=== PATIENT | male | born 1960 | race Caucasian/White ===

== ENCOUNTER → 2016-05-29 | Outpatient (CLI) | payer OTHER ==
--- NOTE | 2016-05-29 17:28 | XR ---
EXAMINATION TYPE: XR foot complete RT DATE OF EXAM: 05/29/2016 5:20 PM COMPARISON: NONE HISTORY: Foot pain TECHNIQUE: 3 views FINDINGS: There is mild spurring and narrowing at the first MP joint. I see no fracture nor dislocati on. Metatarsals are intact. There are no erosions. 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
== END | disposition home or self-care (01) ==
LOC: RADXRMAIN 16:55
PROVIDERS: ATTEND Physician Assistant
DX: M19.071 Primary osteoarthritis, right ankle and foot (principal)

== ENCOUNTER 2016-06-29 17:03 | Observation (INO) | payer OTHER ==
[2016-06-29] MEDS ORDERED: ASPIRIN 81 MG CHEW PO STA (17:24)
--- NOTE | 2016-06-29 17:44 | ED ---
Chest Pain HPI - General Chief Complaint: Chest Pain Stated Complaint: Abn EKG Time Seen by Provider: 06/29/16 17:10 Source: patient, RN notes reviewed Mode of arrival: wheelchair Limitations: no limitations - History of Present Illness Initial Comments: This is a 55-year-old male who was sent over from his doctor's office for evaluation for atypical chest pain. He does state he has had increased blood pressure recently but he's had on-and-off episodes over the past 4 days ago some left arm discomfort. He's had it several times last episode last evening was 8/10 in severity now it's 0 was pressure like in nature no jaw pain no nausea sweats or other symptoms he's never had pain like this before. He is a smoker he denies any lower known heart disease. He was sent from the office he had an EKG done there. MD Complaint: chest pain - Related Data Home Medications Medication Instructions Recorded Confirmed Atenolol [Tenormin] 50 mg PO DAILY 05/25/14 06/29/16 Omeprazole [PriLOSEC] 20 mg PO DAILY 05/25/14 06/29/16 Tamsulosin HCl [Flomax] 0.4 mg PO DAILY 05/25/14 06/29/16 Albuterol Nebulized [Ventolin 2.5 mg INHALATION RT-Q4H PRN 04/13/15 06/29/16 Nebulized] Albuterol Inhaler [Ventolin Hfa 2 puff INHALATION RT-Q6H PRN 06/29/16 06/29/16 Inhaler] Allergies Allergy/AdvReac Type Severity Reaction Status Date / Time Penicillins Allergy Rash/Hives Verified 06/29/16 17:48 bupropion HCl AdvReac Rash/Hives Verified 06/29/16 17:48 [From Wellbutrin] Review of Systems ROS Statement: Those systems with pertinent positive or pertinent negative responses have been documented in the HPI. ROS Other: All systems not noted in ROS Statement are negative. EKG Findings - EKG Results: EKG: interpreted by SKYLA LACY, sinus rhythm, normal axis, normal QRS, normal ST/ T, no acute changes (Sinus rhythm a rate of 66. Interval 168 QRS duration 86 QT /QTC of 384/4 to this does appear to be normal EKG see no acute changes seen with compared to the EKG done the office except for the prominence of the T waves seen in both EKGs.) Past Medical History Past Medical History: COPD, GERD/Reflux, Hyperlipidemia, Hypertension, Prostate Disorder Additional Past Medical History / Comment(s): 04-13-15 ADMITTED FOR C/O SOB. CLINICAL IMPRESSION COPD,BRONCHITIS,HYPOXIA,LEUKOCYTOSIS. BRONCHITS, USING FISH OIL ND DIET TO TX HYPERLIPIDEMIA HAD BEEN TAKING LIPITOR BUT CAUSED HIM FATIGUE SO HE STOPPED TAKING IT.PT THINKS HE HAD C-DIFF AROUND 2013? 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 Smoking Status: Light tobacco smoker Past Alcohol Use History: Occasional Additional Past Alcohol Use History / Comment(s): STRTED SMOKING AGE 16 HAS BEEN TRYING TO QUIT. CURRENTLY SMOKING ONLY FEW CIG PER DAY. HAD TRIED WELLBUTRIN TO HELP HIM QUIT BUT HAD AN ALLERGIC REATION(RASH) SO STOPPED USING Past Drug Use History: None Reported - Past Family History Father History Unknown: Yes Mother Family Medical History: No Reported History Additional Family Medical History / Comment(s): HEALTHY General Exam Limitations: no limitations Course Vital Signs 06/29/16 06/29/16 06/29/16 17:04 17:43 18:13 Temperature 97.1 F L Pulse Rate 70 72 72 Respiratory 18 16 16 Rate Blood Pressure 160/87 140/85 141/74 O2 Sat by Pulse 99 97 98 Oximetry 06/29/16 06/29/16 18:43 19:12 Temperature Pulse Rate 74 75 Respiratory 16 Rate Blood Pressure 139/82 139/82 O2 Sat by Pulse 98 97 Oximetry Chest Pain MDM - MDM I did discuss findings with the patient and family patient will be admitted for evaluation by cardiology for unstable angina. He currently is asymptomatic. Disposition Clinical Impression: Unstable angina pectoris Disposition: ADMITTED IP TO THIS HOSP Condition: Stable
[2016-06-29 17:53] LABS: Basophils # (A) 0.1 k/uL (0-0.2); Basophils % (A) 1 %; CH 31.1; CHCM 33.5; Eosinophils # (A) 0.6 k/uL (0-0.7); Eosinophils % (A) 5 %; HCT 46.9 % (39.0-53.0); Luc # (Auto) 0.18; Luc % (Auto) 2; Lymphocytes # (A) 2.4 k/uL (1.0-4.8); Lymphocytes % (A) 22 %; MCH 31.7 pg (25.0-35.0); MCHC 34.1 g/dL (31.0-37.0); MCV 93.1 fL (80.0-100.0); Monocytes # (A) 0.4 k/uL (0-1.0); Monocytes % (A) 4 %; Neutrophils # (A) 7.2 k/uL (1.3-7.7); Neutrophils % (A) 66 %; RBC 5.03 m/uL (4.30-5.90); RDW 13.7 % (11.5-15.5); WBC 10.9 k/uL (3.8-10.6); WBC (Perox) 10.78
[2016-06-29 17:55] LABS: ALT 46 U/L (21-72); AST 31 U/L (17-59); Alkaline Phosphatase 79 U/L (38-126); Anion Gap 11 mmol/L; Blood Urea Nitrogen 19 mg/dL (9-20); Calcium 9.5 mg/dL (8.4-10.2); Carbon Dioxide 27 mmol/L (22-30); Chloride 100 mmol/L (98-107); Glucose 94 mg/dL (74-99); Magnesium 2.1 mg/dL (1.6-2.3); Non-African American GFR(MDRD) >60 (>60 ml/min/1.73 sqM); Potassium 4.3 mmol/L (3.5-5.1); Sodium 138 mmol/L (137-145); Total Bilirubin 0.7 mg/dL (0.2-1.3); Total Protein 8.1 g/dL (6.3-8.2)
[2016-06-29 18:03] LABS: INR 1.1 (<1.1); Partial Thromboplastin Time 25.7 sec (22.0-30.0); Prothrombin Time 11.2 sec (9.0-12.0)
[2016-06-29 18:05] LABS: Appearance,Urine Clear (Clear); Bilirubin,Urine Negative (Negative); Glucose,Urine (UA) Negative (Negative); Ketones,Urine Negative (Negative); Leukocyte Esterase,Urine Negative (Negative); Nitrite,Urine Negative (Negative); PH, Urine 6.5 (5.0-8.0); Protein,Urine Negative (Negative); Specific Gravity,Urine 1.003 (1.001-1.035); UA Billing (MACRO vs. MICRO) CHEM; Urobilinogen,Urine <2.0 mg/dL (<2.0)
[2016-06-29 18:06] LABS: Creatine Kinase 260 U/L (55-170)
[2016-06-29 18:17] LABS: Troponin I <0.012 ng/mL (0.000-0.034)
--- NOTE | 2016-06-29 18:41 | XR ---
EXAMINATION TYPE: XR chest 2V DATE OF EXAM: 06/29/2016 6:11 PM COMPARISON: 07/04/2015 HISTORY: Chest pain and short of breath TECHNIQUE: Frontal and lateral views of the chest are obtained. FINDINGS: Heart and mediastinum are normal. There is a small linear density in in the right midlung. There are no hilar masses. There is no pleural effusion. There are chest leads. IMPRESSION: Right middle lobe scarring or subsegmental atelectasis. Normal heart. No change. No acut e lung disease.
[2016-06-29] MEDS ORDERED: NITROGLYCERIN SL TABS 0.4 MG TAB SUBLINGUAL PRN (19:55)
[2016-06-29] MEDS ORDERED: HEPARIN SODIUM,PORCINE 5,000 UNIT/ML 1 ML VIAL IV ONE (19:55)
[2016-06-29] MEDS ORDERED: SODIUM CHLORIDE 0.9% 1,000 ML IV SCH (20:00)
[2016-06-29] MEDS ORDERED: NICOTINE 21MG/24HR PATCH TRANSDERM STA (20:00)
[2016-06-29] MEDS ORDERED: HEPARIN SODIUM,PORCINE/D5W PMX 25,000 UNIT in DEXTROSE/WATER 1 500ML.BAG IV SCH (20:00)
[2016-06-29 20:49] VITALS: BMI 28.8
[2016-06-29] MEDS: IPRATROPIUM-ALBUTEROL 3 ML NEB INHALATION SCH (20:57)
[2016-06-29 23:27] LABS: Creatine Kinase 208 U/L (55-170)
[2016-06-29 23:41] LABS: Creatine Kinase MB 0.7 ng/mL (0.0-2.4); Troponin I <0.012 ng/mL (0.000-0.034)
[2016-06-30] MEDS: IPRATROPIUM-ALBUTEROL 3 ML NEB INHALATION SCH ×4 (00:22→11:06)
[2016-06-30] MEDS: NITROGLYCERIN OINT 1 INCH/GM PACKET TOPICAL SCH ×2 (00:33→07:05)
[2016-06-30 04:22] LABS: Cholesterol 206 mg/dL (<200); HDL Cholesterol 40 mg/dL (40-60); Triglycerides 276 mg/dL (<150)
[2016-06-30 04:35] LABS: Creatine Kinase 177 U/L (55-170)
[2016-06-30] MEDS ORDERED: HYDROcodone/APAP 5-325MG 1 EACH TAB PO PRN (04:45)
[2016-06-30 04:49] LABS: Creatine Kinase MB 0.6 ng/mL (0.0-2.4); Troponin I <0.012 ng/mL (0.000-0.034)
[2016-06-30] MEDS ORDERED: PANTOPRAZOLE 40 MG TABLET PO SCH (07:30)
[2016-06-30 08:46] VITALS: RESP 16
[2016-06-30] MEDS ORDERED: TAMSULOSIN 0.4 MG CAP.ER.24H PO SCH (09:00)
[2016-06-30] MEDS ORDERED: ATENOLOL 50 MG TAB PO SCH (09:00)
[2016-06-30] MEDS ORDERED: ASPIRIN 325 MG TAB PO SCH (09:00)
--- NOTE | 2016-06-30 09:54 | CONS ---
DATE OF CONSULTATION: CHIEF COMPLAINT: Chest pain. Kedar is a 55-year-old gentleman with history of hypertension who initially presented to his primary care physician's office with symptoms of not feeling well, vague precordial chest pain with left arm discomfort that was initially mild to moderate intensity. By the time he came to the ER, it was resolved, but when he went to see his primary care physician his blood pressure was elevated due to which he was sent to the ER. Since admission, patient has done well and is free of symptoms. Denies chest pain, difficulty in breathing or palpitations. EKG did not reveal acute ischemic changes and cardiac enzymes have been negative. Past medical history is significant for hypertension, GERD. Medications include Ventolin, Flomax, Prilosec, Tenormin. Allergic to PENICILLIN and WELLBUTRIN. Family history is negative for premature coronary artery disease. Social history is significant for smoking. There is no history of EtOH abuse or drug abuse. REVIEW OF SYSTEMS: HEENT: Unremarkable. CARDIAC: As described above. RESPIRATORY: Negative. GI: Negative. GENITOURINARY: Negative. ALLERGY/IMMUNOLOGICAL: Negative. MUSCULOSKELETAL: Negative. ENDOCRINE: Negative. HEMATOLOGIC: Negative. DERMATOLOGY; Negative. CONSTITUTIONAL: Negative. ONCOLOGICAL: Negative. The rest of the system review is not relevant. On exam, patient is comfortable at rest. Vital signs are stable. There is no jugular venous distention. Carotid upstroke is normal. There is no bruit. Chest is clear to auscultation and percussion. Heart exam reveals first and second heart sounds. No gallop. No murmur, no rub. Abdomen is soft, nontender. Exam of the extremities did not reveal any edema. Peripheral pulses are felt. Labs show a hemoglobin of 16, platelet count is 248. Potassium is 4.3. Creatinine is 0.9. Tropes are negative. ASSESSMENT: 1. Precordial chest pain, atypical, probably noncardiac. 2. Uncontrolled hypertension. PLAN: The patient is doing well. Myocardial infarction is ruled out. I am going to obtain a stress echo on him. If this is abnormal, will consider cardiac catheterization. If not, he will be discharged home and have outpatient followup through my office.
--- NOTE | 2016-06-30 12:41 | ECHOS ---
DATE OF SERVICE: 06/30/2016 AGE: 55Y SEX: M HT: 69 WT: 195 lbs. Protocol Constantino: X Others: Stress Echo Stage: III Dur. of Exercise: 9 minutes *Heart Rate Blood Pressure *Rest: 78 Rest: 145/52 * *Max. Achieved: 138 Maximum BP: 168/45 85% PMHR: 142 100% PMHR: 165 *METS: 10.1 INDICATIONS: Chest pain. MEDICATIONS: Baseline rhythm is sinus mechanism, rate of 78, ( ) axis and intervals, poor R wave progression. Baseline blood pressure 145/52 mmHg. Patient exercised on Constantino protocol for 9 minutes reaching peak rate of 138 beats per minute, which is equal to 82% maximum predicted heart rate; peak blood pressure 168/45 mmHg. Test was terminated secondary to fatigue. There was no chest pain. Electrocardiographic monitoring revealed no evidence of diagnostic ischemic ST deviation. Baseline echocardiogram revealed normal wall motion. At peak exercise, there was normal wall motion augmentation with no hypokinesis or dyskinesis. CONCLUSION: 1. Good exercise tolerance with normal electrocardiograph response to exercise. 2. Normal stress echocardiogram with no evidence of stress-induced ischemia.
[2016-06-30 13:00] VITALS: BP 137/82; PULSE 75; TEMP 97.7
--- NOTE | 2016-06-30 16:16 | P.HPIM ---
History of Present Illness H&P Date: 06/30/16 (DC summary as well) 55-year-old gentleman with history of COPD isolated hypertension comes in to the hospital with intermittent chest pains is been ongoing for the last 2 weeks. Patient stated that he initially noted his blood pressure to be 220/105 then his brought in a blood pressure machine that was not titrated her primary care office however was having erratic blood pressure elevations. Patient went into his primary care's office yesterday from which point he was sent to the emergency room for ongoing care. In the emergency room EKG did not reveal ST-T wave changes. Chest pain that was described was intermittent in nature, or the last 2 weeks not associated with activity, nonradiating in nature pressure-like in description. At the time of my evaluation patient did not have any headaches, blurry vision, nausea, vomiting, chest pain, abdominal pain, urinary urgency or frequency. Patient does have COPD and currently smokes. States he uses albuterol and rarely requires to use it at this time. Patient sees Dr. Puga on outpatient basis Review of Systems All systems: negative (noted in HPI) Past Medical History Past Medical History: COPD, GERD/Reflux, Hyperlipidemia, Hypertension, Prostate Disorder Additional Past Medical History / Comment(s): 04-13-15 ADMITTED FOR C/O SOB. CLINICAL IMPRESSION COPD,BRONCHITIS,HYPOXIA,LEUKOCYTOSIS. BRONCHITS, USING FISH OIL ND DIET TO TX HYPERLIPIDEMIA HAD BEEN TAKING LIPITOR BUT CAUSED HIM FATIGUE SO HE STOPPED TAKING IT.PT THINKS HE HAD C-DIFF AROUND 2013? 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 Smoking Status: Former smoker Past Alcohol Use History: Occasional Additional Past Alcohol Use History / Comment(s): STRTED SMOKING AGE 16 HAS BEEN TRYING TO QUIT. CURRENTLY SMOKING ONLY FEW CIG PER DAY. HAD TRIED WELLBUTRIN TO HELP HIM QUIT BUT HAD AN ALLERGIC REATION(RASH) SO STOPPED USING Past Drug Use History: None Reported - Past Family History Father History Unknown: Yes Mother Family Medical History: No Reported History Additional Family Medical History / Comment(s): HEALTHY Medications and Allergies Home Medications Medication Instructions Recorded Confirmed Type Atenolol [Tenormin] 50 mg PO DAILY 05/25/14 06/29/16 History Omeprazole [PriLOSEC] 20 mg PO DAILY 05/25/14 06/29/16 History Tamsulosin HCl [Flomax] 0.4 mg PO DAILY 05/25/14 06/29/16 History Albuterol Nebulized [Ventolin 2.5 mg INHALATION RT-Q4H PRN 04/13/15 06/29/16 History Nebulized] Albuterol Inhaler [Ventolin Hfa 2 puff INHALATION RT-Q6H PRN 06/29/16 06/29/16 History Inhaler] Allergies Allergy/AdvReac Type Severity Reaction Status Date / Time Penicillins Allergy Rash/Hives Verified 06/29/16 20:40 bupropion HCl AdvReac Rash/Hives Verified 06/29/16 20:40 [From Wellbutrin] Physical Exam Vitals: Vital Signs Temp Pulse Pulse Pulse Resp BP BP 06/30/16 12:00 97.7 F 75 16 137/82 06/30/16 11:17 72 06/30/16 11:08 72 06/30/16 08:00 97.9 F 69 16 123/76 06/30/16 07:46 78 06/30/16 07:40 78 06/30/16 04:15 90 06/30/16 04:06 79 06/30/16 03:51 18 06/30/16 00:33 85 06/30/16 00:23 73 06/30/16 00:00 18 06/29/16 21:08 75 06/29/16 20:59 83 06/29/16 20:57 18 06/29/16 20:30 97.8 F 70 16 06/29/16 20:00 97.6 F 77 18 133/79 BP Pulse Ox 06/30/16 12:00 94 L 06/30/16 11:17 06/30/16 11:08 06/30/16 08:00 94 L 06/30/16 07:46 06/30/16 07:40 06/30/16 04:15 03/31/17 04:06 06/30/16 03:51 06/30/16 00:33 06/30/16 00:23 06/30/16 00:00 06/29/16 21:08 06/29/16 20:59 06/29/16 20:57 06/29/16 20:30 156/85 92 L 06/29/16 20:00 98 Intake and Output 06/30/16 06/30/16 06/30/16 06:59 14:59 22:59 Intake Total 165 900 Balance 165 900 Intake: Intake, IV Titration 165 Amount Heparin Sodium,Porcine/ 165 D5w Pmx 25,000 unit In Dextrose/Water 1 500ml. bag @ 11.31 UNITS/KG/HR 20 mls/hr IV .Q24H FATOU Rx #:[id number] Oral 900 Other: Voiding Method Toilet # Voids 1 Physical exam Gen. appearance oriented 3 in no distress Neck is supple no JVD Lungs good air entry clear to auscultation no rhonchi or wheezing Heart S1-S2 heard regular rate and rhythm no murmurs appreciated Abdomen is soft nontender no organomegaly bowel sounds are intact Neurologically cranial nerves II-12 grossly intact no focal motor or sensory deficits noted Skin no abnormalities appreciated Results CBC & Chem 7: 06/29/16 17:10 06/29/16 17:10 Labs: Abnormal Lab Results - Last 24 Hours (Table) 06/29/16 06/30/16 06/30/16 Range/Units 22:48 03:41 03:41 APTT (22.0-30.0) sec Total Creatine Kinase 208 H 177 H (55-170) U/L Triglycerides 276 H (<150) mg/dL Cholesterol 206 H (<200) mg/dL LDL Cholesterol, Calc 111 H (0-99) mg/dL 06/30/16 Range/Units 03:41 APTT 37.3 H (22.0-30.0) sec Total Creatine Kinase (55-170) U/L Triglycerides (<150) mg/dL Cholesterol (<200) mg/dL LDL Cholesterol, Calc (0-99) mg/dL Thrombosis Risk Factor Assmnt - Choose All That Apply Each Factor Represents 1 point: Age 41-60 years Thrombosis Risk Factor Assessment Total Risk Factor Score: 1 Thrombosis Risk Factor Assessment Level: Low Risk Assessment and Plan Plan: atypical chest pain ACS is ruled out #2 essential hypertension #3 COPD #4 disability. #5 ongoing tobacco use. Plan continue albuterol for COPD which appears to be stable. Stress test is negative. Patient will be discharged home from a perspective that chest pain is noncardiac in etiology. I did recommend the patient continue to maintain a diary of blood pressures. We'll start the patient on amlodipine 5milligrams to add to his atenolol. We'll discharge the patient home to follow up with Dr. Puga within a week. Patient was discharged home in stable condition.
== END 2016-06-30 16:26 | disposition home or self-care (01) ==
LOC: EC 17:03 → 3OBS 19:55
PROVIDERS: ADMIT Family Medicine; ATTEND Family Medicine
DX: R07.89 Other chest pain (principal); I10 Essential (primary) hypertension; J44.9 Chronic obstructive pulmonary disease, unspecified; F17.210 Nicotine dependence, cigarettes, uncomplicated; K21.9 Gastro-esophageal reflux disease without esophagitis; E78.5 Hyperlipidemia, unspecified; N42.9 Disorder of prostate, unspecified; Z79.899 Other long term (current) drug therapy; Z88.0 Allergy status to penicillin; Z88.8 Allergy status to other drugs, medicaments and biological substances; R07.2 Precordial pain
CPT/HCPCS: 96376; 99285; 36415; 94640 ×3; 93005; 93017; 93350; 85379; 80061; 80053; 82550 ×2; 82553 ×2; 83735; 84484 ×2; 85025; 85610; 85730 ×2; 81003; 80306; 71020; G0378 ×2; J1644 ×2; 96365; 96366

== ENCOUNTER 2016-07-07 11:08 | Emergency (ER) | payer OTHER ==
[2016-07-07] MEDS ORDERED: methylPREDNISolone SOD SUCCI 125 MG/2 ML VIAL IV STA (11:29)
[2016-07-07] MEDS ORDERED: IPRATROPIUM-ALBUTEROL 3 ML NEB INHALATION STA (11:29)
--- NOTE | 2016-07-07 11:33 | ED ---
SOB HPI - General Chief Complaint: Shortness of Breath Stated Complaint: diff breathing Time Seen by Provider: 07/07/16 11:21 Source: patient Mode of arrival: ambulatory - History of Present Illness Initial Comments: This 55-year-old white male presents with a complaint of some shortness of breath. He states that he has had it for approximately one week. He's had an increase in his cough but there is no production. He denies any fevers or chest pain. It is worse with minimal exertion. He has been taking his albuterol HFA every 2 hours when away from home. His been taking his nebulizer every 4 hours well at home. He utilizes albuterol and his nebulizer as well. He's states that this has been present ever since he was discharged from the hospital last week after being admitted for high blood pressure. He does have a history of COPD and this feels similar to the COPD. He was unable to see his primary care physician or curing room supervisor today so sent to the ER by his pulmonology office. No other complaints or modifying factors. No leg pain or swelling. - Related Data Home Medications Medication Instructions Recorded Confirmed Atenolol [Tenormin] 50 mg PO HS 05/25/14 07/07/16 Omeprazole [PriLOSEC] 20 mg PO HS 05/25/14 07/07/16 Tamsulosin HCl [Flomax] 0.4 mg PO HS 05/25/14 07/07/16 Albuterol Nebulized [Ventolin 2.5 mg INHALATION RT-Q4H PRN 04/13/15 07/07/16 Nebulized] Albuterol Inhaler [Ventolin Hfa 2 puff INHALATION RT-Q6H PRN 06/29/16 07/07/16 Inhaler] amLODIPine [Norvasc] 5 mg PO HS 07/07/16 07/07/16 Previous Rx's Medication Instructions Recorded Azithromycin [Zithromax Z-pack] 0 mg PO DIRECTED #6 tab 07/07/16 Ipratropium-Albuterol Nebulize 3 ml INHALATION Q4H PRN #2 box 07/07/16 [Duoneb 0.5 mg-3 mg/3 ml Soln] predniSONE 20 mg PO BID #10 tab 07/07/16 Allergies Allergy/AdvReac Type Severity Reaction Status Date / Time Penicillins Allergy Rash/Hives Verified 07/07/16 11:25 bupropion HCl AdvReac Rash/Hives Verified 07/07/16 11:25 [From Wellbutrin] Review of Systems ROS Statement: Those systems with pertinent positive or pertinent negative responses have been documented in the HPI. ROS Other: All systems not noted in ROS Statement are negative. Past Medical History Past Medical History: COPD, GERD/Reflux, Hyperlipidemia, Hypertension, Prostate Disorder Additional Past Medical History / Comment(s): 04-13-15 ADMITTED FOR C/O SOB. CLINICAL IMPRESSION COPD,BRONCHITIS,HYPOXIA,LEUKOCYTOSIS. BRONCHITS, USING FISH OIL ND DIET TO TX HYPERLIPIDEMIA HAD BEEN TAKING LIPITOR BUT CAUSED HIM FATIGUE SO HE STOPPED TAKING IT.PT THINKS HE HAD C-DIFF AROUND 2013? 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 Smoking Status: Former smoker Past Alcohol Use History: None Reported Additional Past Alcohol Use History / Comment(s): STRTED SMOKING AGE 16 HAS BEEN TRYING TO QUIT. CURRENTLY SMOKING ONLY FEW CIG PER DAY. HAD TRIED WELLBUTRIN TO HELP HIM QUIT BUT HAD AN ALLERGIC REATION(RASH) SO STOPPED USING Past Drug Use History: None Reported - Past Family History Father History Unknown: Yes Mother Family Medical History: No Reported History Additional Family Medical History / Comment(s): HEALTHY General Exam - General Exam Comments Initial Comments: GENERAL: The patient is well nourished and well hydrated. VITAL SIGNS: Heart rate, blood pressure, respiratory rate reviewed as recorded in nurse's notes. EYES: Pupils are round and reactive. Extraocular movements are intact. No conjunctival / lid redness or swelling. ENT: No external evidence of injury, swelling, or ecchymosis. Airway is patent. Throat is clear. NECK: Nontender. No swelling or evidence of injury. No subcutaneous emphysema. Trachea is midline. No thyroid mass. HEART: Regular rate and rhythm. Good peripheral pulses. LUNGS/CHEST: There is some mild wheezing noted bilaterally. Pulse ox is 97% on room air. No ecchymosis, subcutaneous emphysema, or tenderness. ABDOMEN: Abdomen soft without tenderness. No palpable masses or organomegaly. No peritoneal signs. No abdominal wall swelling or ecchymosis. EXTREMITIES: No extremity tenderness. Normal muscle tone and function. No thoracolumbar tenderness. NEUROLOGIC: Sensation is grossly intact. Cranial nerve exam reveals face is symmetrical, tongue is midline, speech is clear. SKIN: No abrasions or ecchymosis is noted. No induration or masses noted. PSYCHIATRIC: Alert and oriented. Appropriate behavior and judgment. Course Vital Signs 07/07/16 07/07/16 07/07/16 11:11 12:12 12:29 Temperature 96.7 F L Pulse Rate 81 81 95 Respiratory 20 Rate Blood Pressure 145/77 O2 Sat by Pulse 97 Oximetry Medical Decision Making - Medical Decision Making The patient was seen and examined. All diagnostics are reviewed. He receives 2 DuoNeb breathing treatments. He receives Solu-Medrol IV. The EKG is reviewed and shows a normal sinus rhythm at a rate of 77. There is no acute ST- T wave changes noted. The IL interval is 170, QRS duration is 90, and the QTc interval is 416. The chest x-ray does not show any acute processes and is similar to chest x-ray last week with COPD changes. The laboratory is all essentially within normal limits. This felt as though he does have an acute exacerbation of his COPD. There possibly is some underlying bronchitis and he' ll be covered with some antibiotics. He is feeling markedly improved with DuoNeb breathing treatments and his home albuterol treatments will be changed to DuoNeb instead. He is instructed to have close follow-up with his curing room supervisor and leaves in no identifiable distress. Return parameters are discussed. - Lab Data Result diagrams: 07/07/16 11:44 07/07/16 11:44 Lab Results 07/07/16 07/07/16 Range/Units 11:44 11:44 WBC 9.5 (3.8-10.6) k/uL RBC 4.99 (4.30-5.90) m/uL Hgb 15.4 (13.0-17.5) gm/dL Hct 47.3 (39.0-53.0) % MCV 94.7 (80.0-100.0) fL MCH 30.9 (25.0-35.0) pg MCHC 32.6 (31.0-37.0) g/dL RDW 13.8 (11.5-15.5) % Plt Count 238 (150-450) k/uL Neutrophils % 62 % Lymphocytes % 23 % Monocytes % 4 % Eosinophils % 9 % Basophils % 1 % Neutrophils # 5.9 (1.3-7.7) k/uL Lymphocytes # 2.2 (1.0-4.8) k/uL Monocytes # 0.3 (0-1.0) k/uL Eosinophils # 0.8 H (0-0.7) k/uL Basophils # 0.1 (0-0.2) k/uL Sodium 141 (137-145) mmol/L Potassium 4.2 (3.5-5.1) mmol/L Chloride 104 (98-107) mmol/L Carbon Dioxide 26 (22-30) mmol/L Anion Gap 11 mmol/L BUN 20 (9-20) mg/dL Creatinine 0.82 (0.66-1.25) mg/dL Est GFR (MDRD) Af Amer >60 (>60 ml/min/1.73 sqM) Est GFR (MDRD) Non-Af >60 (>60 ml/min/1.73 sqM) Glucose 138 H (74-99) mg/dL Calcium 9.3 (8.4-10.2) mg/dL Disposition Clinical Impression: Acute exacerbation of chronic obstructive airways disease, Hypertension, Bronchitis Disposition: HOME SELF-CARE Condition: Good Instructions: Acute Bronchitis (ED), COPD (Chronic Obstructive Pulmonary Disease) (ED) Prescriptions: Azithromycin [Zithromax Z-pack] 0 mg PO DIRECTED #6 tab Ipratropium-Albuterol Nebulize [Duoneb 0.5 mg-3 mg/3 ml Soln] 3 ml INHALATION Q4H PRN #2 box PRN Reason: cough, wheezing, or SOB predniSONE 20 mg PO BID #10 tab Referrals: Brenden Puga MD [Primary Care Provider] - 07/17/16 Luis Manuel Yarbrough DO [Doctor of Osteopathic Medicine] - 07/10/16 Time of Disposition: 12:43
[2016-07-07 12:12] LABS: Basophils # (A) 0.1 k/uL (0-0.2); Basophils % (A) 1 %; CH 31.2; CHCM 33.1; Eosinophils # (A) 0.8 k/uL (0-0.7); Eosinophils % (A) 9 %; HCT 47.3 % (39.0-53.0); HDW 2.41; HGB 15.4 gm/dL (13.0-17.5); Luc # (Auto) 0.18; Luc % (Auto) 2; Lymphocytes # (A) 2.2 k/uL (1.0-4.8); Lymphocytes % (A) 23 %; MCH 30.9 pg (25.0-35.0); MCHC 32.6 g/dL (31.0-37.0); MCV 94.7 fL (80.0-100.0); Mean Platelet Volume 7.1; Monocytes # (A) 0.3 k/uL (0-1.0); Monocytes % (A) 4 %; Neutrophils # (A) 5.9 k/uL (1.3-7.7); Neutrophils % (A) 62 %; RBC 4.99 m/uL (4.30-5.90); RDW 13.8 % (11.5-15.5); WBC 9.5 k/uL (3.8-10.6); WBC (Perox) 9.09
--- NOTE | 2016-07-07 12:16 | XR ---
EXAMINATION TYPE: XR chest 2V DATE OF EXAM: 07/07/2016 12:12 PM COMPARISON: Chest x-ray June 29, 2016. HISTORY: History of COPD and hypertension presents with difficulty in breathing. TECHNIQUE: Frontal and lateral views of the chest are obtained. FINDINGS: Underlying emphysematous change is present. There is no new focal air space opacity, pleura l effusion, or pneumothorax seen. There is persistent right middle lobe scarring. The cardiac silhoue tte size is within normal limits. The osseous structures are intact. IMPRESSION: Chronic emphysematous change without acute pulmonary process. No significant change from prior.
[2016-07-07 12:23] LABS: Anion Gap 11 mmol/L; Blood Urea Nitrogen 20 mg/dL (9-20); Calcium 9.3 mg/dL (8.4-10.2); Carbon Dioxide 26 mmol/L (22-30); Chloride 104 mmol/L (98-107); Glucose 138 mg/dL (74-99); Non-African American GFR(MDRD) >60 (>60 ml/min/1.73 sqM); Potassium 4.2 mmol/L (3.5-5.1); Sodium 141 mmol/L (137-145)
[2016-07-07 12:58] VITALS: BP 133/74; PULSE 79; RESP 16; TEMP 97.4
== END 2016-07-07 13:05 | disposition home or self-care (01) ==
LOC: EC 11:08
DX: J44.1 Chronic obstructive pulmonary disease with (acute) exacerbation (principal); J40 Bronchitis, not specified as acute or chronic; I10 Essential (primary) hypertension; K21.9 Gastro-esophageal reflux disease without esophagitis; E78.5 Hyperlipidemia, unspecified; N42.9 Disorder of prostate, unspecified; Z88.8 Allergy status to other drugs, medicaments and biological substances; Z79.899 Other long term (current) drug therapy; Z87.891 Personal history of nicotine dependence; Z88.0 Allergy status to penicillin
CPT/HCPCS: 99285 ×2; 96374 ×2; 36415; 94640; 93005; 80048; 85025; 71020; J2930

== ENCOUNTER 2016-10-15 10:16 | Emergency (ER) | payer OTHER ==
[2016-10-15] MEDS ORDERED: SODIUM CHLORIDE 0.9% 1,000 ML IV ONE (10:54)
--- NOTE | 2016-10-15 11:10 | ED ---
Abdominal Pain HPI - General Chief Complaint: Abdominal Pain Stated Complaint: abd pain Time Seen by Provider: 10/15/16 10:39 Source: patient, RN notes reviewed Mode of arrival: ambulatory Limitations: no limitations - History of Present Illness Initial Comments: Patient is a 56-year-old male presents to the emergency room for evaluation of abdominal pain. Patient states over the past month he has been having increased fullness in his abdomen. Patient states over the past 4 days he's been having increasing pain and fullness. Patient states that he's been having loose stools. Patient denies blood in the stools or dark tarry stools. Patient denies nausea or vomiting. Patient denies chest pain or shortness of breath. Patient denies alcohol use. Patient denies history of abdominal surgeries. Patient denies fevers or chills. Patient denies any significant pain just says he has an uncomfortable fullness sensation. Patient denies pain or burning during urination, trouble urinating or blood in urine. Denies recent changes in diet. - Related Data Home Medications Medication Instructions Recorded Confirmed Atenolol [Tenormin] 50 mg PO HS 05/25/14 10/15/16 Omeprazole [PriLOSEC] 20 mg PO HS 05/25/14 10/15/16 Tamsulosin HCl [Flomax] 0.4 mg PO HS 05/25/14 10/15/16 Albuterol Nebulized [Ventolin 2.5 mg INHALATION RT-Q4H PRN 04/13/15 10/15/16 Nebulized] Albuterol Inhaler [Ventolin Hfa 2 puff INHALATION RT-Q6H PRN 06/29/16 10/15/16 Inhaler] amLODIPine [Norvasc] 5 mg PO HS 07/07/16 10/15/16 Alfuzosin HCl [Alfuzosin HCl ER] 10 mg PO DAILY 10/15/16 10/15/16 Budesonide/Formoterol Fumarate 2 puff INHALATION RT-BID 10/15/16 10/15/16 [Symbicort 160-4.5 Mcg Inhaler] Previous Rx's Medication Instructions Recorded Ipratropium-Albuterol Nebulize 3 ml INHALATION Q4H PRN #2 box 07/07/16 [Duoneb 0.5 mg-3 mg/3 ml Soln] Allergies Allergy/AdvReac Type Severity Reaction Status Date / Time Penicillins Allergy Rash/Hives Verified 10/15/16 11:15 bupropion HCl AdvReac Rash/Hives Verified 10/15/16 11:15 [From Wellbutrin] Review of Systems ROS Statement: Those systems with pertinent positive or pertinent negative responses have been documented in the HPI. ROS Other: All systems not noted in ROS Statement are negative. Past Medical History Past Medical History: COPD, GERD/Reflux, Hyperlipidemia, Hypertension, Prostate Disorder Additional Past Medical History / Comment(s): 04-13-15 ADMITTED FOR C/O SOB. CLINICAL IMPRESSION COPD,BRONCHITIS,HYPOXIA,LEUKOCYTOSIS. BRONCHITS, USING FISH OIL ND DIET TO TX HYPERLIPIDEMIA HAD BEEN TAKING LIPITOR BUT CAUSED HIM FATIGUE SO HE STOPPED TAKING IT.PT THINKS HE HAD C-DIFF AROUND 2013? 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 Limitations: no limitations General appearance: alert, in no apparent distress Head exam: Present: atraumatic, normocephalic, normal inspection Eye exam: Present: normal appearance ENT exam: Present: normal exam Neck exam: Present: normal inspection Respiratory exam: Present: normal lung sounds bilaterally. Absent: respiratory distress Cardiovascular Exam: Present: regular rate, normal rhythm, normal heart sounds GI/Abdominal exam: Present: soft, normal bowel sounds. Absent: distended, tenderness, guarding, rebound, rigid Extremities exam: Present: normal inspection Back exam: Present: normal inspection Neurological exam: Present: alert, oriented X3, CN II-XII intact, normal gait Psychiatric exam: Present: normal affect, normal mood Skin exam: Present: warm, dry, intact, normal color. Absent: rash Course Vital Signs 10/15/16 10/15/16 10:31 13:16 Temperature 97.6 F 98 F Pulse Rate 69 72 Respiratory 16 18 Rate Blood Pressure 139/82 137/70 O2 Sat by Pulse 97 97 Oximetry Medical Decision Making - Medical Decision Making Patient is a 56-year-old male presents emergency room for evaluation of abdominal discomfort. KUB x-ray significant for fecal material in colon. CT abdomen/pelvis shows no significant findings. Patient offered enema and declined. Patient will be sent home with magnesium citrate and advised to follow-up with primary care provider. Patient states he understands everything that was discussed with him. Return parameters discussed. Case discussed with Dr. Carmen. - Lab Data Result diagrams: 10/15/16 11:10 10/15/16 11:10 Lab Results 10/15/16 10/15/16 10/15/16 Range/Units 11:10 11:10 12:05 WBC 11.6 H (3.8-10.6) k/uL RBC 4.85 (4.30-5.90) m/uL Hgb 16.2 (13.0-17.5) gm/dL Hct 45.3 (39.0-53.0) % MCV 93.5 (80.0-100.0) fL MCH 33.5 (25.0-35.0) pg MCHC 35.9 (31.0-37.0) g/dL RDW 13.2 (11.5-15.5) % Plt Count 262 (150-450) k/uL Neutrophils % 65 % Lymphocytes % 23 % Monocytes % 4 % Eosinophils % 7 % Basophils % 0 % Neutrophils # 7.6 (1.3-7.7) k/uL Lymphocytes # 2.7 (1.0-4.8) k/uL Monocytes # 0.4 (0-1.0) k/uL Eosinophils # 0.8 H (0-0.7) k/uL Basophils # 0.1 (0-0.2) k/uL Sodium 141 (137-145) mmol/L Potassium 4.4 (3.5-5.1) mmol/L Chloride 107 (98-107) mmol/L Carbon Dioxide 25 (22-30) mmol/L Anion Gap 9 mmol/L BUN 20 (9-20) mg/dL Creatinine 0.80 (0.66-1.25) mg/dL Est GFR (MDRD) Af Amer >60 (>60 ml/min/1.73 sqM) Est GFR (MDRD) Non-Af >60 (>60 ml/min/1.73 sqM) Glucose 91 (74-99) mg/dL Calcium 9.1 (8.4-10.2) mg/dL Magnesium 2.0 (1.6-2.3) mg/dL Total Bilirubin 0.5 (0.2-1.3) mg/dL AST 29 (17-59) U/L ALT 48 (21-72) U/L Alkaline Phosphatase 64 (38-126) U/L Total Protein 7.2 (6.3-8.2) g/dL Albumin 4.2 (3.5-5.0) g/dL Amylase <30 L (30-110) U/L Lipase 65 (23-300) U/L Urine Color Light Yellow Urine Appearance Clear (Clear) Urine pH 7.0 (5.0-8.0) Ur Specific [place] 1.005 (1.001-1.035) Urine Protein Negative (Negative) Urine Glucose (UA) Negative (Negative) Urine Ketones Negative (Negative) Urine Blood Negative (Negative) Urine Nitrite Negative (Negative) Urine Bilirubin Negative (Negative) Urine Urobilinogen <2.0 (<2.0) mg/dL Ur Leukocyte Esterase Negative (Negative) - Radiology Data Radiology results: report reviewed, image reviewed Disposition Clinical Impression: Abdominal pain, Constipation Disposition: HOME SELF-CARE Condition: Good Instructions: Constipation (ED), High Fiber Diet (ED), Abdominal Pain (ED) Additional Instructions: Take magnesium citrate. Drink plenty of water. High-fiber diet. Please follow up with primary care provider in 1-2 days. If any new symptom arises or symptoms worsen, return to ER as soon as possible. Referrals: Brenden Puga MD [Primary Care Provider] - 1-2 days Time of Disposition: 13:08
[2016-10-15 11:31] LABS: Basophils # (A) 0.1 k/uL (0-0.2); Basophils % (A) 0 %; CHCM 34.4; Eosinophils # (A) 0.8 k/uL (0-0.7); Eosinophils % (A) 7 %; HCT 45.3 % (39.0-53.0); HDW 2.63; HGB 16.2 gm/dL (13.0-17.5); Luc # (Auto) 0.13; Luc % (Auto) 1; Lymphocytes # (A) 2.7 k/uL (1.0-4.8); Lymphocytes % (A) 23 %; MCH 33.5 pg (25.0-35.0); MCHC 35.9 g/dL (31.0-37.0); MCV 93.5 fL (80.0-100.0); Mean Platelet Volume 7.3; Monocytes # (A) 0.4 k/uL (0-1.0); Monocytes % (A) 4 %; Neutrophils # (A) 7.6 k/uL (1.3-7.7); Neutrophils % (A) 65 %; RBC 4.85 m/uL (4.30-5.90); RDW 13.2 % (11.5-15.5); WBC 11.6 k/uL (3.8-10.6); WBC (Perox) 11.12
[2016-10-15 11:39] LABS: Amylase <30 U/L (30-110); Anion Gap 9 mmol/L; Calcium 9.1 mg/dL (8.4-10.2); Carbon Dioxide 25 mmol/L (22-30); Chloride 107 mmol/L (98-107); Glucose 91 mg/dL (74-99); Non-African American GFR(MDRD) >60 (>60 ml/min/1.73 sqM); Sodium 141 mmol/L (137-145); Total Bilirubin 0.5 mg/dL (0.2-1.3)
[2016-10-15 11:40] LABS: ALT 48 U/L (21-72); AST 29 U/L (17-59); Alkaline Phosphatase 64 U/L (38-126); Blood Urea Nitrogen 20 mg/dL (9-20); Potassium 4.4 mmol/L (3.5-5.1)
[2016-10-15 11:47] LABS: Total Protein 7.2 g/dL (6.3-8.2)
--- NOTE | 2016-10-15 11:50 | XR ---
EXAMINATION TYPE: XR KUB DATE OF EXAM: 10/15/2016 11:43 AM CLINICAL HISTORY: Abdominal pain. TECHNIQUE: 2 upright KUB images of the abdomen are obtained. COMPARISON: CT abdomen and pelvis July 17, 2014. FINDINGS: Scattered gas is seen in non-distended small bowel loops. Gas and fecal material is seen in non-distended colon. There is no visceromegaly, pneumoperitoneum, or abnormal calcification apprecia maxwell. There is right basilar linear atelectasis or scarring. Visualized osseous structures are intact. IMPRESSION: Overall nonobstructive bowel gas pattern.
[2016-10-15] MEDS ORDERED: KETOROLAC 30 MG/ML 1 ML VIAL IVP STA (11:53)
[2016-10-15] MEDS ORDERED: RX INFO: IV CONTRAST WAS GIVEN 1 EACH MISC MISCELLANE PRN (12:14)
[2016-10-15 12:21] LABS: Appearance,Urine Clear (Clear); Bilirubin,Urine Negative (Negative); Glucose,Urine (UA) Negative (Negative); Ketones,Urine Negative (Negative); Leukocyte Esterase,Urine Negative (Negative); Nitrite,Urine Negative (Negative); Protein,Urine Negative (Negative); Specific Gravity,Urine 1.005 (1.001-1.035); UA Billing (MACRO vs. MICRO) CHEM; Urobilinogen,Urine <2.0 mg/dL (<2.0)
--- NOTE | 2016-10-15 12:47 | CT ---
EXAMINATION TYPE: CT abdomen pelvis w con DATE OF EXAM: 10/15/2016 COMPARISON: 07/17/2014 HISTORY: Abdominal pain CT DLP: 917.1 mGycm Automated exposure control for dose reduction was used. TECHNIQUE: Helical acquisition of images was performed from the lung bases through the pelvis. CONTRAST: Performed with Oral Contrast and with IV Contrast, patient injected with 100 mL of Omnipaque 300. FINDINGS: There is mild subsegmental atelectasis at the lung bases. There is no pleural effusion. Liver spleen pancreas gallbladder appear normal. Bile ducts are not dilated. There is no adrenal mass. Kidneys filomena w satisfactory contrast opacification. There is no hydronephrosis. There is no retroperitoneal adenop athy. There is no ascites. Bladder distends smoothly. There is no sign of appendicitis. There is no i ntestinal wall thickening. There are no dilated loops. There are spondylotic changes in the lumbar sp ine. There is probably a 3 mm appendicolith. IMPRESSION: NO SIGN OF ACUTE ABDOMEN AND PELVIS. MINIMAL SUBSEGMENTAL ATELECTASIS AT THE LUNG BASES. NO ADVERSE C HANGE COMPARED TO OLD EXAM.
[2016-10-15] MEDS ORDERED: MAGNESIUM CITRATE 296 ML BOTTLE PO ONE (13:08)
[2016-10-15] MEDS ORDERED: DICYCLOMINE 10 MG/ML 2 ML AMP IM STA (13:09)
[2016-10-15 13:23] VITALS: BP 137/70; PULSE 72; RESP 18; TEMP 98
== END 2016-10-15 13:16 | disposition home or self-care (01) ==
LOC: EC 10:16
DX: K59.00 Constipation, unspecified (principal); R10.9 Unspecified abdominal pain; K21.9 Gastro-esophageal reflux disease without esophagitis; J44.9 Chronic obstructive pulmonary disease, unspecified; I10 Essential (primary) hypertension; Z87.891 Personal history of nicotine dependence; Z79.51 Long term (current) use of inhaled steroids; Z79.899 Other long term (current) drug therapy; Z88.0 Allergy status to penicillin; Z88.8 Allergy status to other drugs, medicaments and biological substances
CPT/HCPCS: 36415; 80053; 82150; 83690; 83735; 85025; 81003; 74000; 74177; 99284; 96374; 96361; 96372; J0500; J1885; Q9967

== ENCOUNTER 2017-02-03 14:28 | Inpatient (IN) | payer OTHER ==
[2017-02-03] MEDS ORDERED: RX INFO: IV CONTRAST WAS GIVEN 1 EACH MISC MISCELLANE PRN (15:12)
--- NOTE | 2017-02-03 15:20 | ED ---
General Adult HPI - General Chief complaint: Abdominal Pain Stated complaint: Abd Pain Time Seen by Provider: 02/03/17 14:35 Source: patient, RN notes reviewed Mode of arrival: ambulatory Limitations: no limitations - History of Present Illness Initial comments: This is a 56-year-old male who presents emergency Department complaining of right upper and right CVA tenderness per patient states the pain started 4 days ago and has been ongoing ever since. Patient states she has been able to eat and does not appear to make it any worse. Patient states she was in the emergency department couple days ago and since that time the pain has been constant without relief. Patient denies any nausea or vomiting. Patient denies any diarrhea per patient denies any fever chills. Patient denies any chest pain difficulty breathing or pain with deep breathing. She states if he presses on his abdomen right upper quadrant is tender to palpation. Patient states he had an ultrasound of the day it didn't find anything. - Related Data Home Medications Medication Instructions Recorded Confirmed Atenolol [Tenormin] 50 mg PO DAILY 05/25/14 02/03/17 Omeprazole [PriLOSEC] 20 mg PO DAILY 05/25/14 02/03/17 Albuterol Inhaler [Ventolin Hfa 2 puff INHALATION RT-Q6H PRN 06/29/16 02/03/17 Inhaler] amLODIPine [Norvasc] 5 mg PO DAILY 07/07/16 02/03/17 Budesonide/Formoterol Fumarate 2 puff INHALATION RT-BID 10/15/16 02/03/17 [Symbicort 160-4.5 Mcg Inhaler] Ezetimibe [Zetia] 10 mg PO DAILY 02/01/17 02/03/17 Previous Rx's Medication Instructions Recorded Docusate [Colace] 100 mg PO BID #10 capsule 02/02/17 Polyethylene Glycol 3350 [Miralax] 17 gm PO TID PRN #10 packet 02/02/17 Sucralfate [Carafate] 1 gm PO BID #10 tablet 02/02/17 Allergies Allergy/AdvReac Type Severity Reaction Status Date / Time bupropion HCl Allergy Rash/Hives Verified 02/03/17 15:00 [From Wellbutrin] Penicillins Allergy Rash/Hives Verified 02/03/17 15:00 Review of Systems ROS Statement: Those systems with pertinent positive or pertinent negative responses have been documented in the HPI. ROS Other: All systems not noted in ROS Statement are negative. Past Medical History Past Medical History: COPD, GERD/Reflux, Hyperlipidemia, Hypertension, Prostate Disorder Additional Past Medical History / Comment(s): 04-13-15 ADMITTED FOR C/O SOB. CLINICAL IMPRESSION COPD,BRONCHITIS,HYPOXIA,LEUKOCYTOSIS. BRONCHITS, USING FISH OIL ND DIET TO TX HYPERLIPIDEMIA HAD BEEN TAKING LIPITOR BUT CAUSED HIM FATIGUE SO HE STOPPED TAKING IT.PT THINKS HE HAD C-DIFF AROUND 2013? 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 Patient is nontoxic and well- hydrated and is in moderate distress. ENT: Neck is soft and supple. No significant lymphadenopathy is noted. Oropharynx is clear. Moist mucous membranes. Neck has full range of motion without eliciting any pain. EYES: The sclera were anicteric and conjunctiva were pink and moist. Extraocular movements were intact and pupils were equal round and reactive to light. Eyelids were unremarkable. PULMONARY: Unlabored respirations. Good breath sounds bilaterally. No audible rales rhonchi or wheezing was noted. CARDIOVASCULAR: There is a regular rate and rhythm without any murmurs gallops or rubs. ABDOMEN: Patient has tenderness in the right upper quadrant right flank and right CVA area. No rebound or guarding noted SKIN: Skin is clear with no lesions or rashes and otherwise unremarkable. NEUROLOGIC: Patient is alert and oriented x3. Cranial nerves II through XII are grossly intact. Motor and sensory are also intact. Normal speech, volume and content. Symmetrical smile. MUSCULOSKELETAL: Normal extremities with adequate strength and full range of motion. No lower extremity swelling or edema. No calf tenderness. LYMPHATICS: No significant lymphadenopathy is noted PSYCHIATRIC: Normal psychiatric evaluation. Normal interpersonal interactions appears functionally intact in deals appropriately with others. No signs of depression. No signs of anxiety. Limitations: no limitations Course Vital Signs 02/03/17 02/03/17 02/03/17 14:32 16:09 17:02 Temperature 97.9 F Pulse Rate 71 73 73 Respiratory 20 18 16 Rate Blood Pressure 127/77 137/78 129/72 O2 Sat by Pulse 98 98 94 L Oximetry Medical Decision Making - Medical Decision Making CAT scan showed inflammation around the pancreas even though the pancreatic enzymes were elevated I spoke with the sound physician and admitted the patient. - Lab Data Result diagrams: 02/03/17 15:23 02/03/17 15:23 Lab Results 02/03/17 02/03/17 02/03/17 Range/Units 15:23 15:23 16:07 WBC 13.6 H (3.8-10.6) k/uL RBC 4.90 (4.30-5.90) m/uL Hgb 15.2 (13.0-17.5) gm/dL Hct 47.1 (39.0-53.0) % MCV 96.0 (80.0-100.0) fL MCH 31.0 (25.0-35.0) pg MCHC 32.3 (31.0-37.0) g/dL RDW 13.1 (11.5-15.5) % Plt Count 248 (150-450) k/uL Neutrophils % 75 % Lymphocytes % 15 % Monocytes % 4 % Eosinophils % 5 % Basophils % 1 % Neutrophils # 10.2 H (1.3-7.7) k/uL Lymphocytes # 2.0 (1.0-4.8) k/uL Monocytes # 0.6 (0-1.0) k/uL Eosinophils # 0.7 (0-0.7) k/uL Basophils # 0.1 (0-0.2) k/uL Sodium 139 (137-145) mmol/L Potassium 4.2 (3.5-5.1) mmol/L Chloride 105 (98-107) mmol/L Carbon Dioxide 24 (22-30) mmol/L Anion Gap 10 mmol/L BUN 19 (9-20) mg/dL Creatinine 0.86 (0.66-1.25) mg/dL Est GFR (MDRD) Af Amer >60 (>60 ml/min/1.73 sqM) Est GFR (MDRD) Non-Af >60 (>60 ml/min/1.73 sqM) Glucose 148 H (74-99) mg/dL Calcium 9.0 (8.4-10.2) mg/dL Total Bilirubin 0.3 (0.2-1.3) mg/dL AST 20 (17-59) U/L ALT 35 (21-72) U/L Alkaline Phosphatase 80 (38-126) U/L Total Protein 7.2 (6.3-8.2) g/dL Albumin 4.0 (3.5-5.0) g/dL Amylase <30 L (30-110) U/L Lipase 145 (23-300) U/L Urine Color Yellow Urine Appearance Clear (Clear) Urine pH 5.5 (5.0-8.0) Ur Specific [place] 1.023 (1.001-1.035) Urine Protein Trace H (Negative) Urine Glucose (UA) Negative (Negative) Urine Ketones Negative (Negative) Urine Blood Negative (Negative) Urine Nitrite Negative (Negative) Urine Bilirubin Negative (Negative) Urine Urobilinogen <2.0 (<2.0) mg/dL Ur Leukocyte Esterase Negative (Negative) Disposition Clinical Impression: Abdominal pain Disposition: ADMITTED IP TO THIS [facility] Referrals: Keiko Robert MD [Primary Care Provider] - 1-2 days Time of Disposition: 17:35
[2017-02-03 15:44] LABS: ALT 35 U/L (21-72); AST 20 U/L (17-59); Alkaline Phosphatase 80 U/L (38-126); Amylase <30 U/L (30-110); Anion Gap 10 mmol/L; Blood Urea Nitrogen 19 mg/dL (9-20); Carbon Dioxide 24 mmol/L (22-30); Chloride 105 mmol/L (98-107); Glucose 148 mg/dL (74-99); Non-African American GFR(MDRD) >60 (>60 ml/min/1.73 sqM); Potassium 4.2 mmol/L (3.5-5.1); Sodium 139 mmol/L (137-145); Total Bilirubin 0.3 mg/dL (0.2-1.3); Total Protein 7.2 g/dL (6.3-8.2)
[2017-02-03 15:51] LABS: Basophils # (A) 0.1 k/uL (0-0.2); Basophils % (A) 1 %; CH 31.2; CHCM 32.6; Eosinophils # (A) 0.7 k/uL (0-0.7); Eosinophils % (A) 5 %; HCT 47.1 % (39.0-53.0); HDW 2.49; HGB 15.2 gm/dL (13.0-17.5); Luc # (Auto) 0.11; Luc % (Auto) 1; Lymphocytes % (A) 15 %; MCHC 32.3 g/dL (31.0-37.0); Mean Platelet Volume 7.3; Monocytes # (A) 0.6 k/uL (0-1.0); Monocytes % (A) 4 %; Neutrophils # (A) 10.2 k/uL (1.3-7.7); Neutrophils % (A) 75 %; RDW 13.1 % (11.5-15.5); WBC 13.6 k/uL (3.8-10.6); WBC (Perox) 12.57
[2017-02-03] MEDS ORDERED: ONDANSETRON 4 MG/2 ML VIAL IVP STA (16:01)
[2017-02-03] MEDS ORDERED: HYDROmorphone 1 MG/ML 1 ML SYRINGE IVP STA (16:01)
--- NOTE | 2017-02-03 16:15 | CT ---
EXAMINATION TYPE: CT abdomen pelvis w con DATE OF EXAM: 02/03/2017 COMPARISON: 10/15/2016 HISTORY: Abdominal pain radiating to back. CT DLP: 909.60 mGycm Automated exposure control for dose reduction was used. TECHNIQUE: Helical acquisition of images was performed from the lung bases through the pelvis. CONTRAST: Performed without Oral Contrast and with IV Contrast, patient injected with 100 mL of Omnipaque 300. FINDINGS: Lung bases are clear of consolidation. There is no pleural effusion. Liver shows no focal defect. [place] e ducts are not dilated. Gallbladder appears normal. There is minimal fat stranding around the uncina te process of the pancreas.. Spleen appears normal. There is no adrenal mass. Kidneys show satisfactory contrast opacification. There is no hydronephrosi s. There is no retroperitoneal adenopathy. There is no ascites. Bladder distends smoothly. There is n o sign of a pelvic mass. There is spurring in the lumbar spine. There is narrowing at L5-S1 disc spac e. I see no intestinal wall thickening. There are no dilated loops. IMPRESSION: MINIMAL FAT STRANDING AROUND THE UNCINATE PROCESS OF THE PANCREAS CONSISTENT WITH FOCAL PANCREATITIS. THIS APPEARS NEW COMPARED TO LAST EXAM.
[2017-02-03 16:18] LABS: Appearance,Urine Clear (Clear); Bilirubin,Urine Negative (Negative); Glucose,Urine (UA) Negative (Negative); Ketones,Urine Negative (Negative); Leukocyte Esterase,Urine Negative (Negative); Nitrite,Urine Negative (Negative); PH, Urine 5.5 (5.0-8.0); Protein,Urine Trace (Negative); Specific Gravity,Urine 1.023 (1.001-1.035); UA Billing (MACRO vs. MICRO) CHEM; Urobilinogen,Urine <2.0 mg/dL (<2.0)
[2017-02-03] MEDS ORDERED: SODIUM CHLORIDE 0.9% 1,000 ML IV ONE (17:35)
[2017-02-03] MEDS ORDERED: ONDANSETRON 4 MG/2 ML VIAL IVP PRN (17:37)
--- NOTE | 2017-02-03 18:07 | P.HPIM ---
History of Present Illness H&P Date: 02/03/17 Chief Complaint: Abdominal pain 56-year-old male with past medical history significant for hypertension and COPD presented to emergency department for the second time because of 4 days history of severe abdominal pain. The pain started in the epigastric area, felt like a ball and then it radiated to the right side right below the rib cage all the way to the mid back. The pain felt like a sharp, stabbing pain and at some point it felt like a dull pain. It is intermittent, alleviated by leaning forward, no aggravating factors. No fevers or chills. No nausea or vomiting. Food does not seem to affect the pain's severity. He denied any diarrhea but admitted to having chronic constipation. He also has chronic acid reflux and when he does not take the PPI for more than 2 days he experiences burning behind his chest which is different from the pain he is experiencing currently. Patient had white patches on his tongue over the past 4 months and he was thought to have mouth thrush. He was given multiple courses of medications to try to treat it but he is not sure about the names. He only remembers taking fluconazole and some sort of swish and swallow solution. When he came into the emergency department the first time he had an ultrasound of the abdomen and that was essentially negative. He just had a computed tomography scan of the abdomen and that showed possible pancreatitis and because of that he'll be admitted to the hospital for further evaluation and management. Review of Systems 12 point review of system was performed, negative except for what is stated in HPI Past Medical History Past Medical History: COPD, GERD/Reflux, Hyperlipidemia, Hypertension, Prostate Disorder Additional Past Medical History / Comment(s): 04-13-15 ADMITTED FOR C/O SOB. CLINICAL IMPRESSION COPD,BRONCHITIS,HYPOXIA,LEUKOCYTOSIS. BRONCHITS, USING FISH OIL ND DIET TO TX HYPERLIPIDEMIA HAD BEEN TAKING LIPITOR BUT CAUSED HIM FATIGUE SO HE STOPPED TAKING IT.PT THINKS HE HAD C-DIFF AROUND 2013? 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 (benign) Past Anesthesia/Blood Transfusion Reactions: No Reported Reaction Past Psychological History: No Psychological Hx Reported Smoking Status: Current every day smoker Past Alcohol Use History: Occasional Past Drug Use History: None Reported - Past Family History Father History Unknown: Yes Mother Family Medical History: No Reported History Additional Family Medical History / Comment(s): HEALTHY Medications and Allergies Home Medications Medication Instructions Recorded Confirmed Type Atenolol [Tenormin] 50 mg PO DAILY 05/25/14 02/03/17 History Omeprazole [PriLOSEC] 20 mg PO DAILY 05/25/14 02/03/17 History Albuterol Inhaler [Ventolin Hfa 2 puff INHALATION RT-Q6H PRN 06/29/16 02/03/17 History Inhaler] amLODIPine [Norvasc] 5 mg PO DAILY 07/07/16 02/03/17 History Budesonide/Formoterol Fumarate 2 puff INHALATION RT-BID 10/15/16 02/03/17 History [Symbicort 160-4.5 Mcg Inhaler] Ezetimibe [Zetia] 10 mg PO DAILY 02/01/17 02/03/17 History Docusate [Colace] 100 mg PO BID #10 capsule 02/02/17 02/03/17 Rx Polyethylene Glycol 3350 [Miralax] 17 gm PO TID PRN #10 packet 02/02/17 Rx Sucralfate [Carafate] 1 gm PO BID #10 tablet 02/02/17 02/03/17 Rx Allergies Allergy/AdvReac Type Severity Reaction Status Date / Time bupropion HCl Allergy Rash/Hives Verified 02/03/17 15:00 [From Wellbutrin] Penicillins Allergy Rash/Hives Verified 02/03/17 15:00 Physical Exam Vitals: Vital Signs Temp Pulse Resp BP Pulse Ox 02/03/17 17:02 73 16 129/72 94 L 02/03/17 16:09 73 18 137/78 98 02/03/17 14:32 97.9 F 71 20 127/77 98 Intake and Output 02/03/17 02/03/17 02/03/17 06:59 14:59 22:59 Other: Weight 88.451 kg Patient Weight 02/04/17 05:59 Weight 88.451 kg Constitutional: No acute distress, conversant, pleasant Eyes:Anicteric sclerae, moist conjunctiva, no lid-lag, PERRLA, ENMT: Oropharynx clear, no erythema, exudates Neck: Supple, FROM, no masses, or JVD, No carotid bruits, No thyromegaly Lungs: Clear to auscultation, Clear to percussion, Normal respiratory effort, no accessory muscle use Cardiovascular: Heart regular in rate and rhythm, No murmurs, gallops, or rubs, No peripheral edema Abdominal: Soft, tender in the right upper quadrant, no guarding, rebound or rigidity, Normoactive bowel sounds, No hepatomegaly, No splenomegaly, No palpable mass Skin: Normal temperature, tone, texture, turgor, no induration, No subcutaneous nodules, No rash, lesions, No ulcers Extremities: No digital cyanosis, No clubbing, Pedal pulses intact and symmetrical, Radial pulses intact and symmetrical, No calf tenderness Psychiatric: Alert and oriented to person, place and time, appropriate affect, intact judgement Neuro: Muscles Strength 5/5 in all 4 extremities, Sensation to light touch grossly present throughout, Cranial nerves II-XII grossly intact, no focal sensory deficits Results CBC & Chem 7: 02/03/17 15:23 02/03/17 15:23 Labs: Abnormal Lab Results - Last 24 Hours (Table) 02/03/17 02/03/17 02/03/17 Range/Units 15:23 15:23 16:07 WBC 13.6 H (3.8-10.6) k/uL Neutrophils # 10.2 H (1.3-7.7) k/uL Glucose 148 H (74-99) mg/dL Amylase <30 L (30-110) U/L Urine Protein Trace H (Negative) Assessment and Plan Plan: #1 Acute pancreatitis: Likely secondary to medications that he was taking for thrush treatment His to bring the medicines list in the a.m. Labs, Computed tomography scan reviewed Serial labs Nothing by mouth IV fluids Pain control with Dilaudid IV #2 COPD, benign hypertension, hyperlipidemia All stable Continue all medications #3 White tongue Unclear etiology Follow-up with ENT as an outpatient #4 DVT prophylaxis Ambulatory Not indicated
[2017-02-03] MEDS: HYDROmorphone 1 MG/ML 1 ML SYRINGE IV PRN (19:11)
[2017-02-03] MEDS: SODIUM CHLORIDE 0.9% 1,000 ML IV SCH (20:28)
[2017-02-03] MEDS: SYMBICORT 160-4.5 MCG INHALER INHALATION SCH (20:31)
[2017-02-03] MEDS: HYDROmorphone 1 MG/ML 1 ML SYRINGE IVP PRN (22:35)
[2017-02-04] MEDS: HYDROmorphone 1 MG/ML 1 ML SYRINGE IV PRN ×8 (01:38→22:33)
[2017-02-04] MEDS: SODIUM CHLORIDE 0.9% 1,000 ML IV SCH ×2 (03:50→13:09)
[2017-02-04] MEDS: SYMBICORT 160-4.5 MCG INHALER INHALATION SCH ×2 (08:02→20:53)
[2017-02-04] MEDS: ALBUTEROL NEBULIZED 2.5 MG/3 ML INHALATION PRN ×2 (08:02→20:53)
[2017-02-04] MEDS: ATENOLOL 50 MG TAB PO SCH (08:23)
[2017-02-04] MEDS: EZETIMIBE 10 MG TAB PO SCH (08:23)
[2017-02-04] MEDS: amLODIPine 5 MG TAB PO SCH (08:23)
[2017-02-04 08:56] LABS: Basophils # (A) 0.1 k/uL (0-0.2); Basophils % (A) 1 %; CH 31.3; CHCM 32.3; Eosinophils # (A) 0.4 k/uL (0-0.7); Eosinophils % (A) 3 %; HCT 47.3 % (39.0-53.0); HDW 2.49; HGB 14.9 gm/dL (13.0-17.5); Luc % (Auto) 1; Lymphocytes # (A) 2.3 k/uL (1.0-4.8); Lymphocytes % (A) 18 %; MCH 30.6 pg (25.0-35.0); MCHC 31.4 g/dL (31.0-37.0); MCV 97.4 fL (80.0-100.0); Mean Platelet Volume 6.7; Monocytes # (A) 0.5 k/uL (0-1.0); Monocytes % (A) 4 %; Neutrophils # (A) 9.5 k/uL (1.3-7.7); Neutrophils % (A) 74 %; RBC 4.86 m/uL (4.30-5.90); RDW 13.2 % (11.5-15.5); WBC 12.9 k/uL (3.8-10.6); WBC (Perox) 12.23
[2017-02-04 09:09] LABS: ALT 33 U/L (21-72); AST 23 U/L (17-59); Alkaline Phosphatase 85 U/L (38-126); Anion Gap 9 mmol/L; Blood Urea Nitrogen 18 mg/dL (9-20); Calcium 8.8 mg/dL (8.4-10.2); Carbon Dioxide 25 mmol/L (22-30); Chloride 103 mmol/L (98-107); Glucose 92 mg/dL (74-99); Non-African American GFR(MDRD) >60 (>60 ml/min/1.73 sqM); Potassium 4.5 mmol/L (3.5-5.1); Sodium 137 mmol/L (137-145); Total Bilirubin 0.5 mg/dL (0.2-1.3); Total Protein 6.7 g/dL (6.3-8.2)
--- NOTE | 2017-02-04 10:23 | P.PN ---
Subjective Progress Note Date: 02/04/17 Principal diagnosis: Acute pancreatitis Still having significant pain especially located in the right upper abdominal area below the ribs. It radiates to the back as well. He feels hungry and wanting to eat. No fevers or chills. No chest pain or shortness of breath. Objective - Vital Signs Vital signs: Vital Signs Temp 97.3 F L 02/04/17 07:00 Pulse 76 02/04/17 08:15 Resp 20 02/04/17 07:00 BP 126/71 02/04/17 07:00 Pulse Ox 93 L 02/04/17 07:00 Intake & Output 02/03/17 02/04/17 02/04/17 19:59 06:59 18:59 Weight Other: # Voids - Exam Constitutional: No acute distress, conversant, pleasant Eyes:Anicteric sclerae, moist conjunctiva, no lid-lag, PERRLA, ENMT: Oropharynx clear, no erythema, exudates Neck: Supple, FROM, no masses, or JVD, No carotid bruits, No thyromegaly Lungs: Clear to auscultation, Clear to percussion, Normal respiratory effort, no accessory muscle use Cardiovascular: Heart regular in rate and rhythm, No murmurs, gallops, or rubs, No peripheral edema Abdominal: Soft, tender in the right upper quadrant and epigastric areas, no guarding, rebound or rigidity, Normoactive bowel sounds, No hepatomegaly, No splenomegaly, No palpable mass Skin: Normal temperature, tone, texture, turgor, no induration, No subcutaneous nodules, No rash, lesions, No ulcers Extremities: No digital cyanosis, No clubbing, Pedal pulses intact and symmetrical, Radial pulses intact and symmetrical, No calf tenderness Psychiatric: Alert and oriented to person, place and time, appropriate affect, intact judgement Neuro: Muscles Strength 5/5 in all 4 extremities, Sensation to light touch grossly present throughout, Cranial nerves II-XII grossly intact, no focal sensory deficits - Labs CBC & Chem 7: 02/04/17 08:12 02/04/17 08:12 Labs: Abnormal Lab Results - Last 24 Hours (Table) 02/03/17 02/03/17 02/03/17 Range/Units 15:23 15:23 16:07 WBC 13.6 H (3.8-10.6) k/uL Neutrophils # 10.2 H (1.3-7.7) k/uL Glucose 148 H (74-99) mg/dL Amylase <30 L (30-110) U/L Urine Protein Trace H (Negative) 02/04/17 Range/Units 08:12 WBC 12.9 H (3.8-10.6) k/uL Neutrophils # 9.5 H (1.3-7.7) k/uL Glucose (74-99) mg/dL Amylase (30-110) U/L Urine Protein (Negative) Assessment and Plan Plan: #1 Acute pancreatitis: Improved Likely secondary to itraconazole Start clear liquid diet IV fluids Pain control with Dilaudid IV #2 Leukocytosis: Likely secondary to #1 Follow-up WBC in the morning #2 COPD, benign hypertension, hyperlipidemia All stable Continue all medications #3 White tongue Unclear etiology Follow-up with ENT as an outpatient #4 DVT prophylaxis Ambulatory Not indicated
[2017-02-04] MEDS: PANTOPRAZOLE 40 MG TABLET PO SCH (13:08)
[2017-02-05] MEDS: SODIUM CHLORIDE 0.9% 1,000 ML IV SCH ×2 (00:27→09:15)
[2017-02-05] MEDS: HYDROmorphone 1 MG/ML 1 ML SYRINGE IV PRN ×3 (01:34→07:58)
[2017-02-05] MEDS: ALBUTEROL NEBULIZED 2.5 MG/3 ML INHALATION PRN (07:17)
[2017-02-05] MEDS: SYMBICORT 160-4.5 MCG INHALER INHALATION SCH (07:17)
[2017-02-05 07:19] LABS: Basophils # (A) 0.1 k/uL (0-0.2); Basophils % (A) 1 %; CH 30.5; CHCM 31.9; Eosinophils # (A) 0.6 k/uL (0-0.7); Eosinophils % (A) 5 %; HCT 45.9 % (39.0-53.0); HDW 2.37; HGB 14.8 gm/dL (13.0-17.5); Luc # (Auto) 0.14; Luc % (Auto) 1; Lymphocytes # (A) 2.4 k/uL (1.0-4.8); Lymphocytes % (A) 23 %; MCH 30.9 pg (25.0-35.0); MCHC 32.1 g/dL (31.0-37.0); Mean Platelet Volume 7.4; Monocytes # (A) 0.5 k/uL (0-1.0); Monocytes % (A) 4 %; Neutrophils # (A) 7.1 k/uL (1.3-7.7); Neutrophils % (A) 66 %; RBC 4.78 m/uL (4.30-5.90); RDW 14.2 % (11.5-15.5); WBC 10.7 k/uL (3.8-10.6); WBC (Perox) 10.71
[2017-02-05 07:45] VITALS: BP 132/79; PULSE 65; RESP 18; TEMP 96.1
[2017-02-05] MEDS: EZETIMIBE 10 MG TAB PO SCH (07:57)
[2017-02-05] MEDS: PANTOPRAZOLE 40 MG TABLET PO SCH (07:57)
[2017-02-05] MEDS: amLODIPine 5 MG TAB PO SCH (07:57)
[2017-02-05] MEDS: ATENOLOL 50 MG TAB PO SCH (07:57)
[2017-02-05] MEDS: HYDROmorphone 1 MG/ML 1 ML SYRINGE IVP PRN (11:09)
--- NOTE | 2017-02-05 14:58 | P.DS ---
Providers Date of admission: 02/03/17 17:35 Attending physician: Dale Blank MD Primary care physician: Keiko Robert MD Hospital Course: 56-year-old male with past medical history significant for hypertension and COPD presented to emergency department for the second time because of 4 days history of severe abdominal pain. The pain started in the epigastric area, felt like a ''ball'' grabbing onto the epigastric area and then it radiated to the right side right below the rib cage all the way to the mid back. The pain felt like a sharp, stabbing pain and at some point it felt like a dull pain. It is intermittent, alleviated by leaning forward, no aggravating factors. No fevers or chills. No nausea or vomiting. Food does not seem to affect the pain 's severity. He denied any diarrhea but admitted to having chronic constipation. He also has chronic acid reflux and when he does not take the PPI for more than 2 days he experiences burning behind his chest which is different from the pain he is experiencing currently. Patient had white patches on his tongue over the past 4 months and he was thought to have mouth thrush. He was given multiple courses of medications to try to treat it but he is not sure about the names. He only remembers taking itraconazole and some sort of swish and swallow solution. When he came into the emergency department the first time he had an ultrasound of the abdomen and that was essentially negative. This second time he had a CT scan of the abdomen and that showed possible pancreatitis and because of that he was admitted to the hospital for further evaluation and management. Amylase and lipase were both within normal limits. He did have a slight leukocytosis of 13,000. The acute pancreatitis was thought to be secondary to treatment with itraconazole as all imaging did not reveal any gallstones and patient is not an alcoholic. He was started on IV fluids. Pain was controlled with IV Dilaudid. He was kept nothing by mouth initially and then diet was gradually advanced from clears to regular food. He tolerated the transition well. The pain gradually got better with treatment. The patient will be discharged home in stable condition. He was instructed to follow with his primary care physician as soon as possible after discharge. Plan - Discharge Summary New Discharge Prescriptions: Continue Omeprazole [PriLOSEC] 20 mg PO DAILY Atenolol [Tenormin] 50 mg PO DAILY Albuterol Inhaler [Ventolin Hfa Inhaler] 2 puff INHALATION RT-Q6H PRN PRN Reason: Dyspnea amLODIPine [Norvasc] 5 mg PO DAILY Budesonide/Formoterol Fumarate [Symbicort 160-4.5 Mcg Inhaler] 2 puff INHALATION RT-BID Ezetimibe [Zetia] 10 mg PO DAILY Docusate [Colace] 100 mg PO BID #10 capsule Polyethylene Glycol 3350 [Miralax] 17 gm PO TID PRN #10 packet PRN Reason: Constipation Sucralfate [Carafate] 1 gm PO BID #10 tablet Discharge Medication List Atenolol [Tenormin] 50 mg PO DAILY 05/25/14 [History] Omeprazole [PriLOSEC] 20 mg PO DAILY 05/25/14 [History] Albuterol Inhaler [Ventolin Hfa Inhaler] 2 puff INHALATION RT-Q6H PRN 06/29/16 [ History] amLODIPine [Norvasc] 5 mg PO DAILY 07/07/16 [History] Budesonide/Formoterol Fumarate [Symbicort 160-4.5 Mcg Inhaler] 2 puff INHALATION RT-BID 10/15/16 [History] Ezetimibe [Zetia] 10 mg PO DAILY 02/01/17 [History] Docusate [Colace] 100 mg PO BID #10 capsule 02/02/17 [Rx] Polyethylene Glycol 3350 [Miralax] 17 gm PO TID PRN #10 packet 02/02/17 [Rx] Sucralfate [Carafate] 1 gm PO BID #10 tablet 02/02/17 [Rx] Follow up Appointment(s)/Referral(s): Keiko Robert MD [Primary Care Provider] - 1-2 days Activity/Diet/Wound Care/Special Instructions: Resume regular activity/diet Discharge Disposition: HOME SELF-CARE
== END 2017-02-05 15:21 | disposition home or self-care (01) | DRG 440 ==
LOC: EC 14:28 → 4MS4W 17:35
PROVIDERS: ADMIT Internal Medicine; ATTEND Internal Medicine
DX: K85.30 Drug induced acute pancreatitis without necrosis or infection (principal); I10 Essential (primary) hypertension; J44.9 Chronic obstructive pulmonary disease, unspecified; E78.5 Hyperlipidemia, unspecified; Z79.51 Long term (current) use of inhaled steroids; K21.9 Gastro-esophageal reflux disease without esophagitis; K59.09 Other constipation; F17.200 Nicotine dependence, unspecified, uncomplicated; Z79.899 Other long term (current) drug therapy
CPT/HCPCS: 36415; 74177; 80053; 81003; 82150; 83690; 85025; 94640; 96374; 96375; 99285

== ENCOUNTER → 2017-07-03 | Outpatient (CLI) | payer OTHER ==
--- NOTE | 2017-07-03 19:53 | MR ---
EXAMINATION TYPE: MR brain wo con DATE OF EXAM: 07/03/2017 COMPARISON: 06/21/2012 HISTORY: Headaches, Previous MRI on PACS TECHNIQUE: Multiplanar, multisequence images of the brain and brainstem is performed without and with IV contras t, utilizing mL intravenous . FINDINGS: There are similar size and number of the scattered foci of T2/FLAIR hyperintensity with 3 f oci noted within the left temporal lobe, 2 punctate foci within the right temporal lobe, and numerous foci within the subcortical and periventricular white matter of the frontal lobes and parietal lobes bilaterally. The largest most confluent area within the left frontal lobe measures 1.9 cm in anterio r posterior dimension on T2 axial fat sat and FLAIR axial fat-sat image 20. Mild periventricular nons pecific white matter changes also seen. No infratentorial lesions are identified. Brainstem appears u naffected. Optic nerves are unremarkable. There is a tiny cavum septum lucidum, normal variant. Diffusion weighted images demonstrate no eviden ce of a recent infarct or other diffusion abnormality. There is no extra-axial fluid collection. The ventricular system and cisternal spaces are normal in size and appearance. The brain volume is age appropriate. Midline structures demonstrate normal morphology. The craniocervical junction appears within normal limits. The globes are symmetric. Moderate mucosal thickening is noted within the ethmoid sinuses and scant within the frontal sinuses as well as the sphenoid sinuses. Polypoid mucosal thickening is not ed of the left maxillary sinus with scant mucosal thickening of the right maxillary sinus. Mastoid ai r cells are well aerated. Major intracranial flow voids are maintained. IMPRESSION: 1. Overall stable size and number of the at least moderate burden nonspecific white matter change in comparison to the exam of 2012. Again considerations are for sequela of microangiopathy, vasculitis, and demyelinating disease. 2. Mild to moderate pansinusitis.
== END | disposition home or self-care (01) ==
LOC: RADMRIMAIN 15:38
PROVIDERS: ATTEND Family Medicine
DX: R90.82 White matter disease, unspecified (principal); H53.9 Unspecified visual disturbance
CPT/HCPCS: 70551

== ENCOUNTER 2017-07-04 12:50 | Emergency (ER) | payer OTHER ==
[2017-07-04 12:57] VITALS: RESP 16
[2017-07-04] MEDS ORDERED: KETOROLAC 30 MG/ML 1 ML VIAL IVP STA (13:17)
[2017-07-04] MEDS ORDERED: diphenhydrAMINE 50 MG/ML 1 ML VIAL IVP STA (13:17)
[2017-07-04] MEDS ORDERED: SODIUM CHLORIDE 0.9% 1,000 ML IV ONE (13:17)
[2017-07-04] MEDS ORDERED: BUTALB/APAP/CAFF 50-325-40MG TAB PO STA (13:17)
[2017-07-04 14:00] LABS: Basophils # (A) 0.1 k/uL (0-0.2); Basophils % (A) 1 %; Eosinophils # (A) 0.6 k/uL (0-0.7); Eosinophils % (A) 5 %; HCT 46.6 % (39.0-53.0); Lymphocytes # (A) 2.7 k/uL (1.0-4.8); Lymphocytes % (A) 22 %; MCH 31.8 pg (25.0-35.0); MCHC 34.3 g/dL (31.0-37.0); MCV 92.9 fL (80.0-100.0); Monocytes # (A) 0.4 k/uL (0-1.0); Monocytes % (A) 4 %; Neutrophils % (A) 68 %; Platelet Count 261 k/uL (150-450); RBC 5.01 m/uL (4.30-5.90); RDW 13.2 % (11.5-15.5); WBC 11.8 k/uL (3.8-10.6)
--- NOTE | 2017-07-04 14:04 | ED ---
Headache HPI - General Chief Complaint: Headache Stated Complaint: Headache Time Seen by Provider: 07/04/17 13:02 Source: patient, RN notes reviewed Mode of arrival: ambulatory Limitations: no limitations - History of Present Illness Initial Comments: 56-year-old male presents emergency Department chief complaint of ongoing headaches. Patient states his headaches on worsen or last month or so. 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 Patient states he feels pressure in the front of his face. He states he gets slightly dizzy at time denies any chest pain, shortness breath, fever or chills. Patient has mild congestion. He does admit to some nausea but no vomiting. Denies any focal weakness or confusion. - Related Data Home Medications Medication Instructions Recorded Confirmed Atenolol [Tenormin] 50 mg PO DAILY 05/25/14 07/04/17 Omeprazole [PriLOSEC] 20 mg PO DAILY 05/25/14 07/04/17 Albuterol Inhaler [Ventolin Hfa 2 puff INHALATION RT-Q6H PRN 06/29/16 07/04/17 Inhaler] Budesonide/Formoterol Fumarate 2 puff INHALATION RT-BID 10/15/16 07/04/17 [Symbicort 160-4.5 Mcg Inhaler] Ezetimibe [Zetia] 10 mg PO DAILY 02/01/17 07/04/17 Losartan Potassium 100 mg PO DAILY 07/04/17 07/04/17 Previous Rx's Medication Instructions Recorded Butalb/APAP/Caff 50-325-40Mg 1 tab PO Q4H PRN #14 tablet 07/04/17 [Fioricet 50-325-40] Sulfamethox-Tmp 800-160Mg [Bactrim 1 each PO Q12HR #20 tab 07/04/17 Ds] Allergies Allergy/AdvReac Type Severity Reaction Status Date / Time bupropion HCl Allergy Rash/Hives Verified 07/04/17 13:43 [From Wellbutrin] Penicillins Allergy Rash/Hives Verified 07/04/17 13:43 Review of Systems ROS Statement: Those systems with pertinent positive or pertinent negative responses have been documented in the HPI. ROS Other: All systems not noted in ROS Statement are negative. Past Medical History Past Medical History: COPD, GERD/Reflux, Hyperlipidemia, Hypertension, Prostate Disorder Additional Past Medical History / Comment(s): 04-13-15 ADMITTED FOR C/O SOB. CLINICAL IMPRESSION COPD,BRONCHITIS,HYPOXIA,LEUKOCYTOSIS. BRONCHITS, USING FISH OIL ND DIET TO TX HYPERLIPIDEMIA HAD BEEN TAKING LIPITOR BUT CAUSED HIM FATIGUE SO HE STOPPED TAKING IT.PT THINKS HE HAD C-DIFF AROUND 2013? 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), 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 (benign) Past Anesthesia/Blood Transfusion Reactions: No Reported Reaction Past Psychological History: No Psychological Hx Reported Smoking Status: Current every day smoker Past Alcohol Use History: Occasional Past Drug Use History: None Reported - Past Family History Father History Unknown: Yes Mother Family Medical History: No Reported History Additional Family Medical History / Comment(s): HEALTHY General Exam Limitations: no limitations General appearance: alert, in no apparent distress Head exam: Present: atraumatic, normocephalic, normal inspection Eye exam: Present: normal appearance, PERRL, EOMI. Absent: scleral icterus, conjunctival injection, periorbital swelling ENT exam: Present: normal exam, normal oropharynx, mucous membranes moist, TM's normal bilaterally, normal external ear exam Neck exam: Present: normal inspection, full ROM. Absent: tenderness, meningismus, lymphadenopathy Respiratory exam: Present: normal lung sounds bilaterally. Absent: respiratory distress, wheezes, rales, rhonchi, stridor Cardiovascular Exam: Present: regular rate, normal rhythm, normal heart sounds. Absent: systolic murmur, diastolic murmur, rubs, gallop, clicks Extremities exam: Present: normal inspection, full ROM, normal capillary refill. Absent: tenderness, pedal edema, joint swelling, calf tenderness Neurological exam: Present: alert, oriented X3, CN II-XII intact, reflexes normal, other (finger to nose intact bilateralyl without over shooting). Absent : motor sensory deficit Skin exam: Present: warm, dry, intact, normal color. Absent: rash Course Vital Signs 07/04/17 12:55 Temperature 98.3 F Pulse Rate 77 Respiratory 16 Rate Blood Pressure 144/80 O2 Sat by Pulse 99 Oximetry - Reevaluation(s) Reevaluation #1: 07/04/17 14:21 Patient was reevaluated his time states he does feel improved. Medical Decision Making - Medical Decision Making 56-year-old male presented from for headaches which have been ongoing worsen last couple days. Patient had an MRI yesterday which shows some sinusitis but otherwise no acute changes from prior MRI. Patient has a normal neuro exam. Patient will be discharged with antibiotics and fierce that. Patient has an appointment with Dr. Perkins coming up. Return parameters were discussed. - Lab Data Result diagrams: 07/04/17 13:41 07/04/17 13:41 Lab Results 07/04/17 07/04/17 Range/Units 13:41 13:41 WBC 11.8 H (3.8-10.6) k/uL RBC 5.01 (4.30-5.90) m/uL Hgb 16.0 (13.0-17.5) gm/dL Hct 46.6 (39.0-53.0) % MCV 92.9 (80.0-100.0) fL MCH 31.8 (25.0-35.0) pg MCHC 34.3 (31.0-37.0) g/dL RDW 13.2 (11.5-15.5) % Plt Count 261 (150-450) k/uL Neutrophils % 68 % Lymphocytes % 22 % Monocytes % 4 % Eosinophils % 5 % Basophils % 1 % Neutrophils # 8.0 H (1.3-7.7) k/uL Lymphocytes # 2.7 (1.0-4.8) k/uL Monocytes # 0.4 (0-1.0) k/uL Eosinophils # 0.6 (0-0.7) k/uL Basophils # 0.1 (0-0.2) k/uL Sodium 144 (137-145) mmol/L Potassium 3.8 (3.5-5.1) mmol/L Chloride 103 (98-107) mmol/L Carbon Dioxide 26 (22-30) mmol/L Anion Gap 15 mmol/L BUN 26 H (9-20) mg/dL Creatinine 1.10 (0.66-1.25) mg/dL Est GFR (CKD-EPI)AfAm 88 (>60 ml/min/1.73 sqM) Est GFR (CKD-EPI)NonAf 76 (>60 ml/min/1.73 sqM) Glucose 125 H (74-99) mg/dL Calcium 9.7 (8.4-10.2) mg/dL Total Bilirubin 0.5 (0.2-1.3) mg/dL AST 29 (17-59) U/L ALT 44 (21-72) U/L Alkaline Phosphatase 71 (38-126) U/L Total Protein 7.2 (6.3-8.2) g/dL Albumin 4.2 (3.5-5.0) g/dL Disposition Clinical Impression: Frequent headaches, Sinusitis Disposition: HOME SELF-CARE Condition: Stable Instructions: Acute Headache (ED), Sinusitis (ED) Additional Instructions: Please return to the Emergency Department if symptoms worsen or any other concerns. Prescriptions: Butalb/APAP/Caff 50-325-40Mg [Fioricet 50-325-40] 1 tab PO Q4H PRN #14 tablet PRN Reason: Headache Sulfamethox-Tmp 800-160Mg [Bactrim Ds] 1 each PO Q12HR #20 tab Referrals: Keiko Robert MD [Primary Care Provider] - 1-2 days Time of Disposition: 14:23
[2017-07-04 14:07] LABS: Albumin 4.2 g/dL (3.5-5.0); Calcium 9.7 mg/dL (8.4-10.2); Potassium 3.8 mmol/L (3.5-5.1); Total Bilirubin 0.5 mg/dL (0.2-1.3); Total Protein 7.2 g/dL (6.3-8.2)
[2017-07-04 14:34] VITALS: BP 139/83; PULSE 53; TEMP 97.4
== END 2017-07-04 14:34 | disposition home or self-care (01) ==
LOC: EC 12:50
DX: J32.9 Chronic sinusitis, unspecified (principal); J44.9 Chronic obstructive pulmonary disease, unspecified; K21.9 Gastro-esophageal reflux disease without esophagitis; E78.5 Hyperlipidemia, unspecified; I10 Essential (primary) hypertension; F17.200 Nicotine dependence, unspecified, uncomplicated; Z79.51 Long term (current) use of inhaled steroids; Z79.899 Other long term (current) drug therapy; Z88.8 Allergy status to other drugs, medicaments and biological substances; Z88.0 Allergy status to penicillin
CPT/HCPCS: 36415; 80053; 85025; 99284; 96374; 96375; 96361; J1200; J1885

== ENCOUNTER 2017-10-20 16:21 | Emergency (ER) | payer OTHER ==
[2017-10-20 16:26] VITALS: RESP 18; TEMP 98.3
[2017-10-20] MEDS ORDERED: ASPIRIN 81 MG PO STA (16:44)
--- NOTE | 2017-10-20 16:44 | ED ---
General Adult HPI - General Chief complaint: Chest Pain Stated complaint: Palpitations,HTN Time Seen by Provider: 10/20/17 16:36 Source: patient Mode of arrival: ambulatory Limitations: no limitations - History of Present Illness Initial comments: Kedar Awan is a 57yo male iwth no known cardiac disease who presents to the ED for evaluation of 2 days of palpitations. Patient reports that yesterday he noticed that he felt like his heart was skipping beats, he could not identify any exacerbating or relieving factors to this sensation. It was not associated with chest pain or pressure, nausea, vomiting, shortness of breath, diaphoresis or lightheadedness. With that he was able to sleep well throughout the night, when he woke this morning he wasn't experiencing palpitations. He then went to breakfast with his and afterwards did began experiencing palpitations again. Patient does admit he is under significant emotional stress. His [id number] whom he has a close relationship with is currently admitted to this hospital and hospice has been consult as they do not expect her to live. Patient is a smoker with a history of hypertension and hyperlipidemia. No family history of heart disease. He has no history of PEs or DVTs in the past. He's never been evaluated by cardiology and has no known cardiac disease. - Related Data Home Medications Medication Instructions Recorded Confirmed Atenolol [Tenormin] 50 mg PO DAILY 05/25/14 10/20/17 Omeprazole [PriLOSEC] 20 mg PO DAILY 05/25/14 10/20/17 Albuterol Inhaler [Ventolin Hfa 2 puff INHALATION RT-Q6H PRN 06/29/16 10/20/17 Inhaler] Budesonide/Formoterol Fumarate 2 puff INHALATION RT-BID 10/15/16 10/20/17 [Symbicort 160-4.5 Mcg Inhaler] Ezetimibe [Zetia] 10 mg PO DAILY 02/01/17 10/20/17 Losartan Potassium 100 mg PO DAILY 07/04/17 10/20/17 Aspirin EC [Ecotrin Low Dose] 81 mg PO DAILY 10/20/17 10/20/17 Allergies Allergy/AdvReac Type Severity Reaction Status Date / Time bupropion HCl Allergy Rash/Hives Verified 10/20/17 17:15 [From Wellbutrin] Penicillins Allergy Rash/Hives Verified 10/20/17 17:15 Review of Systems ROS Statement: Those systems with pertinent positive or pertinent negative responses have been documented in the HPI. ROS Other: All systems not noted in ROS Statement are negative. 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), 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 (benign) Past Anesthesia/Blood Transfusion Reactions: No Reported Reaction Past Psychological History: No Psychological Hx Reported Smoking Status: Current every day smoker Past Alcohol Use History: Occasional Past Drug Use History: None Reported - Past Family History Father History Unknown: Yes Mother Family Medical History: No Reported History Additional Family Medical History / Comment(s): HEALTHY General Exam Limitations: no limitations Course Vital Signs 10/20/17 10/20/17 10/20/17 16:24 17:45 18:00 Temperature 98.3 F Pulse Rate 78 67 Respiratory 18 18 18 Rate Blood Pressure 175/97 149/88 O2 Sat by Pulse 97 99 Oximetry 10/20/17 18:11 Temperature 98.3 F Pulse Rate 67 Respiratory 18 Rate Blood Pressure 158/89 O2 Sat by Pulse 99 Oximetry EKG Findings - EKG Comments: EKG Findings:: EKG at 1652, rate is 65, rhythm is sinus was noted to be premature supraventricular complexes, there is a normal axis, there are normal intervals, MI is 158, QRS is 88, QTC is 49, there are no acute ST elevations or depressions is no evidence of acute ischemia or infarction. There is no evidence of arrhythmia. Medical Decision Making - Medical Decision Making Patient is a 57-year-old male no cardiac history who presents with increasing palpitations since yesterday. Patient has no history of cardiac disease or arrhythmia. Cannot experiencing any chest pain, chest pressure, chest discomfort, shortness of breath, diaphoresis or lightheadedness with these symptoms. States that he simply is aware that his heart is beating abnormally and that this has progressively worsened over this weekend. Patient does have a history of hypertension and hyperlipidemia and tobacco abuse EKG was reviewed, no evidence of acute ischemia or infarction Labs were reviewed, d-dimer and troponin are negative. No significant abnormalities were noted. Patient remained to rest comfortably throughout the ER visit Heart score - 3 (Risk factors, age) I discussed with the patient options for observation with cardiac evaluation versus discharge home. Considering the patient is not having any chest pain, pressure, shortness breath, diaphoresis or lightheadedness, he has no history of cardiac disease. He does admit that he is in a heightened emotional state at this time as his [id number] has been in the hospital and today, hospice was consulted as they do feel it is the end of her life. At this time I feel that it would be more emotionally traumatizing the patient to admit him to the hospital and prevent him from spending his uxoboh-mu-jad's last moments with her. Patient agrees with this. At this time the patient will be discharged home to be with his family. Patient was advised that should he develop any chest pain shortness of breath, diaphoresis, lightheadedness increasing palpitations or any new or concerning symptoms he should return to the emergency department for reevaluation. Patient is in agreement with this. Patient will be in the hospital with his [id number] for the remainder of the night. All questions pertaining to care were answered best my ability patient was discharged home. - Lab Data Result diagrams: 10/20/17 17:09 10/20/17 17:09 Lab Results 10/20/17 10/20/17 10/20/17 Range/Units 17:09 17:09 17:09 WBC 10.6 (3.8-10.6) k/uL RBC 4.92 (4.30-5.90) m/uL Hgb 15.7 (13.0-17.5) gm/dL Hct 46.1 (39.0-53.0) % MCV 93.7 (80.0-100.0) fL MCH 31.8 (25.0-35.0) pg MCHC 34.0 (31.0-37.0) g/dL RDW 12.8 (11.5-15.5) % Plt Count 249 (150-450) k/uL Neutrophils % 64 % Lymphocytes % 23 % Monocytes % 5 % Eosinophils % 6 % Basophils % 0 % Neutrophils # 6.8 (1.3-7.7) k/uL Lymphocytes # 2.5 (1.0-4.8) k/uL Monocytes # 0.5 (0-1.0) k/uL Eosinophils # 0.7 (0-0.7) k/uL Basophils # 0.0 (0-0.2) k/uL PT (9.0-12.0) sec INR (<1.2) APTT (22.0-30.0) sec D-Dimer (<0.60) mg/L FEU Sodium 140 (137-145) mmol/L Potassium 3.7 (3.5-5.1) mmol/L Chloride 105 (98-107) mmol/L Carbon Dioxide 26 (22-30) mmol/L Anion Gap 9 mmol/L BUN 17 (9-20) mg/dL Creatinine 0.90 (0.66-1.25) mg/dL Est GFR (CKD-EPI)AfAm >90 (>60 ml/min/1.73 sqM) Est GFR (CKD-EPI)NonAf >90 (>60 ml/min/1.73 sqM) Glucose 93 (74-99) mg/dL Calcium 9.1 (8.4-10.2) mg/dL Magnesium 1.8 (1.6-2.3) mg/dL Total Bilirubin 0.3 (0.2-1.3) mg/dL AST 29 (17-59) U/L ALT 47 (21-72) U/L Alkaline Phosphatase 73 (38-126) U/L Total Creatine Kinase 206 H (55-170) U/L CK-MB (CK-2) 0.6 (0.0-2.4) ng/mL CK-MB (CK-2) Rel Index 0.3 Troponin I <0.012 (0.000-0.034) ng/mL Total Protein 6.9 (6.3-8.2) g/dL Albumin 4.2 (3.5-5.0) g/dL 10/20/17 Range/Units 17:09 WBC (3.8-10.6) k/uL RBC (4.30-5.90) m/uL Hgb (13.0-17.5) gm/dL Hct (39.0-53.0) % MCV (80.0-100.0) fL MCH (25.0-35.0) pg MCHC (31.0-37.0) g/dL RDW (11.5-15.5) % Plt Count (150-450) k/uL Neutrophils % % Lymphocytes % % Monocytes % % Eosinophils % % Basophils % % Neutrophils # (1.3-7.7) k/uL Lymphocytes # (1.0-4.8) k/uL Monocytes # (0-1.0) k/uL Eosinophils # (0-0.7) k/uL Basophils # (0-0.2) k/uL PT 9.9 (9.0-12.0) sec INR 1.0 (<1.2) APTT 24.2 (22.0-30.0) sec D-Dimer 0.28 (<0.60) mg/L FEU Sodium (137-145) mmol/L Potassium (3.5-5.1) mmol/L Chloride (98-107) mmol/L Carbon Dioxide (22-30) mmol/L Anion Gap mmol/L BUN (9-20) mg/dL Creatinine (0.66-1.25) mg/dL Est GFR (CKD-EPI)AfAm (>60 ml/min/1.73 sqM) Est GFR (CKD-EPI)NonAf (>60 ml/min/1.73 sqM) Glucose (74-99) mg/dL Calcium (8.4-10.2) mg/dL Magnesium (1.6-2.3) mg/dL Total Bilirubin (0.2-1.3) mg/dL AST (17-59) U/L ALT (21-72) U/L Alkaline Phosphatase (38-126) U/L Total Creatine Kinase (55-170) U/L CK-MB (CK-2) (0.0-2.4) ng/mL CK-MB (CK-2) Rel Index Troponin I (0.000-0.034) ng/mL Total Protein (6.3-8.2) g/dL Albumin (3.5-5.0) g/dL Disposition Clinical Impression: Heart palpitations Disposition: HOME SELF-CARE Condition: Good Instructions: Palpitations (ED) Is patient prescribed a controlled substance at d/c from ED?: No Referrals: Keiko Robert MD [Primary Care Provider] - 1-2 days Time of Disposition: 17:57
[2017-10-20 17:19] LABS: Basophils % (A) 0 %; Eosinophils # (A) 0.7 k/uL (0-0.7); Eosinophils % (A) 6 %; HCT 46.1 % (39.0-53.0); HGB 15.7 gm/dL (13.0-17.5); Lymphocytes # (A) 2.5 k/uL (1.0-4.8); Lymphocytes % (A) 23 %; MCH 31.8 pg (25.0-35.0); MCV 93.7 fL (80.0-100.0); Mean Platelet Volume 7.6; Monocytes # (A) 0.5 k/uL (0-1.0); Monocytes % (A) 5 %; Neutrophils # (A) 6.8 k/uL (1.3-7.7); Neutrophils % (A) 64 %; Platelet Count 249 k/uL (150-450); RBC 4.92 m/uL (4.30-5.90); RDW 12.8 % (11.5-15.5); WBC 10.6 k/uL (3.8-10.6)
[2017-10-20 17:31] LABS: ALT 47 U/L (21-72); AST 29 U/L (17-59); Albumin 4.2 g/dL (3.5-5.0); Alkaline Phosphatase 73 U/L (38-126); Anion Gap 9 mmol/L; Blood Urea Nitrogen 17 mg/dL (9-20); Calcium 9.1 mg/dL (8.4-10.2); Carbon Dioxide 26 mmol/L (22-30); Chloride 105 mmol/L (98-107); Glucose 93 mg/dL (74-99); Magnesium 1.8 mg/dL (1.6-2.3); Potassium 3.7 mmol/L (3.5-5.1); Sodium 140 mmol/L (137-145); Total Bilirubin 0.3 mg/dL (0.2-1.3); Total Protein 6.9 g/dL (6.3-8.2)
[2017-10-20 17:36] LABS: Creatine Kinase 206 U/L (55-170)
--- NOTE | 2017-10-20 17:41 | XR ---
EXAMINATION TYPE: XR chest 2V DATE OF EXAM: 10/20/2017 COMPARISON: Prior chest x-ray dated 07/07/2016. HISTORY: Chest pain TECHNIQUE: Frontal and lateral views of the chest are obtained. FINDINGS: After inflation of the interstitial pulmonary markings in both lung ramírez as compared to t he prior study. Cannot S2 early decompensation changes or interstitial edema. Multiple monitor leads are superimposing the patient chest. No pneumothorax or significant effusions. Aorta remains tortuous . IMPRESSION: Accentuation of the interstitial markings as compared to the prior study. Possibility of progression and increased interstitial lung disease or development of interstitial edema considering the differen tial diagnosis as compared to prior exam. No pneumothorax or significant effusions.
[2017-10-20 17:43] LABS: D-Dimer 0.28 mg/L FEU (<0.60); Partial Thromboplastin Time 24.2 sec (22.0-30.0); Prothrombin Time 9.9 sec (9.0-12.0)
[2017-10-20 17:48] LABS: Creatine Kinase MB 0.6 ng/mL (0.0-2.4); Troponin I <0.012 ng/mL (0.000-0.034)
[2017-10-20 18:03] VITALS: PULSE 67
[2017-10-20 18:13] VITALS: BP 158/89
== END 2017-10-20 18:11 | disposition home or self-care (01) ==
LOC: EC 16:21
DX: R00.2 Palpitations (principal); I10 Essential (primary) hypertension; J44.9 Chronic obstructive pulmonary disease, unspecified; K21.9 Gastro-esophageal reflux disease without esophagitis; E78.5 Hyperlipidemia, unspecified; F17.200 Nicotine dependence, unspecified, uncomplicated; Z79.51 Long term (current) use of inhaled steroids; Z79.82 Long term (current) use of aspirin; Z79.899 Other long term (current) drug therapy; Z88.0 Allergy status to penicillin; Z88.8 Allergy status to other drugs, medicaments and biological substances
CPT/HCPCS: 36415; 71046; 80053; 82550; 82553; 83735; 84484; 85025; 85379; 85610; 85730; 93005; 99285

== ENCOUNTER → 2018-04-27 | Outpatient (CLI) | payer OTHER | LOC: LABWHC1 09:50 | PROVIDERS: ATTEND Urology | DX: R68.82 Decreased libido (principal) | CPT/HCPCS: 36415; 84402; 84403 ==

== ENCOUNTER 2018-07-21 18:07 | Emergency (ER) | payer OTHER ==
[2018-07-21 18:12] VITALS: RESP 18; TEMP 98.3
[2018-07-21] MEDS ORDERED: guaiFENesin-DM 600/30MG 1 EACH TAB.ER.12H PO STA (18:20)
[2018-07-21] MEDS ORDERED: methylPREDNISolone SOD SUCCI 125 MG/2 ML VIAL IV STA (18:20)
[2018-07-21] MEDS ORDERED: IPRATROPIUM 0.5 MG/2.5 ML NEBU INHALATION STA (18:20)
[2018-07-21] MEDS ORDERED: ALBUTEROL NEBULIZED 2.5 MG/3 ML INHALATION STA (18:20)
--- NOTE | 2018-07-21 18:34 | ED ---
SOB HPI - General Chief Complaint: Shortness of Breath Stated Complaint: KERA Time Seen by Provider: 07/21/18 18:13 Source: patient Mode of arrival: ambulatory Limitations: no limitations - History of Present Illness Initial Comments: 58-year-old male patient presents to the emergency department today for evaluation of increased shortness of breath and cough. Patient states he was sick with upper respiratory symptoms over the last week and a half. Patient states he started to feel better than on began having increased wheezing and shortness of breath. Patient does have a history of COPD and believes he is having an exacerbation. Patient states he is coughing up green to yellow sputum. He denies any fevers or chills. States he is having some right rib pain due to coughing so much. Patient states he has been doing home breathing treatments, he did 2 breathing treatments today. States he does not feel they are working. He denies any leg or calf swelling. Denies any redness or tenderness to the calves. Denies any recent travel. Patient does admit to smoking cigarettes currently. Patient denies any recent rash, abdominal pain, nausea, vomiting, diarrhea, constipation, back pain, numbness, tingling, dizziness, weakness, hematuria, dysuria, urinary urgency, urinary frequency, headache, visual changes, or any other complaints. - Related Data Home Medications Medication Instructions Recorded Confirmed Atenolol [Tenormin] 50 mg PO DAILY 05/25/14 07/21/18 Omeprazole [PriLOSEC] 20 mg PO DAILY 05/25/14 07/21/18 Albuterol Inhaler [Ventolin Hfa 2 puff INHALATION RT-Q6H PRN 06/29/16 07/21/18 Inhaler] Budesonide/Formoterol Fumarate 2 puff INHALATION RT-BID 10/15/16 07/21/18 [Symbicort 160-4.5 Mcg Inhaler] Ezetimibe [Zetia] 10 mg PO DAILY 02/01/17 07/21/18 Losartan Potassium 100 mg PO DAILY 07/04/17 07/21/18 Aspirin EC [Ecotrin Low Dose] 81 mg PO DAILY 10/20/17 07/21/18 Hydrochlorothiazide 25 mg PO DAILY 07/21/18 07/21/18 Previous Rx's Medication Instructions Recorded guaiFENesin-DM 600/30MG [Mucinex 1 each PO Q12HR #10 tab.er.12h 07/21/18 Dm] predniSONE 50 mg PO DAILY #5 tablet 07/21/18 Allergies Allergy/AdvReac Type Severity Reaction Status Date / Time bupropion HCl Allergy Rash/Hives Verified 07/21/18 18:52 [From Wellbutrin] Penicillins Allergy Rash/Hives Verified 07/21/18 18:52 Review of Systems ROS Statement: Those systems with pertinent positive or pertinent negative responses have been documented in the HPI. ROS Other: All systems not noted in ROS Statement are negative. Past Medical History Past Medical History: COPD, GERD/Reflux, Hyperlipidemia, Hypertension, Prostate Disorder Additional Past Medical History / Comment(s): LEUKOCYTOSIS, History of Any Multi-Drug Resistant Organisms: None Reported Past Surgical History: Orthopedic Surgery, Tonsillectomy Additional Past Surgical History / Comment(s): CARYL HAND SX, LT ARM orif has A PLATE, METAL CHIPS REMOVED FROM EYES(WORKS A [employer]), 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(benign) Past Anesthesia/Blood Transfusion Reactions: No Reported Reaction Past Psychological History: No Psychological Hx Reported Smoking Status: Current every day smoker Past Alcohol Use History: Occasional Past Drug Use History: None Reported - Past Family History Father History Unknown: Yes Mother Family Medical History: No Reported History Additional Family Medical History / Comment(s): HEALTHY General Exam Limitations: no limitations General appearance: alert, in no apparent distress, other (Physical well- developed, well-nourished adult male patient in no acute distress. Vital signs upon presentation are temperature 98.3F, pulse 76, respirations 18, blood pressure 164/81, pulse ox 94% on room air.) Eye exam: Present: normal appearance, PERRL, EOMI. Absent: scleral icterus, conjunctival injection, periorbital swelling ENT exam: Present: normal exam, normal oropharynx, mucous membranes moist Respiratory exam: Present: wheezes (Course expiratory wheezing in the posterior lung ramírez). Absent: normal lung sounds bilaterally, respiratory distress, rales, rhonchi, stridor, accessory muscle use Cardiovascular Exam: Present: regular rate, normal rhythm, normal heart sounds. Absent: systolic murmur, diastolic murmur, rubs, gallop, clicks GI/Abdominal exam: Present: soft, normal bowel sounds. Absent: distended, tenderness, guarding, rebound, rigid Neurological exam: Present: alert, oriented X3, CN II-XII intact Psychiatric exam: Present: normal affect, normal mood Skin exam: Present: warm, dry, intact, normal color. Absent: rash Course Vital Signs 07/21/18 07/21/18 07/21/18 18:09 18:39 18:59 Temperature 98.3 F Pulse Rate 76 68 80 Respiratory 18 Rate Blood Pressure 164/81 O2 Sat by Pulse 94 L Oximetry 07/21/18 19:22 Temperature Pulse Rate 82 Respiratory 18 Rate Blood Pressure 162/71 O2 Sat by Pulse 97 Oximetry Medical Decision Making - Medical Decision Making 58-year-old male patient presents to the emergency department today for evaluat ion of shortness of breath or wheezing. Patient states he does have a history of COPD and has been getting worse since . Physical examination does reveal coarse expiratory wheezing in the posterior lung ramírez. Patient is some tachypnea but no accessory muscle use. Labs reviewed and were unremarkable. Chest x-ray showed no acute cardiopulmonary process. EKG was unremarkable. Patient was given a 7.5 mg albuterol treatment and IV steroids. Upon reevaluation he does report improvement of symptoms. He does request to be discharged home at this time. He'll be started on steroid prescription given Mucinex DM prescription. He is instructed to continue home breathing treatments. He is instructed to follow-up with his primary care physician for recheck in 1-2 days. Return parameters were discussed in detail. He verbalizes understanding and agrees with this plan. - Lab Data Result diagrams: 07/21/18 18:30 07/21/18 18:30 Lab Results 07/21/18 07/21/18 07/21/18 Range/Units 18:30 18:30 18:30 WBC 11.0 H (3.8-10.6) k/uL RBC 4.81 (4.30-5.90) m/uL Hgb 15.2 (13.0-17.5) gm/dL Hct 45.4 (39.0-53.0) % MCV 94.5 (80.0-100.0) fL MCH 31.7 (25.0-35.0) pg MCHC 33.5 (31.0-37.0) g/dL RDW 13.3 (11.5-15.5) % Plt Count 260 (150-450) k/uL Neutrophils % 70 % Lymphocytes % 19 % Monocytes % 3 % Eosinophils % 5 % Basophils % 1 % Neutrophils # 7.7 (1.3-7.7) k/uL Lymphocytes # 2.1 (1.0-4.8) k/uL Monocytes # 0.3 (0-1.0) k/uL Eosinophils # 0.6 (0-0.7) k/uL Basophils # 0.1 (0-0.2) k/uL PT 10.0 (9.0-12.0) sec INR 0.9 (<1.2) APTT 25.4 (22.0-30.0) sec Sodium 139 (137-145) mmol/L Potassium 4.2 (3.5-5.1) mmol/L Chloride 104 (98-107) mmol/L Carbon Dioxide 24 (22-30) mmol/L Anion Gap 11 mmol/L BUN 24 H (9-20) mg/dL Creatinine 0.91 (0.66-1.25) mg/dL Est GFR (CKD-EPI)AfAm >90 (>60 ml/min/1.73 sqM) Est GFR (CKD-EPI)NonAf >90 (>60 ml/min/1.73 sqM) Glucose 149 H (74-99) mg/dL Calcium 9.8 (8.4-10.2) mg/dL Total Bilirubin 0.6 (0.2-1.3) mg/dL AST 33 (17-59) U/L ALT 50 (21-72) U/L Alkaline Phosphatase 92 (38-126) U/L Troponin I (0.000-0.034) ng/mL Total Protein 7.8 (6.3-8.2) g/dL Albumin 4.6 (3.5-5.0) g/dL 07/21/18 Range/Units 18:30 WBC (3.8-10.6) k/uL RBC (4.30-5.90) m/uL Hgb (13.0-17.5) gm/dL Hct (39.0-53.0) % MCV (80.0-100.0) fL MCH (25.0-35.0) pg MCHC (31.0-37.0) g/dL RDW (11.5-15.5) % Plt Count (150-450) k/uL Neutrophils % % Lymphocytes % % Monocytes % % Eosinophils % % Basophils % % Neutrophils # (1.3-7.7) k/uL Lymphocytes # (1.0-4.8) k/uL Monocytes # (0-1.0) k/uL Eosinophils # (0-0.7) k/uL Basophils # (0-0.2) k/uL PT (9.0-12.0) sec INR (<1.2) APTT (22.0-30.0) sec Sodium (137-145) mmol/L Potassium (3.5-5.1) mmol/L Chloride (98-107) mmol/L Carbon Dioxide (22-30) mmol/L Anion Gap mmol/L BUN (9-20) mg/dL Creatinine (0.66-1.25) mg/dL Est GFR (CKD-EPI)AfAm (>60 ml/min/1.73 sqM) Est GFR (CKD-EPI)NonAf (>60 ml/min/1.73 sqM) Glucose (74-99) mg/dL Calcium (8.4-10.2) mg/dL Total Bilirubin (0.2-1.3) mg/dL AST (17-59) U/L ALT (21-72) U/L Alkaline Phosphatase (38-126) U/L Troponin I <0.012 (0.000-0.034) ng/mL Total Protein (6.3-8.2) g/dL Albumin (3.5-5.0) g/dL - EKG Data -: EKG Interpreted by Md EKG Comments: EKG obtained at 1825 shows normal sinus rhythm with a ventricular rate of 71, MS interval 150, QRS duration 86, QT 388, QTC 421. No evidence of ST elevation or depression. - Radiology Data Radiology results: report reviewed, image reviewed Two-view x-ray of the chest is obtained. Report was reviewed in its entirety. Impression by Dr. Tolentino shows no active cardiopulmonary disease. Right middle lobe minimal scarring unchanged. Normal heart. Disposition Clinical Impression: COPD exacerbation Disposition: HOME SELF-CARE Condition: Good Instructions (If sedation given, give patient instructions): COPD (Chronic Obstructive Pulmonary Disease) (ED) Additional Instructions: Complete steroid prescription in full. Continue home breathing treatments, do these every 3-4 hours as needed. Follow-up through primary care physician for recheck in 1-2 days. Return to the emergency department immediately for any new, worsening, or concerning symptoms. Prescriptions: guaiFENesin-DM 600/30MG [Mucinex Dm] 1 each PO Q12HR #10 tab.er.12h predniSONE 50 mg PO DAILY #5 tablet Is patient prescribed a controlled substance at d/c from ED?: No Referrals: Brenden Puga MD [Primary Care Provider] - 1-2 days Time of Disposition: 19:40
[2018-07-21 18:47] LABS: Basophils # (A) 0.1 k/uL (0-0.2); Basophils % (A) 1 %; Eosinophils # (A) 0.6 k/uL (0-0.7); Eosinophils % (A) 5 %; HCT 45.4 % (39.0-53.0); HGB 15.2 gm/dL (13.0-17.5); Lymphocytes # (A) 2.1 k/uL (1.0-4.8); Lymphocytes % (A) 19 %; MCH 31.7 pg (25.0-35.0); MCHC 33.5 g/dL (31.0-37.0); MCV 94.5 fL (80.0-100.0); Mean Platelet Volume 7.2; Monocytes # (A) 0.3 k/uL (0-1.0); Monocytes % (A) 3 %; Neutrophils # (A) 7.7 k/uL (1.3-7.7); Neutrophils % (A) 70 %; Platelet Count 260 k/uL (150-450); RBC 4.81 m/uL (4.30-5.90); RDW 13.3 % (11.5-15.5)
[2018-07-21 18:58] LABS: INR 0.9 (<1.2); Partial Thromboplastin Time 25.4 sec (22.0-30.0)
[2018-07-21 19:04] LABS: ALT 50 U/L (21-72); AST 33 U/L (17-59); Albumin 4.6 g/dL (3.5-5.0); Alkaline Phosphatase 92 U/L (38-126); Anion Gap 11 mmol/L; Blood Urea Nitrogen 24 mg/dL (9-20); Calcium 9.8 mg/dL (8.4-10.2); Carbon Dioxide 24 mmol/L (22-30); Chloride 104 mmol/L (98-107); Glucose 149 mg/dL (74-99); Potassium 4.2 mmol/L (3.5-5.1); Sodium 139 mmol/L (137-145); Total Bilirubin 0.6 mg/dL (0.2-1.3); Total Protein 7.8 g/dL (6.3-8.2)
--- NOTE | 2018-07-21 19:14 | XR ---
EXAMINATION TYPE: XR chest 2V DATE OF EXAM: 07/21/2018 COMPARISON: 10/20/2017 HISTORY: Difficulty breathing TECHNIQUE: Frontal and lateral views of the chest are obtained. FINDINGS: Heart and mediastinum are normal. Lungs are clear of consolidation. Diaphragm is normal. B juan thorax is intact. There is minimal reticular density in the right middle lobe. IMPRESSION: No active cardiopulmonary disease. Right middle lobe minimal scarring unchanged. Normal heart.
[2018-07-21 19:23] VITALS: BP 162/71; PULSE 82
== END 2018-07-21 19:52 | disposition home or self-care (01) ==
LOC: EC 18:07
DX: J44.1 Chronic obstructive pulmonary disease with (acute) exacerbation (principal); R91.8 Other nonspecific abnormal finding of lung field; F17.210 Nicotine dependence, cigarettes, uncomplicated; K21.9 Gastro-esophageal reflux disease without esophagitis; E78.5 Hyperlipidemia, unspecified; I10 Essential (primary) hypertension; Z88.0 Allergy status to penicillin; Z88.8 Allergy status to other drugs, medicaments and biological substances; Z79.51 Long term (current) use of inhaled steroids; Z79.82 Long term (current) use of aspirin; Z79.899 Other long term (current) drug therapy; Z90.89 Acquired absence of other organs
CPT/HCPCS: 36415; 94640; 93005; 80053; 84484; 85025; 85610; 85730; 71046; 99285; 96374; J2930

== ENCOUNTER → 2018-08-29 | Outpatient (CLI) | payer OTHER ==
--- NOTE | 2018-08-29 10:26 | FL ---
EXAMINATION TYPE: FL barium swallow DATE OF EXAM: 08/29/2018 CLINICAL HISTORY: Dysphasia TECHNIQUE: A double contrast esophagram is performed utilizing air and barium. A total of 31 second s of fluoroscopic time was utilized during procedure. 9 images were obtained. COMPARISON: None FINDINGS: The esophagus shows normal motility and emptying into the stomach. No evidence of hiatal h ernia or stricture noted. No significant gastroesophageal reflux was seen during real time performanc e of this study. IMPRESSION: No significant abnormality is seen to account for patient's symptoms.
== END | disposition home or self-care (01) ==
LOC: RADFLWHC 09:03
PROVIDERS: ATTEND Otolaryngology
DX: K21.9 Gastro-esophageal reflux disease without esophagitis (principal); K44.9 Diaphragmatic hernia without obstruction or gangrene
CPT/HCPCS: 74220

== ENCOUNTER 2018-12-24 13:16 | Emergency (ER) | payer OTHER ==
[2018-12-24 15:07] LABS: ALT 53 U/L (21-72); AST 28 U/L (17-59); African American GFR (CKD) >90 (>60 ml/min/1.73 sqM); Albumin 4.3 g/dL (3.5-5.0); Alkaline Phosphatase 78 U/L (38-126); Anion Gap 13 mmol/L; Blood Urea Nitrogen 24 mg/dL (9-20); Calcium 9.2 mg/dL (8.4-10.2); Carbon Dioxide 22 mmol/L (22-30); Chloride 103 mmol/L (98-107); Glucose 308 mg/dL (74-99); Potassium 4.4 mmol/L (3.5-5.1); Sodium 138 mmol/L (137-145); Total Bilirubin 0.4 mg/dL (0.2-1.3); Total Protein 7.3 g/dL (6.3-8.2)
[2018-12-24 15:32] LABS: HCT 48.5 % (39.0-53.0); HGB 15.2 gm/dL (13.0-17.5); MCH 30.3 pg (25.0-35.0); MCHC 31.4 g/dL (31.0-37.0); MCV 96.6 fL (80.0-100.0); Platelet Count 242 k/uL (150-450); RBC 5.02 m/uL (4.30-5.90); WBC 14.1 k/uL (3.8-10.6)
[2018-12-24] MEDS ORDERED: IPRATROPIUM-ALBUTEROL 3 ML NEB INHALATION STA (15:44)
[2018-12-24] MEDS ORDERED: methylPREDNISolone SOD SUCCI 125 MG/2 ML VIAL IV STA (15:45)
[2018-12-24 15:57] LABS: Band Neutrophils % 2 %; Lymphocytes # (M) 1.83 k/uL (1.0-4.8); Monocytes # (M) 0.42 k/uL (0-1.0); Neutrophils % (M) 82 %; Nucleated Red Blood Cells 0 /100 WBC (0-0); Total Cells Counted 100
--- NOTE | 2018-12-24 16:09 | ED ---
General Adult HPI - General Chief complaint: Shortness of Breath Stated complaint: COPD Time Seen by Provider: 12/24/18 15:15 Source: patient Mode of arrival: ambulatory Limitations: no limitations - History of Present Illness Initial comments: Patient is a 58-year-old male with history of COPD is presenting to emergency Department with a chief complaint of shortness of breath. Patient reports she developed increased shortness of breath over the past 2 weeks. Patient does report dyspnea on exertion but denies any chest pain. Patient reports recently restarted smoking again. Patient reports the cough is nonproductive. Patient denies any changes in sputum production. Patient denies night sweats fevers or chills. Patient reports he recently went to an urgent care who gave him a prednisone taper with minimal improvement. Patient reports he uses a steroid inhaler and albuterol with minimal improvement. Denies any chest tightness, nausea vomiting or headaches. Patient denies calf tenderness. Recent prolonged trips. No cancer. No exogenous androgen use. - Related Data Home Medications Medication Instructions Recorded Confirmed Atenolol [Tenormin] 50 mg PO DAILY 05/25/14 12/24/18 Albuterol Inhaler [Ventolin Hfa 2 puff INHALATION RT-Q6H PRN 06/29/16 12/24/18 Inhaler] Budesonide/Formoterol Fumarate 2 puff INHALATION RT-BID PRN 10/15/16 12/24/18 [Symbicort 160-4.5 Mcg Inhaler] Losartan Potassium 100 mg PO DAILY 07/04/17 12/24/18 Albuterol Nebulized [Ventolin 2.5 mg INHALATION Q6H PRN 12/24/18 12/24/18 Nebulized] RABEprazole SODIUM [Aciphex] 20 mg PO BID 12/24/18 12/24/18 Allergies Allergy/AdvReac Type Severity Reaction Status Date / Time Penicillins Allergy Rash/Hives Verified 12/24/18 16:06 Review of Systems ROS Statement: Those systems with pertinent positive or pertinent negative responses have been documented in the HPI. ROS Other: All systems not noted in ROS Statement are negative. Past Medical History Past Medical History: COPD, GERD/Reflux, Hyperlipidemia, Hypertension, Prostate Disorder Additional Past Medical History / Comment(s): LEUKOCYTOSIS, History of Any Multi-Drug Resistant Organisms: None Reported Past Surgical History: Orthopedic Surgery, Tonsillectomy Additional Past Surgical History / Comment(s): CARYL HAND SX, LT ARM orif has A PLATE, METAL CHIPS REMOVED FROM EYES(WORKS A [employer]LE [employer]), colono scopy/polypectomt(benign) Past Anesthesia/Blood Transfusion Reactions: No Reported Reaction Past Psychological History: No Psychological Hx Reported Smoking Status: Current every day smoker Past Alcohol Use History: Occasional Past Drug Use History: None Reported - Past Family History Father History Unknown: Yes Mother Family Medical History: No Reported History Additional Family Medical History / Comment(s): HEALTHY General Exam Limitations: no limitations General appearance: alert, in no apparent distress Head exam: Present: atraumatic, normocephalic, normal inspection Eye exam: Present: normal appearance, PERRL, EOMI Pupils: Present: normal accommodation ENT exam: Present: normal exam, mucous membranes moist, normal external ear exam Neck exam: Present: normal inspection, full ROM Respiratory exam: Present: wheezes (Bilateral wheezing) Cardiovascular Exam: Present: regular rate, normal rhythm, normal heart sounds Extremities exam: Present: normal inspection, full ROM, normal capillary refill. Absent: calf tenderness (Negative Homans bilaterally.) Back exam: Present: normal inspection, full ROM Neurological exam: Present: alert, oriented X3 Psychiatric exam: Present: normal affect, normal mood Skin exam: Present: warm, intact, normal color Course Vital Signs 12/24/18 12/24/18 12/24/18 13:44 17:14 17:28 Temperature 97.9 F Pulse Rate 85 67 70 Respiratory 20 Rate Blood Pressure 119/77 O2 Sat by Pulse 97 Oximetry 12/24/18 17:52 Temperature 97.6 F Pulse Rate 72 Respiratory 18 Rate Blood Pressure 151/91 O2 Sat by Pulse 97 Oximetry EKG Findings - EKG Comments: EKG Findings:: Normal sinus rhythm. Ventricular rate 68, WA interval 142, QRS duration 86, QT/QTc 338/412. Medical Decision Making - Medical Decision Making Patient is a 58-year-old male with history of COPD as presenting to the emergency department with a chief complaint of shortness of breath. Patient reports he recently restarted smoking again. Patient reports his been developing increased shortness of breath and dyspnea on exertion over the past 1.5 weeks. Patient denies any changes in sputum production. Patient does report a nonproductive cough. Patient denies any fevers or chills. Patient is currently on a prednisone taper and used his albuterol inhaler with minimal improvement. Patient was given 6 mg of DuoNeb with 125 mg of Solu-Medrol. On reevaluation patient is still slightly wheezing. Patient reports only slight decrease in symptoms. 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 Patient reports here he has inhaled corticosteroids and albuterol at home. Patient advised to continue taking prescribed medication as directed. Strict return parameters were thoroughly discussed the patient is understanding and agreeable. I have low suspicion for a PE due to PERC negative. Case discussed with physician. - Lab Data Result diagrams: 12/24/18 14:47 12/24/18 14:47 Lab Results 12/24/18 12/24/18 12/24/18 Range/Units 14:47 14:47 14:47 WBC 14.1 H (3.8-10.6) k/uL RBC 5.02 (4.30-5.90) m/uL Hgb 15.2 (13.0-17.5) gm/dL Hct 48.5 (39.0-53.0) % MCV 96.6 (80.0-100.0) fL MCH 30.3 (25.0-35.0) pg MCHC 31.4 (31.0-37.0) g/dL RDW 13.0 (11.5-15.5) % Plt Count 242 (150-450) k/uL Neutrophils % (Manual) 82 % Band Neutrophils % 2 % Lymphocytes % (Manual) 13 % Monocytes % (Manual) 3 % Neutrophils # (Manual) 11.80 H (1.3-7.7) k/uL Lymphocytes # (Manual) 1.83 (1.0-4.8) k/uL Monocytes # (Manual) 0.42 (0-1.0) k/uL Nucleated RBCs 0 (0-0) /100 WBC Manual Slide Review Performed Sodium 138 (137-145) mmol/L Potassium 4.4 (3.5-5.1) mmol/L Chloride 103 (98-107) mmol/L Carbon Dioxide 22 (22-30) mmol/L Anion Gap 13 mmol/L BUN 24 H (9-20) mg/dL Creatinine 0.81 (0.66-1.25) mg/dL Est GFR (CKD-EPI)AfAm >90 (>60 ml/min/1.73 sqM) Est GFR (CKD-EPI)NonAf >90 (>60 ml/min/1.73 sqM) Glucose 308 H (74-99) mg/dL Calcium 9.2 (8.4-10.2) mg/dL Total Bilirubin 0.4 (0.2-1.3) mg/dL AST 28 (17-59) U/L ALT 53 (21-72) U/L Alkaline Phosphatase 78 (38-126) U/L Troponin I <0.012 (0.000-0.034) ng/mL Total Protein 7.3 (6.3-8.2) g/dL Albumin 4.3 (3.5-5.0) g/dL Disposition Clinical Impression: COPD exacerbation Disposition: HOME SELF-CARE Condition: Stable Instructions (If sedation given, give patient instructions): Chronic Bronchitis (ED) Additional Instructions: Continue taking steroid taper. Please follow up with pulmonology. Please return to emergency department if symptoms worsen. Is patient prescribed a controlled substance at d/c from ED?: No Referrals: Brenden Puga MD [Primary Care Provider] - 1-2 days Time of Disposition: 17:41
--- NOTE | 2018-12-24 16:42 | XR ---
EXAMINATION TYPE: XR chest 2V DATE OF EXAM: 12/24/2018 COMPARISON: 07/21/2018 HISTORY: 58-year-old male shortness of breath TECHNIQUE: PA and lateral views FINDINGS: Heart normal size. Some patchy right infrahilar density is stable. Mild interstitial prominence. Mild hyperinflation. No pleural effusion. IMPRESSION: Chronic changes. Some patchy right infrahilar density is unchanged and could represent scarring. Susp ect underlying emphysema. No acute change.
[2018-12-24 17:54] VITALS: BP 151/91; PULSE 72; RESP 18; TEMP 97.6
== END 2018-12-24 17:51 | disposition home or self-care (01) ==
LOC: EC 13:16
DX: J44.1 Chronic obstructive pulmonary disease with (acute) exacerbation (principal); I10 Essential (primary) hypertension; K21.9 Gastro-esophageal reflux disease without esophagitis; F17.200 Nicotine dependence, unspecified, uncomplicated; Z88.0 Allergy status to penicillin; Z79.899 Other long term (current) drug therapy
CPT/HCPCS: 36415; 94640; 93005; 80053; 84484; 85025; 71046; 99285; 96374; J2930

== ENCOUNTER → 2019-01-27 | Outpatient (CLI) | payer OTHER | END | disposition home or self-care (01) | LOC: CPPFTMAIN 08:28 | PROVIDERS: ATTEND Internal Medicine Critical Care Medicine | DX: J44.9 Chronic obstructive pulmonary disease, unspecified (principal); R94.2 Abnormal results of pulmonary function studies | CPT/HCPCS: 94060; 94726; 94729 ==

== ENCOUNTER 2019-02-12 07:00 | Emergency (ER) | payer OTHER ==
[2019-02-12 07:10] VITALS: TEMP 97.7
[2019-02-12] MEDS ORDERED: SODIUM CHLORIDE 0.9% 1,000 ML IV STA ×2 (07:26)
[2019-02-12] MEDS ORDERED: MECLIZINE 12.5 MG TAB PO STA ×2 (07:26→09:28)
--- NOTE | 2019-02-12 07:33 | ED ---
General Adult HPI - General Chief complaint: Dizziness Stated complaint: Dizziness,Blurred Vision Source: patient, RN notes reviewed, old records reviewed Mode of arrival: wheelchair Limitations: no limitations - History of Present Illness Initial comments: Patient is a 58-year-old male, history of hypertension, prediabetes, smoking. He presents today with chief complaint of dizziness, and some episodes of blurred vision. Symptoms started yesterday evening while he was leaving his driveway. Patient reports he went to work and continued to feel dizzy. He states today he woke up complaining of nausea. He states that he feels that he is an continuous motion, and feels like the room is spinning. He denies any sore throat or congestion. He does complain of some pressure within his head. He denies any falls or head trauma. - Related Data Home Medications Medication Instructions Recorded Confirmed Atenolol [Tenormin] 50 mg PO DAILY 05/25/14 02/12/19 Albuterol Inhaler [Ventolin Hfa 2 puff INHALATION RT-Q6H PRN 06/29/16 02/12/19 Inhaler] Budesonide/Formoterol Fumarate 2 puff INHALATION RT-BID PRN 10/15/16 02/12/19 [Symbicort 160-4.5 Mcg Inhaler] Losartan Potassium 100 mg PO DAILY 07/04/17 02/12/19 Albuterol Nebulized [Ventolin 2.5 mg INHALATION Q6H PRN 12/24/18 02/12/19 Nebulized] RABEprazole SODIUM [Aciphex] 20 mg PO BID 12/24/18 02/12/19 Cholecalciferol (Vitamin D3) 2,000 unit PO DAILY 02/12/19 02/12/19 [Vitamin D3] Multivitamins, Thera [Multivitamin 1 tab PO DAILY 02/12/19 02/12/19 (formulary)] metFORMIN HCL [Glucophage] 500 mg PO BID 02/12/19 02/12/19 Previous Rx's Medication Instructions Recorded Meclizine [Antivert] 25 mg PO TID #12 tab 02/12/19 Ondansetron Odt [Zofran Odt] 4 mg PO Q8HR PRN #12 tab 02/12/19 Allergies Allergy/AdvReac Type Severity Reaction Status Date / Time Penicillins Allergy Rash/Hives Verified 02/12/19 08:03 Review of Systems ROS Statement: Those systems with pertinent positive or pertinent negative responses have been documented in the HPI. ROS Other: All systems not noted in ROS Statement are negative. Past Medical History Past Medical History: COPD, GERD/Reflux, Hyperlipidemia, Hypertension, Prostate Disorder Additional Past Medical History / Comment(s): LEUKOCYTOSIS, pre-diabetes History of Any Multi-Drug Resistant Organisms: None Reported Past Surgical History: Orthopedic Surgery, Tonsillectomy Additional Past Surgical History / Comment(s): CARYL HAND SX, LT ARM orif has A PLATE, METAL CHIPS REMOVED FROM EYES(WORKS A [employer]), 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(benign) Past Anesthesia/Blood Transfusion Reactions: No Reported Reaction Past Psychological History: No Psychological Hx Reported Smoking Status: Current every day smoker Past Alcohol Use History: Occasional Past Drug Use History: None Reported - Past Family History Father History Unknown: Yes Mother Family Medical History: No Reported History Additional Family Medical History / Comment(s): HEALTHY General Exam - General Exam Comments Initial Comments: 58 year old male, no distress. Limitations: no limitations General appearance: alert, in no apparent distress Head exam: Present: atraumatic, normocephalic, normal inspection Eye exam: Present: normal appearance, PERRL, EOMI. Absent: scleral icterus, conjunctival injection, periorbital swelling ENT exam: Present: normal exam, mucous membranes moist Neck exam: Present: normal inspection, other (no Bruits. ). Absent: tenderness, meningismus, lymphadenopathy Respiratory exam: Present: normal lung sounds bilaterally. Absent: respiratory distress, wheezes, rales, rhonchi, stridor Cardiovascular Exam: Present: regular rate GI/Abdominal exam: Present: soft, normal bowel sounds. Absent: distended, tenderness, guarding, rebound, rigid Extremities exam: Present: normal inspection Back exam: Present: normal inspection Neurological exam: Present: alert, oriented X3, CN II-XII intact Expanded Patient oriented to: Present: person, place, time Speech: Present: fluid speech Cranial nerves: EOM's Intact: Normal, Facial Sensation: Normal Cerebellar function: Finger to Nose: Normal Upper motor neuron: Pronator Drift: Normal Sensory exam: Upper Extremity Light Touch: Normal, Lower Extremity Light Touch: Normal Motor strength exam: RUE: 5, LUE: 5, RLE: 5, LLE: 5 Eye Response: (4) open spontaneously Motor Response: (6) obeys commands Verbal Response: (5) oriented Javier Total: 15 Psychiatric exam: Present: normal affect, normal mood Skin exam: Present: warm, dry, intact, normal color. Absent: rash Course Vital Signs 02/12/19 02/12/19 02/12/19 07:07 08:10 08:30 Temperature 97.7 F Pulse Rate 64 61 Respiratory 18 17 Rate Blood Pressure 163/94 150/91 O2 Sat by Pulse 98 Oximetry Medical Decision Making - Medical Decision Making 58-year-old presents to the emergency department today with chief complaint of dizziness. Patient reports that he felt that he was dizzy today. At this time patient's labs were unremarkable. No neurological deficits. Computed tomograp hy scan of the brain shows no acute changes. Concern for possible demyelinization disease. Recommended follow-up with MRI. Patient was informed of results. After her dose of Reglan and Benadryl and meclizine he does have improvement states he feels well and like to be discharged home. Discussed he does have any further dizziness he would return. Patient denies any recent fever, chills, shortness of breath, chest pain, back pain, abdominal pain, nausea vomiting, numbness or tingling, dysuria or hematuria, constipation or diarrhea, headaches or visual changes, or any other current symptoms. - Lab Data Result diagrams: 02/12/19 07:55 02/12/19 07:55 Lab Results 02/12/19 02/12/19 02/12/19 Range/Units 07:40 07:55 07:55 WBC 9.8 (3.8-10.6) k/uL RBC 4.50 (4.30-5.90) m/uL Hgb 14.2 (13.0-17.5) gm/dL Hct 42.5 (39.0-53.0) % MCV 94.4 (80.0-100.0) fL MCH 31.6 (25.0-35.0) pg MCHC 33.5 (31.0-37.0) g/dL RDW 13.2 (11.5-15.5) % Plt Count 249 (150-450) k/uL Neutrophils % 68 % Lymphocytes % 21 % Monocytes % 4 % Eosinophils % 4 % Basophils % 3 % Neutrophils # 6.6 (1.3-7.7) k/uL Lymphocytes # 2.0 (1.0-4.8) k/uL Monocytes # 0.4 (0-1.0) k/uL Eosinophils # 0.4 (0-0.7) k/uL Basophils # 0.2 (0-0.2) k/uL PT (9.0-12.0) sec INR (<1.2) APTT (22.0-30.0) sec Sodium 139 (137-145) mmol/L Potassium 3.9 (3.5-5.1) mmol/L Chloride 105 (98-107) mmol/L Carbon Dioxide 26 (22-30) mmol/L Anion Gap 8 mmol/L BUN 18 (9-20) mg/dL Creatinine 0.80 (0.66-1.25) mg/dL Est GFR (CKD-EPI)AfAm >90 (>60 ml/min/1.73 sqM) Est GFR (CKD-EPI)NonAf >90 (>60 ml/min/1.73 sqM) Glucose 129 H (74-99) mg/dL Calcium 9.2 (8.4-10.2) mg/dL Total Bilirubin 0.6 (0.2-1.3) mg/dL AST 31 (17-59) U/L ALT 54 (21-72) U/L Alkaline Phosphatase 69 (38-126) U/L Troponin I (0.000-0.034) ng/mL Total Protein 7.1 (6.3-8.2) g/dL Albumin 4.2 (3.5-5.0) g/dL Urine Color Light Yellow Urine Appearance Clear (Clear) Urine pH 6.0 (5.0-8.0) Ur Specific [place] 1.011 (1.001-1.035) Urine Protein Negative (Negative) Urine Glucose (UA) Negative (Negative) Urine Ketones Negative (Negative) Urine Blood Negative (Negative) Urine Nitrite Negative (Negative) Urine Bilirubin Negative (Negative) Urine Urobilinogen <2.0 (<2.0) mg/dL Ur Leukocyte Esterase Negative (Negative) 02/12/19 02/12/19 Range/Units 07:55 07:55 WBC (3.8-10.6) k/uL RBC (4.30-5.90) m/uL Hgb (13.0-17.5) gm/dL Hct (39.0-53.0) % MCV (80.0-100.0) fL MCH (25.0-35.0) pg MCHC (31.0-37.0) g/dL RDW (11.5-15.5) % Plt Count (150-450) k/uL Neutrophils % % Lymphocytes % % Monocytes % % Eosinophils % % Basophils % % Neutrophils # (1.3-7.7) k/uL Lymphocytes # (1.0-4.8) k/uL Monocytes # (0-1.0) k/uL Eosinophils # (0-0.7) k/uL Basophils # (0-0.2) k/uL PT 10.3 (9.0-12.0) sec INR 1.0 (<1.2) APTT 24.7 (22.0-30.0) sec Sodium (137-145) mmol/L Potassium (3.5-5.1) mmol/L Chloride (98-107) mmol/L Carbon Dioxide (22-30) mmol/L Anion Gap mmol/L BUN (9-20) mg/dL Creatinine (0.66-1.25) mg/dL Est GFR (CKD-EPI)AfAm (>60 ml/min/1.73 sqM) Est GFR (CKD-EPI)NonAf (>60 ml/min/1.73 sqM) Glucose (74-99) mg/dL Calcium (8.4-10.2) mg/dL Total Bilirubin (0.2-1.3) mg/dL AST (17-59) U/L ALT (21-72) U/L Alkaline Phosphatase (38-126) U/L Troponin I <0.012 (0.000-0.034) ng/mL Total Protein (6.3-8.2) g/dL Albumin (3.5-5.0) g/dL Urine Color Urine Appearance (Clear) Urine pH (5.0-8.0) Ur Specific [place] (1.001-1.035) Urine Protein (Negative) Urine Glucose (UA) (Negative) Urine Ketones (Negative) Urine Blood (Negative) Urine Nitrite (Negative) Urine Bilirubin (Negative) Urine Urobilinogen (<2.0) mg/dL Ur Leukocyte Esterase (Negative) 02/12/19 08:25 EKG shows sinus bradycardia possible anterior infarct age undetermined. Abnormal EKG. Ventricular rate of 59 bpm. Intervals 158 ms. QS duration is 80 ms. QT QTc is 408/403 ms. - Radiology Data Radiology results: report reviewed Chest x-ray shows no acute cardiopulmonary process. There is likely some scarring within the lungs is prior. Nonspecific white matter demyelination. No acute abnormality evident. Brain MRI may be of benefit. Disposition Clinical Impression: Vertigo Disposition: HOME SELF-CARE Condition: Good Instructions (If sedation given, give patient instructions): Dizziness (ED) Additional Instructions: Please use medication as discussed. Please follow up with family doctor if symptoms have not improved over the next two days. Please return to the emergency room if your symptoms increase or worsen or for any other concerns. Prescriptions: Meclizine [Antivert] 25 mg PO TID #12 tab Ondansetron Odt [Zofran Odt] 4 mg PO Q8HR PRN #12 tab PRN Reason: Nausea Is patient prescribed a controlled substance at d/c from ED?: No Referrals: Brenden Puga MD [Primary Care Provider] - 1-2 days Time of Disposition: 11:01
[2019-02-12 07:53] LABS: Appearance,Urine Clear (Clear); Bilirubin,Urine Negative (Negative); Blood,Urine Negative (Negative); Color,Urine Light Yellow; Glucose,Urine (UA) Negative (Negative); Ketones,Urine Negative (Negative); Leukocyte Esterase,Urine Negative (Negative); Nitrite,Urine Negative (Negative); Protein,Urine Negative (Negative); Specific Gravity,Urine 1.011 (1.001-1.035); Urobilinogen,Urine <2.0 mg/dL (<2.0)
[2019-02-12 08:07] LABS: Basophils # (A) 0.2 k/uL (0-0.2); Basophils % (A) 3 %; Eosinophils # (A) 0.4 k/uL (0-0.7); Eosinophils % (A) 4 %; HCT 42.5 % (39.0-53.0); HGB 14.2 gm/dL (13.0-17.5); Lymphocytes % (A) 21 %; MCH 31.6 pg (25.0-35.0); MCHC 33.5 g/dL (31.0-37.0); MCV 94.4 fL (80.0-100.0); Mean Platelet Volume 6.8; Monocytes # (A) 0.4 k/uL (0-1.0); Monocytes % (A) 4 %; Neutrophils # (A) 6.6 k/uL (1.3-7.7); Neutrophils % (A) 68 %; Platelet Count 249 k/uL (150-450); RDW 13.2 % (11.5-15.5); WBC 9.8 k/uL (3.8-10.6)
[2019-02-12 08:15] LABS: ALT 54 U/L (21-72); AST 31 U/L (17-59); African American GFR (CKD) >90 (>60 ml/min/1.73 sqM); Albumin 4.2 g/dL (3.5-5.0); Alkaline Phosphatase 69 U/L (38-126); Anion Gap 8 mmol/L; Blood Urea Nitrogen 18 mg/dL (9-20); Calcium 9.2 mg/dL (8.4-10.2); Carbon Dioxide 26 mmol/L (22-30); Chloride 105 mmol/L (98-107); Glucose 129 mg/dL (74-99); Potassium 3.9 mmol/L (3.5-5.1); Sodium 139 mmol/L (137-145); Total Bilirubin 0.6 mg/dL (0.2-1.3); Total Protein 7.1 g/dL (6.3-8.2)
[2019-02-12 08:20] LABS: Partial Thromboplastin Time 24.7 sec (22.0-30.0); Prothrombin Time 10.3 sec (9.0-12.0)
[2019-02-12 08:46] VITALS: BP 150/91; PULSE 61; RESP 17
--- NOTE | 2019-02-12 08:55 | CT ---
EXAMINATION TYPE: CT brain wo con DATE OF EXAM: 02/12/2019 COMPARISON: Prior CT brain 06/20/2012 HISTORY: Dizziness, Blurred Vision CT DLP: 1094.4 mGycm Automated exposure control for dose reduction was used. FINDINGS: Periventricular white matter shows some areas of patchy low attenuation similar to prior exam. There is no hemorrhage or hydrocephalus. Orbits show symmetric appearance. Paranasal sinuses and mastoid ai r cells are unremarkable. IMPRESSION: NONSPECIFIC WHITE MATTER DEMYELINATION. NO ACUTE ABNORMALITY EVIDENT. BRAIN MRI MAY BE OF BENEFIT.
--- NOTE | 2019-02-12 08:57 | XR ---
EXAMINATION TYPE: XR chest 2V DATE OF EXAM: 02/12/2019 COMPARISON: Chest x-ray 12/24/2018 HISTORY: Dizziness and blurred vision, pain TECHNIQUE: Frontal and lateral views of the chest are obtained. FINDINGS: There is no pleural effusion or pneumothorax seen. Patchy infrahilar density on the right shows a stable appearance. The cardiac silhouette size is within normal limits. There are overlying cardiac leads. Stable elevation of the right hemidiaphragm noted. There is thoracic spondylosis. The osseous structures are intact. IMPRESSION: No acute cardiopulmonary process. There is likely some scarring within the lungs as on p rior.
[2019-02-12] MEDS ORDERED: diphenhydrAMINE 50 MG/ML 1 ML VIAL IVP STA (09:28)
[2019-02-12] MEDS ORDERED: ASPIRIN 81 MG PO STA (09:28)
[2019-02-12] MEDS ORDERED: METOCLOPRAMIDE 5 MG/ML 2 ML VIAL IVP STA (09:28)
== END 2019-02-12 12:05 | disposition home or self-care (01) ==
LOC: EC 07:00
DX: R42 Dizziness and giddiness (principal); J44.9 Chronic obstructive pulmonary disease, unspecified; K21.9 Gastro-esophageal reflux disease without esophagitis; R73.03 Prediabetes; F17.200 Nicotine dependence, unspecified, uncomplicated; Z79.84 Long term (current) use of oral hypoglycemic drugs; Z79.51 Long term (current) use of inhaled steroids; Z79.899 Other long term (current) drug therapy; Z88.0 Allergy status to penicillin
CPT/HCPCS: 99285; 96374; 96375; 96361 ×4; 36415; 93005; 80053; 84484; 85025; 85610; 85730; 81003; 71046; 70450; J1200; J2765

== ENCOUNTER → 2019-03-10 | Outpatient (CLI) | payer OTHER ==
--- NOTE | 2019-03-10 19:27 | MR ---
EXAMINATION TYPE: MR brain wo/w con DATE OF EXAM: 03/10/2019 COMPARISON: CT brain 02/19/2019, 07/03/2017 MRI brain HISTORY: Headaches CONTRAST: Performed utilizing 9 mL intravenous Gadavist gadolinium contrast. TECHNIQUE: Multiplanar, multiecho imaging on a 3.0 Mery magnet is performed through the brain. Stud y is performed within 24 hours of arrival to the hospital. The craniovertebral junction is normal. The pituitary is normal. Diffusion-weighted imaging is performed. No abnormal hyperintensity is present to suggest an acute i ntracranial infarct or acute ischemic change. There are scattered punctate areas of hyperintensity on T2 and Inversion Recovery weighted sequences which are non-specific but can be related to microvascular ischemic changes. Differential diagnosis s hould include vasculitis and multiple sclerosis. This is greater than expected for typical migraine h eadaches. Ventricles and sulci are appropriate for the patient age. No abnormal enhancement is evident. There is mucosal thickening within the right maxillary sinus. Small retention cyst left maxillary sin us IMPRESSIONS: 1. Multiple scattered subcortical and deep white matter punctate hyperintensities which are nonspecif ic. Microvascular ischemic change is likely within the differential.
--- NOTE | 2019-03-10 19:40 | MR ---
EXAMINATION TYPE: MR angio head wo con DATE OF EXAM: 03/10/2019 COMPARISON: 06/21/2012 HISTORY: Headaches CONTRAST: None TECHNIQUE: Multiplanar multiecho imaging on a 3.0 Mery magnet is performed through the [place] of [place]. 3-D [id number] imaging is performed. Source images are reviewed on the computer in the axi al plane. Reconstructed images rotating on the computer are reviewed. FINDINGS: The internal carotid arteries bifurcate normally into A1 and M1 segments. The A2 segments are normal. Middle cerebral artery branches are normal. Anterior communicating artery is patent. The right posterior communicating artery is patent. The left posterior communicating artery is identified. Vertebrobasilar arteries within the [id number] are normal. Posterior cerebral vasculature is norm al. No suspicious aneurysm or aneurysmal dilatation is evident. No obstructions are identified. No significant flow-limiting stenosis is evident. IMPRESSIONS: 1. NORMAL MRA [place].
--- NOTE | 2019-03-11 08:14 | XR ---
EXAMINATION TYPE: XR cervical spine comp DATE OF EXAM: 03/10/2019 TECHNIQUE: Frontal, lateral, oblique, swimmers, and open mouth view of the cervical spine are obtaine d. HISTORY: R51 headache and neck pain for months COMPARISON: None FINDINGS: The cervical spine is visualized on the lateral view from C1 through the top of C6 and is without compression deformity. Nearly bridging anterior osteophyte is seen at C5-C6. Small anterior o steophytes at C3-C4. Multilevel uncovertebral hypertrophy creates mild neural foraminal narrowing at C3-C4 on the right and an C6-C7 on the left radiographically. Straightening of usual cervical lordosi s.. The pre-vertebral soft tissue appears within normal limits. The C1-C2 articulation is within no rmal limits on the open mouth view. IMPRESSION: No acute fracture or malalignment is seen in the cervical spine. Moderate degenerative d isc disease of the cervical spine as detailed above. Straightening of usual cervical lordosis may rel ate to muscular or strain/spasm or patient positioning.
== END | disposition home or self-care (01) ==
LOC: RADMRIMAIN 15:45
PROVIDERS: ATTEND Family Medicine
DX: R90.82 White matter disease, unspecified (principal); M54.2 Cervicalgia
CPT/HCPCS: 72050; 70544; 70553; A9585

== ENCOUNTER → 2019-03-24 | Outpatient (CLI) | payer OTHER ==
--- NOTE | 2019-03-25 06:06 | MR ---
MRI CERVICAL SPINE: CLINICAL HISTORY: Disc degeneration per order. Headache with neck pain for one year. TECHNIQUE: Multiplanar, multisequence imaging of the cervical spine is performed without IV contrast. COMPARISON: Cervical spine x-ray December 09, 2018.. FINDINGS: Sagittal images of the cervical spine show the craniocervical junction to appear within nor mal limits. Incidental mild to moderate mucosal thickening visualized portion of the sphenoid sinuses . The cervical and upper thoracic spinal cord is normal in course, caliber, and signal. There is slig ht grade 1 retrolisthesis C3 on C4. The vertebral body and intravertebral disk heights are normal. L arge hemangioma occupies C7 vertebra. Axial images at C2-C3 level show right-sided uncovertebral facet degenerative change causing mild rig ht-sided neural foraminal narrowing. Axial images at C3-C4 level show lobulated posterior disc protrusion effacing the anterior thecal sac with most prominent right paracentral/foraminal component, there is advanced right and moderate left -sided neural foraminal narrowing, there is slight indentation of ventral aspect spinal cord along ri ght aspect back sagittal image 8. Axial images at C4-C5 levels uncovertebral facet degenerative changes causing mild right greater than left bilateral neural foraminal narrowing. Tiny central disc protrusion mildly effaces anterior thec al sac. Axial images at C5-C6 level shows broad-based spur disc complex effacing anterior thecal sac of the v entral surface of the spinal cord with uncovertebral facet degenerative changes causing mild/moderate bilateral neural foraminal narrowing. Axial images at C6-C7 levels with broad-based left paracentral disc protrusion effacing anterolateral thecal sac and causing asymmetric moderate to severe left sided neural foraminal narrowing, there is [id number] right-sided neural foraminal narrowing noted. Axial images at C7-T1 level are felt within normal limits. Few small subcentimeter thyroid nodules are present, for reference 4 mm T2 hyperintense round nodule axial image 3 right thyroid lobe. IMPRESSION: Multilevel degenerative changes in the cervical spine most prominent at C3-C4, C5-C6, and C6-C7 levels as detailed above.
== END | disposition home or self-care (01) ==
LOC: RADMRIMAIN 16:42
PROVIDERS: ATTEND Family Medicine
DX: M47.812 Spondylosis without myelopathy or radiculopathy, cervical region (principal)
CPT/HCPCS: 72141

== ENCOUNTER 2019-06-07 18:15 | Emergency (ER) | payer OTHER ==
[2019-06-07 18:25] VITALS: TEMP 98.2
[2019-06-07] MEDS ORDERED: ENALAPRILAT 1.25 MG/ML 1 ML VIAL IVP STA (18:45)
[2019-06-07] MEDS ORDERED: KETOROLAC 30 MG/ML 1 ML VIAL IVP STA (18:45)
[2019-06-07] MEDS ORDERED: METOCLOPRAMIDE 5 MG/ML 2 ML VIAL IVP STA (18:45)
--- NOTE | 2019-06-07 18:51 | ED ---
General Adult HPI - General Chief complaint: Recheck/Abnormal Lab/Rx Stated complaint: High BP Time Seen by Provider: 06/07/19 18:35 Source: patient, old records reviewed (Several old EKGs reviewed with some borderline or T wave inversion in lead III.) Mode of arrival: ambulatory Limitations: no limitations - History of Present Illness Initial comments: Patient is a pleasant 58-year-old male presenting to the emergency department with hypertension. Patient did have surgery is right-hand yesterday and was told her blood pressure there was elevated 176/97. Patient is on losartan and atenolol for blood pressure. Patient's blood pressure this morning was 147/89. Repeat 172/101. Prior to arrival blood pressure was 193/110 and then 221/106. Patient does admit to having some mild to moderate headache. Patient has been having headaches for months, no acute change. No sudden onset. Headache is not severe. Patient has had computed tomography scan of the brain as well as MRI of the brain and MRI of the cervical spine. Patient is following up with the neck doctor. No chest pain or dyspnea. Patient has been taking his blood pressure medicine. - Related Data Home Medications Medication Instructions Recorded Confirmed Atenolol [Tenormin] 50 mg PO DAILY 05/25/14 02/19/19 Albuterol Inhaler [Ventolin Hfa 2 puff INHALATION RT-Q6H PRN 06/29/16 02/19/19 Inhaler] Budesonide/Formoterol Fumarate 2 puff INHALATION RT-BID PRN 10/15/16 02/19/19 [Symbicort 160-4.5 Mcg Inhaler] Losartan Potassium 100 mg PO DAILY 07/04/17 02/19/19 Albuterol Nebulized [Ventolin 2.5 mg INHALATION Q6H PRN 12/24/18 02/19/19 Nebulized] RABEprazole SODIUM [Aciphex] 20 mg PO BID 12/24/18 02/19/19 Cholecalciferol (Vitamin D3) 2,000 unit PO DAILY 02/12/19 02/19/19 [Vitamin D3] Multivitamins, Thera [Multivitamin 1 tab PO DAILY 02/12/19 02/19/19 (formulary)] metFORMIN HCL [Glucophage] 500 mg PO BID 02/12/19 02/19/19 Previous Rx's Medication Instructions Recorded Meclizine [Antivert] 25 mg PO TID #12 tab 02/12/19 Ondansetron Odt [Zofran Odt] 4 mg PO Q8HR PRN #12 tab 02/12/19 Allergies Allergy/AdvReac Type Severity Reaction Status Date / Time Penicillins Allergy Rash/Hives Verified 06/07/19 18:25 Review of Systems ROS Statement: Those systems with pertinent positive or pertinent negative responses have been documented in the HPI. ROS Other: All systems not noted in ROS Statement are negative. Constitutional: Denies: fever Eyes: Denies: eye pain ENT: Denies: ear pain Respiratory: Denies: cough Cardiovascular: Denies: chest pain Endocrine: Denies: fatigue Gastrointestinal: Denies: abdominal pain Genitourinary: Denies: dysuria Musculoskeletal: Denies: back pain Skin: Denies: rash Neurological: Reports: as per HPI. 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), colonosco py/polypectomt(benign), rt hand Past Anesthesia/Blood Transfusion Reactions: No Reported Reaction Past Psychological History: No Psychological Hx Reported Smoking Status: Current every day smoker Past Alcohol Use History: Occasional Past Drug Use History: None Reported - Past Family History Father History Unknown: Yes Mother Family Medical History: No Reported History Additional Family Medical History / Comment(s): HEALTHY General Exam Limitations: no limitations General appearance: alert, in no apparent distress Head exam: Present: normocephalic Eye exam: Present: normal appearance, PERRL ENT exam: Present: normal oropharynx Neck exam: Present: normal inspection Respiratory exam: Present: normal lung sounds bilaterally Cardiovascular Exam: Present: regular rate, normal rhythm GI/Abdominal exam: Present: soft. Absent: tenderness Extremities exam: Present: normal inspection Neurological exam: Present: alert, oriented X3, CN II-XII intact. Absent: motor sensory deficit Expanded Neurological exam: Present: protecting the airway Speech: Present: fluid speech Cranial nerves: EOM's Intact: Normal Motor strength exam: RUE: 5, LUE: 5, RLE: 5, LLE: 5 Eye Response: (4) open spontaneously Motor Response: (6) obeys commands Verbal Response: (5) oriented Psychiatric exam: Present: normal affect, normal mood Skin exam: Present: normal color Course Vital Signs 06/07/19 06/07/19 06/07/19 18:21 18:40 18:50 Temperature 98.2 F Pulse Rate 70 68 64 Respiratory 18 10 L 13 Rate Blood Pressure 193/93 193/85 187/103 O2 Sat by Pulse 97 97 Oximetry 06/07/19 06/07/19 06/07/19 19:00 19:10 19:30 Temperature Pulse Rate 68 68 Respiratory 16 10 L Rate Blood Pressure 187/103 170/93 169/106 O2 Sat by Pulse 96 Oximetry EKG Findings - EKG Comments: EKG Findings:: Normal sinus rhythm 69. NE 162. QRS 92. QT 394. QTC 422. Normal axis. Septal Q waves. Inverted T-wave in lead III. Medical Decision Making - Medical Decision Making Patient reevaluated and resting comfortably in bed. Patient states he is feeling much better. Patient has several good blood pressures. Patient and family updated on results and need for follow-up. - Lab Data Result diagrams: 06/07/19 19:00 06/07/19 19:00 Lab Results 06/07/19 06/07/19 06/07/19 Range/Units 19:00 19:00 19:30 WBC 9.2 (3.8-10.6) k/uL RBC 4.93 (4.30-5.90) m/uL Hgb 15.6 (13.0-17.5) gm/dL Hct 46.4 (39.0-53.0) % MCV 94.0 (80.0-100.0) fL MCH 31.7 (25.0-35.0) pg MCHC 33.7 (31.0-37.0) g/dL RDW 12.6 (11.5-15.5) % Plt Count 232 (150-450) k/uL Neutrophils % 65 % Lymphocytes % 23 % Monocytes % 3 % Eosinophils % 7 % Basophils % 1 % Neutrophils # 6.0 (1.3-7.7) k/uL Lymphocytes # 2.1 (1.0-4.8) k/uL Monocytes # 0.3 (0-1.0) k/uL Eosinophils # 0.6 (0-0.7) k/uL Basophils # 0.1 (0-0.2) k/uL Sodium 136 L (137-145) mmol/L Potassium 4.1 (3.5-5.1) mmol/L Chloride 100 (98-107) mmol/L Carbon Dioxide 30 (22-30) mmol/L Anion Gap 6 mmol/L BUN 21 H (9-20) mg/dL Creatinine 0.85 (0.66-1.25) mg/dL Est GFR (CKD-EPI)AfAm >90 (>60 ml/min/1.73 sqM) Est GFR (CKD-EPI)NonAf >90 (>60 ml/min/1.73 sqM) Glucose 100 H (74-99) mg/dL Calcium 9.0 (8.4-10.2) mg/dL Total Bilirubin 0.4 (0.2-1.3) mg/dL AST 29 (17-59) U/L ALT 30 (4-49) U/L Alkaline Phosphatase 77 (38-126) U/L Total Protein 7.2 (6.3-8.2) g/dL Albumin 4.3 (3.5-5.0) g/dL Urine Color Light Yellow Urine Appearance Clear (Clear) Urine pH 6.0 (5.0-8.0) Ur Specific [place] 1.016 (1.001-1.035) Urine Protein Negative (Negative) Urine Glucose (UA) Negative (Negative) Urine Ketones Negative (Negative) Urine Blood Negative (Negative) Urine Nitrite Negative (Negative) Urine Bilirubin Negative (Negative) Urine Urobilinogen <2.0 (<2.0) mg/dL Ur Leukocyte Esterase Small H (Negative) Urine RBC <1 (0-5) /hpf Urine WBC 7 H (0-5) /hpf Ur Squamous Epith Cells <1 (0-4) /hpf Urine Mucus Rare H (None) /hpf - Radiology Data Radiology results: image reviewed (Chest x-ray shows right middle lobe infiltrate/atelectasis.) Disposition Clinical Impression: Hypertension Disposition: HOME SELF-CARE Condition: Stable Instructions (If sedation given, give patient instructions): Hypertension (ED) Additional Instructions: Please follow-up with primary care physician in the beginning of the week. Please have primary care physician review notes from today including chest x- ray. If blood pressure remains high U may take an additional half of your atenolol once per day. Return for uncontrolled blood pressure, increased headache, weakness, chest pain, confusion, worsening symptoms or any other concerns. Is patient prescribed a controlled substance at d/c from ED?: No Referrals: Brenden Puga MD [Primary Care Provider] - 1-2 days Time of Disposition: 20:13
[2019-06-07 19:17] LABS: Basophils # (A) 0.1 k/uL (0-0.2); Basophils % (A) 1 %; Eosinophils # (A) 0.6 k/uL (0-0.7); Eosinophils % (A) 7 %; HCT 46.4 % (39.0-53.0); HGB 15.6 gm/dL (13.0-17.5); Lymphocytes # (A) 2.1 k/uL (1.0-4.8); Lymphocytes % (A) 23 %; MCH 31.7 pg (25.0-35.0); MCHC 33.7 g/dL (31.0-37.0); Mean Platelet Volume 8.5; Monocytes # (A) 0.3 k/uL (0-1.0); Monocytes % (A) 3 %; Neutrophils % (A) 65 %; Platelet Count 232 k/uL (150-450); RBC 4.93 m/uL (4.30-5.90); RDW 12.6 % (11.5-15.5); WBC 9.2 k/uL (3.8-10.6)
[2019-06-07 19:23] LABS: ALT 30 U/L (4-49); AST 29 U/L (17-59); African American GFR (CKD) >90 (>60 ml/min/1.73 sqM); Albumin 4.3 g/dL (3.5-5.0); Alkaline Phosphatase 77 U/L (38-126); Anion Gap 6 mmol/L; Blood Urea Nitrogen 21 mg/dL (9-20); Carbon Dioxide 30 mmol/L (22-30); Chloride 100 mmol/L (98-107); Glucose 100 mg/dL (74-99); Non-African American GFR(CKD) >90 (>60 ml/min/1.73 sqM); Potassium 4.1 mmol/L (3.5-5.1); Sodium 136 mmol/L (137-145); Total Bilirubin 0.4 mg/dL (0.2-1.3); Total Protein 7.2 g/dL (6.3-8.2)
[2019-06-07 19:53] LABS: Appearance,Urine Clear (Clear); Bilirubin,Urine Negative (Negative); Blood,Urine Negative (Negative); Color,Urine Light Yellow; Glucose,Urine (UA) Negative (Negative); Ketones,Urine Negative (Negative); Leukocyte Esterase,Urine Small (Negative); Mucus,Urine Rare /hpf; Nitrite,Urine Negative (Negative); Protein,Urine Negative (Negative); RBC,Urine <1 /hpf (0-5); Specific Gravity,Urine 1.016 (1.001-1.035); Squamous Epithelial Cell,Urine <1 /hpf (0-4); Urobilinogen,Urine <2.0 mg/dL (<2.0); WBC,Urine 7 /hpf (0-5)
--- NOTE | 2019-06-07 20:06 | XR ---
EXAMINATION TYPE: XR chest 2V DATE OF EXAM: 06/07/2019 COMPARISON: NONE HISTORY: 02/12/2019 TECHNIQUE: FINDINGS: Heart and mediastinum are normal. There is some linear density right middle lobe. The other lung ramírez are clear. There is no pleural effusion. IMPRESSION: Right middle lobe linear infiltrate and atelectasis appears new or increased compared to last exam. Normal heart.
[2019-06-07 20:20] VITALS: BP 139/88; PULSE 62; RESP 14
== END 2019-06-07 20:43 | disposition home or self-care (01) ==
LOC: EC 18:15
DX: I10 Essential (primary) hypertension (principal); R51 Headache; J44.9 Chronic obstructive pulmonary disease, unspecified; K21.9 Gastro-esophageal reflux disease without esophagitis; F17.200 Nicotine dependence, unspecified, uncomplicated; Z88.0 Allergy status to penicillin; Z79.84 Long term (current) use of oral hypoglycemic drugs; Z79.899 Other long term (current) drug therapy
CPT/HCPCS: 36415; 93005; 80053; 85025; 81001; 71046; 99284; 96374; 96375 ×2; J2765; J1885

== ENCOUNTER 2019-06-12 13:23 | Emergency (ER) | payer OTHER ==
[2019-06-12 13:34] VITALS: RESP 18
[2019-06-12] MEDS ORDERED: ONDANSETRON 4 MG/2 ML VIAL IVP STA (14:20)
[2019-06-12] MEDS ORDERED: KETOROLAC 30 MG/ML 1 ML VIAL IVP STA (14:20)
[2019-06-12] MEDS ORDERED: SODIUM CHLORIDE 0.9% 1,000 ML IV STA (14:20)
--- NOTE | 2019-06-12 14:28 | ED ---
Abdominal Pain HPI - General Chief Complaint: Abdominal Pain Stated Complaint: Abd Pain, Back Pain Time Seen by Provider: 06/12/19 14:06 Source: patient Mode of arrival: ambulatory Limitations: no limitations - History of Present Illness Initial Comments: Patient is a 58-year-old male, with history of hypertension, hyperlipidemia, pancreatitis, presenting to the emergency department with complaints of abdominal pain since yesterday. She states the pain started in his mid abdomen and has been severe since yesterday. He describes it as sharp, with radiation into his back. He states he has been taking a few pain medications secondary to his having hand surgery 1 week ago. Patient thought he might of been constipated and tried to take MiraLAX however it did not help. His last bowel movement was 3 days ago. He denies fever, chills. He does admit to nausea, no vomiting. He denies any urinary complaints. He denies any abdominal surgeries. He states he has had pancreatitis in the past and this feels similar. He states they think it was caused by multiple medications he was on. He states he only drinks occasionally. He denies any chest pain or shortness of breath. He has no other complaints at this time. Upon arrival to ER, patient's BP is elevated at 190/98, rest of vitals are normal. - Related Data Home Medications Medication Instructions Recorded Confirmed Atenolol [Tenormin] 50 mg PO DAILY 05/25/14 02/19/19 Albuterol Inhaler [Ventolin Hfa 2 puff INHALATION RT-Q6H PRN 06/29/16 02/19/19 Inhaler] Budesonide/Formoterol Fumarate 2 puff INHALATION RT-BID PRN 10/15/16 02/19/19 [Symbicort 160-4.5 Mcg Inhaler] Losartan Potassium 100 mg PO DAILY 07/04/17 02/19/19 Albuterol Nebulized [Ventolin 2.5 mg INHALATION Q6H PRN 12/24/18 02/19/19 Nebulized] RABEprazole SODIUM [Aciphex] 20 mg PO BID 12/24/18 02/19/19 Cholecalciferol (Vitamin D3) 2,000 unit PO DAILY 02/12/19 02/19/19 [Vitamin D3] Multivitamins, Thera [Multivitamin 1 tab PO DAILY 02/12/19 02/19/19 (formulary)] metFORMIN HCL [Glucophage] 500 mg PO BID 02/12/19 02/19/19 Previous Rx's Medication Instructions Recorded Meclizine [Antivert] 25 mg PO TID #12 tab 02/12/19 Ondansetron Odt [Zofran Odt] 4 mg PO Q8HR PRN #12 tab 02/12/19 Ondansetron Odt [Zofran Odt] 4 mg PO Q8HR PRN #10 tab 06/12/19 Allergies Allergy/AdvReac Type Severity Reaction Status Date / Time Penicillins Allergy Rash/Hives Verified 06/07/19 18:25 Review of Systems ROS Statement: Those systems with pertinent positive or pertinent negative responses have been documented in the HPI. ROS Other: All systems not noted in ROS Statement are negative. 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 HEAD: Atraumatic, normocephalic. EYES: Pupils equal round and reactive to light, extraocular movements intact, sclera anicteric, conjunctiva are normal. ENT: TMs normal, nares patent, oropharynx clear without exudates. Moist mucous me mbranes. NECK: Normal range of motion, supple without lymphadenopathy or JVD. LUNGS: Breath sounds clear to auscultation bilaterally and equal. No wheezes rales or rhonchi. HEART: Regular rate and rhythm without murmurs, rubs or gallops. ABDOMEN: Tender to palpation in the mid abdomen, epigastric. Patient appears slightly distended, hypoactive bowel sounds. No masses appreciated. : Deferred EXTREMITIES: Normal range of motion, no pitting or edema. No clubbing or cyanosis. NEUROLOGICAL: Normal speech, normal gait. PSYCH: Normal mood, normal affect. SKIN: Warm, Dry, normal turgor, no rashes or lesions noted. Limitations: no limitations Course Vital Signs 06/12/19 06/12/19 06/12/19 13:33 15:56 18:18 Temperature 98.2 F 98.1 F Pulse Rate 72 56 L 67 Respiratory 18 18 18 Rate Blood Pressure 190/98 173/103 169/94 O2 Sat by Pulse 97 97 98 Oximetry Medical Decision Making - Medical Decision Making Patient states 8-year-old male with epigastric to mid abdominal pain since yesterday. Patient's BP is elevated on arrival with the vitals are normal. Afebrile. He has a history of pancreatitis and this feels similar. Labs reveal leukocytosis 17.9. Lactic acid is 1.1. No other acute abnormalities. Lipase 95. Urine is normal. CT of the abdomen shows mild focal acute pancreatitis. Patient given pain control, antinausea medications. He reports improvement in his symptoms. I discussed with patient being admitted versus managing this at home. Patient is requesting to be discharged home. Patient meets only to the [place] criteria. I believe he is stable for discharge. Patient will be sent home with Zofran as well as a starter pack of tramadol. He is in agreement with this plan of care. Return parameters were discussed with the patient and he verbalized understanding. Case discussed with Dr. Carmen. - Lab Data Result diagrams: 06/12/19 14:33 06/12/19 14:33 Lab Results 06/12/19 06/12/19 06/12/19 Range/Units 14:33 14:33 14:33 WBC 17.9 H (3.8-10.6) k/uL RBC 5.41 (4.30-5.90) m/uL Hgb 16.6 (13.0-17.5) gm/dL Hct 50.5 (39.0-53.0) % MCV 93.3 (80.0-100.0) fL MCH 30.7 (25.0-35.0) pg MCHC 32.9 (31.0-37.0) g/dL RDW 12.5 (11.5-15.5) % Plt Count 234 (150-450) k/uL Neutrophils % 82 % Lymphocytes % 10 % Monocytes % 4 % Eosinophils % 4 % Basophils % 0 % Neutrophils # 14.6 H (1.3-7.7) k/uL Lymphocytes # 1.8 (1.0-4.8) k/uL Monocytes # 0.7 (0-1.0) k/uL Eosinophils # 0.6 (0-0.7) k/uL Basophils # 0.1 (0-0.2) k/uL PT 10.0 (9.0-12.0) sec INR 1.0 (<1.2) APTT 24.8 (22.0-30.0) sec Sodium 135 L (137-145) mmol/L Potassium 4.2 (3.5-5.1) mmol/L Chloride 102 (98-107) mmol/L Carbon Dioxide 25 (22-30) mmol/L Anion Gap 8 mmol/L BUN 17 (9-20) mg/dL Creatinine 0.74 (0.66-1.25) mg/dL Est GFR (CKD-EPI)AfAm >90 (>60 ml/min/1.73 sqM) Est GFR (CKD-EPI)NonAf >90 (>60 ml/min/1.73 sqM) Glucose 154 H (74-99) mg/dL Plasma Lactic Acid [place] (0.7-2.0) mmol/L Calcium 9.3 (8.4-10.2) mg/dL Total Bilirubin 0.6 (0.2-1.3) mg/dL AST 26 (17-59) U/L ALT 31 (4-49) U/L Alkaline Phosphatase 83 (38-126) U/L Total Protein 7.4 (6.3-8.2) g/dL Albumin 4.5 (3.5-5.0) g/dL Amylase 38 (30-110) U/L Lipase 95 (23-300) U/L Urine Color Urine Appearance (Clear) Urine pH (5.0-8.0) Ur Specific [place] (1.001-1.035) Urine Protein (Negative) Urine Glucose (UA) (Negative) Urine Ketones (Negative) Urine Blood (Negative) Urine Nitrite (Negative) Urine Bilirubin (Negative) Urine Urobilinogen (<2.0) mg/dL Ur Leukocyte Esterase (Negative) 06/12/19 06/12/19 Range/Units 14:33 15:38 WBC (3.8-10.6) k/uL RBC (4.30-5.90) m/uL Hgb (13.0-17.5) gm/dL Hct (39.0-53.0) % MCV (80.0-100.0) fL MCH (25.0-35.0) pg MCHC (31.0-37.0) g/dL RDW (11.5-15.5) % Plt Count (150-450) k/uL Neutrophils % % Lymphocytes % % Monocytes % % Eosinophils % % Basophils % % Neutrophils # (1.3-7.7) k/uL Lymphocytes # (1.0-4.8) k/uL Monocytes # (0-1.0) k/uL Eosinophils # (0-0.7) k/uL Basophils # (0-0.2) k/uL PT (9.0-12.0) sec INR (<1.2) APTT (22.0-30.0) sec Sodium (137-145) mmol/L Potassium (3.5-5.1) mmol/L Chloride (98-107) mmol/L Carbon Dioxide (22-30) mmol/L Anion Gap mmol/L BUN (9-20) mg/dL Creatinine (0.66-1.25) mg/dL Est GFR (CKD-EPI)AfAm (>60 ml/min/1.73 sqM) Est GFR (CKD-EPI)NonAf (>60 ml/min/1.73 sqM) Glucose (74-99) mg/dL Plasma Lactic Acid Marek 1.1 (0.7-2.0) mmol/L Calcium (8.4-10.2) mg/dL Total Bilirubin (0.2-1.3) mg/dL AST (17-59) U/L ALT (4-49) U/L Alkaline Phosphatase (38-126) U/L Total Protein (6.3-8.2) g/dL Albumin (3.5-5.0) g/dL Amylase (30-110) U/L Lipase (23-300) U/L Urine Color Light Yellow Urine Appearance Clear (Clear) Urine pH 6.0 (5.0-8.0) Ur Specific [place] 1.006 (1.001-1.035) Urine Protein Negative (Negative) Urine Glucose (UA) Negative (Negative) Urine Ketones Negative (Negative) Urine Blood Negative (Negative) Urine Nitrite Negative (Negative) Urine Bilirubin Negative (Negative) Urine Urobilinogen <2.0 (<2.0) mg/dL Ur Leukocyte Esterase Negative (Negative) Disposition Clinical Impression: Pancreatitis, Abdominal pain Disposition: HOME SELF-CARE Condition: Stable Instructions (If sedation given, give patient instructions): Pancreatitis (ED) Additional Instructions: Please return to the Emergency Department if symptoms worsen or any other conc erns. Follow-up with GI as discussed. Continue with clear diet for 24-48 hours. Use Zofran as needed for nausea. Take Tylenol for pain relief or Ultram for severe pain. Prescriptions: Ondansetron Odt [Zofran Odt] 4 mg PO Q8HR PRN #10 tab PRN Reason: Nausea Is patient prescribed a controlled substance at d/c from ED?: No Referrals: Brenden Puga MD [Primary Care Provider] - 1-2 days Mandi Esparza MD [STAFF PHYSICIAN] - 1-2 days
[2019-06-12 14:49] LABS: Basophils # (A) 0.1 k/uL (0-0.2); Basophils % (A) 0 %; Eosinophils # (A) 0.6 k/uL (0-0.7); Eosinophils % (A) 4 %; HCT 50.5 % (39.0-53.0); HGB 16.6 gm/dL (13.0-17.5); Lymphocytes # (A) 1.8 k/uL (1.0-4.8); Lymphocytes % (A) 10 %; MCH 30.7 pg (25.0-35.0); MCHC 32.9 g/dL (31.0-37.0); MCV 93.3 fL (80.0-100.0); Mean Platelet Volume 7.9; Monocytes # (A) 0.7 k/uL (0-1.0); Monocytes % (A) 4 %; Neutrophils # (A) 14.6 k/uL (1.3-7.7); Neutrophils % (A) 82 %; Platelet Count 234 k/uL (150-450); RBC 5.41 m/uL (4.30-5.90); RDW 12.5 % (11.5-15.5); WBC 17.9 k/uL (3.8-10.6)
[2019-06-12 14:57] LABS: ALT 31 U/L (4-49); AST 26 U/L (17-59); African American GFR (CKD) >90 (>60 ml/min/1.73 sqM); Albumin 4.5 g/dL (3.5-5.0); Alkaline Phosphatase 83 U/L (38-126); Amylase 38 U/L (30-110); Anion Gap 8 mmol/L; Blood Urea Nitrogen 17 mg/dL (9-20); Calcium 9.3 mg/dL (8.4-10.2); Carbon Dioxide 25 mmol/L (22-30); Chloride 102 mmol/L (98-107); Glucose 154 mg/dL (74-99); Non-African American GFR(CKD) >90 (>60 ml/min/1.73 sqM); Partial Thromboplastin Time 24.8 sec (22.0-30.0); Potassium 4.2 mmol/L (3.5-5.1); Sodium 135 mmol/L (137-145); Total Bilirubin 0.6 mg/dL (0.2-1.3); Total Protein 7.4 g/dL (6.3-8.2)
[2019-06-12 15:52] LABS: Appearance,Urine Clear (Clear); Bilirubin,Urine Negative (Negative); Blood,Urine Negative (Negative); Color,Urine Light Yellow; Glucose,Urine (UA) Negative (Negative); Ketones,Urine Negative (Negative); Leukocyte Esterase,Urine Negative (Negative); Nitrite,Urine Negative (Negative); Protein,Urine Negative (Negative); Specific Gravity,Urine 1.006 (1.001-1.035); Urobilinogen,Urine <2.0 mg/dL (<2.0)
--- NOTE | 2019-06-12 16:25 | CT ---
EXAMINATION TYPE: CT abdomen pelvis w con DATE OF EXAM: 06/12/2019 COMPARISON: CT abdomen and pelvis February 03, 2017 HISTORY: Generalized abdominal pain and nausea x2 days. CT DLP: 1362 mGycm, Automated Exposure Control for Dose Reduction was Utilized. CONTRAST: CT scan of the abdomen and pelvis is performed without oral but with IV Contrast, patient injected wi th 100ml mL of Isovue 300. FINDINGS: LUNG BASES: No significant abnormality is appreciated. LIVER/GB: Liver is low dense relative to the spleen suggesting diffuse fatty infiltration.. PANCREAS: Persistent heterogeneous mild fat stranding at level of pancreatic head and uncinate proces s slightly more prominent from prior CT 2017. There is subcentimeter nonspecific hypodense area axial image 34 nonspecific finding. Possible pseudocyst. SPLEEN: No significant abnormality is seen. ADRENALS: No significant abnormality is seen. KIDNEYS: No significant abnormality is seen. BOWEL: No suspicious small or large bowel dilatation. Stomach poorly distended and thus suboptimall y evaluated. Appendix unremarkable from base of cecum in the right lower quadrant. PROSTATE/SEMINAL VESICLES: No gross abnormality seen. LYMPH NODES: No greater than 1cm abdominal or pelvic lymph nodes are appreciated. OSSEOUS STRUCTURES: Moderate multilevel spurring in the spine. Moderate to severe disc space narrowin g at lumbosacral junction redemonstrated. OTHER: Some ectasia to the distal abdominal aorta without greater than 3 cm aneurysmal change. Mild t o moderate mixed plaque. IMPRESSION: Mild focal acute pancreatitis felt present involving the pancreatic head and uncinate pro cess. Nonspecific subcentimeter area could reflect developing pseudocyst. This could be better evalua maxwell with follow-up MRI/MRCP if desired.
[2019-06-12] MEDS ORDERED: MORPHINE SULFATE 4 MG/ML SYRINGE IVP STA (16:32)
[2019-06-12] MEDS ORDERED: traMADol 50 MG STARTER PACK 3 TAB BTL PO STA (17:35)
[2019-06-12 18:20] VITALS: BP 169/94; PULSE 67; TEMP 98.1
== END 2019-06-12 18:18 | disposition home or self-care (01) ==
LOC: EC 13:23
DX: K85.90 Acute pancreatitis without necrosis or infection, unspecified (principal); I10 Essential (primary) hypertension; D72.829 Elevated white blood cell count, unspecified; F17.200 Nicotine dependence, unspecified, uncomplicated; E11.9 Type 2 diabetes mellitus without complications; K21.9 Gastro-esophageal reflux disease without esophagitis; J44.9 Chronic obstructive pulmonary disease, unspecified; E78.5 Hyperlipidemia, unspecified; Z79.51 Long term (current) use of inhaled steroids; Z79.84 Long term (current) use of oral hypoglycemic drugs; Z79.899 Other long term (current) drug therapy; Z88.0 Allergy status to penicillin; Z98.890 Other specified postprocedural states
CPT/HCPCS: 36415; 80053; 82150; 83605; 83690; 85025; 85610; 85730; 81003; 74177; 99284; 96374; 96375 ×2; 96361; J2270; J2405; J1885; Q9967

== ENCOUNTER → 2019-09-09 | Outpatient (CLI) | payer OTHER ==
--- NOTE | 2019-09-09 10:26 | XR ---
EXAMINATION TYPE: XR chest 2V DATE OF EXAM: 09/09/2019 COMPARISON: 06/07/2019 TECHNIQUE: PA and lateral views submitted. HISTORY: Fever FINDINGS: The lungs are clear and there is no pneumothorax, pleural effusion, or focal pneumonia. No overt fa ilure. Biapical pleural thickening. Hyperinflation suggests COPD. IMPRESSION: 1. No acute process.
== END | disposition home or self-care (01) ==
LOC: LABWHC1 09:15
PROVIDERS: ATTEND Nurse Practitioner Family
DX: Z03.818 Encounter for observation for suspected exposure to other biological agents ruled out (principal); R50.9 Fever, unspecified
CPT/HCPCS: 71046; U0003

== ENCOUNTER → 2020-03-19 | Outpatient (CLI) | payer OTHER ==
--- NOTE | 2020-03-19 08:06 | XR ---
EXAMINATION TYPE: XR chest 2V DATE OF EXAM: 03/19/2020 COMPARISON: 09/09/2019 HISTORY: Shortness of breath TECHNIQUE: Frontal and lateral views of the chest are obtained. FINDINGS: Scattered senescent parenchymal changes noted. Hyperinflation compatible with COPD. No evidence for infiltrate. No evidence for atelectasis. Heart size is stable. Mediastinal structures are stable and grossly unremarkable. No evidence for hilar prominence. Degenerative changes dorsal spine. IMPRESSION: 1. No evidence for acute pulmonary disease.
== END | disposition home or self-care (01) ==
LOC: RADXRMAIN 07:42
PROVIDERS: ATTEND Nurse Practitioner
DX: J44.1 Chronic obstructive pulmonary disease with (acute) exacerbation (principal)
CPT/HCPCS: 71046

== ENCOUNTER 2020-04-21 11:36 | Inpatient (IN) | payer OTHER ==
--- NOTE | 2020-04-21 12:20 | ED ---
General Adult HPI - General Chief complaint: Recheck/Abnormal Lab/Rx Stated complaint: abn labs Time Seen by Provider: 04/21/20 11:44 Source: patient, RN notes reviewed Mode of arrival: ambulatory Limitations: no limitations - History of Present Illness Initial comments: 59-year-old male with a past medical history of COPD, diabetes mellitus, hyperlipidemia, hypertension, GERD, presents to the emergency department for abnormal labs. Patient states he had his blood drawn yesterday and was called today at work and told he had to come to the hospital for a low magnesium. Patient has never had this before. Patient denies any significant alcohol int haley. Patient denies significant diarrhea but does report that he has had some over the past month because he was started on metformin. Of note he does take a PPI. However that has improved in the past week.Patient has no other complaints at this time including shortness of breath, chest pain, abdominal pain, nausea or vomiting, headache, or visual changes. - Related Data Home Medications Medication Instructions Recorded Confirmed atenoloL [Tenormin] 50 mg PO DAILY 05/25/14 04/21/20 Budesonide/Formoterol Fumarate 2 puff INHALATION RT-BID PRN 10/15/16 04/21/20 [Symbicort 160-4.5 Mcg Inhaler] Losartan Potassium 100 mg PO DAILY 07/04/17 04/21/20 Albuterol Nebulized [Ventolin 2.5 mg INHALATION RT-Q6H PRN 12/24/18 04/21/20 Nebulized] RABEprazole SODIUM [Aciphex] 20 mg PO BID 12/24/18 04/21/20 Cholecalciferol (Vitamin D3) 2,000 unit PO DAILY 02/12/19 04/21/20 [Vitamin D3] Atorvastatin [Lipitor] 20 mg PO HS 04/21/20 04/21/20 Cyanocobalamin (Vitamin B-12) 2,000 mcg PO DAILY 04/21/20 04/21/20 [Vitamin B-12] Empagliflozin [Jardiance] 10 mg PO DAILY 04/21/20 04/21/20 [place]-3 Fatty Acids/Fish Oil [Fish 1 cap PO BID 04/21/20 04/21/20 Oil 1,000 mg Softgel] metFORMIN HCL 1,000 mg PO BID 04/21/20 04/21/20 Allergies Allergy/AdvReac Type Severity Reaction Status Date / Time Penicillins Allergy Rash/Hives Verified 04/21/20 12:37 Review of Systems ROS Statement: Those systems with pertinent positive or pertinent negative responses have been documented in the HPI. ROS Other: All systems not noted in ROS Statement are negative. 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 Absent: scleral icterus, conjunctival injection ENT exam: Present: normal exam, mucous membranes moist Neck exam: Present: normal inspection, full ROM. Absent: tenderness Respiratory exam: Present: normal lung sounds bilaterally. Absent: respiratory distress Cardiovascular Exam: Present: regular rate, normal rhythm, normal heart sounds GI/Abdominal exam: Present: soft, normal bowel sounds. Absent: distended, tenderness, guarding, rebound, rigid Neurological exam: Present: alert Course Vital Signs 04/21/20 04/21/20 11:38 13:30 Temperature 98.4 F Pulse Rate 67 69 Respiratory 18 18 Rate Blood Pressure 135/84 133/74 O2 Sat by Pulse 98 98 Oximetry EKG Findings - EKG Comments: EKG Findings:: Normal sinus rhythm, ventricular rate 68, DE interval 166, QTC 395 Medical Decision Making - Medical Decision Making Vitals are stable. CBC does show leukocytosis which is chronic and patient. CMP reveals slight dehydration however magnesium is found to be 0.8. He was started on 4 g IV. There are no EKG changes. No QT prolongation. I discussed this case with Brenden from Dr. Puga's office recommends admission, does not want any consults. Requests chest x-ray for persistent leukocytosis. - Lab Data Result diagrams: 04/21/20 12:23 04/21/20 12:23 Lab Results 04/21/20 04/21/20 Range/Units 12:23 12:23 WBC 13.9 H (3.8-10.6) k/uL RBC 4.73 (4.30-5.90) m/uL Hgb 15.2 (13.0-17.5) gm/dL Hct 43.7 (39.0-53.0) % MCV 92.3 (80.0-100.0) fL MCH 32.1 (25.0-35.0) pg MCHC 34.7 (31.0-37.0) g/dL RDW 13.2 (11.5-15.5) % Plt Count 247 (150-450) k/uL MPV 7.8 Neutrophils % 75 % Lymphocytes % 16 % Monocytes % 3 % Eosinophils % 5 % Basophils % 1 % Neutrophils # 10.4 H (1.3-7.7) k/uL Lymphocytes # 2.2 (1.0-4.8) k/uL Monocytes # 0.4 (0-1.0) k/uL Eosinophils # 0.7 (0-0.7) k/uL Basophils # 0.2 (0-0.2) k/uL Sodium 139 (137-145) mmol/L Potassium 4.6 (3.5-5.1) mmol/L Chloride 103 (98-107) mmol/L Carbon Dioxide 26 (22-30) mmol/L Anion Gap 10 mmol/L BUN 26 H (9-20) mg/dL Creatinine 1.16 (0.66-1.25) mg/dL Est GFR (CKD-EPI)AfAm 81 (>60 ml/min/1.73 sqM) Est GFR (CKD-EPI)NonAf 70 (>60 ml/min/1.73 sqM) Glucose 180 H (74-99) mg/dL Calcium 9.4 (8.4-10.2) mg/dL Magnesium 0.8 L* (1.6-2.3) mg/dL Total Bilirubin 0.7 (0.2-1.3) mg/dL AST 26 (17-59) U/L ALT 32 (4-49) U/L Alkaline Phosphatase 72 (38-126) U/L Total Protein 7.7 (6.3-8.2) g/dL Albumin 4.7 (3.5-5.0) g/dL Disposition Clinical Impression: Hypomagnesemia, Leukocytosis Disposition: ADMITTED IP TO THIS HOSP Is patient prescribed a controlled substance at d/c from ED?: No Referrals: Brenden Puga MD [Primary Care Provider] - 1-2 days Time of Disposition: 13:54
[2020-04-21 12:39] LABS: Basophils # (A) 0.2 k/uL (0-0.2); Basophils % (A) 1 %; Eosinophils # (A) 0.7 k/uL (0-0.7); Eosinophils % (A) 5 %; HCT 43.7 % (39.0-53.0); HGB 15.2 gm/dL (13.0-17.5); Lymphocytes # (A) 2.2 k/uL (1.0-4.8); Lymphocytes % (A) 16 %; MCH 32.1 pg (25.0-35.0); MCHC 34.7 g/dL (31.0-37.0); MCV 92.3 fL (80.0-100.0); Mean Platelet Volume 7.8; Monocytes # (A) 0.4 k/uL (0-1.0); Monocytes % (A) 3 %; Neutrophils # (A) 10.4 k/uL (1.3-7.7); Neutrophils % (A) 75 %; Platelet Count 247 k/uL (150-450); RBC 4.73 m/uL (4.30-5.90); RDW 13.2 % (11.5-15.5); WBC 13.9 k/uL (3.8-10.6)
[2020-04-21 12:48] LABS: Albumin 4.7 g/dL (3.5-5.0); Calcium 9.4 mg/dL (8.4-10.2); Potassium 4.6 mmol/L (3.5-5.1); Total Bilirubin 0.7 mg/dL (0.2-1.3); Total Protein 7.7 g/dL (6.3-8.2)
[2020-04-21 13:05] LABS: Magnesium 0.8 mg/dL (1.6-2.3)
[2020-04-21] MEDS ORDERED: Magnesium Replacement Protocol 1 EACH MISC MISCELLANE PRN (13:24)
[2020-04-21] MEDS ORDERED: NALOXONE 0.4 MG/ML 1 ML VIAL IV PRN (13:50)
[2020-04-21] MEDS: MAGNESIUM SULFATE-D5W PMX 1 GM in DEXTROSE/WATER 1 100ML.BAG IVPB SCH ×4 (14:12→17:58)
--- NOTE | 2020-04-21 14:20 | XR ---
EXAMINATION TYPE: XR chest 2V DATE OF EXAM: 04/21/2020 COMPARISON: Chest x-ray March 19, 2020 HISTORY: Leukocytosis. TECHNIQUE: Frontal and lateral views of the chest are obtained. FINDINGS: There is chronic parenchymal changes bilaterally without suspicious new focal air space op acity, pleural effusion, or pneumothorax seen. The cardiac silhouette size remains within normal springer its. The osseous structures are intact. IMPRESSION: Chronic changes without acute pulmonary process.
[2020-04-21 15:26] VITALS: RESP 16
[2020-04-21 16:46] LABS: Glucose,Whole Blood 215 mg/dL (75-99)
[2020-04-21] MEDS ORDERED: SYMBICORT 160-4.5 MCG INHALER INHALATION PRN (17:33)
[2020-04-21 20:24] LABS: Glucose,Whole Blood 135 mg/dL (75-99)
[2020-04-21] MEDS: metFORMIN 500 MG TAB PO SCH (20:47)
[2020-04-21] MEDS: INSULIN ASPART (NovoLOG) 100 UNIT/ML VIAL SQ SCH (20:48)
[2020-04-21] MEDS: PANTOPRAZOLE 40 MG TABLET PO SCH (20:48)
[2020-04-21] MEDS ORDERED: ATORVASTATIN 20 MG TAB PO SCH (21:00)
[2020-04-21] MEDS ORDERED: TEMAZEPAM 15 MG CAP PO SCH (21:00)
[2020-04-21] MEDS ORDERED: TEMAZEPAM 30 MG CAP PO SCH (21:00)
[2020-04-21] MEDS ORDERED: NON FORMULARY DRUG (Omega-3 Fatty Acids/Fish Oil [Fish Oil 1,000 Mg Softgel] 1 EACH Capsul PO SCH (21:00)
--- NOTE | 2020-04-21 22:02 | P.HPIM ---
History of Present Illness H&P Date: 04/21/20 Chief Complaint: Paresthesias to upper extremities 59-year-old male was sent to the emergency department for critical low magnesium 0.9 with associated symptoms of bilateral upper extremity paresthesia, and generalized malaise. Patient had extensive workup in the emergency department revealing hyponatremiareplace by emergency room provider with 4 g of magnesiumwe'll continue to trend. Patient additional complaint of intermittent episodes of refluxconsulted gastroenterology. Patient denies chest pain, abdominal pain, nausea or vomiting, headache, or visual changes. Review of Systems Constitutional: Reports weakness Eyes: bilateral as per HPI Ears, nose, mouth and throat: Reports sore throat Gastrointestinal: Reports bloating, Reports loss of appetite Musculoskeletal: Reports leg numbness/tingling (Bilateral upper extremities), Reports low back pain Neurological: Reports tingling Endocrine: Reports fatigue 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 Smoking Status: Current some day smoker Past Alcohol Use History: Occasional Additional Past Alcohol Use History / Comment(s): STRTED SMOKING AGE 16 HAS BEEN TRYING TO QUIT. CURRENTLY SMOKING ONLY FEW CIG PER DAY. HAD TRIED WELLBUTRIN TO HELP HIM QUIT BUT HAD AN ALLERGIC REATION(RASH) SO STOPPED USING Past Drug Use History: None Reported - Past Family History Father History Unknown: Yes Mother Family Medical History: No Reported History Additional Family Medical History / Comment(s): HEALTHY Medications and Allergies Home Medications and Allergies Comment(s): Medications and ALLERGIES reviewed Home Medications Medication Instructions Recorded Confirmed Type atenoloL [Tenormin] 50 mg PO DAILY 05/25/14 04/21/20 History Budesonide/Formoterol Fumarate 2 puff INHALATION RT-BID PRN 10/15/16 04/21/20 History [Symbicort 160-4.5 Mcg Inhaler] Losartan Potassium 100 mg PO DAILY 07/04/17 04/21/20 History Albuterol Nebulized [Ventolin 2.5 mg INHALATION RT-Q6H PRN 12/24/18 04/21/20 History Nebulized] RABEprazole SODIUM [Aciphex] 20 mg PO BID 12/24/18 04/21/20 History Cholecalciferol (Vitamin D3) 2,000 unit PO DAILY 02/12/19 04/21/20 History [Vitamin D3] Atorvastatin [Lipitor] 20 mg PO HS 04/21/20 04/21/20 History Cyanocobalamin (Vitamin B-12) 2,000 mcg PO DAILY 04/21/20 04/21/20 History [Vitamin B-12] Empagliflozin [Jardiance] 10 mg PO DAILY 04/21/20 04/21/20 History [place]-3 Fatty Acids/Fish Oil [Fish 1 cap PO BID 04/21/20 04/21/20 History Oil 1,000 mg Softgel] metFORMIN HCL 1,000 mg PO BID 04/21/20 04/21/20 History Allergies Allergy/AdvReac Type Severity Reaction Status Date / Time Penicillins Allergy Rash/Hives Verified 04/21/20 12:37 Physical Exam Vitals: Vital Signs Temp Pulse Pulse Resp BP BP Pulse Ox 04/21/20 16:35 74 16 122/74 96 04/21/20 14:55 97.0 F L 68 16 119/75 97 04/21/20 13:30 69 18 133/74 98 04/21/20 11:38 98.4 F 67 18 135/84 98 Intake and Output 04/21/20 04/21/20 04/21/20 06:59 14:59 22:59 Intake Total 444 Balance 444 Intake: Oral 444 Other: # Voids 1 Weight 91.626 kg - Constitutional General appearance: cooperative, no acute distress - EENT Eyes: EOMI, PERRLA Ears: bilateral: normal - Neck Carotids: bilateral: upstroke normal - Respiratory Respiratory: bilateral: diminished (Posterior bases) - Cardiovascular Normal sinus rhythm Heart rate: 68 Rhythm: regular Heart sounds: normal: S1, S2 dorsalis pedis Peripheral Pulses: bilateral: Normal radial pulse Peripheral Pulses: bilateral: Normal - Gastrointestinal General gastrointestinal: normal bowel sounds - Integumentary Integumentary: normal turgor - Neurologic Neurologic: CNII-XII intact - Musculoskeletal Musculoskeletal: gait normal - Psychiatric Psychiatric: A&O x's 3, appropriate affect, intact judgment & insight Results CBC & Chem 7: 04/21/20 12:23 04/21/20 12:23 Labs: Abnormal Lab Results - Last 24 Hours (Table) 04/21/20 04/21/20 04/21/20 Range/Units 12:23 12:23 16:45 WBC 13.9 H (3.8-10.6) k/uL Neutrophils # 10.4 H (1.3-7.7) k/uL BUN 26 H (9-20) mg/dL Glucose 180 H (74-99) mg/dL POC Glucose (mg/dL) 215 H (75-99) mg/dL Magnesium 0.8 L* (1.6-2.3) mg/dL 04/21/20 Range/Units 20:22 WBC (3.8-10.6) k/uL Neutrophils # (1.3-7.7) k/uL BUN (9-20) mg/dL Glucose (74-99) mg/dL POC Glucose (mg/dL) 135 H (75-99) mg/dL Magnesium (1.6-2.3) mg/dL Chest x-ray: report reviewed Thrombosis Risk Factor Assmnt - Choose All That Apply Each Factor Represents 1 point: Age 41-60 years Thrombosis Risk Factor Assessment Total Risk Factor Score: 1 Thrombosis Risk Factor Assessment Level: Low Risk Assessment and Plan Assessment: Hypo-magnesiummagnesium replacement protocol Bilateral upper extremity paresthesiamagnesium replacement Leukocytosisacute on chronicno signs of infection/possibly due to inhaled corticosteroid COPD Type 2 diabetes [id number] Hyperlipidemia Hypertension GERD Plan: Hypomagnesemiamagnesium replacement protocol Bilateral upper extremity paresthesiacontinue magnesium replacement protocol GERD/refluxconsultation with gastroenterology for recommendations and treatment plan Leukocytosischronicpossibly due to inhaled corticosteroids Continue home medications Continue medical management Time with Patient: Greater than 30
[2020-04-22] MEDS: ALBUTEROL NEBULIZED 2.5 MG/3 ML INHALATION PRN ×2 (00:42→07:30)
[2020-04-22 06:13] LABS: Glucose,Whole Blood 130 mg/dL (75-99)
[2020-04-22] MEDS: INSULIN ASPART (NovoLOG) 100 UNIT/ML VIAL SQ SCH ×2 (06:27→12:05)
[2020-04-22 08:11] LABS: Basophils # (A) 0.1 k/uL (0-0.2); Basophils % (A) 1 %; Eosinophils # (A) 0.6 k/uL (0-0.7); Eosinophils % (A) 5 %; HCT 43.7 % (39.0-53.0); HGB 14.8 gm/dL (13.0-17.5); Lymphocytes # (A) 2.3 k/uL (1.0-4.8); Lymphocytes % (A) 19 %; MCH 31.4 pg (25.0-35.0); MCHC 33.7 g/dL (31.0-37.0); MCV 93.2 fL (80.0-100.0); Mean Platelet Volume 7.6; Monocytes # (A) 0.5 k/uL (0-1.0); Monocytes % (A) 4 %; Neutrophils # (A) 8.6 k/uL (1.3-7.7); Neutrophils % (A) 70 %; Platelet Count 240 k/uL (150-450); RBC 4.69 m/uL (4.30-5.90); RDW 13.1 % (11.5-15.5); WBC 12.3 k/uL (3.8-10.6)
[2020-04-22 08:15] LABS: ALT 30 U/L (4-49); AST 23 U/L (17-59); African American GFR (CKD) >90 (>60 ml/min/1.73 sqM); Albumin 4.3 g/dL (3.5-5.0); Alkaline Phosphatase 72 U/L (38-126); Anion Gap 8 mmol/L; Blood Urea Nitrogen 23 mg/dL (9-20); Calcium 9.1 mg/dL (8.4-10.2); Carbon Dioxide 28 mmol/L (22-30); Chloride 101 mmol/L (98-107); Glucose 126 mg/dL (74-99); Magnesium 1.5 mg/dL (1.6-2.3); Non-African American GFR(CKD) 89 (>60 ml/min/1.73 sqM); Potassium 4.6 mmol/L (3.5-5.1); Sodium 137 mmol/L (137-145); Total Bilirubin 0.7 mg/dL (0.2-1.3); Total Protein 7.1 g/dL (6.3-8.2)
[2020-04-22] MEDS ORDERED: HYDROcodone/APAP 5-325MG 1 EACH TAB PO PRN (08:29)
[2020-04-22] MEDS: PANTOPRAZOLE 40 MG TABLET PO SCH (08:46)
[2020-04-22] MEDS: metFORMIN 500 MG TAB PO SCH (08:46)
[2020-04-22] MEDS ORDERED: LOSARTAN 50 MG TAB PO SCH (09:00)
[2020-04-22] MEDS ORDERED: atenoloL 50 MG TAB PO SCH (09:00)
[2020-04-22] MEDS ORDERED: CYANOCOBALAMIN 500 MCG TAB PO SCH (09:00)
[2020-04-22] MEDS ORDERED: CHOLECALCIFEROL 25 MCG (1000 IU) TABLET PO SCH (09:00)
[2020-04-22] MEDS ORDERED: NON FORMULARY DRUG (Empagliflozin [Jardiance] 10 MG Tablet) PO SCH (09:00)
[2020-04-22 11:56] LABS: Glucose,Whole Blood 166 mg/dL (75-99)
--- NOTE | 2020-04-22 12:14 | CONS ---
CONSULTATION DATE OF DICTATION: April 22, 2020 REASON FOR CONSULTATION: Severe GERD and hypomagnesemia. HISTORY OF PRESENT ILLNESS: The patient is a 59-year-old pleasant white male admitted to hospital with paresthesias of the upper and lower extremities for the last few months duration. He had outpatient labs done. He was noted to have critical low magnesium level at 0.7 and hence he was advised to go to the emergency room and subsequently admitted to the hospital and his electrolytes were being replaced appropriately. The patient has longstanding history of GERD and has been on PPIs for several years duration. He was on Prilosec in the past until a year ago when he had worsening heartburn and some sore throat and medications were changed to rabeprazole 20 mg daily and he continues to do well. He denies any dysphagia, odynophagia. No abdominal pain. No nausea. No vomiting. Overall he is feeling much better today. PAST MEDICAL HISTORY: GERD, diabetes mellitus, hypertension, hyperlipidemia, and COPD. PAST SURGICAL HISTORY: Some eye surgery. MEDICATIONS: Medications at home include Tenormin, Symbicort, losartan, Ventolin, AcipHex, vitamin D3, vitamin B12, Jardiance, metformin. ALLERGIES: PENICILLIN. SOCIAL HISTORY: Chronic smoker. No alcohol use. FAMILY HISTORY: Father unremarkable. Mother coronary artery disease. REVIEW OF SYSTEMS: CARDIOPULMONARY: No chest pain or shortness of breath. GENITOURINARY: No dysuria or hematuria. MUSCULOSKELETAL: Unremarkable. SKIN: Unremarkable. ENDOCRINE: Unremarkable. PSYCHIATRIC: Unremarkable. NEUROLOGY: Unremarkable. ENT/VISION: Unremarkable. CONSTITUTIONAL: No recent weight loss. No fever, chills, night sweats. PHYSICAL EXAMINATION: Blood pressure 113/65, pulse rate 80, temperature 98.3. HEENT EXAMINATION: Unremarkable. Conjunctivae pink. Sclerae anicteric. Oral cavity, no lesions. NECK: No JVD or lymph node enlargement. CHEST: Was clear to auscultation. HEART: Regular rate and rhythm. ABDOMEN: Soft. It was nontender, nondistended. Bowel sounds are positive. No organomegaly. EXTREMITIES: No pedal edema. SKIN: No rashes. NEURO: He is alert and oriented x3. No focal deficits. LABS: Labs at the time of admission to the hospital: WBC 12.3, hemoglobin 14.8, platelets normal. Basic metabolic panel is within normal limits. Magnesium level initially was 0.7 and today it is 1.5. ALT, AST, T-bilirubin and alkaline phosphatase are within normal limits. IMPRESSION: 1. Hypomagnesemia, probably precipitated with PPI use. 2. Longstanding history of gastroesophageal reflux disease. Patient on PPIs for almost 15 years duration. For the last one year he has been taking rabeprazole 20 mg daily and is doing well. Currently, he has no gastroesophageal reflux disease symptoms. 3. Upper extremity paresthesias have resolved with magnesium replacement. 4. History of diabetes mellitus. 5. History of hypertension and hyperlipidemia. RECOMMENDATIONS: I had a lengthy discussion with the patient about PPI side effects which include hypomagnesemia, but at this time since patient is doing extremely well on the proton pump inhibitor therapy, I suggested that he can continue the same. However, he will need to have magnesium oral supplements on a daily basis and monitor magnesium levels every 3 months. He is agreeable with this plan. In the meantime I have briefly educated him about diet modification and anti-reflux measures. We will follow with you closely. Thank you for this consultation. MMHELENEL / IJN: [id number] /
[2020-04-22] MEDS ORDERED: MAGNESIUM OXIDE 400 MG TAB PO STA (12:57)
[2020-04-22 13:11] VITALS: BP 110/66; PULSE 69; TEMP 97.8
[2020-04-22] MEDS: MAGNESIUM SULFATE-D5W PMX 1 GM in DEXTROSE/WATER 1 100ML.BAG IVPB SCH ×2 (13:17→14:21)
[2020-04-22 13:49] LABS: Hemoglobin A1C 6.9 % (4.0-6.0)
--- NOTE | 2020-04-22 16:04 | P.DS ---
Providers Date of admission: 04/21/20 14:01 Expected date of discharge: 04/22/20 Attending physician: Brenden Puga Consults: 04/21/20 17:44 Consult Physician Urgent Consulting Provider: Mandi Esparza Consult Reason/Comments: severe reflux Do you want consulting provider notified?: Yes Primary care physician: Brenden Puga Hospital Course: 59-year-old male was sent to the emergency department for critical low magnesium with associated bilateral upper paresthesia, and generalized malaise for duration of three days. Patient received magnesium replacement protocol 6 g of magnesium IVP back, magnesium oxide 400 mg PO once. Consulted gastroenterology regarding severe reflux and Gerd patient on long-term PPI low magnesium possibly due to long-term PPI therapy. Patient tolerated treatment plan well. Patient symptoms have resolved. Patient follow-up with primary care providing team within one to two days. Assessment: Hypo magnesium bilateral upper extremity paresthesia leukocytosis acute on chronic no signs of infection possibly due to long-term inhaled corticosteroid COPD type II diabetes mellitus [id number] hyperlipidemia hypertension severe Gerd Health Concerns: None noted Pertinent Studies: None noted Procedures: None noted Patient Condition at Discharge: Fair Plan - Discharge Summary Discharge Rx Participant: Yes New Discharge Prescriptions: New Magnesium Oxide [Mag-Ox] 400 mg PO DAILY #90 tablet Continue atenoloL [Tenormin] 50 mg PO DAILY Budesonide/Formoterol Fumarate [Symbicort 160-4.5 Mcg Inhaler] 2 puff INHALATION RT-BID PRN PRN Reason: Shortness Of Breath Losartan Potassium 100 mg PO DAILY RABEprazole SODIUM [Aciphex] 20 mg PO BID Albuterol Nebulized [Ventolin Nebulized] 2.5 mg INHALATION RT-Q6H PRN PRN Reason: Shortness Of Breath Cholecalciferol (Vitamin D3) [Vitamin D3] 2,000 unit PO DAILY metFORMIN HCL 1,000 mg PO BID Cyanocobalamin (Vitamin B-12) [Vitamin B-12] 2,000 mcg PO DAILY Empagliflozin [Jardiance] 10 mg PO DAILY Atorvastatin [Lipitor] 20 mg PO HS Plain-3 Fatty Acids/Fish Oil [Fish Oil 1,000 mg Softgel] 1 cap PO BID Discharge Medication List atenoloL [Tenormin] 50 mg PO DAILY 05/25/14 [History] Budesonide/Formoterol Fumarate [Symbicort 160-4.5 Mcg Inhaler] 2 puff INHALATION RT-BID PRN 10/15/16 [History] Losartan Potassium 100 mg PO DAILY 07/04/17 [History] Albuterol Nebulized [Ventolin Nebulized] 2.5 mg INHALATION RT-Q6H PRN 12/24/18 [History] RABEprazole SODIUM [Aciphex] 20 mg PO BID 12/24/18 [History] Cholecalciferol (Vitamin D3) [Vitamin D3] 2,000 unit PO DAILY 02/12/19 [History] Atorvastatin [Lipitor] 20 mg PO HS 04/21/20 [History] Cyanocobalamin (Vitamin B-12) [Vitamin B-12] 2,000 mcg PO DAILY 04/21/20 [History] Empagliflozin [Jardiance] 10 mg PO DAILY 04/21/20 [History] Plain-3 Fatty Acids/Fish Oil [Fish Oil 1,000 mg Softgel] 1 cap PO BID 04/21/20 [History] metFORMIN HCL 1,000 mg PO BID 04/21/20 [History] Magnesium Oxide [Mag-Ox] 400 mg PO DAILY #90 tablet 04/22/20 [Rx] Follow up Appointment(s)/Referral(s): Brenden Puga MD [Primary Care Provider] - 04/27/20 2:10 am Patient Instructions/Handouts: Hypomagnesemia (DC) Discharge Disposition: HOME SELF-CARE
== END 2020-04-22 15:54 | disposition home or self-care (01) | DRG 641 ==
LOC: EC 11:36 → 3SCARD 14:01
PROVIDERS: ADMIT Family Medicine; ATTEND Family Medicine
DX: E83.42 Hypomagnesemia (principal); E87.1 Hypo-osmolality and hyponatremia; J44.9 Chronic obstructive pulmonary disease, unspecified; E11.9 Type 2 diabetes mellitus without complications; D72.829 Elevated white blood cell count, unspecified; R20.2 Paresthesia of skin; I10 Essential (primary) hypertension; E78.5 Hyperlipidemia, unspecified; K21.9 Gastro-esophageal reflux disease without esophagitis; F17.210 Nicotine dependence, cigarettes, uncomplicated; N42.9 Disorder of prostate, unspecified; T44.5X5A Adverse effect of predominantly beta-adrenoreceptor agonists, initial encounter; Z79.899 Other long term (current) drug therapy; Z79.51 Long term (current) use of inhaled steroids; Z79.84 Long term (current) use of oral hypoglycemic drugs; Z98.890 Other specified postprocedural states; Z88.0 Allergy status to penicillin; Z88.8 Allergy status to other drugs, medicaments and biological substances; Z82.49 Family history of ischemic heart disease and other diseases of the circulatory system
CPT/HCPCS: 36415; 71046; 80053; 83036; 83735; 85025; 93005; 94640; 99285

== ENCOUNTER → 2020-05-10 | Outpatient (CLI) | payer OTHER ==
--- NOTE | 2020-05-10 17:52 | US ---
EXAMINATION TYPE: US thyroid st tissue head/neck DATE OF EXAM: 05/10/2020 COMPARISON: NONE CLINICAL HISTORY: R22.10 SWELLING,MASS AND LUMP. palpable on the left by physician GLAND SIZE: Right Lobe: 4.5 x 1.5 x 1.9 cm Overall Parenchyma: homogenous Left Lobe: 4.1 x 1.4 x 1.8 cm Overall Parenchyma: homogeneous Isthmus Thickness: 0.3 cm NODULES RIGHT: # of nodules measured on right: 0 LEFT: # of nodules measured on left: 0 ISTHMUS: # of nodules measured in the isthmus: 0 Bilateral neck scanned, no evidence of lymphadenopathy. normal appearing lymph node on the lateral portion of left neck = 1.2 x 0.7 x 0.5cm IMPRESSION: No evidence of thyroid nodule or mass. Benign-appearing left cervical lymph node seen. 2017 ACR TI-RADS LEVEL: Not applicable *Highest TI-RADS level nodule reported
== END | disposition home or self-care (01) ==
LOC: RADUSWWP 16:03
PROVIDERS: ATTEND Family Medicine
DX: E04.1 Nontoxic single thyroid nodule (principal)
CPT/HCPCS: 76536

== ENCOUNTER → 2020-05-13 | Outpatient (CLI) | payer OTHER ==
--- NOTE | 2020-05-13 14:54 | CT ---
EXAMINATION TYPE: CT soft tissue neck w con DATE OF EXAM: 05/13/2020 COMPARISON: None HISTORY: Left sided mandibular mass/lump and difficulty swallowing. CT DLP: 748 mGycm CONTRAST: CT scan of the neck is performed with IV Contrast, patient injected with 100ml mL of Isovue 300. Contrast enhanced CT of the neck was performed from the skull base through the lung apices. BB marker was placed clinical concern left neck. No underlying masses AIRWAY: The supraglottic, glottic, and subglottic portions of the airway appear patent and free of mass. SALIVARY GLANDS: The submandibular and parotid glands are free of mass or inflammatory process. THYROID GLAND: No nodules or masses seen. LYMPH NODES: No adenopathy seen greater than 1cm. LUNG APICES: No nodule or mass is seen. OTHER: Vascular structures are patent. No significant degenerative change of the cervical spine. N o abscess seen. IMPRESSION: No distinct abnormality to account for the patient's symptoms.
== END | disposition home or self-care (01) ==
LOC: RADCTMAIN 14:18
PROVIDERS: ATTEND Family Medicine
DX: R59.0 Localized enlarged lymph nodes (principal)
CPT/HCPCS: 70491; Q9967

== ENCOUNTER 2020-06-23 07:40 | Day surgery (SDC) | payer OTHER ==
[2020-06-21 08:36] VITALS: BMI 29.5
[~2020-06-23 07:40] MED LIST: LACTATED RINGERS 1,000 ML IV SCH
[2020-06-23 08:27] VITALS: RESP 16; TEMP 97.1
[2020-06-23 08:43] LABS: Glucose,Whole Blood 139 mg/dL (75-99)
[2020-06-23] MEDS ORDERED: LIDOCAINE 1% INJ 10MG/ML (20 ML MDV) ONE (08:55)
[2020-06-23] MEDS ORDERED: PROPOFOL 10 MG/ML 20 ML VIAL IV ONE (08:55)
--- NOTE | 2020-06-23 09:10 | P.PCN ---
Date of Procedure: 06/23/20 Procedure(s) Performed: BRIEF HISTORY: Patient is a 59-year-old, pleasant, 8 male scheduled for an upper endoscopy as a part of evaluation of long-standing history of GERD. His been maintained on AcipHex 20 mg daily and developed severe hypomagnesemia. Presently on magnesium supplements and doing better. He scheduled for an upper endoscopy to rule out complicated reflux disease. PROCEDURE PERFORMED: Esophagogastroduodenoscopy with biopsy. PREOPERATIVE DIAGNOSIS: Long-standing history of GERD. IV sedation per anesthesia. PROCEDURE: After informed consent was obtained, the patient was brought into the endoscopy unit. IV sedation was administered by Anesthesia under continuous monitoring. Initially the Olympus GIF-140 video endoscope was inserted into the mouth. Esophagus intubated without any difficulty. It was gradually advanced into the stomach and duodenum and carefully examined. The bulb and the second part of the duodenum appeared normal. The scope at this time was withdrawn to the stomach, adequately insufflated with air, and upon careful examination, mucosa of the antrum had mild gastritis and biopsies were done from this area. The, body, cardia and the fundus appeared normal. The scope was then withdrawn into the esophagus. The GE junction was located at 43 cm from the incisors. The esophagus appeared normal. There were no erosions or ulcerations seen and the patient tolerated the procedure well. IMPRESSION: 1. Normal-appearing esophagus with no evidence of esophagitis or Carter's esophagus. 2. And minimal antral gastritis. RECOMMENDATIONS: The findings of this examination were discussed with the patient as well as his family. He was advised to follow with the biopsy results. He can continue with AcipHex and magnesium supplements. The option would be to try H2 blockers with Pepcid 40 mg twice daily and see if this helps with acid suppression and control of symptoms and if so the PPIs can be discontinued.
[2020-06-23 09:40] VITALS: BP 116/69; PULSE 62
== END 2020-06-23 10:03 | disposition home or self-care (01) ==
LOC: ORWHC2ENDO 07:40
PROVIDERS: ATTEND Internal Medicine Gastroenterology
DX: K29.50 Unspecified chronic gastritis without bleeding (principal); K21.9 Gastro-esophageal reflux disease without esophagitis; E83.42 Hypomagnesemia; E11.9 Type 2 diabetes mellitus without complications; I10 Essential (primary) hypertension; E78.5 Hyperlipidemia, unspecified; J44.9 Chronic obstructive pulmonary disease, unspecified; Z79.899 Other long term (current) drug therapy; Z79.82 Long term (current) use of aspirin; Z79.84 Long term (current) use of oral hypoglycemic drugs; Z79.51 Long term (current) use of inhaled steroids; Z88.0 Allergy status to penicillin
CPT/HCPCS: 43239; J2001; J2704; 88305

== ENCOUNTER → 2020-07-23 | Outpatient (CLI) | payer OTHER ==
--- NOTE | 2020-07-23 15:00 | XR ---
EXAMINATION TYPE: XR chest 2V DATE OF EXAM: 07/23/2020 COMPARISON: 04/21/2020 HISTORY: Shortness of breath TECHNIQUE: Frontal and lateral views of the chest are obtained. FINDINGS: Scattered senescent parenchymal changes noted. Hyperinflation compatible with COPD. No evidence for infiltrate. No evidence for atelectasis. Heart size is stable. Mediastinal structures are stable and grossly unremarkable. No evidence for hilar prominence. Degenerative changes dorsal spine. IMPRESSION: 1. No evidence for acute pulmonary disease.
== END | disposition home or self-care (01) ==
LOC: RADXRMAIN 14:40
PROVIDERS: ATTEND Nurse Practitioner
DX: R06.02 Shortness of breath (principal)
CPT/HCPCS: 71046

== ENCOUNTER → 2021-02-01 | Outpatient (CLI) | payer OTHER ==
--- NOTE | 2021-02-01 10:14 | XR ---
EXAMINATION TYPE: XR chest 2V DATE OF EXAM: 02/01/2021 COMPARISON: Chest x-ray July 23, 2020 HISTORY: Congestion. TECHNIQUE: Frontal and lateral views of the chest are obtained. FINDINGS: There is mild chronic parenchymal change in the lower lungs without suspicious new focal a ir space opacity, pleural effusion, or pneumothorax seen. The cardiac silhouette size is stable and within normal limits. The osseous structures are intact. IMPRESSION: Chronic changes without acute pulmonary process. No significant change from prior.
[2021-02-01 14:33] LABS: Basophils % (A) 0.8 %; Eosinophils # (A) 0.65 X 10*3/uL (0.04-0.35); Eosinophils % (A) 5.4 %; HCT 52.5 % (39.6-50.0); HGB 17.2 g/dL (13.0-17.0); Lymphocytes # (A) 2.39 X 10*3/uL (0.90-5.00); Lymphocytes % (A) 19.9 %; MCH 31.6 pg (27.0-32.0); MCHC 32.8 g/dL (32.0-37.0); MCV 96.3 fL (80.0-97.0); Mean Platelet Volume 10.5 fL (9.5-12.2); Monocytes # (A) 0.69 X 10*3/uL (0.20-1.00); Monocytes % (A) 5.7 %; Neutrophils # (A) 8.14 X 10*3/uL (1.80-7.70); Neutrophils % (A) 67.7 %; Platelet Count 262 X 10*3/uL (140-440); RBC 5.45 X 10*6/uL (4.40-5.60); RDW 12.9 % (11.5-14.5); WBC 12.03 X 10*3/uL (4.50-10.00)
[2021-02-01 15:41] LABS: African American GFR (CKD) 81.7 (60.0-200.0); Albumin 4.4 g/dL (3.8-4.9); Albumin/Globulin Ratio 1.85 (1.60-3.17); Anion Gap 13.6 mmol/L (4.00-12.00); BUN/Creat Ratio 15.26 Ratio (12.00-20.00); Blood Urea Nitrogen 17.4 mg/dL (9.0-27.0); C Reactive Protein 0.6 mg/dL (0.00-0.80); Calcium 9.3 mg/dL (8.7-10.3); Carbon Dioxide 21.8 mmol/L (21.6-31.8); Globulin 2.4 g/dL (1.6-3.3); Non-African American GFR(CKD) 70.5 (60.0-200.0); Potassium 4.2 mmol/L (3.5-5.5); Total Bilirubin 0.2 mg/dL (0.30-1.20); Total Protein 6.8 g/dL (6.2-8.2)
[2021-02-01 16:11] LABS: Erythrocyte Sedimentation Rate 3 mm/Hr (0-20)
== END | disposition home or self-care (01) ==
LOC: LABWHC1 09:30
PROVIDERS: ATTEND Family Medicine
DX: J06.9 Acute upper respiratory infection, unspecified (principal)
CPT/HCPCS: 36415; 71046; 80053; 82728; 83615; 84145; 85025; 85652; 86140

== ENCOUNTER → 2021-02-02 | Outpatient (CLI) | payer OTHER | END | disposition home or self-care (01) | LOC: LABWHC1 12:10 | PROVIDERS: ATTEND Family Medicine | DX: J06.9 Acute upper respiratory infection, unspecified (principal) | CPT/HCPCS: 87502; U0003; C9803 ==

== ENCOUNTER 2021-04-04 09:06 | Emergency (ER) | payer OTHER ==
[2021-04-04] MEDS ORDERED: dexAMETHasone 2 MG TAB PO STA (09:41)
[2021-04-04] MEDS ORDERED: ALBUTEROL HFA INHALER INHALATION STA (09:41)
[2021-04-04 09:42] VITALS: RESP 18
--- NOTE | 2021-04-04 09:42 | ED ---
General Adult HPI - General Stated complaint: Covid + KERA Source: RN notes reviewed - History of Present Illness Initial comments: 60-year-old male presents to the emergency room for a chief complaint of not feeling well. Patient states he has had fevers on and off at home. He also has a cough. States this has been ongoing for 5 days, start on the . Patient is vaccinated for COVID-19. Patient did already test positive, has copy on his phone for proof from [facility]. States his COPD is also acting up. Patient has no other complaints at this time including chest pain, abdominal pain, nausea or vomiting, headache, or visual changes. - Related Data Home Medications Medication Instructions Recorded Confirmed atenoloL [Tenormin] 50 mg PO QAM 05/25/14 06/23/20 Budesonide/Formoterol Fumarate 2 puff INHALATION RT-BID 10/15/16 06/23/20 [Symbicort 160-4.5 Mcg Inhaler] Losartan Potassium 100 mg PO QAM 07/04/17 06/23/20 Albuterol Nebulized [Ventolin 2.5 mg INHALATION RT-Q6H PRN 12/24/18 06/23/20 Nebulized] RABEprazole SODIUM [Aciphex] 20 mg PO BID 12/24/18 06/23/20 Cholecalciferol (Vitamin D3) 2,000 unit PO DAILY 02/12/19 06/23/20 [Vitamin D3] [place]-3 Fatty Acids/Fish Oil [Fish 1 cap PO BID 04/21/20 06/21/20 Oil 1,000 mg Softgel] metFORMIN HCL [Glucophage] 1,000 mg PO BID 04/21/20 06/23/20 Aspirin 81 mg PO DAILY 06/21/20 06/21/20 Magnesium Oxide [Mag-Ox] 800 mg PO BID 06/21/20 06/23/20 Previous Rx's Medication Instructions Recorded Dexamethasone [Decadron] 6 mg PO DAILY #6 tablet 04/04/21 Allergies Allergy/AdvReac Type Severity Reaction Status Date / Time Penicillins Allergy Rash/Hives Verified 04/04/21 09:38 Review of Systems ROS Statement: Those systems with pertinent positive or pertinent negative responses have been documented in the HPI. ROS Other: All systems not noted in ROS Statement are negative. 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 Absent: scleral icterus, conjunctival injection ENT exam: Present: normal exam, mucous membranes moist Neck exam: Present: normal inspection, full ROM. Absent: tenderness Respiratory exam: Present: wheezes (mild bilat) Cardiovascular Exam: Present: regular rate, normal rhythm, normal heart sounds Course Vital Signs 04/04/21 09:38 Temperature 98 F Pulse Rate 70 Respiratory 18 Rate Blood Pressure 115/69 O2 Sat by Pulse 98 Oximetry Medical Decision Making - Medical Decision Making Vitals are stable. Patient is 98% on room air. He is well-appearing. He does have some wheezing on exam. He was given an inhaler as are not able to give him a DuoNeb with COVID-19. He was started on Decadron. He did qualify for antibody infusion which she did choose to have. These will be discharged home with strict return parameters. He will follow up with primary care. Disposition Clinical Impression: COVID-19, COPD exacerbation Disposition: HOME SELF-CARE Condition: Good Instructions (If sedation given, give patient instructions): Coronavirus Disease 2019 (COVID-19) Additional Instructions: Continue using your inhaler every 4 hours. Take steroid as directed. Follow-up with your doctor. If you're having worsening symptoms or worsening shortness of breath return to the emergency room. Prescriptions: Dexamethasone [Decadron] 6 mg PO DAILY #6 tablet Is patient prescribed a controlled substance at d/c from ED?: No Referrals: Brenden Puga MD [Primary Care Provider] - 1-2 days Time of Disposition: :23
[2021-04-04] MEDS ORDERED: SODIUM CHLORIDE 0.9% 50 ML IVPB ONE (11:15)
[2021-04-04] MEDS ORDERED: ACETAMINOPHEN TAB 500 MG TAB PO STA (11:23)
[2021-04-04] MEDS ORDERED: BAMLANIVIMAB (EUA) 700 MG, ETESEVIMAB (EUA) 1,400 MG in SODIUM CHLORIDE 0.9% 100 ML IVPB ONE (11:30)
[2021-04-04 13:27] VITALS: BP 122/75; PULSE 78; TEMP 97.5
== END 2021-04-04 13:51 | disposition home or self-care (01) ==
LOC: EC 09:06
DX: U07.1 COVID-19 (principal); J44.1 Chronic obstructive pulmonary disease with (acute) exacerbation; E11.9 Type 2 diabetes mellitus without complications; K21.9 Gastro-esophageal reflux disease without esophagitis; I10 Essential (primary) hypertension; E78.5 Hyperlipidemia, unspecified; F17.200 Nicotine dependence, unspecified, uncomplicated; Z88.0 Allergy status to penicillin; Z79.899 Other long term (current) drug therapy; Z79.51 Long term (current) use of inhaled steroids; Z79.84 Long term (current) use of oral hypoglycemic drugs; Z79.82 Long term (current) use of aspirin
CPT/HCPCS: 94640; 99283; J8540; J3490

== ENCOUNTER 2021-05-22 11:57 | Inpatient (IN) | payer OTHER ==
[2021-05-22] MEDS ORDERED: IPRATROPIUM 0.5 MG/2.5 ML NEBU INHALATION STA (12:16)
[2021-05-22] MEDS ORDERED: methylPREDNISolone SOD SUCCI 125 MG/2 ML VIAL IV STA (12:16)
[2021-05-22] MEDS ORDERED: ALBUTEROL NEBULIZED 2.5 MG/3 ML INHALATION STA (12:16)
--- NOTE | 2021-05-22 12:19 | ED ---
General Adult HPI - General Chief complaint: Shortness of Breath Stated complaint: SOB, chest pain Time Seen by Provider: 05/22/21 12:12 Source: patient, RN notes reviewed, old records reviewed Mode of arrival: ambulatory Limitations: no limitations - History of Present Illness Initial comments: 60 yo male presenting for evaluation of cough, dyspnea, fever. Patient's symptoms began 3 days prior. He states that he had fever and chills and chest tightness with cough. He does have history of COPD. This has been somewhat improved with nebulized albuterol at home. He states he has coronavirus about 2 months ago. He's been unable to see his pump tender since that time. He denies central radiating chest pain. No lower extremity pain or swelling. No vomiting. - Related Data Home Medications Medication Instructions Recorded Confirmed atenoloL [Tenormin] 50 mg PO QAM 05/25/14 06/23/20 Budesonide/Formoterol Fumarate 2 puff INHALATION RT-BID 10/15/16 06/23/20 [Symbicort 160-4.5 Mcg Inhaler] Losartan Potassium 100 mg PO QAM 07/04/17 06/23/20 Albuterol Nebulized [Ventolin 2.5 mg INHALATION RT-Q6H PRN 12/24/18 06/23/20 Nebulized] RABEprazole SODIUM [Aciphex] 20 mg PO BID 12/24/18 06/23/20 Cholecalciferol (Vitamin D3) 2,000 unit PO DAILY 02/12/19 06/23/20 [Vitamin D3] [place]-3 Fatty Acids/Fish Oil [Fish 1 cap PO BID 04/21/20 06/21/20 Oil 1,000 mg Softgel] metFORMIN HCL [Glucophage] 1,000 mg PO BID 04/21/20 06/23/20 Aspirin 81 mg PO DAILY 06/21/20 06/21/20 Magnesium Oxide [Mag-Ox] 800 mg PO BID 06/21/20 06/23/20 Previous Rx's Medication Instructions Recorded Dexamethasone [Decadron] 6 mg PO DAILY #6 tablet 04/04/21 Allergies Allergy/AdvReac Type Severity Reaction Status Date / Time Penicillins Allergy Rash/Hives Verified 05/22/21 11:58 Review of Systems ROS Statement: Those systems with pertinent positive or pertinent negative responses have been documented in the HPI. ROS Other: All systems not noted in ROS Statement are negative. 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/polypectomt(benign) Past Anesthesia/Blood Transfusion Reactions: No Reported Reaction Past Psychological History: No Psychological Hx Reported Smoking Status: Former smoker Past Alcohol Use History: Occasional Past Drug Use History: None Reported - Past Family History Father History Unknown: Yes Mother Additional Family Medical History / Comment(s): HEALTHY Brother(s) Family Medical History: Cancer General Exam Limitations: no limitations General appearance: alert, in no apparent distress Head exam: Present: atraumatic, normocephalic Eye exam: Present: normal appearance, PERRL ENT exam: Present: normal exam Neck exam: Present: normal inspection. Absent: tenderness, meningismus Respiratory exam: Present: respiratory distress, wheezes, decreased breath sounds, prolonged expiratory Cardiovascular Exam: Present: regular rate, normal rhythm GI/Abdominal exam: Present: soft. Absent: distended, tenderness, guarding Extremities exam: Present: normal inspection, normal capillary refill. Absent: pedal edema Neurological exam: Present: alert, oriented X3, CN II-XII intact. Absent: motor sensory deficit Psychiatric exam: Present: normal affect, normal mood Skin exam: Present: warm, dry, intact. Absent: cyanosis, diaphoretic Course Vital Signs 05/22/21 05/22/21 05/22/21 11:58 13:29 13:47 Temperature 96.8 F L Pulse Rate 79 76 77 Respiratory 18 Rate Blood Pressure 117/69 O2 Sat by Pulse 94 L Oximetry EKG Findings - EKG Comments: EKG Findings:: EKG: Sinus rhythm rate 78, NM interval 152, QRS duration 89, QTC 39, no ST segment elevation. Medical Decision Making - Medical Decision Making 60-year-old male presenting with increased cough and dyspnea as well as fever. No typical chest pain, no lower extremity pain or swelling. X-ray showing a very subtle infiltrate in the right lower lung ramírez. No large focal consolidation, no pneumothorax. He has a elevated white blood cell count 18,000. Otherwise normal laboratory testing. He is given albuterol, Atrovent, steroids in the emergency department. On reevaluation he has persistent mild restaurant distress and wheezing throughout. He will be admitted for further evaluation treatment of COPD exacerbation. Case discussed with Dr. Giang who will admit and pulmonology placed on consult. - Lab Data Result diagrams: 05/22/21 12:55 05/22/21 12:55 Lab Results 05/22/21 05/22/21 05/22/21 Range/Units 12:55 12:55 12:55 WBC 18.8 H (3.8-10.6) k/uL RBC 4.61 (4.30-5.90) m/uL Hgb 14.9 (13.0-17.5) gm/dL Hct 44.8 (39.0-53.0) % MCV 97.3 (80.0-100.0) fL MCH 32.3 (25.0-35.0) pg MCHC 33.3 (31.0-37.0) g/dL RDW 13.6 (11.5-15.5) % Plt Count 258 (150-450) k/uL MPV 7.8 Neutrophils % 84 % Lymphocytes % 10 % Monocytes % 2 % Eosinophils % 3 % Basophils % 0 % Neutrophils # 15.8 H (1.3-7.7) k/uL Lymphocytes # 2.0 (1.0-4.8) k/uL Monocytes # 0.3 (0-1.0) k/uL Eosinophils # 0.6 (0-0.7) k/uL Basophils # 0.1 (0-0.2) k/uL PT 10.8 (9.0-12.0) sec INR 1.0 (<1.2) APTT 26.4 (22.0-30.0) sec Sodium 135 L (137-145) mmol/L Potassium 4.1 (3.5-5.1) mmol/L Chloride 103 (98-107) mmol/L Carbon Dioxide 24 (22-30) mmol/L Anion Gap 8 mmol/L BUN 17 (9-20) mg/dL Creatinine 0.98 (0.66-1.25) mg/dL Est GFR (CKD-EPI)AfAm >90 (>60 ml/min/1.73 sqM) Est GFR (CKD-EPI)NonAf 85 (>60 ml/min/1.73 sqM) Glucose 268 H (74-99) mg/dL Plasma Lactic Acid Marek (0.7-2.0) mmol/L Calcium 9.5 (8.4-10.2) mg/dL Magnesium 2.0 (1.6-2.3) mg/dL Total Bilirubin 0.6 (0.2-1.3) mg/dL AST 19 (17-59) U/L ALT 21 (4-49) U/L Alkaline Phosphatase 92 (38-126) U/L Total Protein 7.1 (6.3-8.2) g/dL Albumin 3.9 (3.5-5.0) g/dL Coronavirus (PCR) (Not Detectd) Influenza Type A RNA (Not Detectd) Influenza Type B (PCR) (Not Detectd) 05/22/21 05/22/21 05/22/21 Range/Units 12:55 12:55 12:55 WBC (3.8-10.6) k/uL RBC (4.30-5.90) m/uL Hgb (13.0-17.5) gm/dL Hct (39.0-53.0) % MCV (80.0-100.0) fL MCH (25.0-35.0) pg MCHC (31.0-37.0) g/dL RDW (11.5-15.5) % Plt Count (150-450) k/uL MPV Neutrophils % % Lymphocytes % % Monocytes % % Eosinophils % % Basophils % % Neutrophils # (1.3-7.7) k/uL Lymphocytes # (1.0-4.8) k/uL Monocytes # (0-1.0) k/uL Eosinophils # (0-0.7) k/uL Basophils # (0-0.2) k/uL PT (9.0-12.0) sec INR (<1.2) APTT (22.0-30.0) sec Sodium (137-145) mmol/L Potassium (3.5-5.1) mmol/L Chloride (98-107) mmol/L Carbon Dioxide (22-30) mmol/L Anion Gap mmol/L BUN (9-20) mg/dL Creatinine (0.66-1.25) mg/dL Est GFR (CKD-EPI)AfAm (>60 ml/min/1.73 sqM) Est GFR (CKD-EPI)NonAf (>60 ml/min/1.73 sqM) Glucose (74-99) mg/dL Plasma Lactic Acid Marek 1.3 (0.7-2.0) mmol/L Calcium (8.4-10.2) mg/dL Magnesium (1.6-2.3) mg/dL Total Bilirubin (0.2-1.3) mg/dL AST (17-59) U/L ALT (4-49) U/L Alkaline Phosphatase (38-126) U/L Total Protein (6.3-8.2) g/dL Albumin (3.5-5.0) g/dL Coronavirus (PCR) Not Detected (Not Detectd) Influenza Type A RNA Not Detected (Not Detectd) Influenza Type B (PCR) Not Detected (Not Detectd) Critical Care Time Critical Care Time: Yes Total Critical Care Time: 35 Disposition Clinical Impression: COPD (chronic obstructive pulmonary disease) Disposition: ADMITTED IP TO THIS [facility] Condition: Stable Is patient prescribed a controlled substance at d/c from ED?: No Referrals: Brenden Puga MD [Primary Care Provider] - 1-2 days Decision to Admit Reason: Admit from EC Decision Date: 05/22/21 Decision Time: 14:09
[2021-05-22 13:06] LABS: Basophils # (A) 0.1 k/uL (0-0.2); Basophils % (A) 0 %; Eosinophils # (A) 0.6 k/uL (0-0.7); Eosinophils % (A) 3 %; HCT 44.8 % (39.0-53.0); HGB 14.9 gm/dL (13.0-17.5); Lymphocytes % (A) 10 %; MCH 32.3 pg (25.0-35.0); MCHC 33.3 g/dL (31.0-37.0); MCV 97.3 fL (80.0-100.0); Mean Platelet Volume 7.8; Monocytes # (A) 0.3 k/uL (0-1.0); Monocytes % (A) 2 %; Neutrophils # (A) 15.8 k/uL (1.3-7.7); Neutrophils % (A) 84 %; Platelet Count 258 k/uL (150-450); RBC 4.61 m/uL (4.30-5.90); RDW 13.6 % (11.5-15.5); WBC 18.8 k/uL (3.8-10.6)
[2021-05-22 13:16] LABS: ALT 21 U/L (4-49); AST 19 U/L (17-59); African American GFR (CKD) >90 (>60 ml/min/1.73 sqM); Albumin 3.9 g/dL (3.5-5.0); Alkaline Phosphatase 92 U/L (38-126); Anion Gap 8 mmol/L; Blood Urea Nitrogen 17 mg/dL (9-20); Calcium 9.5 mg/dL (8.4-10.2); Carbon Dioxide 24 mmol/L (22-30); Chloride 103 mmol/L (98-107); Glucose 268 mg/dL (74-99); Non-African American GFR(CKD) 85 (>60 ml/min/1.73 sqM); Potassium 4.1 mmol/L (3.5-5.1); Sodium 135 mmol/L (137-145); Total Bilirubin 0.6 mg/dL (0.2-1.3); Total Protein 7.1 g/dL (6.3-8.2)
[2021-05-22 13:20] LABS: Partial Thromboplastin Time 26.4 sec (22.0-30.0); Prothrombin Time 10.8 sec (9.0-12.0)
--- NOTE | 2021-05-22 13:31 | XR ---
EXAMINATION TYPE: XR chest 2V DATE OF EXAM: 05/22/2021 COMPARISON: 02/01/2021 HISTORY: 60-year-old male shortness of breath, difficulty breathing TECHNIQUE: PA and lateral views FINDINGS: Heart normal size. Aorta and pulmonary vasculature within normal limits. Strandy atelectasis in the l ower lungs. Unable to exclude subtle early interstitial infiltrate at the right midlung. Hyperinflati on. IMPRESSION: COPD with possible early subtle infiltrate versus atelectasis at the right mid lung.
[2021-05-22] MEDS ORDERED: IPRATROPIUM-ALBUTEROL 3 ML NEB INHALATION PRN (13:52)
[2021-05-22] MEDS ORDERED: LEVOFLOXACIN 500 MG TAB PO SCH (14:00)
[2021-05-22] MEDS: IPRATROPIUM-ALBUTEROL 3 ML NEB INHALATION SCH ×2 (16:10→19:16)
[2021-05-22] MEDS: methylPREDNISolone SOD SUCCI 125 MG/2 ML VIAL IV SCH (16:33)
[2021-05-22] MEDS: ACETAMINOPHEN TAB 325 MG TAB PO PRN (21:31)
[2021-05-23] MEDS: methylPREDNISolone SOD SUCCI 125 MG/2 ML VIAL IV SCH ×5 (00:21→23:11)
[2021-05-23] MEDS: ACETAMINOPHEN TAB 325 MG TAB PO PRN (02:52)
[2021-05-23 07:30] LABS: Glucose,Whole Blood 263 mg/dL (75-99)
[2021-05-23] MEDS: IPRATROPIUM-ALBUTEROL 3 ML NEB INHALATION SCH ×4 (08:46→21:58)
[2021-05-23] MEDS ORDERED: ALBUTEROL NEBULIZED 2.5 MG/3 ML INHALATION PRN (11:35)
[2021-05-23] MEDS ORDERED: IPRATROPIUM-ALBUTEROL 3 ML NEB INHALATION PRN (11:35)
[2021-05-23 12:07] LABS: Glucose,Whole Blood 293 mg/dL (75-99)
[2021-05-23] MEDS: PANTOPRAZOLE 40 MG TABLET PO SCH (12:13)
[2021-05-23] MEDS: MAGNESIUM OXIDE 400 MG TAB PO SCH (12:13)
[2021-05-23] MEDS: TAMSULOSIN 0.4 MG CAP.ER.24H PO SCH (12:13)
[2021-05-23] MEDS: atenoloL 50 MG TAB PO SCH (12:13)
[2021-05-23] MEDS: INSULIN ASPART (NovoLOG) 100 UNIT/ML VIAL SQ SCH ×3 (12:14→20:13)
[2021-05-23] MEDS: NON FORMULARY DRUG (Empagliflozin [Jardiance] 25 MG Tablet) PO SCH (12:17)
[2021-05-23] MEDS: LOSARTAN 50 MG TAB PO SCH (12:45)
[2021-05-23] MEDS: AZITHROMYCIN 500 MG in SODIUM CHLORIDE 0.9% 250 ML IVPB SCH (12:46)
--- NOTE | 2021-05-23 12:48 | P.CNPUL ---
History of Present Illness Consult date: 05/23/21 Requesting physician: Clifton Giang Reason for consult: dyspnea, cough Chief complaint: Dyspnea, cough History of present illness: This is a 60-year-old white male patient with past medical history of COPD, with a baseline FEV1 of 1.91 L or 52% of predicted, not oxygen dependent at baseline, patient follows with Dr. Yarbrough in the pulmonary clinic for his pulmonary needs. Patient reports having COVID-19 infection in March for which she did not require hospitalization. Patient is vaccinated against COVID- 19. He states ever since COVID-19 infection his had 2 or 3 episodes of pulmonary infections, and has been having ongoing symptoms of cough, and some shortness of breath. He has been treated with outpatient antibiotics. Patient is a chronic smoker. On 05/22/2021 patient presented to the emergency department with complaints of fever, cough, chills, and shortness of breath. His onset of symptoms was on 05/21/2021 and became progressively worse, patient reports fevers at home as high as 103.7F. He states he was coughing, and he is now producing some yellowish colored phlegm. No hemoptysis, no chest discomfort. His chest x-ray on admission showed COPD with possible early subtle infiltrate in the right midlung. Patient tested negative for COVID-19, his lab work showed white blood cell count of 18.8, hemoglobin of 14.9, platelet count of 258, Coreg patient profile was within normal limits sodium is 135, the rest of electrolytes and renal profile were unremarkable. Patient tested negative for influenza A and B. LFTs were within normal limits. Lactic acid was 1.3. Started on nebulized bronchodilators, he is on Levaquin and IV steroids, he is already reporting improvement in his symptoms. Room air pulse ox is 92%, afebrile overnight Review of Systems All systems: negative Constitutional: Denies chills, Denies fever Eyes: denies blurred vision, denies pain Ears, nose, mouth and throat: Denies headache, Denies sore throat Cardiovascular: Denies chest pain, Denies shortness of breath Respiratory: Reports cough with sputum, Reports dyspnea, Reports respiratory infections, Denies cough Gastrointestinal: Denies abdominal pain, Denies diarrhea, Denies nausea, Denies vomiting Musculoskeletal: Denies myalgias Integumentary: Denies pruritus, Denies rash Neurological: Denies numbness, Denies weakness Psychiatric: Denies anxiety, Denies depression Endocrine: Denies fatigue, Denies weight change Past Medical History Past Medical History: COPD, Diabetes Mellitus, GERD/Reflux, Hyperlipidemia, Hy pertension Additional Past Medical History / Comment(s): LEUKOCYTOSIS, Diabetes 01/2019, COVID March 2021 History of Any Multi-Drug Resistant Organisms: None Reported Past Surgical History: Orthopedic Surgery, Tonsillectomy Additional Past Surgical History / Comment(s): CARYL HAND SX, LT ARM orif has A PLATE, 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), 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(benign) Past Anesthesia/Blood Transfusion Reactions: No Reported Reaction Past Psychological History: No Psychological Hx Reported Additional Psychological History / Comment(s): PT LIVES WITH Smoking Status: Former smoker Past Alcohol Use History: Occasional Past Drug Use History: None Reported - Past Family History Father History Unknown: Yes Mother Family Medical History: No Reported History Additional Family Medical History / Comment(s): HEALTHY Brother(s) Family Medical History: Cancer Medications and Allergies Home Medications Medication Instructions Recorded Confirmed Type atenoloL [Tenormin] 50 mg PO DAILY 05/25/14 05/22/21 History Losartan Potassium 100 mg PO DAILY 07/04/17 05/22/21 History Magnesium Oxide [Mag-Ox] 400 mg PO DAILY 06/21/20 05/22/21 History Albuterol Sulfate [Proair Hfa] 1 - 2 puff INHALATION RT-QID PRN 05/22/21 05/22/21 History Empagliflozin [Jardiance] 25 mg PO DAILY 05/22/21 05/22/21 History Fluticasone/Umeclidin/Vilanter 1 puff INHALATION RT-DAILY 05/22/21 05/22/21 History [Trelegy Ellipta 100-62.5-25] Ipratropium-Albuterol Nebulize 3 ml INHALATION RT-QID PRN 05/22/21 05/22/21 History [Duoneb 0.5 mg-3 mg/3 ml Soln] Pantoprazole [Protonix] 40 mg PO DAILY 05/22/21 05/22/21 History Tamsulosin [Flomax] 0.4 mg PO DAILY 05/22/21 05/22/21 History Allergies Allergy/AdvReac Type Severity Reaction Status Date / Time Penicillins Allergy Rash/Hives Verified 05/22/21 14:23 Physical Exam Vitals: Vital Signs Temp Pulse Pulse Resp BP BP Pulse Ox 05/23/21 12:24 78 05/23/21 12:14 77 05/23/21 08:56 78 05/23/21 08:46 76 05/23/21 08:00 97.5 F L 76 16 145/78 92 L 05/23/21 07:00 18 05/23/21 00:31 98.5 F 75 18 133/75 05/22/21 19:25 76 05/22/21 19:16 75 05/22/21 16:50 19 05/22/21 16:20 77 05/22/21 16:15 97.6 F 78 18 110/73 95 05/22/21 16:13 77 05/22/21 15:01 76 18 95/57 96 05/22/21 13:47 77 05/22/21 13:29 76 Intake and Output 05/22/21 05/23/21 05/23/21 22:59 06:59 14:59 Intake Total 960 296 Balance 960 296 Intake: Oral 960 296 Other: Voiding Method Toilet Toilet # Voids 2 Weight 86.183 kg GENERAL EXAM: Alert, very pleasant, 52-year-old white male, on room air with pulse ox of 92%, comfortable in no apparent distress. HEAD: Normocephalic/atraumatic. EYES: Normal reaction of pupils, equal size. Conjunctiva pink, sclera white. NOSE: Clear with pink turbinates. THROAT: No erythema or exudates. NECK: No masses, no JVD, no thyroid enlargement, no adenopathy. CHEST: No chest wall deformity. Symmetrical expansion. LUNGS: Equal air entry with no crackles, wheeze, rhonchi or dullness. CVS: Regular rate and rhythm, normal S1 and S2, no gallops, no murmurs, no rubs ABDOMEN: Soft, nontender. No hepatosplenomegaly, normal bowel sounds, no guarding or rigidity. EXTREMITIES: No clubbing, no edema, no cyanosis, 2+ pulses and upper and lower extremities. MUSCULOSKELETAL: Muscle strength and tone normal. SPINE: No scoliosis or deformity SKIN: No rashes CENTRAL NERVOUS SYSTEM: Alert and oriented -3. No focal deficits, tone is normal in all 4 extremities. PSYCHIATRIC: Alert and oriented -3. Appropriate affect. Intact judgment and insight. Results - Laboratory Findings CBC and BMP: 05/22/21 12:55 05/22/21 12:55 PT/INR, D-dimer PT 10.8 sec (9.0-12.0) 05/22/21 12:55 INR 1.0 (<1.2) 05/22/21 12:55 Abnormal lab findings: Abnormal Labs 05/22/21 05/22/21 05/23/21 12:55 12:55 07:29 WBC 18.8 H Neutrophils # 15.8 H Sodium 135 L Glucose 268 H POC Glucose (mg/dL) 263 H 05/23/21 12:06 WBC Neutrophils # Sodium Glucose POC Glucose (mg/dL) 293 H - Diagnostic Findings Chest x-ray: report reviewed, image reviewed Assessment and Plan Plan: Assessment: #1. Acute hypoxic respiratory failure related to community acquired pneumonia and acute exacerbation of COPD. COVID-19 PCR and influenza A and B were negative #2. History of COVID-19 infection in March 2021. Patient did not require hospitalization, patient is vaccinated against COVID-19 #3. Recent history of outpatient treatment for pulmonary infections #4. History of COPD, with a baseline FEV1 of 1.91 L or 52% of predicted, moderately severe COPD #5. Chronic and ongoing history of smoking, carries [id number] smoking h istory #6. Hypertension #7. BPH Plan: We'll send a sputum culture Continue same antibiotic coverage with Levaquin Continue IV steroids and breathing treatments Will send a Procalcitonin Level Patient already reports improvement with dyspnea, and cough Increase activity as tolerated We'll consider discharge in the next 24 hours if continues to improve I performed a history & physical examination of the patient and discussed their management with my nurse practitioner, Cate Bronson. I reviewed the nurse practitioner's note and agree with the documented findings and plan of care. Lung sounds are positive for dim with scat rales throughout the lung ramírez. The findings and the impression was discussed with the patient. I attest to the documentation by the nurse practitioner. Time with Patient: Greater than 30
--- NOTE | 2021-05-23 13:19 | HP ---
HISTORY AND PHYSICAL DATE OF SERVICE: 05/23/2021 CHIEF COMPLAINTS: Shortness of breath and chest pain. HISTORY OF PRESENT ILLNESS: This 60-year-old gentleman with a past medical history of COPD, diabetes, GERD, was complaining of increasing shortness of breath and cough for the last 3 days. The patient had some fever and some chills, also. Chest x-ray was done which showed early subtle infiltrate on the right mid lung, and the patient was admitted for further evaluation and treatment. There is no history of any headache, loss of consciousness, seizures. PAST MEDICAL HISTORY: COPD, diabetes mellitus, hyperlipidemia. MEDICATIONS: Medications prior to admission include Tenormin, Flomax, Protonix. Doses and other medications are reviewed. ALLERGIES: PENICILLIN. FAMILY HISTORY: No history of heart disease or strokes in the family. SOCIAL HISTORY: Previous history of smoking. REVIEW OF SYSTEMS: Fourteen-point review of systems negative except as mentioned earlier. PHYSICAL EXAMINATION: Pulse 76, blood pressure 145/70, respirations 16, temperature 97.5. HEENT: Conjunctivae normal. NECK: No jugular venous distention. No carotid bruit. CARDIOVASCULAR: S1, S2 muffled. RESPIRATION: Breath sounds diminished at the bases. Scattered rhonchi and crackles. ABDOMEN: Soft, nontender. LEGS: No edema. No swelling. NERVOUS SYSTEM: No focal deficit. SKIN: No ulcer, rash, bleeding. JOINTS: No active deforming arthropathy. LABS: WBC 18.8, glucose ntd. ASSESSMENT: 1. Chronic obstructive pulmonary disease, acute exacerbation, with right middle lobe pneumonia. 2. Increased white count. 3. Diabetes mellitus, type 2. 4. Hypertension. 5. Hyperlipidemia. RECOMMENDATIONS AND DISCUSSION: In this 60-year-old gentleman who presented with multiple complex medical issues, we will monitor the patient closely. Bronchodilators, IV steroids, antibiotics. Guarded prognosis. Further recommendations to follow. Initiate Rocephin and Zithromax. See orders for further details. MMODL / IJN: [id number] / MTDD
[2021-05-23 17:07] LABS: Glucose,Whole Blood 395 mg/dL (75-99)
[2021-05-23 20:11] LABS: Glucose,Whole Blood 359 mg/dL (75-99)
[2021-05-23] MEDS: SYMBICORT 80-4.5 MCG INHALER INHALATION SCH (21:59)
[2021-05-24] MEDS: methylPREDNISolone SOD SUCCI 125 MG/2 ML VIAL IV SCH ×3 (05:21→17:28)
[2021-05-24 07:00] LABS: Glucose,Whole Blood 288 mg/dL (75-99)
[2021-05-24] MEDS: LOSARTAN 50 MG TAB PO SCH (07:14)
[2021-05-24] MEDS: atenoloL 50 MG TAB PO SCH (07:14)
[2021-05-24] MEDS: MAGNESIUM OXIDE 400 MG TAB PO SCH (07:14)
[2021-05-24] MEDS: PANTOPRAZOLE 40 MG TABLET PO SCH (07:14)
[2021-05-24] MEDS: TAMSULOSIN 0.4 MG CAP.ER.24H PO SCH (07:14)
[2021-05-24] MEDS: INSULIN ASPART (NovoLOG) 100 UNIT/ML VIAL SQ SCH ×4 (07:15→20:46)
[2021-05-24] MEDS: NON FORMULARY DRUG (Empagliflozin [Jardiance] 25 MG Tablet) PO SCH (07:21)
[2021-05-24] MEDS ORDERED: IPRATROPIUM 0.5 MG/2.5 ML NEBU INHALATION SCH (08:00)
[2021-05-24] MEDS: IPRATROPIUM-ALBUTEROL 3 ML NEB INHALATION SCH ×6 (08:42→20:18)
[2021-05-24] MEDS: SYMBICORT 80-4.5 MCG INHALER INHALATION SCH ×3 (08:42→20:18)
[2021-05-24 09:15] LABS: HCT 46.5 % (39.6-50.0); HGB 14.6 g/dL (13.0-17.0); MCHC 31.4 g/dL (32.0-37.0); MCV 95.5 fL (80.0-97.0); Mean Platelet Volume 10.8 fL (9.5-12.2); NRBC Per 100 WBC 0 /100 WBCS (0.0-0.0); Platelet Count 308 X 10*3/uL (140-440); RBC 4.87 X 10*6/uL (4.40-5.60); RDW 13.6 % (11.5-14.5); WBC 28.58 X 10*3/uL (4.50-10.00)
[2021-05-24 09:23] LABS: ALT 16 U/L (10-49); AST 9 U/L (14-35); African American GFR (CKD) 95.7 (60.0-200.0); Albumin/Globulin Ratio 1.43 (1.60-3.17); Alkaline Phosphatase 105 U/L (41-126); Blood Urea Nitrogen 29.5 mg/dL (9.0-27.0); Calcium 9.7 mg/dL (8.7-10.3); Carbon Dioxide 18.8 mmol/L (20.0-27.5); Chloride 101 mmol/L (96-109); Globulin 2.8 g/dL (1.6-3.3); Glucose 295 mg/dL (70-110); Non-African American GFR(CKD) 82.6 (60.0-200.0); Potassium 4.4 mmol/L (3.5-5.5); Sodium 136 mmol/L (135-145); Total Bilirubin <0.15 mg/dL (0.30-1.20); Total Protein 6.8 g/dL (6.2-8.2)
[2021-05-24 10:38] LABS: Basophils # (A) 0.07 X 10*3/uL (0.00-0.10); Basophils % (A) 0.2 %; Eosinophils # (A) 0 X 10*3/uL (0.04-0.35); Eosinophils % (A) 0 %; Immature Grans, Automated 2.1 %; Lymphocytes # (A) 1.31 X 10*3/uL (0.90-5.00); Lymphocytes % (A) 4.6 %; Monocytes # (A) 0.57 X 10*3/uL (0.20-1.00); Neutrophils # (A) 26.04 X 10*3/uL (1.80-7.70); Neutrophils % (A) 91.1 %
--- NOTE | 2021-05-24 11:23 | P.PN ---
Subjective Progress Note Date: 05/24/21 Principal diagnosis: COPD exacerbation, community-acquired pneumonia This is a 60-year-old white male patient with past medical history of COPD, with a baseline FEV1 of 1.91 L or 52% of predicted, not oxygen dependent at baseline, patient follows with Dr. Yarbrough in the pulmonary clinic for his pulmonary needs. Patient reports having COVID-19 infection in March for which she did not require hospitalization. Patient is vaccinated against COVID- 19. He states ever since COVID-19 infection his had 2 or 3 episodes of pulmonary infections, and has been having ongoing symptoms of cough, and some shortness of breath. He has been treated with outpatient antibiotics. Patient is a chronic smoker. On 05/22/2021 patient presented to the emergency department with complaints of fever, cough, chills, and shortness of breath. His onset of symptoms was on 05/21/2021 and became progressively worse, patient reports fevers at home as high as 103.7F. He states he was coughing, and he is now producing some yellowish colored phlegm. No hemoptysis, no chest discomfort. His chest x-ray on admission showed COPD with possible early subtle infiltrate in the right midlung. Patient tested negative for COVID-19, his lab work showed white blood cell count of 18.8, hemoglobin of 14.9, platelet count of 258, Coreg patient profile was within normal limits sodium is 135, the rest of electrolytes and renal profile were unremarkable. Patient tested negative for influenza A and B. LFTs were within normal limits. Lactic acid was 1.3. Started on nebulized bronchodilators, he is on Levaquin and IV steroids, he is already reporting improvement in his symptoms. Room air pulse ox is 92%, afebrile overnight The patient is seen today 05/24/2021 in follow-up on the regular medical floor. He is currently sitting up in bed. Awake and alert in no acute distress. He is feeling a bit worse today compared to yesterday however. He is still has some chest tightness and wheezing. Loose nonproductive cough. He is maintaining O2 saturation in the low 90s on room air. He's been afebrile. Hemodynamically stable. White count 28.5. Hemoglobin 14.6. Sodium 136. Potassium 4.4. Creatinine 1.0. Glucose 295. AST 9. ALT 16. He's been initiated on Symbicort, DuoNeb inhalations, IV Solu-Medrol. Antibiotics in the form of ceftriaxone and azithromycin. Objective - Vital Signs Vital signs: Vital Signs Temp 97.5 F L 05/24/21 07:51 Pulse 78 05/24/21 09:27 Resp 18 05/24/21 09:27 BP 118/77 05/24/21 07:51 Pulse Ox 91 L 05/24/21 07:51 Intake & Output 05/23/21 05/24/21 05/24/21 18:59 06:59 18:59 Intake Total 476 Balance 476 Intake: Oral 476 Other: Voiding Method Toilet Toilet # Voids 2 - Exam GENERAL EXAM: Alert, very pleasant 60-year-old male patient, on room air, fairly comfortable in no apparent distress. HEAD: Normocephalic. EYES: Normal reaction of pupils, equal size. NOSE: Clear with pink turbinates. THROAT: No erythema or exudates. NECK: No masses, no JVD. CHEST: No chest wall deformity. LUNGS: Equal air entry with bilateral end expiratory wheeze, few scattered rhonchi, diminished. CVS: S1 and S2 normal with no audible murmur, regular rhythm. ABDOMEN: No hepatosplenomegaly, normal bowel sounds, no guarding or rigidity. SPINE: No scoliosis or deformity SKIN: No rashes CENTRAL NERVOUS SYSTEM: No focal deficits, tone is normal in all 4 extremities. EXTREMITIES: There is no peripheral edema. No clubbing, no cyanosis. Peripheral pulses are intact. - Labs CBC & Chem 7: 05/24/21 05:05 05/24/21 05:05 Labs: Abnormal Lab Results - Last 24 Hours (Table) 05/23/21 05/23/21 05/23/21 Range/Units 12:06 17:06 20:09 WBC (4.50-10.00) X 10*3/uL MCHC (32.0-37.0) g/dL Immature Gran # (0.00-0.04) X 10*3/uL Neutrophils # (1.80-7.70) X 10*3/uL Eosinophils # (0.04-0.35) X 10*3/uL Carbon Dioxide (20.0-27.5) mmol/L BUN (9.0-27.0) mg/dL BUN/Creatinine Ratio (12.00-20.00) Ratio Glucose (70-110) mg/dL POC Glucose (mg/dL) 293 H 395 H 359 H (75-99) mg/dL Total Bilirubin (0.30-1.20) mg/dL AST (14-35) U/L Albumin/Globulin Ratio (1.60-3.17) g/dL 05/24/21 05/24/21 05/24/21 Range/Units 05:05 05:05 06:59 WBC 28.58 H (4.50-10.00) X 10*3/uL MCHC 31.4 L (32.0-37.0) g/dL Immature Gran # 0.59 H (0.00-0.04) X 10*3/uL Neutrophils # 26.04 H (1.80-7.70) X 10*3/uL Eosinophils # 0 L (0.04-0.35) X 10*3/uL Carbon Dioxide 18.8 L (20.0-27.5) mmol/L BUN 29.5 H (9.0-27.0) mg/dL BUN/Creatinine Ratio 29.50 H (12.00-20.00) Ratio Glucose 295 H (70-110) mg/dL POC Glucose (mg/dL) 288 H (75-99) mg/dL Total Bilirubin <0.15 L (0.30-1.20) mg/dL AST 9 L (14-35) U/L Albumin/Globulin Ratio 1.43 L (1.60-3.17) g/dL Assessment and Plan Assessment: 1 Acute hypoxic respiratory failure related to community acquired pneumonia and acute exacerbation of COPD. COVID-19 PCR and influenza A and B were negative 2 History of COVID-19 infection in March 2021. Patient did not require hospitalization, patient is vaccinated against COVID-19 3 Recent history of outpatient treatment for pulmonary infections 4 History of COPD, with a baseline FEV1 of 1.91 L or 52% of predicted, moderately severe COPD 5 Chronic and ongoing history of smoking, carries [id number] smoking history 6 Hypertension 7 BPH Plan: The patient was seen and evaluated Not back to his baseline Continue bronchodilators, IV Solu-Medrol Continue ceftriaxone and azithromycin Lovenox for DVT prophylaxis We'll continue to follow I, the cosigning physician, performed a history & physical examination of the p atient. Lungs sounds with bilateral end x-ray wheeze, few scattered rhonchi, diminished. Maintaining good O2 saturations in the 90s on room air. I discussed the assessment and plan of care with my nurse practitioner, Arielle White. I attest to the above note as dictated by her. I have personally seen and examined the patient, performed the documentation and the assessment and plan as written. Number of minutes spent on the visit: 10.
[2021-05-24 11:49] LABS: Glucose,Whole Blood 260 mg/dL (75-99)
[2021-05-24] MEDS: AZITHROMYCIN 500 MG in SODIUM CHLORIDE 0.9% 250 ML IVPB SCH (12:26)
--- NOTE | 2021-05-24 13:51 | P.PN ---
<Magaly, - Last Filed: 05/24/21 13:32> Subjective Progress Note Date: 05/24/21 Principal diagnosis: Shortness of breath Patient is a pleasant 60-year-old male, that presented to the emergency room with cough and dyspnea and fever. Patient has a pertinent medical history of COPD, diabetes, GERD, hypertension, hyperlipidemia and recent covid-19 infection in March. Patient was found to have elevated white blood cell count at 18.8. Chest x-ray found COPD with possible early subtlel infiltrate in the right midlung. Patient was admitted for the treatment of COPD exacerbation and community-acquired pneumonia. Pulmonology was consulted. Patient was started on antibiotics Rocephin and Zithromax, bronchodilators and IV steroids. Sputum culture was ordered, flu and COVID-19 negative. Hospitalist provided coverage 05/22/21-05/23/2021. 05/24/2021 Patient was seen and examined at bedside. Is resting in bed in no acute distress. Patient reports improvement in breathing, but does continue to have dyspnea with exertion. Patient denies chest pain, dizziness, chills, abdominal pain. Patient's white blood cell, increased to 28.58. Patient is maintaining oxygenation greater than 90% on room air. We will continue antibiotics, bronchodilators and IV steroids for another day. Objective - Vital Signs Vital signs: Vital Signs Temp 97.5 F L 05/24/21 07:51 Pulse 78 05/24/21 12:10 Resp 18 05/24/21 12:10 BP 118/77 05/24/21 07:51 Pulse Ox 96 05/24/21 11:30 Intake & Output 05/23/21 05/24/21 05/24/21 18:59 06:59 18:59 Intake Total 476 Balance 476 Intake: Oral 476 Other: Voiding Method Toilet Toilet # Voids 2 - Constitutional General appearance: Present: cooperative, no acute distress - EENT Eyes: Present: EOMI, PERRLA ENT: Present: normal oropharynx Ears: bilateral: normal - Neck Neck: Present: normal ROM Carotids: bilateral: upstroke normal - Respiratory Respiratory: bilateral: diminished - Peripheral edema leg Peripheral Edema: bilateral: None - Peripheral pulses radial pulse Peripheral Pulses: bilateral: Normal - Gastrointestinal General gastrointestinal: Present: normal bowel sounds, soft - Integumentary Integumentary: Present: normal, normal turgor - Neurologic Neurologic: Present: CNII-XII intact - Musculoskeletal Musculoskeletal: Present: gait normal - Psychiatric Psychiatric: Present: A&O x's 3, appropriate affect, intact judgment & insight - Allied health notes Allied health notes reviewed: nursing - Labs CBC & Chem 7: 05/24/21 05:05 05/24/21 05:05 Labs: Abnormal Lab Results - Last 24 Hours (Table) 05/23/21 05/23/21 05/24/21 Range/Units 17:06 20:09 05:05 WBC 28.58 H (4.50-10.00) X 10*3/uL MCHC 31.4 L (32.0-37.0) g/dL Immature Gran # 0.59 H (0.00-0.04) X 10*3/uL Neutrophils # 26.04 H (1.80-7.70) X 10*3/uL Eosinophils # 0 L (0.04-0.35) X 10*3/uL Carbon Dioxide (20.0-27.5) mmol/L BUN (9.0-27.0) mg/dL BUN/Creatinine Ratio (12.00-20.00) Ratio Glucose (70-110) mg/dL POC Glucose (mg/dL) 395 H 359 H (75-99) mg/dL Total Bilirubin (0.30-1.20) mg/dL AST (14-35) U/L Albumin/Globulin Ratio (1.60-3.17) g/dL 05/24/21 05/24/21 05/24/21 Range/Units 05:05 06:59 11:48 WBC (4.50-10.00) X 10*3/uL MCHC (32.0-37.0) g/dL Immature Gran # (0.00-0.04) X 10*3/uL Neutrophils # (1.80-7.70) X 10*3/uL Eosinophils # (0.04-0.35) X 10*3/uL Carbon Dioxide 18.8 L (20.0-27.5) mmol/L BUN 29.5 H (9.0-27.0) mg/dL BUN/Creatinine Ratio 29.50 H (12.00-20.00) Ratio Glucose 295 H (70-110) mg/dL POC Glucose (mg/dL) 288 H 260 H (75-99) mg/dL Total Bilirubin <0.15 L (0.30-1.20) mg/dL AST 9 L (14-35) U/L Albumin/Globulin Ratio 1.43 L (1.60-3.17) g/dL - Imaging and Cardiology Chest x-ray: report reviewed Assessment and Plan Assessment: Acute exacerbation of COPD Community-acquired pneumonia Leukocytosis History of covid 19 infection in March Hypertension Diabetes type 2 BPH Cigarette smoker History of GERD Plan: Continue bronchodilators, antibiotics and IV steroids per pulmonary recommendations Maintain oxygen saturations above 90% Continue to monitor white blood cell count Continue to monitor vital signs Further recommendations to come based on patient's clinical course Full Code Time with Patient: Greater than 30 <Brenden Puga - Last Filed: 05/26/21 19:30> Subjective I have personally seen and examined the patient, reviewed the documentation and agree with the assessment and plan as written. Number of minutes spent on the visit: greater than 15. Objective - Vital Signs Vital signs: Vital Signs Temp 97.9 F 05/25/21 14:00 Pulse 67 05/25/21 14:00 Resp 18 05/25/21 14:00 BP 145/60 05/25/21 14:00 Pulse Ox 95 05/25/21 14:00 - Labs CBC & Chem 7: 05/25/21 05:28 05/25/21 05:28
[2021-05-24 16:39] LABS: Glucose,Whole Blood 299 mg/dL (75-99)
[2021-05-24 20:44] LABS: Glucose,Whole Blood 326 mg/dL (75-99)
[2021-05-25] MEDS: methylPREDNISolone SOD SUCCI 125 MG/2 ML VIAL IV SCH ×2 (00:19→05:34)
[2021-05-25 06:57] LABS: Glucose,Whole Blood 299 mg/dL (75-99)
[2021-05-25 07:52] VITALS: RESP 18
[2021-05-25] MEDS: NON FORMULARY DRUG (Empagliflozin [Jardiance] 25 MG Tablet) PO SCH (08:27)
[2021-05-25] MEDS: TAMSULOSIN 0.4 MG CAP.ER.24H PO SCH (08:28)
[2021-05-25] MEDS: atenoloL 50 MG TAB PO SCH (08:28)
[2021-05-25] MEDS: MAGNESIUM OXIDE 400 MG TAB PO SCH (08:28)
[2021-05-25] MEDS: PANTOPRAZOLE 40 MG TABLET PO SCH (08:28)
[2021-05-25] MEDS: LOSARTAN 50 MG TAB PO SCH (08:29)
[2021-05-25] MEDS: INSULIN ASPART (NovoLOG) 100 UNIT/ML VIAL SQ SCH ×2 (08:38→12:16)
[2021-05-25] MEDS: SYMBICORT 80-4.5 MCG INHALER INHALATION SCH (09:21)
[2021-05-25] MEDS: IPRATROPIUM-ALBUTEROL 3 ML NEB INHALATION SCH ×2 (09:21→12:18)
[2021-05-25 09:31] LABS: HCT 45.5 % (39.6-50.0); HGB 14.4 g/dL (13.0-17.0); MCH 30.5 pg (27.0-32.0); MCHC 31.6 g/dL (32.0-37.0); MCV 96.4 fL (80.0-97.0); NRBC Per 100 WBC 0 /100 WBCS (0.0-0.0); Platelet Count 252 X 10*3/uL (140-440); RBC 4.72 X 10*6/uL (4.40-5.60); RDW 13.4 % (11.5-14.5); WBC 22.49 X 10*3/uL (4.50-10.00)
[2021-05-25 09:50] LABS: African American GFR (CKD) 85.3 (60.0-200.0); Anion Gap 13.5 mmol/L (10.00-18.00); BUN/Creat Ratio 28.64 Ratio (12.00-20.00); Blood Urea Nitrogen 31.5 mg/dL (9.0-27.0); Calcium 9.5 mg/dL (8.7-10.3); Carbon Dioxide 20.5 mmol/L (20.0-27.5); Non-African American GFR(CKD) 73.6 (60.0-200.0); Potassium 4.7 mmol/L (3.5-5.5)
--- NOTE | 2021-05-25 10:32 | P.PN ---
Subjective Progress Note Date: 05/25/21 Principal diagnosis: COPD exacerbation, community-acquired pneumonia This is a 60-year-old white male patient with past medical history of COPD, with a baseline FEV1 of 1.91 L or 52% of predicted, not oxygen dependent at baseline, patient follows with Dr. Yarbrough in the pulmonary clinic for his pulmonary needs. Patient reports having COVID-19 infection in March for which she did not require hospitalization. Patient is vaccinated against COVID- 19. He states ever since COVID-19 infection his had 2 or 3 episodes of pulmonary infections, and has been having ongoing symptoms of cough, and some shortness of breath. He has been treated with outpatient antibiotics. Patient is a chronic smoker. On 05/22/2021 patient presented to the emergency department with complaints of fever, cough, chills, and shortness of breath. His onset of symptoms was on 05/21/2021 and became progressively worse, patient reports fevers at home as high as 103.7F. He states he was coughing, and he is now producing some yellowish colored phlegm. No hemoptysis, no chest discomfort. His chest x-ray on admission showed COPD with possible early subtle infiltrate in the right midlung. Patient tested negative for COVID-19, his lab work showed white blood cell count of 18.8, hemoglobin of 14.9, platelet count of 258, Coreg patient profile was within normal limits sodium is 135, the rest of electrolytes and renal profile were unremarkable. Patient tested negative for influenza A and B. LFTs were within normal limits. Lactic acid was 1.3. Started on nebulized bronchodilators, he is on Levaquin and IV steroids, he is already reporting improvement in his symptoms. Room air pulse ox is 92%, afebrile overnight The patient is seen today 05/24/2021 in follow-up on the regular medical floor. He is currently sitting up in bed. Awake and alert in no acute distress. He is feeling a bit worse today compared to yesterday however. He is still has some chest tightness and wheezing. Loose nonproductive cough. He is maintaining O2 saturation in the low 90s on room air. He's been afebrile. Hemodynamically stable. White count 28.5. Hemoglobin 14.6. Sodium 136. Potassium 4.4. Creatinine 1.0. Glucose 295. AST 9. ALT 16. He's been initiated on Symbicort, DuoNeb inhalations, IV Solu-Medrol. Antibiotics in the form of ceftriaxone and azithromycin. The patient is seen today 05/25/2019 to follow up on the regular medical floor. He is currently sitting up in bed. Awake and alert in no acute distress. He is doing much better today compared to yesterday. Feeling nearly back to his baseline. He is maintaining O2 saturations in the 90s on room air. White count 22.4. Hemoglobin 14.4. Platelets 252. Sodium 132. Potassium 4.7. Bicarb 21. Creatinine 1.1. Glucose 299. He is continued on IV Solu-Medrol, DuoNeb inhalations, Symbicort. Antibiotics in the form of ceftriaxone and azithromycin. Objective - Vital Signs Vital signs: Vital Signs Temp 97.7 F 05/25/21 07:51 Pulse 78 05/25/21 09:33 Resp 18 05/25/21 08:50 BP 145/79 05/25/21 07:51 Pulse Ox 94 L 05/25/21 07:51 Intake & Output 05/24/21 05/25/21 05/25/21 18:59 06:59 18:59 Intake Total 350 Balance 350 Intake: Oral 350 Other: Voiding Method Toilet # Voids 1 1 1 - Exam GENERAL EXAM: Alert, very pleasant 60-year-old male patient, on room air, fairly comfortable in no apparent distress. HEAD: Normocephalic. EYES: Normal reaction of pupils, equal size. NOSE: Clear with pink turbinates. THROAT: No erythema or exudates. NECK: No masses, no JVD. CHEST: No chest wall deformity. LUNGS: Equal air entry with end expiratory wheeze, diminished. CVS: S1 and S2 normal with no audible murmur, regular rhythm. ABDOMEN: No hepatosplenomegaly, normal bowel sounds, no guarding or rigidity. SPINE: No scoliosis or deformity SKIN: No rashes CENTRAL NERVOUS SYSTEM: No focal deficits, tone is normal in all 4 extremities. EXTREMITIES: There is no peripheral edema. No clubbing, no cyanosis. Peripheral pulses are intact. - Labs CBC & Chem 7: 05/25/21 05:28 05/25/21 05:28 Labs: Abnormal Lab Results - Last 24 Hours (Table) 05/24/21 05/24/2122 Range/Units 05:05 11:48 16:37 WBC (4.50-10.00) X 10*3/uL MCHC (32.0-37.0) g/dL Immature Gran # 0.59 H (0.00-0.04) X 10*3/uL Neutrophils # 26.04 H (1.80-7.70) X 10*3/uL Eosinophils # 0 L (0.04-0.35) X 10*3/uL Sodium (135-145) mmol/L BUN (9.0-27.0) mg/dL BUN/Creatinine Ratio (12.00-20.00) Ratio Glucose (70-110) mg/dL POC Glucose (mg/dL) 260 H 299 H (75-99) mg/dL 05/24/21 05/25/21 05/25/21 Range/Units 20:43 05:28 05:28 WBC 22.49 H (4.50-10.00) X 10*3/uL MCHC 31.6 L (32.0-37.0) g/dL Immature Gran # (0.00-0.04) X 10*3/uL Neutrophils # (1.80-7.70) X 10*3/uL Eosinophils # (0.04-0.35) X 10*3/uL Sodium 132 L (135-145) mmol/L BUN 31.5 H (9.0-27.0) mg/dL BUN/Creatinine Ratio 28.64 H (12.00-20.00) Ratio Glucose 312 H (70-110) mg/dL POC Glucose (mg/dL) 326 H (75-99) mg/dL 05/25/21 Range/Units 06:56 WBC (4.50-10.00) X 10*3/uL MCHC (32.0-37.0) g/dL Immature Gran # (0.00-0.04) X 10*3/uL Neutrophils # (1.80-7.70) X 10*3/uL Eosinophils # (0.04-0.35) X 10*3/uL Sodium (135-145) mmol/L BUN (9.0-27.0) mg/dL BUN/Creatinine Ratio (12.00-20.00) Ratio Glucose (70-110) mg/dL POC Glucose (mg/dL) 299 H (75-99) mg/dL Assessment and Plan Assessment: 1 Acute hypoxic respiratory failure related to community acquired pneumonia and acute exacerbation of COPD. COVID-19 PCR and influenza A and B were negative 2 History of COVID-19 infection in March 2021. Patient did not require hospitalization, patient is vaccinated against COVID-19 3 Recent history of outpatient treatment for pulmonary infections 4 History of COPD, with a baseline FEV1 of 1.91 L or 52% of predicted, moderately severe COPD 5 Chronic and ongoing history of smoking, carries [id number] smoking history 6 Hypertension 7 BPH Plan: The patient was seen and evaluated Improved and nearly back to his baseline Clear for discharge from the pulmonary standpoint Complete course of antibiotics Complete a course of prednisone taper starting at 40 mg daily for 4 days Follow up in the office in 1-2 weeks' He is again educated regarding the importance of complete smoking cessation I, the cosigning physician, performed a history & physical examination of the patient. Lungs sounds with bilateral end x-ray wheeze, diminished. Maintaining good O2 saturations in the 90s on room air. I discussed the assessment and plan of care with my nurse practitioner, Arielle White. I attest to the above note as dictated by her. I have personally seen and examined the patient, performed the documentation and the assessment and plan as written. Number of minutes spent on the visit: 10.
[2021-05-25 11:43] LABS: Glucose,Whole Blood 366 mg/dL (75-99)
[2021-05-25] MEDS ORDERED: AZITHROMYCIN 500 MG TAB PO SCH (12:00)
--- NOTE | 2021-05-25 12:07 | P.DS ---
<Magaly, - Last Filed: 05/25/21 12:01> Providers Expected date of discharge: 05/25/21 Hospital Course: Patient is a pleasant 60-year-old male, that presented to the emergency room with cough and dyspnea and fever. Patient has a pertinent medical history of COPD, diabetes, GERD, hypertension, hyperlipidemia and recent covid-19 infection in March. Patient was found to have elevated white blood cell count at 18.8. Chest x-ray found COPD with possible early subtlel infiltrate in the right midlung. Patient was admitted for the treatment of COPD exacerbation and community-acquired pneumonia. Pulmonology was consulted. Patient was started on antibiotics Rocephin and Zithromax, bronchodilators and IV steroids. Sputum culture was ordered, flu and COVID-19 negative. Hospitalist provided coverage 05/22/21-05/23/2021. 05/24/2021 Patient was seen and examined at bedside. Is resting in bed in no acute distress. Patient reports improvement in breathing, but does continue to have dyspnea with exertion. Patient denies chest pain, dizziness, chills, abdominal pain. Patient's white blood cell, increased to 28.58. Patient is maintaining oxygenation greater than 90% on room air. We will continue antibiotics, bronchodilators and IV steroids for another day. 05/25/2021 Patient was seen and examined at bedside. Patient states he is feeling much better, and that his breathing has improved back panel padder to normal. Patient denies abdominal pain, chest pain, dizziness, chills. Patient states that he feels very to go home. Pulmonary has cleared patient to go home on oral steroid taper and antibiotics. White blood count decreased to 22.49. Patient is stable for discharge, follow-up with patient in the office Assessment: Acute exacerbation of COPD Community-acquired pneumonia Leukocytosis History of covid 19 infection in March Hypertension Diabetes type 2 BPH Cigarette smoker History of GERD Health Concerns: multiple comorbidities Pertinent Studies: Chest x-ray found COPD with early infiltrate versus atelectasis of right mid lung Patient Condition at Discharge: Stable Plan - Discharge Summary Discharge Rx Participant: No New Discharge Prescriptions: New predniSONE See Taper PO DIRECTED #40 tab Azithromycin [Zithromax] 500 mg PO DAILY 1 Days #2 tab Cefdinir [Omnicef] 300 mg PO Q12HR 7 Days #14 capsule Continue atenoloL [Tenormin] 50 mg PO DAILY Losartan Potassium 100 mg PO DAILY Magnesium Oxide [Mag-Ox] 400 mg PO DAILY Albuterol Sulfate [Proair Hfa] 1 - 2 puff INHALATION RT-QID PRN PRN Reason: Shortness Of Breath Fluticasone/Umeclidin/Vilanter [Trelegy Ellipta 100-62.5-25] 1 puff INHALATION RT-DAILY Tamsulosin [Flomax] 0.4 mg PO DAILY Pantoprazole [Protonix] 40 mg PO DAILY Empagliflozin [Jardiance] 25 mg PO DAILY Ipratropium-Albuterol Nebulize [Duoneb 0.5 mg-3 mg/3 ml Soln] 3 ml INHALATION RT-QID PRN PRN Reason: Shortness Of Breath Discharge Medication List atenoloL [Tenormin] 50 mg PO DAILY 05/25/14 [History] Losartan Potassium 100 mg PO DAILY 07/04/17 [History] Magnesium Oxide [Mag-Ox] 400 mg PO DAILY 06/21/20 [History] Albuterol Sulfate [Proair Hfa] 1 - 2 puff INHALATION RT-QID PRN 05/22/21 [History] Empagliflozin [Jardiance] 25 mg PO DAILY 05/22/21 [History] Fluticasone/Umeclidin/Vilanter [Trelegy Ellipta 100-62.5-25] 1 puff INHALATION RT-DAILY 05/22/21 [History] Ipratropium-Albuterol Nebulize [Duoneb 0.5 mg-3 mg/3 ml Soln] 3 ml INHALATION RT-QID PRN 05/22/21 [History] Pantoprazole [Protonix] 40 mg PO DAILY 05/22/21 [History] Tamsulosin [Flomax] 0.4 mg PO DAILY 05/22/21 [History] Azithromycin [Zithromax] 500 mg PO DAILY 1 Days #2 tab 05/25/21 [Rx] Cefdinir [Omnicef] 300 mg PO Q12HR 7 Days #14 capsule 05/25/21 [Rx] predniSONE See Taper PO DIRECTED #40 tab 05/25/21 [Rx] Follow up Appointment(s)/Referral(s): Brenden Puga MD [Primary Care Provider] - 1-2 days [facility] [NON-STAFF] - As Needed (nebulizer) Luis Manuel Yarbrough DO [Doctor of Osteopathic Medicine] - 06/02/21 11:15 am Patient Instructions/Handouts: COPD (Chronic Obstructive Pulmonary Disease) (DC) Discharge Disposition: HOME SELF-CARE <Brenden Puga - Last Filed: 05/26/21 19:28> Providers Date of admission: 05/24/21 11:57 Attending physician: Brenden Puga Consults: 05/22/21 13:52 Consult Physician Routine Consulting Provider: Luis Manuel Yarbrough Consult Reason/Comments: COPD Do you want consulting provider notified?: Yes Primary care physician: Brenden Puga I have personally seen and examined the patient, reviewed the documentation and agree with the assessment and plan as written. Number of minutes spent on the visit: [greater than 15].
[2021-05-25 14:33] VITALS: BP 145/60; PULSE 67; TEMP 97.9
[2021-05-26] MEDS ORDERED: predniSONE 20 MG TAB PO SCH (09:00)
== END 2021-05-25 15:46 | disposition home or self-care (01) | DRG 190 ==
LOC: EC 11:57 → 4SSUR 13:52 → OBSVTOIN 05-24 11:57
PROVIDERS: ADMIT Family Medicine; ATTEND Family Medicine
DX: J44.0 Chronic obstructive pulmonary disease with (acute) lower respiratory infection (principal); J18.9 Pneumonia, unspecified organism; J96.01 Acute respiratory failure with hypoxia; J44.1 Chronic obstructive pulmonary disease with (acute) exacerbation; Z20.822 Contact with and (suspected) exposure to COVID-19; N40.0 Benign prostatic hyperplasia without lower urinary tract symptoms; I10 Essential (primary) hypertension; F17.210 Nicotine dependence, cigarettes, uncomplicated; E11.9 Type 2 diabetes mellitus without complications; E78.5 Hyperlipidemia, unspecified; Z88.0 Allergy status to penicillin; Z79.51 Long term (current) use of inhaled steroids; Z79.82 Long term (current) use of aspirin; Z79.84 Long term (current) use of oral hypoglycemic drugs; Z79.899 Other long term (current) drug therapy; Z86.16 Personal history of COVID-19
CPT/HCPCS: 36415; 71046; 80048; 80053; 83605; 83735; 85025; 85027; 85610; 85730; 87502; 87635; 93005; 94640; 94667; 96374; 99291

== ENCOUNTER 2021-06-08 11:51 | Day surgery (SDC) | payer OTHER ==
[2021-06-07 08:30] VITALS: BMI 28.0
[~2021-06-08 11:51] MED LIST changes: +ALBUTEROL NEB (CONC) 2.5 MG/0.5 ML INHALATION ONE; +ATROPINE SULFATE 0.4 MG/ML 1 ML VIAL IM ONE; +DEXAMETHASONE SOD PHOSPHATE 4 MG/ML 1 ML VIAL IV ONE; +LIDOCAINE 1% (10MG/ML) FOR IV START INTRADERMA PRN; +LIDOCAINE 2% (PF) 20 MG/ML 5 ML VIAL INHALATION ONE; +LIDOCAINE VISCOUS 300 MG/15 ML CUP MUCOUS MEM ONE; +MIDAZOLAM 2 MG/2 ML VIAL IV PRN; +ONDANSETRON 4 MG/2 ML VIAL IVP ONE
[2021-06-08 12:13] VITALS: RESP 16; TEMP 97.8
[2021-06-08] MEDS ORDERED: MIDAZOLAM 2 MG/2 ML VIAL ONE (12:30)
[2021-06-08] MEDS ORDERED: fentaNYL (PF) 50 MCG/ML 2 ML AMP ONE (12:30)
[2021-06-08] MEDS ORDERED: PROPOFOL 10 MG/ML 20 ML VIAL IV ONE (12:30)
[2021-06-08] MEDS ORDERED: LIDOCAINE 1% INJ 10MG/ML (20 ML MDV) ONE (12:30)
[2021-06-08 12:33] LABS: Glucose,Whole Blood 223 mg/dL (75-99)
[2021-06-08] MEDS ORDERED: LIDOCAINE 2% INJ 20 MG/ML INTRATRACH ONE (12:41)
[2021-06-08 13:25] VITALS: BP 109/68; PULSE 72
--- NOTE | 2021-06-08 13:33 | PCN ---
PROCEDURE NOTE PULMONARY/CRITICAL CARE PROCEDURE NOTE: PROCEDURE PERFORMED: Bronchoscopy, airway examination, therapeutic lavage, BAL right lower lobe. PREOPERATIVE DIAGNOSIS: Pneumonia. POSTOPERATIVE DIAGNOSIS: Pneumonia. OPERATORS: 1. Dr. Yarbrough. 2. Dr. White. 3. Dr. Bronson. PROCEDURE DESCRIPTION: There was informed consent and universal timeout. Rekha Castro CRNA, provided general anesthesia. The patient's procedure was done in [facility], room #1. After the patient was adequately sedated and being fully monitored, the bronchoscope was inserted through the left nostril. It passed through the left nasopharynx into the oropharynx. The hypopharynx was identified and topicalized. The glottic opening was evaluated. The anterior commissure, true cords, false cords, arytenoids, piriform sinuses, right and left valleculae and epiglottis all appeared normal. The glottic opening was topicalized. The bronchoscope was pushed through the glottic opening into the trachea. There was some erythema noted in the trachea. Some distal secretions were also noted. Tracheal beckie was sharp. The right and left mainstem were topicalized. The right upper lobe and its 3 segments, right middle lobe and its 2 segments, right lower lobe and its 5 segments, left upper lobe proper and its 2 segments, lingula and its 2 segments and left lower lobe and its 4 segments were all evaluated. Everything appeared relatively normal structurally other than diffuse secretions noted throughout. There was bronchial wall erythema and hyperemia. There was no dominant mass or tumor. There was some mucosal friability. The bronchoscope was then wedged into the right lower lobe. BAL took place. About 35 mL of fluid was recovered from the right lower lobe. It was purulent-appearing. The fluid will be sent for analysis, including cytology and microbiology as well as white count and differential. The patient tolerated the procedure well. The bronchoscope was withdrawn. There was no immediate complication. I did explain the procedure to the patient's , who brought the patient to the hospital. The patient will be recovered. Will follow up with me in the office. ROSSANA / IBRAHIMA: [id number] /
[2021-06-09 01:03] LABS: Appearance,BF Cloudy
== END 2021-06-08 13:30 | disposition home or self-care (01) ==
LOC: ORWHC2ENDO 11:51
PROVIDERS: ATTEND Internal Medicine Critical Care Medicine
DX: J18.9 Pneumonia, unspecified organism (principal); E11.9 Type 2 diabetes mellitus without complications; J45.909 Unspecified asthma, uncomplicated; I10 Essential (primary) hypertension; N40.0 Benign prostatic hyperplasia without lower urinary tract symptoms; Z87.891 Personal history of nicotine dependence; Z86.16 Personal history of COVID-19; Z79.84 Long term (current) use of oral hypoglycemic drugs; Z79.51 Long term (current) use of inhaled steroids; Z79.52 Long term (current) use of systemic steroids; Z79.899 Other long term (current) drug therapy; Z88.0 Allergy status to penicillin
CPT/HCPCS: 87798 ×3; 87496; 87498; 87529; 88108; 88305; 89050; 87252; 87502; 87634; 87070; 87205; 87116; 87102; 87206; 31624; J2001 ×2; J2250; J3010; J2704

== ENCOUNTER → 2021-10-20 | Outpatient (CLI) | payer OTHER ==
[2021-10-20 13:43] LABS: African American GFR (CKD) >90 (>60 ml/min/1.73 sqM); Blood Urea Nitrogen 22 mg/dL (9-20); Non-African American GFR(CKD) 79 (>60 ml/min/1.73 sqM)
--- NOTE | 2021-10-20 14:53 | CT ---
EXAMINATION TYPE: CT chest wo/w con CT DLP: 800.1 mGycm, Automated exposure control for dose reduction was used. DATE OF EXAM: 10/20/2021 2:23 PM COMPARISON: None CLINICAL INDICATION:Male, 61 years old with history of J44.9 COPD, Severe COPD TECHNIQUE: Multiple axial images were obtained through the chest. Contrast used:70 ML mL of Isovue 300 with IV Contrast, Oral contrast used: none. FINDINGS: LUNGS/ PLEURA: Moderate to severe centrilobular and paraseptal emphysema changes in the lung apices. No evidence of focal consolidation, pneumothorax or pleural effusion. No suspicious pulmonary nodule s. AIRWAY: Patent and unremarkable. HEART: Size within normal limits. MEDIASTINUM: No gross evidence of adenopathy. VASCULATURE: No aortic aneurysm. MUSCULOSKELETAL: No acute osseous abnormalities, mild multilevel disc degeneration changes throughout the spine. SOFT TISSUES/LYMPH NODES: Unremarkable. LOWER NECK: No significant findings. UPPER ABDOMEN: Diffuse low-attenuation to the liver parenchyma. IMPRESSION: Moderate to severe COPD changes. No suspicious pulmonary nodules.
== END | disposition home or self-care (01) ==
LOC: RADCTMAIN 12:53
PROVIDERS: ATTEND Family Medicine
DX: J44.9 Chronic obstructive pulmonary disease, unspecified (principal)
CPT/HCPCS: 82565; 84520; 71270; 36415; Q9967

== ENCOUNTER → 2021-11-01 | Outpatient (CLI) | payer OTHER ==
[~2021-11-01] MED LIST changes: -ALBUTEROL NEB (CONC) 2.5 MG/0.5 ML INHALATION ONE; -ATROPINE SULFATE 0.4 MG/ML 1 ML VIAL IM ONE; -DEXAMETHASONE SOD PHOSPHATE 4 MG/ML 1 ML VIAL IV ONE; -LACTATED RINGERS 1,000 ML IV SCH; -LIDOCAINE 1% (10MG/ML) FOR IV START INTRADERMA PRN; -LIDOCAINE 2% (PF) 20 MG/ML 5 ML VIAL INHALATION ONE; -LIDOCAINE VISCOUS 300 MG/15 ML CUP MUCOUS MEM ONE; -MIDAZOLAM 2 MG/2 ML VIAL IV PRN; -ONDANSETRON 4 MG/2 ML VIAL IVP ONE; +REGADENOSON 0.4 MG/5 ML SYRINGE IV PRN
--- NOTE | 2021-11-01 11:40 | CA ---
Transthoracic Echo Report Name: Kedar Awan Age: 61 Gender: M : 1960 Exam Date: 11/01/2021 09:46 Exam Location: [facility] Echo Ht (in): 69 Wt (lb): 190 Ordering Physician: Brenden Puga MD Attending/Referring Phys: [id number], Edd [employer] Assistant Teacher Ketty Cain, RD Procedure CPT: Indications: J44.9 COPD, R07.9 CP Cardiac Hx: Technical Quality: Good Contrast 1: Total Dose (mL): Contrast 2: Total Dose (mL): MEASUREMENTS (Male / Female) Normal Values 2D ECHO LV Diastolic Diameter PLAX 4.6 cm 4.2 - 5.9 / 3.9 - 5.3 cm LV Systolic Diameter PLAX 3.5 cm IVS Diastolic Thickness 1.1 cm 0.6 - 1.0 / 0.6 - 0.9 cm LVPW Diastolic Thickness 1.4 cm 0.6 - 1.0 / 0.6 - 0.9 cm LV Relative Wall Thickness 0.6 RV Internal Dim ED PLAX 2.5 cm LA Systolic Diameter LX 3.8 cm 3.0 - 4.0 / 2.7 - 3.8 cm LA Volume 64.5 cm??? 18 - 58 / 22 - 52 cm??? M-MODE Aortic Root Diameter MM 3.5 cm LA Systolic Diameter MM 3.7 cm LA Ao Ratio MM 1.1 MV E Point Septal Separation 0.5 cm AV Cusp Separation MM 1.8 cm DOPPLER MV Area PHT 4.2 cm??? Mitral E Point Velocity 69.4 cm/s Mitral A Point Velocity 67.9 cm/s Mitral E to A Ratio 1.0 MV Deceleration Time 181.8 ms MV E' Velocity 8.0 cm/s Mitral E to MV E' Ratio 8.6 TR Peak Velocity 143.1 cm/s TR Peak Gradient 8.2 mmHg Right Ventricular Systolic Press 13.0 mmHg FINDINGS Left Ventricle Normal left ventricular size, wall thickness, left ventricular ejection fraction is estimated at 50-55%. Right Ventricle The right ventricle is normal in size and function. Right Atrium The right atrium is normal in size. Left Atrium Mildly increased left atrial volume. Mitral Valve Structurally normal mitral valve without significant stenosis or prolapse. There is mild mitral regurgitation. Aortic Valve Structurally normal aortic valve without significant sclerosis or stenosis. There is no aortic regurgitation. Tricuspid Valve Structurally normal tricuspid valve without significant stenosis. Pulmonary artery systolic pressure is normal. Pulmonic Valve Structurally normal pulmonic valve without significant stenosis. There is no pulmonic regurgitation. Pericardium Normal pericardium without effusion. Aorta Normal aortic root dimension. CONCLUSIONS Normal LV size and systolic function with mild mitral regurgitation Previewed by: Dr. Kody Sanchez MD (Electronically Signed) Final Date: 01 November 2021 11:39
--- NOTE | 2021-11-01 12:22 | CA ---
Lexiscan Nuclear Stress Test Report Name: Kedar Awan Exam Date: 11/01/2021 10:11 Exam Location: [facility] Stress Ht (in): 69 Wt (lb): 190 BSA: 2.02 Ordering Phys: Brenden Puga MD Referring Phys: BRENDEN Puga,, Technologist: Marv Green Age: 61 Gender: M : 1960 Procedure CPT: Indications: J44.9 COPD, R07.9 CP ICD-10 Codes: Patient History: CHEST PAIN, DIFFICULTY IN BREATHING, HTN, DIABETES, ELEVATED CHOLESTEROL LEVELS, FORMER SMOKER QUIT 3 MONTHS AGO. 1.5 PPD X 40 YEARS, PRIOR CARDIAC CATH, COPD Medications: IPRATROPIUM, ALBUTEROL, TRILOGY, PROTONIX, FLOMAX, LOSARTAN, ATENOLOL, CRESTOR, NARDIAME, SEMGLER Meds past 24 hrs: Pretest Chest Pain: STRESS TEST Lexiscan Protocol Exercise Duration (min:sec): 01:[address] Depressions (mm): Angina Score: Sun Score: Resting HR (bpm): 60 Peak HR (bpm): 86 Resting BP (mmHg): 132 / 79 Peak BP (mmHg): 132 / 79 MPHR: 161 Target HR: 137 % MPHR: 53 METS: 1.0 Total Dose: Peak Dose: Atropine: Double Product: 68644 BP Response: Stress Termination: INFUSION COMPLETE Stress Symptoms: DIFFICULTY IN BREATHING,CHEST TIGHTNESS Stress Summary: ECG ANALYSIS Resting ECG: Stress ECG: CONCLUSIONS Lexiscan [facility]el[facility] stress test Normal heart rate and blood pressure response No ECG ms for ischemia No arrhythmias Nuclear portion will be reported separately Dr. Kody Sanchez MD (Electronically Signed) Final Date: 01 November 2021 12:22
--- NOTE | 2021-11-01 16:38 | NM ---
EXAMINATION TYPE: NM stress lexiscan cardiolite DATE OF EXAM: 11/01/2021 COMPARISON: NONE HISTORY: COPD, chest pain TECHNIQUE: After the intravenous administration of 10.12 mCi Tc 99m Sestamibi - Cardiolite resting S PECT images acquired 50 minutes post injection. The patient received 0.4mg Lexiscan, 25.5 mCi Tc 99m Sestamibi - Stress images obtained [address] injection FINDINGS: Review of stress and rest SPECT images demonstrates decreased uptake along the inferior wall the left ventricle on stress and rest images, more so on rest images than on stress images. Gated analysis s hows normal wall motion with an estimated left ventricular ejection fraction of 62 %. IMPRESSION: No scintigraphic evidence for reversible ischemia. Difficult to exclude prior infarct inferior wall l eft ventricle. Consider echocardiographic correlation for elevated ejection fraction.
== END | disposition home or self-care (01) ==
LOC: RADNMMAIN 08:22
PROVIDERS: ATTEND Family Medicine
DX: I10 Essential (primary) hypertension (principal); J44.9 Chronic obstructive pulmonary disease, unspecified; R07.9 Chest pain, unspecified
CPT/HCPCS: 93017; 93306; 78452; A9500; J2785

== ENCOUNTER 2022-04-09 13:37 | Emergency (ER) | payer BC, OTHER ==
[2022-04-09 14:24] VITALS: BP 130/80; PULSE 74; RESP 18; TEMP 97.8
[2022-04-09] MEDS ORDERED: KETOROLAC 15 MG/ML 1 ML VIAL IVP STA (14:33)
--- NOTE | 2022-04-09 14:33 | ED ---
Abdominal Pain HPI - General Chief Complaint: Abdominal Pain Stated Complaint: Abd Pain Time Seen by Provider: 04/09/22 13:37 Source: patient, RN notes reviewed Mode of arrival: EMS Limitations: no limitations - History of Present Illness Initial Comments: 60-year-old male with no prior history other than smoking who states he was feeling fine up until just after eating a ham and cheese sandwich earlier today when he started developing severe 10/10 right upper quadrant and flank pain. He has some nausea vomiting with that he was given IV Zofran by paramedics upon initiation of treatment. He was given IV fentanyl 50 g 2 with some improvement in the pain the pain is been episodic. He currently is about 7/10 severity. No other complaints no other modifying factors MD Complaint: abdominal pain - Related Data Home Medications Medication Instructions Recorded Confirmed atenoloL [Tenormin] 50 mg PO DAILY 05/25/14 06/07/21 Losartan Potassium 100 mg PO DAILY 07/04/17 06/07/21 Magnesium Oxide [Mag-Ox] 400 mg PO DAILY 06/21/20 06/07/21 Albuterol Sulfate [Proair Hfa] 1 - 2 puff INHALATION RT-QID PRN 05/22/21 06/08/21 Empagliflozin [Jardiance] 25 mg PO DAILY 05/22/21 06/08/21 Fluticasone/Umeclidin/Vilanter 1 puff INHALATION RT-DAILY 05/22/21 06/07/21 [Trelegy Ellipta 100-62.5-25] Ipratropium-Albuterol Nebulize 3 ml INHALATION RT-QID PRN 05/22/21 06/08/21 [Duoneb 0.5 mg-3 mg/3 ml Soln] Pantoprazole [Protonix] 40 mg PO DAILY 05/22/21 06/07/21 Tamsulosin [Flomax] 0.4 mg PO DAILY 05/22/21 06/07/21 Previous Rx's Medication Instructions Recorded Azithromycin [Zithromax] 500 mg PO DAILY 1 Days #2 tab 05/25/21 Cefdinir [Omnicef] 300 mg PO Q12HR 7 Days #14 capsule 05/25/21 predniSONE See Taper PO DIRECTED #40 tab 05/25/21 Allergies Allergy/AdvReac Type Severity Reaction Status Date / Time Penicillins Allergy Rash/Hives Verified 06/08/21 12:07 Review of Systems ROS Statement: Those systems with pertinent positive or pertinent negative responses have been documented in the HPI. ROS Other: All systems not noted in ROS Statement are negative. 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) Past Anesthesia/Blood Transfusion Reactions: No Reported Reaction Past Psychological History: No Psychological Hx Reported Smoking Status: Former smoker Past Alcohol Use History: Occasional Past Drug Use History: None Reported - Past Family History Father History Unknown: Yes Mother Family Medical History: No Reported History Additional Family Medical History / Comment(s): HEALTHY Brother(s) Family Medical History: Cancer General Exam - General Exam Comments Initial Comments: This is a well-developed well-nourished awake alert oriented 4 male Limitations: no limitations General appearance: alert, anxious, in distress Head exam: Present: atraumatic, normocephalic, normal inspection Eye exam: Present: normal appearance, PERRL, EOMI. Absent: scleral icterus, conjunctival injection, periorbital swelling ENT exam: Present: normal exam, mucous membranes moist Neck exam: Present: normal inspection, full ROM. Absent: tenderness, meningismus, lymphadenopathy Respiratory exam: Present: normal lung sounds bilaterally. Absent: respiratory distress, wheezes, rales, rhonchi, stridor Cardiovascular Exam: Present: regular rate, normal rhythm, normal heart sounds. Absent: systolic murmur, diastolic murmur, rubs, gallop, clicks GI/Abdominal exam: Present: soft, tenderness (Upper quadrant tenderness palpation no definitive guarding), normal bowel sounds. Absent: distended, guarding, rebound, rigid Rectal exam: Present: deferred Extremities exam: Present: normal inspection, full ROM, normal capillary refill. Absent: tenderness, pedal edema, joint swelling, calf tenderness Back exam: Present: normal inspection Neurological exam: Present: alert, oriented X3, CN II-XII intact Psychiatric exam: Present: normal affect, normal mood Skin exam: Present: warm, dry, intact, normal color. Absent: rash Course Vital Signs 04/09/22 14:15 Temperature 97.8 F Pulse Rate 74 Respiratory 18 Rate Blood Pressure 130/80 O2 Sat by Pulse 98 Oximetry - Reevaluation(s) Reevaluation #1: 04/09/22 17:25 Patient is feeling much improved no tenderness palpation I did a long discussion with the patient and his patient will be discharged follow-up with his doctor the clinical presentation consistent with biliary colic. He does have a chronic leukocytosis which hasn't worked up by hematology in the past. Medical Decision Making - Medical Decision Making I did discuss findings with patient and his patient initially much improved and wants to be discharged he will follow-up with his doctor the presentation is consistent with acute biliary colic ultrasound was interpreted by me showing no evidence of acute cholecystitis nor cholelithiasis. Return parameters have been discussed. Was pt. sent in by a medical professional or institution (, PA, PARKING LINE PAINTER, urgent care, hospital, or half-way...) When possible be specific @ -[No] Did you speak to anyone other than the patient for history (EMS, parent, family, police, friend...)? What history was obtained from this source @ -[No] Did you review nursing and triage notes (agree or disagree)? Why? @ Yes and I agree -[I reviewed and agree with nursing and triage notes] Were old charts reviewed (outside hosp., previous admission, EMS record, old EKG, old radiological studies, urgent care reports/EKG's, half-way records)? Report findings @ -[No old charts were reviewed] Differential Diagnosis (chest pain, altered mental status, abdominal pain women, abdominal pain men, vaginal bleeding, weakness, fever, dyspnea, syncope, headache, dizziness, GI bleed, back pain, seizure, CVA, palpatations, mental health)? @ Biliary colic renal colic right lower lobe infiltrate/pneumonia spastic colon yes as above -[not applicable] EKG interpreted by me (3pts min.). @ -[As above] X-rays interpreted by me (1pt min.). @ Yes negative acute findings interpreted by me-[None done] CT interpreted by me (1pt min.). @ -[None done] U/S interpreted by me (1pt. min.). @ Negative for acute findings interpreted by me-[None done] What testing was considered but not performed or refused? (CT, X-rays, U/S, labs)? Why? @ -[None] What meds were considered but not given or refused? Why? @ -[None] Did you discuss the management of the patient with other professionals (professionals i.e. Dr., PA, PARKING LINE PAINTER, lab, RT, psych nurse, social media executive, ui developer designer, teacher, financial compliance officer, therapeutic case manager)? Give summary @ -[No] Was smoking cessation discussed for >3mins.? @ -[No] Was critical care preformed (if so, how long)? @ -[No] Were there social determinants of health that impacted care today? How? (Homelessness, low income, unemployed, alcoholism, drug addiction, transportation, low edu. Level, literacy, decrease access to med. care, half-way, rehab)? @ -[No] Was there de-escalation of care discussed even if they declined (Discuss DNR or withdrawal of care, Hospice)? DNR status @ -[No] What co-morbidities impacted this encounter? (DM, HTN, Smoking, COPD, CAD, Cancer, CVA, ARF, Chemo, Hep., AIDS, mental health diagnosis, sleep apnea, morbid obesity)? @ -[None] Was patient admitted / discharged? Hospital course, mention meds given and route, prescriptions, significant lab abnormalities, going to OR and other pertinent info. @ Patient was discharged with follow-up with his doctor-[hospital course] Undiagnosed new problem with uncertain prognosis? @ Biliary colic-[No] Drug Therapy requiring intensive monitoring for toxicity (Heparin, Nitro, Insulin, Cardizem)? @ -[No] Were any procedures done? @ -[No] Diagnosis/symptom? @ Abdominal pain, acute biliary colic-[default] Acute, or Chronic, or Acute on Chronic? @ Acute-[default] Uncomplicated (without systemic symptoms) or Complicated (systemic symptoms)? @ -[default] Side effects of treatment? @ -[No] Exacerbation, Progression, or Severe Exacerbation? @ -[No] Poses a threat to life or bodily function? How? (Chest pain, USA, VT, pneumonia, PE, COPD, DKA, ARF, appy, cholecystitis, CVA, Diverticulitis, Homicidal, Suicidal, threat to staff... and all critical care pts) @ -[No] - Lab Data Result diagrams: 04/09/22 15:10 04/09/22 16:05 Lab Results 04/09/22 04/09/22 04/09/22 Range/Units 15:10 15:10 16:05 WBC 11.2 H (3.8-10.6) k/uL RBC 5.26 (4.30-5.90) m/uL Hgb 16.9 (13.0-17.5) gm/dL Hct 49.0 (39.0-53.0) % MCV 93.3 (80.0-100.0) fL MCH 32.2 (25.0-35.0) pg MCHC 34.5 (31.0-37.0) g/dL RDW 13.4 (11.5-15.5) % Plt Count 230 (150-450) k/uL MPV 9.7 Neutrophils % 76 % Lymphocytes % 14 % Monocytes % 4 % Eosinophils % 4 % Basophils % 1 % Neutrophils # 8.5 H (1.3-7.7) k/uL Lymphocytes # 1.6 (1.0-4.8) k/uL Monocytes # 0.4 (0-1.0) k/uL Eosinophils # 0.5 (0-0.7) k/uL Basophils # 0.1 (0-0.2) k/uL PT (9.0-12.0) sec INR (<1.2) APTT (22.0-30.0) sec Sodium (137-145) mmol/L Potassium (3.5-5.1) mmol/L Chloride (98-107) mmol/L Carbon Dioxide (22-30) mmol/L Anion Gap mmol/L BUN (9-20) mg/dL Creatinine (0.66-1.25) mg/dL Est GFR (CKD-EPI)AfAm (>60 ml/min/1.73 sqM) Est GFR (CKD-EPI)NonAf (>60 ml/min/1.73 sqM) Glucose (74-99) mg/dL Plasma Lactic Acid Marek (0.7-2.0) mmol/L Calcium (8.4-10.2) mg/dL Total Bilirubin (0.2-1.3) mg/dL AST (17-59) U/L ALT (4-49) U/L Alkaline Phosphatase (38-126) U/L Troponin I <0.012 (0.000-0.034) ng/mL Total Protein (6.3-8.2) g/dL Albumin (3.5-5.0) g/dL Amylase (30-110) U/L Lipase (23-300) U/L Urine Color Yellow Urine Appearance Clear (Clear) Urine pH 5.5 (5.0-8.0) Ur Specific [place] 1.032 (1.001-1.035) Urine Protein Negative (Negative) Urine Glucose (UA) 4+ H (Negative) Urine Ketones Negative (Negative) Urine Blood Negative (Negative) Urine Nitrite Negative (Negative) Urine Bilirubin Negative (Negative) Urine Urobilinogen <2.0 (<2.0) mg/dL Ur Leukocyte Esterase Negative (Negative) 04/09/22 04/09/22 04/09/22 Range/Units 16:05 16:05 16:05 WBC (3.8-10.6) k/uL RBC (4.30-5.90) m/uL Hgb (13.0-17.5) gm/dL Hct (39.0-53.0) % MCV (80.0-100.0) fL MCH (25.0-35.0) pg MCHC (31.0-37.0) g/dL RDW (11.5-15.5) % Plt Count (150-450) k/uL MPV Neutrophils % % Lymphocytes % % Monocytes % % Eosinophils % % Basophils % % Neutrophils # (1.3-7.7) k/uL Lymphocytes # (1.0-4.8) k/uL Monocytes # (0-1.0) k/uL Eosinophils # (0-0.7) k/uL Basophils # (0-0.2) k/uL PT 10.2 (9.0-12.0) sec INR 1.0 (<1.2) APTT 24.4 (22.0-30.0) sec Sodium 137 (137-145) mmol/L Potassium 4.4 (3.5-5.1) mmol/L Chloride 103 (98-107) mmol/L Carbon Dioxide 26 (22-30) mmol/L Anion Gap 8 mmol/L BUN 21 H (9-20) mg/dL Creatinine 1.21 (0.66-1.25) mg/dL Est GFR (CKD-EPI)AfAm 76 (>60 ml/min/1.73 sqM) Est GFR (CKD-EPI)NonAf 65 (>60 ml/min/1.73 sqM) Glucose 175 H (74-99) mg/dL Plasma Lactic Acid Marek 1.5 (0.7-2.0) mmol/L Calcium 9.0 (8.4-10.2) mg/dL Total Bilirubin 0.4 (0.2-1.3) mg/dL AST 34 (17-59) U/L ALT 43 (4-49) U/L Alkaline Phosphatase 88 (38-126) U/L Troponin I (0.000-0.034) ng/mL Total Protein 7.5 (6.3-8.2) g/dL Albumin 4.4 (3.5-5.0) g/dL Amylase 49 (30-110) U/L Lipase 54 (23-300) U/L Urine Color Urine Appearance (Clear) Urine pH (5.0-8.0) Ur Specific [place] (1.001-1.035) Urine Protein (Negative) Urine Glucose (UA) (Negative) Urine Ketones (Negative) Urine Blood (Negative) Urine Nitrite (Negative) Urine Bilirubin (Negative) Urine Urobilinogen (<2.0) mg/dL Ur Leukocyte Esterase (Negative) - EKG Data -: EKG Interpreted by Me EKG Comments: EKG doesn't time of service interpreted by me showed a normal sinus rhythm a 64 NV interval 162 QRS 98 QT since QTC 393/40 to nonspecific septal configuration - Radiology Data Radiology results: image reviewed Disposition Clinical Impression: Abdominal pain, Biliary colic Disposition: HOME SELF-CARE Condition: Good Instructions (If sedation given, give patient instructions): Abdominal Pain (ED), Biliary Colic (ED) Additional Instructions: Jehy-gma-mfkeaic pain medication such as ibuprofen for pain Is patient prescribed a controlled substance at d/c from ED?: No Referrals: Brenden Puga MD [Primary Care Provider] - 1-2 days Decision Date: 04/09/22 Decision Time: 17:37
--- NOTE | 2022-04-09 14:53 | XR ---
EXAMINATION TYPE: XR chest 2V DATE OF EXAM: 04/09/2022 2:44 PM COMPARISON: CT chest 10/20/2021, chest x-ray 05/22/2021 TECHNIQUE: XR chest 2V . CLINICAL INDICATION:Male, 61 years old with history of Right upper quadrant abdominal pain; FINDINGS: Lungs/Pleura: Prominent interstitial lung markings are seen scattered throughout the lungs. No eviden ce of focal consolidation, pneumothorax or pleural effusion. Pulmonary vascularity: Unremarkable. Heart/mediastinum: Cardiomediastinal silhouette is unremarkable. Musculoskeletal: Multiple level degenerative disc disease changes seen throughout the spine. IMPRESSION: 1. No acute cardiopulmonary disease process. 2. COPD changes.
--- NOTE | 2022-04-09 15:36 | XR ---
EXAMINATION TYPE: XR KUB DATE OF EXAM: 04/09/2022 2:46 PM INDICATION: Patient age:Male; 61 years old; Reason for study: abdominal pain; PHH. COMPARISON: Abdominal radiograph 02/01/2017 TECHNIQUE: One radiographic view of the abdomen was obtained. FINDINGS: The bowel gas pattern is nonspecific without dilated loops of small or large bowel. There i s no evidence for organomegaly or pneumoperitoneum. The osseous structures are intact. Fecal materia l and gas are demonstrated throughout the colon and rectum. Visualized portions of the lower chest a re within normal limits. IMPRESSION: Nonspecific bowel gas pattern without radiographic evidence for acute process.
[2022-04-09 15:49] LABS: Basophils # (A) 0.1 k/uL (0-0.2); Basophils % (A) 1 %; Eosinophils # (A) 0.5 k/uL (0-0.7); Eosinophils % (A) 4 %; HGB 16.9 gm/dL (13.0-17.5); Lymphocytes # (A) 1.6 k/uL (1.0-4.8); Lymphocytes % (A) 14 %; MCH 32.2 pg (25.0-35.0); MCHC 34.5 g/dL (31.0-37.0); MCV 93.3 fL (80.0-100.0); Mean Platelet Volume 9.7; Monocytes # (A) 0.4 k/uL (0-1.0); Monocytes % (A) 4 %; Neutrophils # (A) 8.5 k/uL (1.3-7.7); Neutrophils % (A) 76 %; Platelet Count 230 k/uL (150-450); RBC 5.26 m/uL (4.30-5.90); RDW 13.4 % (11.5-15.5); WBC 11.2 k/uL (3.8-10.6)
[2022-04-09 16:07] LABS: Appearance,Urine Clear (Clear); Bilirubin,Urine Negative (Negative); Blood,Urine Negative (Negative); Color,Urine Yellow; Glucose,Urine (UA) 4+ (Negative); Ketones,Urine Negative (Negative); Leukocyte Esterase,Urine Negative (Negative); Nitrite,Urine Negative (Negative); PH, Urine 5.5 (5.0-8.0); Protein,Urine Negative (Negative); Specific Gravity,Urine 1.032 (1.001-1.035); Urobilinogen,Urine <2.0 mg/dL (<2.0)
[2022-04-09 16:27] LABS: Albumin 4.4 g/dL (3.5-5.0); Potassium 4.4 mmol/L (3.5-5.1); Total Bilirubin 0.4 mg/dL (0.2-1.3); Total Protein 7.5 g/dL (6.3-8.2)
[2022-04-09 16:34] LABS: Partial Thromboplastin Time 24.4 sec (22.0-30.0); Prothrombin Time 10.2 sec (9.0-12.0)
--- NOTE | 2022-04-09 17:00 | US ---
EXAMINATION TYPE: US gallbladder DATE OF EXAM: 04/09/2022 COMPARISON: Abdominal KUB 04/09/2022. CLINICAL HISTORY: Biliary colic. TECHNIQUE: Multiple sonographic images of the right upper quadrant are obtained. FINDINGS: EXAM MEASUREMENTS: Liver Length: 17.7 cm Gallbladder Wall: 0.13 cm CBD: 0.39 cm Right Kidney: 11.2 x 5.2 x 5.1 cm Pancreas: Tail obscured by overlying bowel gas Liver: Enlarged. Increased attenuation with hypoechoic area near gallbladder, suggestive of focal f atty sparring. 2.4 x 1.9 x 2.6cm Gallbladder: Within normal limits. Evidence for sonographic Almeida's sign: No CBD: Within normal limits for size. Right Kidney: Normal appearance. No hydronephrosis. IMPRESSION: 1. Hepatomegaly with hepatic steatosis. 2. No evidence for cholelithiasis or secondary findings to suggest acute cholecystitis.
== END 2022-04-09 18:22 | disposition home or self-care (01) ==
LOC: EC 13:37
DX: K80.50 Calculus of bile duct without cholangitis or cholecystitis without obstruction (principal); I10 Essential (primary) hypertension; E11.9 Type 2 diabetes mellitus without complications; J44.9 Chronic obstructive pulmonary disease, unspecified; E78.5 Hyperlipidemia, unspecified; K21.9 Gastro-esophageal reflux disease without esophagitis; Z88.0 Allergy status to penicillin; Z87.891 Personal history of nicotine dependence; Z79.52 Long term (current) use of systemic steroids; Z79.84 Long term (current) use of oral hypoglycemic drugs; Z79.899 Other long term (current) drug therapy
CPT/HCPCS: 36415; 93005; 80053; 82150; 83605; 83690; 84484; 85025; 85610; 85730; 81003; 87040; 71046; 74018; 76705; 99285; 96374; J1885

== ENCOUNTER → 2022-08-22 | Outpatient (CLI) | payer OTHER ==
--- NOTE | 2022-08-22 16:25 | XR ---
EXAMINATION TYPE: XR abdomen complete w decub DATE OF EXAM: 08/22/2022 4:11 PM INDICATION: Patient age:Male; 62 years old; Reason for study: R10.13 EPIGASTRIC PAIN COMPARISON: None. TECHNIQUE: Two views of the abdomen were obtained. FINDINGS: The bowel gas pattern is nonspecific without dilated loops of small or large bowel. There i s no evidence for organomegaly or pneumoperitoneum. The osseous structures are intact. No abnormal calcifications are present. Fecal material and gas are demonstrated throughout the colon and rectum. IMPRESSION: Nonspecific bowel gas pattern without radiographic evidence for acute process.
== END | disposition home or self-care (01) ==
LOC: RADXRMAIN 15:25
PROVIDERS: ATTEND Family Medicine
DX: R10.13 Epigastric pain (principal)
CPT/HCPCS: 74021

== ENCOUNTER → 2022-09-26 | Outpatient (CLI) | payer OTHER ==
--- NOTE | 2022-09-26 22:14 | MR ---
MRI CERVICAL SPINE: CLINICAL HISTORY: Headache, neck pain for one year. TECHNIQUE: Multiplanar, multisequence imaging of the cervical spine is performed without IV contrast. COMPARISON: Prior MRI cervical spine March 24, 2019 FINDINGS: Sagittal images of the cervical spine show the craniocervical junction to remain within nor mal limits. The cervical and upper thoracic spinal cord remains normal in course, caliber, and signal . There is slight grade 1 retrolisthesis C3 on C4 redemonstrated. Mild disc space narrowing C5-C6 lev el otherwise the vertebral body and intravertebral disk heights are normal. Large hemangioma occupies C7 vertebra is redemonstrated. Axial images at C2-C3 level redemonstrate right-sided uncovertebral facet degenerative change causing moderate right-sided neural foraminal narrowing. No significant change from prior. Axial images at C3-C4 level redemonstrate broad-based right paracentral disc protrusion effacing the anterior thecal sac , there is additional uncovertebral facet degenerative change causing advanced ri ght-sided neural foraminal narrowing with mild/moderate left-sided neural foraminal narrowing, there is slight indentation of ventral aspect spinal cord along right aspect axial image 40 similar to prio r. Axial images at C4-C5 level redemonstrated uncovertebral facet degenerative changes causing mild to m oderate right greater than left bilateral neural foraminal narrowing more prominent from prior. Tiny central disc protrusion mildly effaces anterior thecal sac similar to prior. Axial images at C5-C6 level redemonstrate spondylolisthesis and broad-based spur disc complex effacin g anterior thecal sac up to the ventral surface of the spinal cord with uncovertebral facet degenerat ashleigh changes causing moderate to severe bilateral neural foraminal narrowing. Latter is more prominent from prior. Axial images at C6-C7 levels redemonstrate broad-based left paracentral disc protrusion effacing ante rolateral thecal sac and causing asymmetric moderate to severe left sided neural foraminal narrowing, there is [id number] right-sided neural foraminal narrowing noted. No significant change from p rior. Axial images at C7-T1 level remain within normal limits. IMPRESSION: Multilevel degenerative changes in the cervical spine redemonstrated. Some interval degen erative progression noted as detailed above from 2019 MRI.
--- NOTE | 2022-09-26 22:18 | MR ---
EXAMINATION TYPE: MR angio neck wo/w con DATE OF EXAM: 09/26/2022 COMPARISON: CT neck May 13, 2020 HISTORY: Dissection of carotid artery per order. Headache and neck pain for 1 year per patient. TECHNIQUE: MRA of the neck without and with IV contrast focusing on bilateral carotid bulbs, patient injected with 8 cc of gadolinium. 2-D and 3-D reconstructed images are created on an independent work station and reviewed. FINDINGS: Normal 3 vessel origin from the aortic arch is present. There is no significant focal steno sis in the common or internal carotid arteries bilaterally. Diameters are symmetric and felt within n ormal limits. No dissection is evident. Patent external carotid arteries bilaterally without signific ant stenosis is seen. Vertebral arteries are patent to the basilar junction and codominant. IMPRESSION: No carotid artery dissection or significant focal stenosis.
== END | disposition home or self-care (01) ==
LOC: RADMRIMAIN 13:37
PROVIDERS: ATTEND Family Medicine
DX: M47.812 Spondylosis without myelopathy or radiculopathy, cervical region (principal); I77.71 Dissection of carotid artery
CPT/HCPCS: 70549; 72141; A9585

== ENCOUNTER → 2022-12-20 | Outpatient (CLI) | payer OTHER ==
[2022-12-20 13:25] VITALS: BP 117/74; PULSE 75; RESP 15; TEMP 98.2
--- NOTE | 2022-12-20 14:19 | P.PAINPG ---
PQRS Measure Charge Sheet Comment: HISTORY OF PRESENT ILLNESS: 62 yr old male as a referral from Dr Puga presents today w severe and chronic neck pain x 1 yr secondary to DDD, spondylosis and facet arthropathy without myelopathy for evaluation. Pt states pain level is provoked at 8/10 in intensity, constant, localized in the cervical spine , dull, achy in character w shooting pain towards the head and BL shoulders. Pain is provoked by sedentary position for several hours. Pain is alleviated by PT x 6 wks which ended in Sep 2022, mediations (Ibu), repositioning and rest. Oswestry axial pain score at 24. PMH: OA, COPD, DM II, GERD, Hyperlipidemia, HTN PSH: Tonsillectomy, BL Hand Surgery, LUE ORIF w Hardware SH: Former tobacco user, Occasional ETOH use, No illicit drug use. 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 FH: Fa- None. Mo- None. Bro- cA. All: See list Meds: See list REVIEW OF ORGAN SYSTEMS: CONSTITUTIONAL: No fevers or chills. No recent weight loss. NEUROLOGICAL: + numbness and tingling along the distal extremities. No seizure disorders or headaches. MUSCULOSKELETAL: + pain PSYCHIATRIC: Denies current depression or suicidal thoughts. Physical Examinations : Constitutional : Cooperative , not in acute distress . Neurologic : Cranial nerve II to XII intact. No focal neurological deficits. Psychiatric : alert & oriented x 3. Matching mood & appropriate affect. Judgment & insight intact. Musculoskeletal : Cervical Spine Motor strength in the deltoid and biceps: Normal right side. Normal Left side Motor strength biceps and the wrist extensors: Normal right side . Normal left side Motor strength in the triceps muscle: Normal right side. Normal left side Deep tendon reflexes: Normal at the biceps. Normal at Brachioradialis. Normal at triceps Vertebral body tenderness to deep palpation over C6 Cervical facet loading test: positive bilaterally Spurling test: positive bilaterally over C6-C7 Neck distraction test: positive bilaterally Kaycee sign: positive bilaterally Lumbar spine Motor strength lower extremities ,thigh and legs 5/5 Right side , 5/5 Left side Deep tendon reflexes : Normal Knee Jerk. Normal Ankle Jerk Vertebral body tenderness over Waldron Test positive Lumbar facet Loading Test: positive Right / positive Left Range of motion of the lumbar spine Flexion 30 degrees, extension 10 degrees Straight Leg Raise test: Left/ Right positive at degree Elder test: positive right / positive left. Severe tenderness over the Sacroiliac joint on the Right / Left sides Gaenslen test: positive bilaterally Seated flexion test: positive bilaterally. Sacral spine : Severe tenderness over the Sacroiliac joint: right side / left side Range of motion: Flexion of the lumbar spine <60 degrees Range of motion: Extension of the lumbar spine <20 degrees Gaenslen's Test positive Darryl's Test positive Elder test: positive right side / left side Thigh Thrust Test Sacral Thrust Test Imaging: MRI noncontrast of the cervical spine from 09/26/22 reviewed Assessment/ Plan : Cervical DDD Recommendation of KEIKO C6-C7 #1. May need a series of injections for optimal pain relief. Risks, benefits of procedure discussed and patient verbalized understanding. Admits to anti- coagulant use or medical history of diabetes. Protocol for discontinuation/ continuation of medications benjamin procedure discussed. Minimal anesthesia provided, if clinically indicated, consisting of Versed and Fentanyl. All questions answered. I have spent greater than 30 minutes on patient care today. Dr Serrano was available by phone for the evaluation of this patient. The time was used to review the medical records including relevant urine studies and Prescription history (MAPs), review of the available imaging, evaluation and examination of the patient, coordination of care with the medical staff and if applicable referring physicians, as well as creation of the medical record PQRS Narrative: Smoking Status Current every day smoker Home Medications: Ambulatory Orders atenoloL [Tenormin] 50 mg PO DAILY 05/25/14 Losartan Potassium 100 mg PO DAILY 07/04/17 Magnesium Oxide [Mag-Ox] 400 mg PO DAILY 06/21/20 Albuterol Sulfate [Proair Hfa] 1 - 2 puff INHALATION RT-QID PRN 05/22/21 Empagliflozin [Jardiance] 25 mg PO DAILY 05/22/21 Pantoprazole [Protonix] 40 mg PO DAILY 05/22/21 Tamsulosin [Flomax] 0.4 mg PO DAILY 05/22/21 Ascorbic Acid [Vitamin C] 500 mg PO DAILY 04/09/22 Cholecalciferol [Vitamin D3 (10 Mcg = 400 Iu)] 10 mcg PO DAILY 04/09/22 Diclofenac Potassium [Cataflam] 50 mg PO BID 04/09/22 Insulin Glargine-Yfgn [Semglee (Yfgn) Pen] 40 unit SQ DAILY 04/09/22 Rosuvastatin Calcium 10 mg PO DAILY 04/09/22 Zinc Gluconate [Zinc] 50 mg PO DAILY 04/09/22 Fluticasone/Umeclidin/Vilanter [Trelegy Ellipta 200-62.5-25] 1 puff INHALATION RT-DAILY 04/14/22 HYDROcodone/APAP 7.5-325MG [[place] 7.5-325] 1 tab PO Q4H PRN 3 Days #15 tab 12/20/22 Controlled Substance Measures - Controlled Substance Measures Is patient prescribed a controlled substance at discharge?: Yes When asked, does pt state using other controlled substances?: No If prescribed controlled substance>3 days was MAPS reviewed?: Prescribed <3 Days If Rx opioid, was Start Talking consent form obtained?: Yes Was information provided regarding opioid addiction?: Yes
== END ==
LOC: PNWHC3 12:45
PROVIDERS: ATTEND Specialist
DX: M50.323 Other cervical disc degeneration at C6-C7 level (principal); M19.90 Unspecified osteoarthritis, unspecified site; J44.9 Chronic obstructive pulmonary disease, unspecified; K21.9 Gastro-esophageal reflux disease without esophagitis; E78.5 Hyperlipidemia, unspecified; I10 Essential (primary) hypertension; F17.200 Nicotine dependence, unspecified, uncomplicated; Z79.899 Other long term (current) drug therapy; Z79.51 Long term (current) use of inhaled steroids; Z88.0 Allergy status to penicillin
CPT/HCPCS: 99211

== ENCOUNTER 2023-01-04 06:13 | Day surgery (SDC) | payer OTHER ==
[~2023-01-04 06:13] MED LIST changes: +LACTATED RINGERS 1,000 ML IV SCH; -REGADENOSON 0.4 MG/5 ML SYRINGE IV PRN
[2023-01-04 06:52] VITALS: RESP 18; TEMP 97.4
[2023-01-04 06:52] LABS: Glucose,Whole Blood 141 mg/dL (70-110)
[2023-01-04] MEDS ORDERED: DEXAMETHASONE SOD PHOSPHATE 10 MG/ML 1 ML VIAL ONE (07:01)
[2023-01-04] MEDS ORDERED: IOPAMIDOL M200 10 ML VIAL ONE (07:01)
--- NOTE | 2023-01-04 07:12 | P.PCN ---
Date of Procedure: 01/04/23 Surgeon: Adriano Cuevas Pathology: none sent Condition: stable Disposition: PACU Description of Procedure: PROCEDURE 1. Cervical epidural steroid injection under fluoroscopic guidance, C6-7 left paramedian approach. 2. Cervical epidurogram. : PREOPERATIVE DIAGNOSIS: Cervical radiculopathy, cervical spondylosis without myelopathy POSTOPERATIVE DIAGNOSIS: : Same as above ANESTHESIA: Local anesthesia only with 1% lidocaine EBL 0 PROCEDURE INDICATION: The patient with neck pain and radiculopathy unresponsive to conservative treatment consents for procedure. PROCEDURE DESCRIPTION / TECHNIQUE: The patient was seen and identified in the preoperative area. Risks, benefits, complications, including but not limited to infections ,bleeding , allergic reactions to the medications ,and not complete pain relief, and alternatives were discussed with the patient, the patient agreed to proceed with the procedure and signed the consent. Patient was taken to the OR and time out was completed. The patient was placed in the prone position on the procedure table. A pillow was placed under the patients chest to increase the flexion of the cervical spine . The cervical area was prepped and draped in the usual sterile fashion. Vital signs were closely monitored during the procedure. Conscious sedation was used during the procedure to decrease patients anxiety. Using anterior-posterior fluoroscopy, the C6-7 interlaminar space was identified and the skin over this site was marked and then infiltrated with 1% lidocaine subcutaneously. Subsequently, a 20-gauge 3-1/2-inch Tuohy epidural needle was inserted and advanced toward the epidural space by means of loss of resistance to air technique and guided by AP and lateral fluoroscopy. The needle tip contacted the lamina of C7 vertebra first, then it was walked off bone and into the epidural space using the loss of to air and fluoroscopic guidance to identify the epidural space. The correct needle position in the epidural space was verified with the injection of 1 mL of the water soluble contrast dye Isovue and observing an excellent epidurogram with the epidural spread of the dye, after negative aspiration for blood and CSF and in the absence of paresthesias. Again after negative aspiration, a 2 ml mixture containing 10 mg of Decadron and 1 ml of preservative free Normal Saline solution was injected and a washout of epidurogram was seen. Needle was withdrawn intact, skin was cleansed, and bandages were applied. A copy of the needle placement picture was saved to the fluoroscopy machine.
--- NOTE | 2023-01-04 08:03 | FL ---
Fluoroscopy History: Cerv Epid Inj Cerv Epid Inj 7sec fluoro time 0.63319 DAP
[2023-01-04 08:05] VITALS: BP 115/78; PULSE 67
== END 2023-01-04 07:44 | disposition home or self-care (01) ==
LOC: ORPAIN 06:13
PROVIDERS: ATTEND Anesthesiology
DX: M50.123 Cervical disc disorder at C6-C7 level with radiculopathy (principal); M47.22 Other spondylosis with radiculopathy, cervical region; I10 Essential (primary) hypertension; J44.9 Chronic obstructive pulmonary disease, unspecified; E11.9 Type 2 diabetes mellitus without complications; Z88.5 Allergy status to narcotic agent
CPT/HCPCS: 62321; J1100; Q9966

== ENCOUNTER → 2023-01-31 | Outpatient (CLI) | payer OTHER ==
[2023-01-31 11:37] VITALS: BP 183/116; PULSE 97; RESP 15; TEMP 98.4
--- NOTE | 2023-01-31 14:59 | P.PAINPG ---
PQRS Measure Charge Sheet Comment: HISTORY OF PRESENT ILLNESS: 62 yr old male presents today w severe and chronic neck pain x 1 yr secondary to DDD, spondylosis and facet arthropathy without myelopathy for evaluation s/p L paramedian KEIKO C6-C7 #1. Pt states he experienced 80 % pain relief x 1 wk s/p procedure. Pt states pain level is provoked at 8/10 in intensity, constant, localized in the mid to lower cervical spine, R >L, dull, achy in character w shooting pain. Pain is provoked by rotation, lateral flexion. Pain is alleviated by PT x 6 wks which ended in Sep 2022, mediations, repositioning and rest. Oswestry axial pain score at 24. Interventional procedures include L paramedian KEIKO C6-C7 x1 Medications include Ibu REVIEW OF ORGAN SYSTEMS: CONSTITUTIONAL: No fevers or chills. No recent weight loss. NEUROLOGICAL: + numbness and tingling along the distal extremities. No seizure disorders or headaches. MUSCULOSKELETAL: + pain PSYCHIATRIC: Denies current depression or suicidal thoughts. Physical Examinations : Constitutional : Cooperative , not in acute distress . Neurologic : Cranial nerve II to XII intact. No focal neurological deficits. Psychiatric : alert & oriented x 3. Matching mood & appropriate affect. Judgment & insight intact. Musculoskeletal : Cervical Spine Motor strength in the deltoid and biceps: Normal right side. Normal Left side Motor strength biceps and the wrist extensors: Normal right side . Normal left side Motor strength in the triceps muscle: Normal right side. Normal left side Deep tendon reflexes: Normal at the biceps. Normal at Brachioradialis. Normal at triceps Vertebral body tenderness to deep palpation Cervical facet loading test: positive bilaterally over C4-C5, C5-C6 Spurling test: positive bilaterally Neck distraction test: positive bilaterally Kaycee sign: positive bilaterally Lumbar spine Motor strength lower extremities ,thigh and legs 5/5 Right side , 5/5 Left side Deep tendon reflexes : Normal Knee Jerk. Normal Ankle Jerk Vertebral body tenderness over Waldron Test positive Lumbar facet Loading Test: positive Right / positive Left Range of motion of the lumbar spine Flexion 30 degrees, extension 10 degrees Straight Leg Raise test: Left/ Right positive at degree Elder test: positive right / positive left. Severe tenderness over the Sacroiliac joint on the Right / Left sides Gaenslen test: positive bilaterally Seated flexion test: positive bilaterally. Sacral spine : Severe tenderness over the Sacroiliac joint: right side / left side Range of motion: Flexion of the lumbar spine <60 degrees Range of motion: Extension of the lumbar spine <20 degrees Gaenslen's Test positive Darryl's Test positive Elder test: positive right side / left side Thigh Thrust Test Sacral Thrust Test Imaging: MRI noncontrast of the cervical spine from 09/26/22 reviewed Assessment/ Plan : Cervical DDD Recommendation of BL MBB C4-C5, C5-C6 #1. May need a series of injections, up until RFA, for optimal pain relief. Risks, benefits of procedure discussed and patient verbalized understanding. Admits to anti- coagulant use or medical histo ry of diabetes. Protocol for discontinuation/ continuation of medications benjamin procedure discussed. Minimal anesthesia provided, if clinically indicated, consisting of Versed and Fentanyl. [place] 5/325mg #15 NR. Use, side effects, adverse reactions and safe storage discussed. Pt acknowledged understanding. All questions answered. I have spent greater than 30 minutes on patient care today. Dr Serrano was available by phone for the evaluation of this patient. The time was used to review the medical records including relevant urine studies and Prescription history (MAPs), review of the available imaging, evaluation and examination of the patient, coordination of care with the medical staff and if applicable referring physicians, as well as creation of the medical record PQRS Narrative: Smoking Status Current every day smoker Hx Alcohol Use (MH) No Home Medications: Ambulatory Orders atenoloL [Tenormin] 50 mg PO QAM 05/25/14 Losartan Potassium 100 mg PO QAM 07/04/17 Magnesium Oxide [Mag-Ox] 400 mg PO QAM 06/21/20 Albuterol Sulfate [Proair Hfa] 1 - 2 puff INHALATION RT-QID PRN 05/22/21 Empagliflozin [Jardiance] 25 mg PO QAM 05/22/21 Pantoprazole [Protonix] 40 mg PO QAM 05/22/21 Tamsulosin [Flomax] 0.4 mg PO QAM 05/22/21 Ascorbic Acid [Vitamin C] 500 mg PO QAM 04/09/22 Cholecalciferol [Vitamin D3 (10 Mcg = 400 Iu)] 10 mcg PO QAM 04/09/22 Rosuvastatin Calcium 10 mg PO QAM 04/09/22 Zinc Gluconate [Zinc] 50 mg PO QAM 04/09/22 Fluticasone/Umeclidin/Vilanter [Trelegy Ellipta 200-62.5-25] 1 puff INHALATION RT-DAILY 04/14/22 HYDROcodone/APAP 7.5-325MG [[place] 7.5-325] 1 tab PO Q4H PRN 3 Days #15 tab 12/20/22 Azelastine HCl [Astepro] 1 spray NASAL HS 01/01/23 Fish Oil/Dha/Epa [Fish Oil 1,200 mg Fish Oil] 1 each PO QAM 01/01/23 Insulin Glargine-Yfgn [Semglee (Yfgn) Pen] 40 unit SQ QAM 01/01/23 LORazepam 0.5 mg PO Q8H PRN 01/01/23 Controlled Substance Measures - Controlled Substance Measures Is patient prescribed a controlled substance at discharge?: Yes When asked, does pt state using other controlled substances?: No If prescribed controlled substance>3 days was MAPS reviewed?: Prescribed <3 Days
== END ==
LOC: PNWHC3 11:07
PROVIDERS: ATTEND Specialist
DX: M50.321 Other cervical disc degeneration at C4-C5 level (principal); M50.322 Other cervical disc degeneration at C5-C6 level; F17.200 Nicotine dependence, unspecified, uncomplicated; Z88.0 Allergy status to penicillin
CPT/HCPCS: 99211

== ENCOUNTER 2023-02-16 09:48 | Day surgery (SDC) | payer OTHER ==
[2023-02-16 10:23] LABS: Glucose,Whole Blood 141 mg/dL (70-110)
[2023-02-16] MEDS ORDERED: LIDOCAINE 1% (10MG/ML) FOR IV START INTRADERMA ONE (10:25)
[2023-02-16] MEDS ORDERED: IV FLUID CONTINUATION 1,000 ML IV ONE (10:25)
[2023-02-16 10:28] VITALS: TEMP 98.2
[2023-02-16] MEDS ORDERED: MIDAZOLAM 2 MG/2 ML VIAL ONE (10:39)
[2023-02-16] MEDS ORDERED: fentaNYL (PF) 50 MCG/ML 2 ML AMP ONE (10:39)
[2023-02-16] MEDS ORDERED: ROPIVACAINE 5MG/ML 20ML VIAL ONE (10:46)
[2023-02-16] MEDS ORDERED: methylPREDNISolone ACETATE 40 MG/ML 1 ML VIAL ONE (10:46)
[2023-02-16] MEDS ORDERED: LACTATED RINGERS 1,000 ML IV SCH (11:04)
--- NOTE | 2023-02-16 11:08 | P.PCN ---
Date of Procedure: 02/16/23 Procedure(s) Performed: PREOPERATIVE DIAGNOSIS: 1-Cervical Spondylosis with Facet Arthropathy.without myelopathy. 2-cervical degenerative disc disease POSTOPERATIVE DIAGNOSIS:1-cervical spondylosis with facet arthropathy without myelopathy. 2-cervical degenerative disc disease PROCEDURES: Diagnostic bilateral C4 , C5 , and C6 medial branch blocks, with fluoroscopic guidance (fluoroscopy images available in radiology department ) ( to target the facet joint at bilateral C4- 5 , C5- 6 )# [address] ANESTHESIA: Monitored anesthesia care as per anesthesia department EBL: Minimal PROCEDURE INDICATION: The patient with neck pain secondary to cervical arthropathy unresponsive to more conservative treatments. PROCEDURE DESCRIPTION / TECHNIQUE: The patient was seen and identified in the preoperative area. Risks, benefits, complications, and alternatives were discussed with the patient, the patient agreed to proceed with the procedure and signed the consent. IV was started. Vital signs remained stable throughout the procedure. Patient was taken to the OR and time out was completed. The patient was placed in the Latera position ( Right side up ) on the procedure table.. The cervical area was prepped and draped in the usual sterile fashion. Critical pause was taken. Vital signs were closely monitored during the procedure. Conscious sedation was used during the procedure to decrease patients anxiety. Using cross-table lateral fluoroscopy, the centroid of the trapezoid of right C4 , C5 and C6, was identified, marked, and localized with 1% lidocaine 1 ml at each level for skin and Sub Q infiltrations . Subsequently, a 22 G 3 spinal needle was advanced guided by fluoroscopy to the centroid of the trapezoid of Right C4 , C5, C6 . [place] tip position was confirmed at the centroid of the trapezoids of Right C4 , C5 ,C6 with anteroposterior fluoroscopy. Subsequently, 2 ml of preservative-free Ropivacaine 0.5% mixed with Depo- Medrol 20 mg and half ml of the mixture was injected after negative aspiration for blood and CSF. [place] was then removed intact the same procedure was repeated at the left C4 , C5 , and C6 levels. COMPLICATIONS: No acute complications. comments = when we placed patient in prone position we were not able to identify C5 or C6 vertebra , For this reason the procedure was done in lateral position. DISPOSITION / PLANS: The patient was placed in a supine position and transferred to the recovery area in a stable condition for observation and was discharged from the recovery room after meeting discharge criteria. Home discharge instruct ions given to the patient by the staff. The patient was reexamined prior to discharge. The patient will schedule a follow up in the clinic in 2-4 weeks.
[2023-02-16] MEDS ORDERED: IV FLUID CONTINUATION 700 ML IV ONE (11:20)
[2023-02-16 11:48] VITALS: BP 128/68; PULSE 68; RESP 18
--- NOTE | 2023-02-16 12:28 | FL ---
EXAMINATION TYPE: FL guided pain mgmt statistic DATE OF EXAM: 02/16/2023 FLUOROSCOPY Fluoroscopy time of 16 seconds was used during bilateral cervical facet blocks. 4 image/s document/s the procedure. 0.03829 mGycm2 DAP
== END 2023-02-16 11:36 | disposition home or self-care (01) ==
LOC: ORPAIN 09:48
PROVIDERS: ATTEND Specialist
DX: M47.812 Spondylosis without myelopathy or radiculopathy, cervical region (principal); M50.30 Other cervical disc degeneration, unspecified cervical region; I10 Essential (primary) hypertension; J45.909 Unspecified asthma, uncomplicated; F17.210 Nicotine dependence, cigarettes, uncomplicated; E11.9 Type 2 diabetes mellitus without complications; K21.9 Gastro-esophageal reflux disease without esophagitis; Z79.1 Long term (current) use of non-steroidal anti-inflammatories (NSAID); Z79.51 Long term (current) use of inhaled steroids; Z79.4 Long term (current) use of insulin; Z88.0 Allergy status to penicillin; Z98.890 Other specified postprocedural states
CPT/HCPCS: 64490; 64491 ×2; J2250; J1030; J3010; J2795

== ENCOUNTER → 2023-03-19 | Outpatient (CLI) | payer OTHER ==
[2023-03-19 11:29] VITALS: BP 155/88; PULSE 67; RESP 16; TEMP 97.9
--- NOTE | 2023-03-19 13:27 | P.PAINPG ---
PQRS Measure Charge Sheet Comment: HISTORY OF PRESENT ILLNESS: 62 yr old male presents today w severe and chronic neck pain x 1 yr secondary to DDD, spondylosis and facet arthropathy without myelopathy for evaluation s/p L paramedian BL MBB C4-C6 #1. Pt states he experienced 80 % pain relief x 2-3 hrs s/p procedure. Pt states pain level is provoked at 8/10 in intensity, constant, localized in the mid to lower cervical spine, predominantly axial, R >L, dull, achy in character without occasional shooting pain. Pain is provoked by rotation, lateral flexion. Pain is alleviated by PT x 6 wks which ended in Sep 2022, physician guided home stretches since Sep 2022, medications, repositioning and rest. Cervical disability pain score at 24. Interventional procedures include L paramedian KEIKO C6-C7 x1, BL MBB C4-C6 x1 Medications include Ibu REVIEW OF ORGAN SYSTEMS: CONSTITUTIONAL: No fevers or chills. No recent weight loss. NEUROLOGICAL: + numbness and tingling along the distal extremities. No seizure disorders or headaches. MUSCULOSKELETAL: + pain PSYCHIATRIC: Denies current depression or suicidal thoughts. Physical Examinations : Constitutional : Cooperative , not in acute distress . Neurologic : Cranial nerve II to XII intact. No focal neurological deficits. Psychiatric : alert & oriented x 3. Matching mood & appropriate affect. Judgment & insight intact. Musculoskeletal : Cervical Spine Motor strength in the deltoid and biceps: Normal right side. Normal Left side Motor strength biceps and the wrist extensors: Normal right side . Normal left side Motor strength in the triceps muscle: Normal right side. Normal left side Deep tendon reflexes: Normal at the biceps. Normal at Brachioradialis. Normal at triceps Vertebral body tenderness to deep palpation Cervical facet loading test: positive bilaterally over C4-C5, C5-C6 Spurling test: positive bilaterally Neck distraction test: positive bilaterally Kaycee sign: positive bilaterally Lumbar spine Motor strength lower extremities ,thigh and legs 5/5 Right side , 5/5 Left side Deep tendon reflexes : Normal Knee Jerk. Normal Ankle Jerk Vertebral body tenderness over Waldron Test positive Lumbar facet Loading Test: positive Right / positive Left Range of motion of the lumbar spine Flexion 30 degrees, extension 10 degrees Straight Leg Raise test: Left/ Right positive at degree Elder test: positive right / positive left. Severe tenderness over the Sacroiliac joint on the Right / Left sides Gaenslen test: positive bilaterally Seated flexion test: positive bilaterally. Sacral spine : Severe tenderness over the Sacroiliac joint: right side / left side Range of motion: Flexion of the lumbar spine <60 degrees Range of motion: Extension of the lumbar spine <20 degrees Gaenslen's Test positive Darryl's Test positive Elder test: positive right side / left side Thigh Thrust Test Sacral Thrust Test Imaging: MRI noncontrast of the cervical spine from 09/26/22 reviewed Assessment/ Plan : Cervical DDD Recommendation of BL MBB C4-C5, C5-C6 #2. May need a series of injections, up until RFA, for optimal pain relief. Risks, benefits of procedure discussed and patient verbalized understanding. Admits to anti- coagulant use or medical history of diabetes. Protocol for discontinuation/ continuation of medications benjamin procedure discussed. Minimal anesthesia provided, if clinically indicated, consisting of Versed and Fentanyl. Use, side effects, adverse reactions and safe storage discussed. Pt acknowledged understanding. All questions answered. I have spent greater than 30 minutes on patient care today. Dr Serrano was available by phone for the evaluation of this patient. The time was used to review the medical records including relevant urine studies and Prescription history (MAPs), review of the available imaging, evaluation and examination of the patient, coordination of care with the medical staff and if applicable referring physicians, as well as creation of the medical record PQRS Narrative: Smoking Status Current every day smoker Hx Alcohol Use (MH) No Home Medications: Ambulatory Orders atenoloL [Tenormin] 50 mg PO QAM 05/25/14 Losartan Potassium 100 mg PO QAM 07/04/17 Albuterol Sulfate [Proair Hfa] 1 - 2 puff INHALATION RT-QID PRN 05/22/21 Empagliflozin [Jardiance] 25 mg PO QAM 05/22/21 Pantoprazole [Protonix] 40 mg PO QAM 05/22/21 Tamsulosin [Flomax] 0.4 mg PO QAM 05/22/21 Ascorbic Acid [Vitamin C] 500 mg PO QAM 04/09/22 Cholecalciferol [Vitamin D3 (10 Mcg = 400 Iu)] 10 mcg PO QAM 04/09/22 Rosuvastatin Calcium 10 mg PO QAM 04/09/22 Zinc Gluconate [Zinc] 50 mg PO QAM 04/09/22 Fluticasone/Umeclidin/Vilanter [Trelegy Ellipta 200-62.5-25] 1 puff INHALATION RT-DAILY 04/14/22 Azelastine HCl [Astepro] 1 spray NASAL HS 01/01/23 Fish Oil/Dha/Epa [Fish Oil 1,200 mg Fish Oil] 1 each PO QAM 01/01/23 Insulin Glargine-Yfgn [Semglee (Yfgn) Pen] 40 unit SQ QAM 01/01/23 LORazepam 0.5 mg PO Q8H PRN 01/01/23 Controlled Substance Measures - Controlled Substance Measures Is patient prescribed a controlled substance at discharge?: No
== END ==
LOC: PNWHC3 10:49
PROVIDERS: ATTEND Specialist
DX: M50.30 Other cervical disc degeneration, unspecified cervical region (principal); F17.200 Nicotine dependence, unspecified, uncomplicated; Z88.0 Allergy status to penicillin
CPT/HCPCS: 99211

== ENCOUNTER → 2023-06-06 | Outpatient (CLI) | payer OTHER ==
[2023-06-06 17:47] LABS: Basophils # (A) 0.06 X 10*3/uL (0.00-0.10); Basophils % (A) 0.6 %; Eosinophils # (A) 0.76 X 10*3/uL (0.04-0.35); Eosinophils % (A) 7.4 %; HCT 55.3 % (39.6-50.0); HGB 18.3 g/dL (13.0-17.0); Lymphocytes # (A) 2.12 X 10*3/uL (0.90-5.00); Lymphocytes % (A) 20.6 %; MCH 32.3 pg (27.0-32.0); MCHC 33.1 g/dL (32.0-37.0); MCV 97.7 FL (80.0-97.0); Monocytes # (A) 0.58 X 10*3/uL (0.20-1.00); Monocytes % (A) 5.6 %; NRBC Per 100 WBC 0 X 10*3/uL (0.00-0.01); Neutrophils # (A) 6.69 X 10*3/uL (1.80-7.70); Neutrophils % (A) 64.9 %; Platelet Count 214 X 10*3/uL (140-440); RBC 5.66 X 10*6/uL (4.40-5.60); RDW 13.8 % (11.5-14.5)
[2023-06-06 18:13] LABS: ALT 36 U/L (10-49); AST 24 U/L (14-35); Albumin 4.9 g/dL (3.8-4.9); Albumin/Globulin Ratio 1.88 Ratio (1.60-3.17); Alkaline Phosphatase 86 U/L (41-126); BUN/Creat Ratio 16.36 Ratio (12.00-20.00); Calcium 9.7 mg/dL (8.7-10.3); Carbon Dioxide 23.5 mmol/L (21.6-31.8); Chloride 103 mmol/L (96-109); Chol/HDL Ratio 4.89 Ratio; Globulin 2.6 g/dL (1.6-3.3); Glucose 154 mg/dL (70-110); LDL Cholesterol,Calculated 103.8 mg/dL (0.0-131.0); Potassium 4.1 mmol/L (3.5-5.5); Prostate Specific Antigen 0.86 ng/mL (0.000-4.500); Sodium 140 mmol/L (135-145); Total Bilirubin 0.4 mg/dL (0.3-1.2); Total Protein 7.5 g/dL (6.2-8.2)
== END | disposition home or self-care (01) ==
LOC: LABWHC1 10:06
PROVIDERS: ATTEND Family Medicine
DX: Z12.5 Encounter for screening for malignant neoplasm of prostate (principal); E11.65 Type 2 diabetes mellitus with hyperglycemia
CPT/HCPCS: 36415; 80053; 80061; 83036; 84153; 85025

== ENCOUNTER 2023-06-19 06:43 | Day surgery (SDC) | payer OTHER ==
[2023-06-19 07:16] VITALS: RESP 16; TEMP 98.8
[2023-06-19 07:16] LABS: Glucose,Whole Blood 120 mg/dL (70-110)
[2023-06-19] MEDS: LACTATED RINGERS 1,000 ML IV ONE (07:18)
[2023-06-19] MEDS ORDERED: PROPOFOL 10 MG/ML 20 ML VIAL IV ONE (07:28)
--- NOTE | 2023-06-19 07:31 | P.GSHP ---
History of Present Illness H&P Date: 06/19/23 Chief Complaint: Colon cancer screening with history of polyps 62-year-old male here for colonoscopy. Last colonoscopy 7 years ago. Patient with history of colon polyps. No bowel complaints. 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) Past Anesthesia/Blood Transfusion Reactions: No Reported Reaction Smoking Status: Current every day smoker - Past Family History Father History Unknown: Yes Mother Family Medical History: No Reported History Additional Family Medical History / Comment(s): HEALTHY Brother(s) Family Medical History: Cancer Medications and Allergies Home Medications Medication Instructions Recorded Confirmed Type atenoloL [Tenormin] 50 mg PO QAM 05/25/14 06/19/23 History Losartan Potassium 100 mg PO QAM 07/04/17 06/19/23 History Albuterol Sulfate [Proair Hfa] 1 - 2 puff INHALATION RT-QID PRN 05/22/21 06/19/23 History Empagliflozin [Jardiance] 25 mg PO QAM 05/22/21 06/19/23 History Pantoprazole [Protonix] 40 mg PO QAM 05/22/21 06/19/23 History Tamsulosin [Flomax] 0.4 mg PO QAM 05/22/21 06/19/23 History Ascorbic Acid [Vitamin C] 500 mg PO QAM 04/09/22 06/19/23 History Cholecalciferol [Vitamin D3 (10 10 mcg PO QAM 04/09/22 06/19/23 History Mcg = 400 Iu)] Rosuvastatin Calcium 10 mg PO QAM 04/09/22 06/19/23 History Zinc Gluconate [Zinc] 50 mg PO QAM 04/09/22 06/19/23 History Fluticasone/Umeclidin/Vilanter 1 puff INHALATION RT-DAILY 04/14/22 06/19/23 History [Trelegy Ellipta 200-62.5-25] Azelastine HCl [Astepro] 1 spray NASAL HS 01/01/23 06/19/23 History Fish Oil/Dha/Epa [Fish Oil 1,200 1 each PO QAM 01/01/23 06/19/23 History mg Fish Oil] Insulin Glargine-Yfgn [Semglee 40 unit SQ QAM 01/01/23 06/19/23 History (Yfgn) Pen] LORazepam 0.5 mg PO Q8H PRN 01/01/23 06/19/23 History Allergies Allergy/AdvReac Type Severity Reaction Status Date / Time Penicillins Allergy Rash/Hives Verified 06/19/23 06:59 Surgical - Exam Vital Signs Temp Pulse Resp BP Pulse Ox 98.8 F 75 16 123/63 95 06/19/23 06:57 06/19/23 06:57 06/19/23 06:57 06/19/23 06:57 06/19/23 06:57 Physical exam: General: Well-developed, well-nourished HEENT: Normocephalic, sclerae nonicteric Abdomen: Nontender, nondistended Extremities: No edema Neuro: Alert and oriented Results - Labs Abnormal Lab Results - Last 24 Hours (Table) 06/19/23 Range/Units 07:11 POC Glucose (mg/dL) 120 H (70-110) mg/dL Assessment and Plan (1) Colon polyps Narrative/Plan: Will proceed with colonoscopy at this time Current Visit: Yes Status: Acute Code(s): K63.5 - POLYP OF COLON SNOMED Code(s): 20317055
--- NOTE | 2023-06-19 07:49 | P.PCN ---
Date of Procedure: 06/19/23 Procedure(s) Performed: PREOPERATIVE DIAGNOSIS: History of colon polyps POSTOPERATIVE DIAGNOSIS: Ascending colon polyp, transverse colon polyp PROCEDURE: Colonoscopy with snare polypectomy ANESTHESIA: MAC SURGEON: Jarret Valverde M.D. SPECIMENS: Polyps ENDOSCOPIC PROCEDURE: The patient was placed on the endoscopy table in the left decubitus position. The Olympus colonoscope was inserted into the anus and passed under direct visualization to the base of the cecum. The appendiceal orifice was visualized. From that point the scope was slowly withdrawn inspecting all surfaces carefully. There were no neoplastic inflammatory or polypoid lesions throughout the cecum. In the ascending colon a small polyp was seen and removed using the snare with cautery technique. In the transverse colon and additional small polyp seen and removed as well. The remainder of the transverse descending sigmoid and rectum appeared normal. There was no visible diverticulosis. The patient's prep was slightly suboptimal. Digital rectal examination was normal. The patient was taken to the recovery room in stable condition per anesthesia guidelines. RECOMMENDATIONS: Await biopsy results. Repeat colonoscopy 5 years.
[2023-06-19 08:06] LABS: Glucose,Whole Blood 126 mg/dL (70-110)
[2023-06-19 08:25] VITALS: BP 119/75; PULSE 64
== END 2023-06-19 08:40 | disposition home or self-care (01) ==
LOC: ORWHC2ENDO 06:43
PROVIDERS: ATTEND Surgery
DX: Z12.11 Encounter for screening for malignant neoplasm of colon (principal); D12.2 Benign neoplasm of ascending colon; D12.3 Benign neoplasm of transverse colon; J44.9 Chronic obstructive pulmonary disease, unspecified; E11.9 Type 2 diabetes mellitus without complications; I10 Essential (primary) hypertension; E78.5 Hyperlipidemia, unspecified; K21.9 Gastro-esophageal reflux disease without esophagitis; Z86.73 Personal history of transient ischemic attack (TIA), and cerebral infarction without residual deficits; F17.200 Nicotine dependence, unspecified, uncomplicated; F41.9 Anxiety disorder, unspecified; Z90.89 Acquired absence of other organs; Z86.010 Personal history of colon polyps; Z98.890 Other specified postprocedural states; Z79.51 Long term (current) use of inhaled steroids; Z79.84 Long term (current) use of oral hypoglycemic drugs; Z79.899 Other long term (current) drug therapy; Z88.0 Allergy status to penicillin
CPT/HCPCS: 88305; 45385; J2704

== ENCOUNTER → 2024-01-07 | Outpatient (CLI) | payer MEDICARE ==
[2024-01-07 11:18] LABS: Basophils # (A) 0.07 X 10*3/uL (0.00-0.10); Basophils % (A) 0.6 %; Eosinophils # (A) 0.67 X 10*3/uL (0.04-0.35); Eosinophils % (A) 5.9 %; HCT 52.8 % (39.6-50.0); HGB 17.5 g/dL (13.0-17.0); Lymphocytes # (A) 2.38 X 10*3/uL (0.90-5.00); Lymphocytes % (A) 20.8 %; MCHC 33.1 g/dL (32.0-37.0); MCV 96.5 FL (80.0-97.0); Mean Platelet Volume 10.7 FL (9.5-12.2); Monocytes # (A) 0.69 X 10*3/uL (0.20-1.00); NRBC Per 100 WBC 0 X 10*3/uL (0.00-0.01); Neutrophils # (A) 7.53 X 10*3/uL (1.80-7.70); Neutrophils % (A) 65.9 %; Platelet Count 204 X 10*3/uL (140-440); RBC 5.47 X 10*6/uL (4.40-5.60); RDW 13.8 % (11.5-14.5); WBC 11.43 X 10*3/uL (4.50-10.00)
[2024-01-07 11:37] LABS: Blood Urea Nitrogen 18.5 mg/dL (9.0-27.0); Calcium 9.4 mg/dL (8.7-10.3); Carbon Dioxide 21.8 mmol/L (21.6-31.8); Chloride 103 mmol/L (96-109); Glucose 146 mg/dL (70-110); Potassium 4.1 mmol/L (3.5-5.5); Sodium 139 mmol/L (135-145)
== END | disposition home or self-care (01) ==
LOC: LABPAT 07:39
PROVIDERS: ATTEND Urology
DX: Z01.812 Encounter for preprocedural laboratory examination (principal); N40.1 Benign prostatic hyperplasia with lower urinary tract symptoms
CPT/HCPCS: 80048; 85025

== ENCOUNTER 2024-01-10 06:10 | Day surgery (SDC) | payer MEDICARE ==
[2024-01-07 09:24] VITALS: BMI 28.8
--- NOTE | 2024-01-09 19:22 | P.GSHP ---
History of Present Illness H&P Date: 01/09/24 Chief Complaint: Weak urinary stream The patient is a 63-year-old white male with a long history of BPH. He has failed treatment with tamsulosin and was placed on alfuzosin several months ago. He states that this has improved his voiding symptoms but he hopes to get off of BPH medications. Urinary flow studies show a mildly diminished and prolonged urinary stream with complete bladder emptying. Cystoscopy shows a partially obstructing prostate with a bilobar configuration, and a slightly high median bar. Alternative surgical treatment options were reviewed. The patient has elected to undergo UroLift implants and comes for this reason. - Cardiovascular Cardiovascular: Reports high blood pressure - Genitourinary (Male) Genitourinary: Reports nocturia, Reports urinary frequency, Reports urinary hesitancy 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(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) COLONOSCOPY, Past Anesthesia/Blood Transfusion Reactions: No Reported Reaction Smoking Status: Current every day smoker - Past Family History Father History Unknown: Yes Mother Family Medical History: No Reported History Additional Family Medical History / Comment(s): HEALTHY Brother(s) Family Medical History: Cancer Medications and Allergies Home Medications Medication Instructions Recorded Confirmed Type atenoloL [Tenormin] 50 mg PO DAILY 05/25/14 01/07/24 History Losartan Potassium 100 mg PO DAILY 07/04/17 01/07/24 History Albuterol Sulfate [Proair Hfa] 1 - 2 puff INHALATION RT-QID PRN 05/22/21 01/07/24 History Empagliflozin [Jardiance] 25 mg PO DAILY 05/22/21 01/07/24 History Pantoprazole [Protonix] 40 mg PO DAILY 05/22/21 01/07/24 History Rosuvastatin Calcium 10 mg PO DAILY 04/09/22 01/07/24 History Fluticasone/Umeclidin/Vilanter 1 puff INHALATION RT-DAILY 04/14/22 01/07/24 History [Trelegy Ellipta 200-62.5-25] Insulin Glargine,Hum.rec.anlog 40 units SQ HS 08/28/23 01/07/24 History [Cameron Varela Solostar] Alfuzosin HCl [Uroxatral ER] 10 mg PO DAILY 01/07/24 01/07/24 History metFORMIN HCL 1,000 mg PO BID 01/09/24 01/09/24 History Allergies Allergy/AdvReac Type Severity Reaction Status Date / Time Penicillins Allergy Rash/Hives Verified 01/07/24 09:15 Surgical - Exam - General well developed, well nourished, no distress - Respiratory normal respiratory effort - Abdomen Abdomen: soft, non tender, no guarding, no rigid, no rebound - Genitourinary normal penis with no external lesions, testicles non-tender - Rectum Rectum: normal sphincter tone, no masses, other (Prostate mildly enlarged and smooth) - Psychiatric oriented to time, oriented to person, oriented to place, speech is normal, memory intact Assessment and Plan (1) Benign prostatic hyperplasia with lower urinary tract symptoms Status: Acute Code(s): N40.1 - BENIGN PROSTATIC HYPERPLASIA WITH LOWER URINARY TRACT SYMP SNOMED Code(s): 880849019 Plan: Cystoscopy with UroLift implants. The procedure has been reviewed in detail with the patient. The pros and cons of this versus a TUIP have been discussed. Patient has been made aware of potential risks, which include anesthesia, bleeding, infection, postoperative irritative voiding symptoms, postoperative urinary retention, and failure to obtain symptomatic relief.
[2024-01-10] MEDS ORDERED: HYDROmorphone 0.5 MG/0.5 ML SYRINGE IVP PRN (06:12)
[2024-01-10] MEDS: IV FLUID CONTINUATION 1,000 ML IV ONE ×3 (06:42→10:30)
[2024-01-10] MEDS: LACTATED RINGERS 1,000 ML IV SCH (07:13)
[2024-01-10] MEDS: ONDANSETRON 4 MG/2 ML VIAL IVP ONE (07:14)
[2024-01-10] MEDS: DEXAMETHASONE SOD PHOSPHATE 4 MG/ML 1 ML VIAL IV ONE (07:17)
[2024-01-10 07:18] LABS: Glucose,Whole Blood 151 mg/dL (70-110)
[2024-01-10] MEDS ORDERED: ALBUTEROL HFA INHALER INHALATION ONE (07:33)
[2024-01-10] MEDS ORDERED: fentaNYL (PF) 50 MCG/ML 2 ML AMP ONE (07:33)
[2024-01-10] MEDS ORDERED: SUCCINYLCHOLINE CHLORIDE 200 MG/10 ML VIAL IV ONE (07:33)
[2024-01-10] MEDS ORDERED: LIDOCAINE 1% INJ 10MG/ML (20 ML MDV) ONE (07:33)
[2024-01-10] MEDS ORDERED: PROPOFOL 10 MG/ML 20 ML VIAL IV ONE (07:33)
[2024-01-10] MEDS ORDERED: KETOROLAC 15 MG/ML 1 ML VIAL ONE (07:33)
[2024-01-10] MEDS ORDERED: MIDAZOLAM 2 MG/2 ML VIAL ONE (07:33)
[2024-01-10] MEDS ORDERED: ePHEDrine 50 MG/ML 1 ML VIAL ONE (07:33)
[2024-01-10 08:35] VITALS: RESP 16; TEMP 97.7
--- NOTE | 2024-01-10 08:39 | P.OP ---
Date of Procedure: 01/10/24 Preoperative Diagnosis: BPH with obstruction Postoperative Diagnosis: Same Procedure(s) Performed: Cystoscopy with UroLift implants (x7) Anesthesia: KATARINAA Surgeon: Robert Rangel Estimated Blood Loss (ml): 5 IV fluids (ml): 500 Pathology: none sent Condition: stable Disposition: PACU Indications for Procedure: The patient is a 63-year-old white male with a long history of BPH. He has failed treatment with tamsulosin and was placed on alfuzosin several months ago. He states that this has improved his voiding symptoms but he hopes to get off of BPH medications. Urinary flow studies show a mildly diminished and prolonged urinary stream with complete bladder emptying. Cystoscopy shows a partially obstructing prostate with a bilobar configuration, and a slightly high median bar. Alternative surgical treatment options were reviewed. The patient has elected to undergo UroLift implants and comes for this reason. Operative Findings: High median bar. 7 implants utilized to obtain anterior channel. Description of Procedure: The patient was taken in the operating room and placed in the dorsolithotomy position. The external genitalia was prepped and draped sterilely. The 30 lens was used to introduce the Stortz cystoscopic sheath through the urethra and into the bladder under direct vision. The anterior urethra appeared normal. The prostatic urethra showed evidence of complete obstruction with a bilobar configuration. Both ureteral orifice his were of normal anatomic location and configuration. No tumors or foreign bodies were seen. The bladder was not trabeculated. Urolift implants were placed at the 10:00 and 2:00 positions approximately 1.5 cm distal to the vesical neck. 5 additional implants were utilized to create an anterior channel. One was placed at the 9 o'clock position at the level of the verumontanum, the remaining were placed anteriorly. Hemostasis was adequate. The bladder was emptied and the cystoscope removed. The patient tolerated the procedure well was taken to the recovery room in stable condition.
[2024-01-10] MEDS: fentaNYL (PF) 50 MCG/ML 2 ML AMP IV PRN (09:33)
[2024-01-10 12:42] VITALS: BP 161/93; PULSE 69
== END 2024-01-10 13:12 | disposition home or self-care (01) ==
LOC: OR 06:10
PROVIDERS: ATTEND Urology

== ENCOUNTER 2024-01-11 03:12 | Emergency (ER) | payer MEDICARE ==
[2024-01-11 03:19] VITALS: RESP 18
--- NOTE | 2024-01-11 03:27 | ED ---
Male Urogenital HPI - General Chief complaint: Urogenital Stated complaint: Urogenital Time Seen by Provider: 01/11/24 03:17 Source: patient, RN notes reviewed, old records reviewed Mode of arrival: ambulatory Limitations: no limitations - History of Present Illness Initial comments: This is a 63-year-old male to ER for evaluation of urinary retention. Malfunction of Eduardo catheter. MD Complaint: testicle pain -: days(s) Location: penis Severity: severe Severity scale (1-10): 10 Consistency: constant Improves with: none Worsens with: none Reports: denies other symptoms - Related Data Home Medications Medication Instructions Recorded Confirmed atenoloL [Tenormin] 50 mg PO DAILY 05/25/14 01/10/24 Losartan Potassium 100 mg PO DAILY 07/04/17 01/10/24 Albuterol Sulfate [Proair Hfa] 1 - 2 puff INHALATION RT-QID PRN 05/22/21 01/10/24 Empagliflozin [Jardiance] 25 mg PO DAILY 05/22/21 01/10/24 Pantoprazole [Protonix] 40 mg PO DAILY 05/22/21 01/10/24 Rosuvastatin Calcium 10 mg PO DAILY 04/09/22 01/10/24 Fluticasone/Umeclidin/Vilanter 1 puff INHALATION RT-DAILY 04/14/22 01/10/24 [Trelegy Ellipta 200-62.5-25] Insulin Glargine,Hum.rec.anlog 40 units SQ HS 08/28/23 01/10/24 [Toukylah Varela Solostar] Alfuzosin HCl [Uroxatral ER] 10 mg PO DAILY 01/07/24 01/10/24 metFORMIN HCL 1,000 mg PO BID 01/09/24 01/10/24 Allergies Allergy/AdvReac Type Severity Reaction Status Date / Time Penicillins Allergy Rash/Hives Verified 01/11/24 03:19 Review of Systems ROS Statement: Those systems with pertinent positive or pertinent negative responses have been documented in the HPI. ROS Other: All systems not noted in ROS Statement are negative. 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) Past Anesthesia/Blood Transfusion Reactions: No Reported Reaction Past Psychological History: Anxiety Smoking Status: Current every day smoker Past Alcohol Use History: Rare Past Drug Use History: None Reported - Past Family History Father History Unknown: Yes Mother Family Medical History: No Reported History Additional Family Medical History / Comment(s): HEALTHY Brother(s) Family Medical History: Cancer General Exam Limitations: no limitations General appearance: alert, in no apparent distress Head exam: Present: atraumatic, normocephalic, normal inspection Eye exam: Present: normal appearance, PERRL, EOMI. Absent: scleral icterus, conjunctival injection, periorbital swelling ENT exam: Present: normal exam, mucous membranes moist Neck exam: Present: normal inspection. Absent: tenderness, meningismus, lymphadenopathy Respiratory exam: Present: normal lung sounds bilaterally. Absent: respiratory distress, wheezes, rales, rhonchi, stridor Cardiovascular Exam: Present: regular rate, normal rhythm, normal heart sounds. Absent: systolic murmur, diastolic murmur, rubs, gallop, clicks GI/Abdominal exam: Present: soft, normal bowel sounds. Absent: distended, tenderness, guarding, rebound, rigid Extremities exam: Present: normal inspection, full ROM, normal capillary refill. Absent: tenderness, pedal edema, joint swelling, calf tenderness Back exam: Present: normal inspection Neurological exam: Present: alert, oriented X3, CN II-XII intact Psychiatric exam: Present: normal affect, normal mood Skin exam: Present: warm, dry, intact, normal color. Absent: rash Course Vital Signs 01/11/24 01/11/24 03:18 04:38 Temperature 97.4 F L 97.8 F Pulse Rate 89 78 Respiratory 18 18 Rate Blood Pressure 186/88 156/81 O2 Sat by Pulse 98 98 Oximetry - Reevaluation(s) Reevaluation #1: 01/11/24 03:26 Medical records reviewed Reevaluation #2: 01/11/24 03:26 Patient symptoms improved Reevaluation #3: Informed of results and questions answered Reevaluation #4: Was pt. sent in by a medical professional or institution (ZARINA Mendoza, ATG ARCHITECT, urgent care, hospital, or senior living...) When possible be specific @ -no Did you speak to anyone other than the patient for history (EMS, parent, family, police, friend...)? What history was obtained from this source @ -no Did you review nursing and triage notes (agree or disagree)? Why? @ -agree Are old charts reviewed (outside hosp., previous admission, EMS record, old EKG, old radiological studies, urgent care reports/EKG's, senior living records)? Report findings @ -yes Differential Diagnosis (chest pain, altered mental status, abdominal pain women, abdominal pain men, vaginal bleeding, weakness, fever, dyspnea, syncope, headache, dizziness, GI bleed, back pain, seizure, CVA, palpatations, mental health, musculoskeletal)? @ -prior EKG interpreted by me (3pts min.). @ -no X-rays interpreted by me (1pt min.). @ -no CT interpreted by me (1pt min.). @ -no U/S interpreted by me (1pt. min.). @ -no What testing was considered but not performed or refused? (CT, X-rays, U/S, labs)? Why? @ -none What meds were considered but not given or refused? Why? @ -none Did you discuss the management of the patient with other professionals (professionals i.e. ZARINA Mendoza, ATG ARCHITECT, lab, RT, psych nurse, social media specialist, dairy farm supervisor, teacher, air intelligence officer, corrections caseworker)? Give summary @ -no Was smoking cessation discussed for >3mins.? @ -no Was critical care preformed (if so, how long)? @ -no Were there social determinants of health that impacted care today? How? (Homelessness, low income, unemployed, alcoholism, drug addiction, transportation, low edu. Level, literacy, decrease access to med. care, snf, rehab)? @ -none Was there de-escalation of care discussed even if they declined (Discuss DNR or withdrawal of care, Hospice)? DNR status @ -no What co-morbidities impacted this encounter? (DM, HTN, Smoking, COPD, CAD, Cancer, CVA, ARF, Chemo, Hep., AIDS, mental health diagnosis, sleep apnea, morbid obesity)? @ -none Was patient admitted / discharged? Hospital course, mention meds given and route, prescriptions, significant lab abnormalities, going to OR and other pertinent info. @ - 63 male to ER with urinary retention Eduardo placed, Eduardo is exchanged patient has urinary output and can be discharged home Discharge Undiagnosed new problem with uncertain prognosis? @ -no Drug Therapy requiring intensive monitoring for toxicity (Heparin, Nitro, Insulin, Cardizem)? @ -no Were any procedures done? @ -no Diagnosis/symptom? @ -Catheter malfunction Acute, or Chronic, or Acute on Chronic? @ -Acute Uncomplicated (without systemic symptoms) or Complicated (systemic symptoms)? @ -Complicated Side effects of treatment? @ -no Exacerbation, Progression, or Severe Exacerbation? @ -exacerbation Poses a threat to life or bodily function? How? (Chest pain, [place], [place], pneumonia, PE, COPD, DKA, ARF, appy, cholecystitis, CVA, Diverticulitis, Homicidal, Suicidal, threat to staff... and all critical care pts) @ -yes Medical Decision Making - Medical Decision Making 63 male to ER with urinary retention Eduardo placed, Eduardo is exchanged patient has urinary output and can be discharged home Disposition Clinical Impression: Malfunction of Eduardo catheter Disposition: HOME SELF-CARE Condition: Good Instructions (If sedation given, give patient instructions): Eduardo Catheter Placement and Care (ED) Is patient prescribed a controlled substance at d/c from ED?: No Referrals: Deirdre Zafar MD [Primary Care Provider] - 1-2 days
[2024-01-11] MEDS: ACET/COD 300 MG/30 MG STARTER PACK 6 TAB BTL PO STA (04:29)
[2024-01-11] MEDS: traMADol 50 MG STARTER PACK 3 TAB BTL PO STA (04:30)
[2024-01-11] MEDS: HYDROmorphone 1 MG/ML 1 ML SYRINGE IM STA (04:31)
[2024-01-11 04:40] VITALS: BP 156/81; PULSE 78; TEMP 97.8
== END 2024-01-11 04:39 | disposition home or self-care (01) ==
LOC: EC 03:12
CPT/HCPCS: 51702; 51798; 96372; 99283

== ENCOUNTER → 2024-03-07 | Outpatient (CLI) | payer MEDICARE ==
[2024-03-07 08:38] LABS: African American GFR (CKD) >90 (>60 ml/min/1.73 sqM); Blood Urea Nitrogen 22 mg/dL (9-20); Non-African American GFR(CKD) 80 (>60 ml/min/1.73 sqM)
--- NOTE | 2024-03-07 09:29 | CT ---
EXAMINATION TYPE: CT angio chest DATE OF EXAM: 03/07/2024 9:00 AM COMPARISON: Chest radiograph from same day. . CLINICAL INDICATION: Male, 63 years old with history of I26.99 OTHER PULMONARY EMBOLISM; PE right upp er chest pain. TECHNIQUE/CONTRAST: CTA scan of the thorax is performed with IV Contrast, patient injected with 100 mL of Isovue 370, MIP images are created and reviewed these are created on a separate workstation.. CT DLP: 399.1 mGycm, Automated exposure control for dose reduction was used. FINDINGS: Lungs/Pleura: No evidence of focal consolidation, pleural effusion or pneumothorax. Paraseptal and ce ntral lobular emphysema changes present. Right lower lobe superior segment calcified granuloma. Airway: Large airways are patent. Heart: Heart is within normal limits for size. Vasculature: There is no evidence for a filling defect within the pulmonary vasculature to suggest ac amy pulmonary embolism. The pulmonary artery is of normal size. Mediastinum: No gross evidence of adenopathy. Musculoskeletal: No acute osseous abnormalities Soft Tissues/lymph nodes: Unremarkable. Lower neck: No significant findings. Upper Abdomen: Diffuse low-attenuation to the liver parenchyma.. IMPRESSION: 1. No evidence of pulmonary embolism. 2. No evidence for rib fracture or other finding to correlate patient's right upper chest pain. 3. Lobq-es-wehjoljh emphysema. Follow up recommendations for incidental pulmonary nodules, if there are any, are per [employer]isch[employer]?s [employer] or [employer]. https://radiopaedia.org/articles/bolsymxmaz-rartewb-igfjbgboa-okduxe-[email or web address]-[email or web address]?lang=us [facility], , 03/07/2024 9:26 AM
== END | disposition home or self-care (01) ==
LOC: RADCTMAIN 07:55
PROVIDERS: ATTEND Internal Medicine Critical Care Medicine
DX: I26.99 Other pulmonary embolism without acute cor pulmonale (principal); J43.2 Centrilobular emphysema
CPT/HCPCS: 82565; 84520; 71275; 36415; Q9967

== ENCOUNTER 2024-07-16 11:24 | Observation (INO) | payer MEDICARE ==
[2024-07-16 12:12] LABS: Basophils # (A) 0.06 10*3/uL (0.00-0.10); Basophils % (A) 0.6 %; Eosinophils # (A) 0.95 10*3/uL (0.04-0.35); Eosinophils % (A) 9.4 %; HCT 48.2 % (39.6-50.0); HGB 17.2 g/dL (13.0-17.0); Lymphocytes % (A) 19.7 %; MCH 33.3 pg (27.0-32.0); MCHC 35.7 g/dL (32.0-37.0); MCV 93.2 fL (80.0-97.0); Mean Platelet Volume 10.9 fL (9.5-12.2); Monocytes # (A) 0.61 10*3/uL (0.20-1.00); Neutrophils # (A) 6.47 10*3/uL (1.80-7.70); Neutrophils % (A) 63.7 %; Platelet Count 180 10*3/uL (140-440); RBC 5.17 10*6/uL (4.40-5.60); RDW 12.2 % (11.5-14.5); WBC 10.15 10*3/uL (4.50-10.00)
--- NOTE | 2024-07-16 12:19 | ED ---
General Adult HPI - General Chief complaint: Dizziness Stated complaint: Chest pain,Dizziness Time Seen by Provider: 07/16/24 11:30 Source: patient, RN notes reviewed Mode of arrival: ambulatory Limitations: no limitations - History of Present Illness Initial comments: 64-year-old male presents to the emergency department for evaluation of chest pressure, dizziness. Patient went to the walk-in clinic and was sent to the emergency department this morning. Patient reports that over the past 5 to 6 days he has had difficulty following up with sleep because he starts experiencing pressure in his chest. He notes that this is only occurred when he is falling asleep. This is making it difficult for him to go to sleep. He states that this rouses him and he feels like he needs to take frequent deep breaths in order to feel better. He states that this has been happening he does note that he took an Ativan last night which did help somewhat and he was able to get some rest following this. He states that throughout the day his breathing does not feel any different than usual. He does note constant pressure but it does not feel as severe as at night. Patient also endorses dizziness and lightheadedness. He notes that about a week ago he started feeling dizzy like the room was spinning. He does note that this has subsided but he does continue to feel dizzy in a different way. He endorses headaches but he has been experiencing these for multiple years. He denies any change in the character of the headaches. He states that they vary in location. He denies any fever, chills. Denies lower extremity edema. He reports a history of COPD, hypertension, hyperlipidemia, diabetes. He reports recently quitting smoking about 2 months ago. - Related Data Home Medications Medication Instructions Recorded Confirmed Losartan Potassium 100 mg PO DAILY 07/04/17 07/16/24 Empagliflozin [Jardiance] 25 mg PO DAILY 05/22/21 07/16/24 Pantoprazole [Protonix] 40 mg PO DAILY 05/22/21 07/16/24 Fluticasone/Umeclidin/Vilanter 1 puff INHALATION RT-DAILY 04/14/22 07/16/24 [Trelegy Ellipta 200-62.5-25] Insulin Glargine,Hum.rec.anlog 40 units SQ HS 08/28/23 07/16/24 [Toujeo Max Solostar] Alfuzosin HCl [Uroxatral ER] 10 mg PO DAILY 01/07/24 07/16/24 Previous Rx's Medication Instructions Recorded Atorvastatin [Lipitor] 40 mg PO HS #30 tab 07/18/24 Meclizine [Antivert] 25 mg PO TID PRN #21 tab 07/18/24 carvediloL [Coreg] 6.25 mg PO BID-W/MEALS #60 tab 07/18/24 Allergies Allergy/AdvReac Type Severity Reaction Status Date / Time Penicillins Allergy Rash/Hives Verified 07/16/24 12:19 Review of Systems ROS Statement: Those systems with pertinent positive or pertinent negative responses have been documented in the HPI. ROS Other: All systems not noted in ROS Statement are negative. 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) Past Anesthesia/Blood Transfusion Reactions: No Reported Reaction Past Psychological History: Anxiety Smoking Status: Current every day smoker Past Alcohol Use History: Occasional Past Drug Use History: None Reported - Past Family History Father History Unknown: Yes Mother Family Medical History: No Reported History Additional Family Medical History / Comment(s): HEALTHY Brother(s) Family Medical History: Cancer General Exam Limitations: no limitations General appearance: alert, in no apparent distress Head exam: Present: atraumatic, normocephalic, normal inspection Eye exam: Present: normal appearance, PERRL, EOMI. Absent: scleral icterus, conjunctival injection, periorbital swelling ENT exam: Present: normal exam, mucous membranes moist Neck exam: Present: normal inspection. Absent: tenderness, meningismus, lymphadenopathy Respiratory exam: Present: normal lung sounds bilaterally. Absent: respiratory distress, wheezes, rales, rhonchi, stridor Cardiovascular Exam: Present: regular rate, normal rhythm, normal heart sounds. Absent: systolic murmur, diastolic murmur, rubs, gallop, clicks GI/Abdominal exam: Present: soft. Absent: distended, tenderness, guarding, rebound, rigid Extremities exam: Present: normal inspection, full ROM, normal capillary refill. Absent: tenderness, pedal edema, joint swelling, calf tenderness Back exam: Present: normal inspection Neurological exam: Present: alert, oriented X3, CN II-XII intact Psychiatric exam: Present: normal affect, normal mood Skin exam: Present: warm, dry, intact, normal color. Absent: rash Course Vital Signs 07/16/24 07/16/24 07/16/24 11:25 13:02 13:10 Temperature 97.5 F L Pulse Rate 76 61 62 Pulse Rate [ Right] Respiratory 20 18 18 Rate Blood Pressure 168/78 Blood Pressure [Right Arm] O2 Sat by Pulse 99 Oximetry 07/16/24 07/16/24 07/16/24 15:07 16:19 16:40 Temperature 97.7 F 97.6 F Pulse Rate 63 Pulse Rate [ 69 72 Right] Respiratory 22 16 18 Rate Blood Pressure 121/79 Blood Pressure 146/70 169/76 [Right Arm] O2 Sat by Pulse 97 95 96 Oximetry Medical Decision Making - Medical Decision Making Was pt. sent in by a medical professional or institution (, PA, SENIOR WATER/WASTEWATER ENGINEER, urgent care, hospital, or intermediate...) When possible be specific @ -No Did you speak to anyone other than the patient for history (EMS, parent, family, police, friend...)? What history was obtained from this source @ -No Did you review nursing and triage notes (agree or disagree)? Why? @ -I reviewed and agree with nursing and triage notes Were old charts reviewed (outside hosp., previous admission, EMS record, old EKG, old radiological studies, urgent care reports/EKG's, intermediate records)? Report findings @ -No old charts were reviewed Differential Diagnosis (chest pain, altered mental status, abdominal pain women, abdominal pain men, vaginal bleeding, weakness, fever, dyspnea, syncope, headache, dizziness, GI bleed, back pain, seizure, CVA, palpatations, mental health, musculoskeletal)? @ -Differential Chest Pain: Stable Angina, Unstable Angina, STEMI, NSTEMI Aortic Dissection, Pneumothorax, Musculoskeletal, Esophageal Spasm GERD, Cholecystitis, Pancreatitis, Zoster, this is not meant to be an all-inclusive list. EKG interpreted by me (3pts min.). @ -EKG@1132 shows sinus rhythm rate 7667, MA 166, QRS 96, QTQTc [id number] X-rays interpreted by me (1pt min.). @ -Chest x-ray reveals no acute process CT interpreted by me (1pt min.). @ -None done U/S interpreted by me (1pt. min.). @ -None done What testing was considered but not performed or refused? (CT, X-rays, U/S, labs)? Why? @ -None What meds were considered but not given or refused? Why? @ -None Did you discuss the management of the patient with other professionals (professionals i.e. , PA, SENIOR WATER/WASTEWATER ENGINEER, lab, RT, psych nurse, social media content manager, barrel lathe operator, teacher, occupational medicine officer, case fitter)? Give summary @ -Management discussed with sarthak was accepting of the admission Was smoking cessation discussed for >3mins.? @ -No Was critical care preformed (if so, how long)? @ -No Were there social determinants of health that impacted care today? How? (Homelessness, low income, unemployed, alcoholism, drug addiction, transportation, low edu. Level, literacy, decrease access to med. care, fci, rehab)? @ -No Was there de-escalation of care discussed even if they declined (Discuss DNR or withdrawal of care, Hospice)? DNR status @ -No What co-morbidities impacted this encounter? (DM, HTN, Smoking, COPD, CAD, Cancer, CVA, ARF, Chemo, Hep., AIDS, mental health diagnosis, sleep apnea, morbid obesity)? @ -None Was patient admitted / discharged? Hospital course, mention meds given and route, prescriptions, significant lab abnormalities, going to OR and other pertinent info. @ -Admitted. Patient presented emergency department for evaluation of chest pain. Laboratory studies obtainedRevealing no significant leukocytosis, hemo globin 17.2; normal coagulation studies, negative D-dimer; CMP reveals hypomagnesemia with a magnesium of 1.2. Negative troponin. Negative for COVID, votes, RSV. Chest x-ray reveals no acute process. Magnesium was replaced. Patient will be admitted for magnesium replacement and serial cardiac enzymes. He is understand agreeable with plan. Patient stable at time of admission. Case discussed with sarthak who is accepting of the admission. Case discussed with Dr. London. Undiagnosed new problem with uncertain prognosis? @ -No Drug Therapy requiring intensive monitoring for toxicity (Heparin, Nitro, Insulin, Cardizem)? @ -No Were any procedures done? @ -No Diagnosis/symptom? @ -Chest pain Acute, or Chronic, or Acute on Chronic? @ -Acute Uncomplicated (without systemic symptoms) or Complicated (systemic symptoms)? @ -Default Side effects of treatment? @ -No Exacerbation, Progression, or Severe Exacerbation? @ -No Poses a threat to life or bodily function? How? (Chest pain, [place], [place], pneumonia, PE, COPD, DKA, ARF, appy, cholecystitis, CVA, Diverticulitis, Homicidal, Suicida l, threat to staff... and all critical care pts) @ -No - Lab Data Result diagrams: 07/16/24 12:03 07/18/24 03:59 Lab Results 07/16/24 07/16/24 07/16/24 Range/Units 12:03 12:06 12:42 WBC 10.15 H (4.50-10.00) 10*3/uL RBC 5.17 (4.40-5.60) 10*6/uL Hgb 17.2 H (13.0-17.0) g/dL Hct 48.2 (39.6-50.0) % MCV 93.2 (80.0-97.0) fL MCH 33.3 H (27.0-32.0) pg MCHC 35.7 (32.0-37.0) g/dL Plt Count 180 (140-440) 10*3/uL MPV 10.9 (9.5-12.2) fL Immature Gran % (Auto) 0.6 % Neutrophils % 63.7 % Lymphocytes % 19.7 % Monocytes % 6.0 % Eosinophils % 9.4 % Basophils % 0.6 % Immature Gran # 0.06 H (0.00-0.04) 10*3/uL Neutrophils # 6.47 (1.80-7.70) 10*3/uL Lymphocytes # 2.00 (0.90-5.00) 10*3/uL Monocytes # 0.61 (0.20-1.00) 10*3/uL Eosinophils # 0.95 H (0.04-0.35) 10*3/uL Basophils # 0.06 (0.00-0.10) 10*3/uL PT 11.4 (10.0-12.5) sec INR 1.0 (<1.2) APTT 21.9 L (22.0-30.0) sec D-Dimer (<0.60) mg/L FEU Sodium (137-145) mmol/L Potassium (3.5-5.1) mmol/L Chloride (98-107) mmol/L Carbon Dioxide (22-30) mmol/L Anion Gap mmol/L BUN (9-20) mg/dL Creatinine (0.66-1.25) mg/dL Est GFR (CKD-EPI)AfAm (>60 ml/min/1.73 sqM) Est GFR (CKD-EPI)NonAf (>60 ml/min/1.73 sqM) Glucose (74-99) mg/dL Calcium (8.4-10.2) mg/dL Phosphorus (2.5-4.5) mg/dL Magnesium (1.6-2.3) mg/dL Total Bilirubin (0.2-1.3) mg/dL AST (17-59) U/L ALT (4-49) U/L Alkaline Phosphatase (38-126) U/L Troponin I (0.000-0.034) ng/mL Total Protein (6.3-8.2) g/dL Albumin (3.5-5.0) g/dL Influenza Type A (PCR) Not Detected (Not Detectd) Influenza Type B (PCR) Not Detected (Not Detectd) RSV (PCR) Not Detected (Not Detectd) SARS-CoV-2 (PCR) Not Detected (Not Detectd) 07/16/24 07/16/24 07/16/24 Range/Units 12:42 12:42 12:42 WBC (4.50-10.00) 10*3/uL RBC (4.40-5.60) 10*6/uL Hgb (13.0-17.0) g/dL Hct (39.6-50.0) % MCV (80.0-97.0) fL MCH (27.0-32.0) pg MCHC (32.0-37.0) g/dL Plt Count (140-440) 10*3/uL MPV (9.5-12.2) fL Immature Gran % (Auto) % Neutrophils % % Lymphocytes % % Monocytes % % Eosinophils % % Basophils % % Immature Gran # (0.00-0.04) 10*3/uL Neutrophils # (1.80-7.70) 10*3/uL Lymphocytes # (0.90-5.00) 10*3/uL Monocytes # (0.20-1.00) 10*3/uL Eosinophils # (0.04-0.35) 10*3/uL Basophils # (0.00-0.10) 10*3/uL PT (10.0-12.5) sec INR (<1.2) APTT (22.0-30.0) sec D-Dimer 0.42 (<0.60) mg/L FEU Sodium 136 L (137-145) mmol/L Potassium 3.7 (3.5-5.1) mmol/L Chloride 101 (98-107) mmol/L Carbon Dioxide 25 (22-30) mmol/L Anion Gap 10 mmol/L BUN 17 (9-20) mg/dL Creatinine 0.76 (0.66-1.25) mg/dL Est GFR (CKD-EPI)AfAm >90 (>60 ml/min/1.73 sqM) Est GFR (CKD-EPI)NonAf >90 (>60 ml/min/1.73 sqM) Glucose 112 H (74-99) mg/dL Calcium 9.3 (8.4-10.2) mg/dL Phosphorus (2.5-4.5) mg/dL Magnesium 1.2 L (1.6-2.3) mg/dL Total Bilirubin 0.8 (0.2-1.3) mg/dL AST 32 (17-59) U/L ALT 43 (4-49) U/L Alkaline Phosphatase 73 (38-126) U/L Troponin I <0.012 (0.000-0.034) ng/mL Total Protein 6.8 (6.3-8.2) g/dL Albumin 4.2 (3.5-5.0) g/dL Influenza Type A (PCR) (Not Detectd) Influenza Type B (PCR) (Not Detectd) RSV (PCR) (Not Detectd) SARS-CoV-2 (PCR) (Not Detectd) 07/16/24 Range/Units 12:42 WBC (4.50-10.00) 10*3/uL RBC (4.40-5.60) 10*6/uL Hgb (13.0-17.0) g/dL Hct (39.6-50.0) % MCV (80.0-97.0) fL MCH (27.0-32.0) pg MCHC (32.0-37.0) g/dL Plt Count (140-440) 10*3/uL MPV (9.5-12.2) fL Immature Gran % (Auto) % Neutrophils % % Lymphocytes % % Monocytes % % Eosinophils % % Basophils % % Immature Gran # (0.00-0.04) 10*3/uL Neutrophils # (1.80-7.70) 10*3/uL Lymphocytes # (0.90-5.00) 10*3/uL Monocytes # (0.20-1.00) 10*3/uL Eosinophils # (0.04-0.35) 10*3/uL Basophils # (0.00-0.10) 10*3/uL PT (10.0-12.5) sec INR (<1.2) APTT (22.0-30.0) sec D-Dimer (<0.60) mg/L FEU Sodium (137-145) mmol/L Potassium (3.5-5.1) mmol/L Chloride (98-107) mmol/L Carbon Dioxide (22-30) mmol/L Anion Gap mmol/L BUN (9-20) mg/dL Creatinine (0.66-1.25) mg/dL Est GFR (CKD-EPI)AfAm (>60 ml/min/1.73 sqM) Est GFR (CKD-EPI)NonAf (>60 ml/min/1.73 sqM) Glucose (74-99) mg/dL Calcium (8.4-10.2) mg/dL Phosphorus 3.1 (2.5-4.5) mg/dL Magnesium (1.6-2.3) mg/dL Total Bilirubin (0.2-1.3) mg/dL AST (17-59) U/L ALT (4-49) U/L Alkaline Phosphatase (38-126) U/L Troponin I (0.000-0.034) ng/mL Total Protein (6.3-8.2) g/dL Albumin (3.5-5.0) g/dL Influenza Type A (PCR) (Not Detectd) Influenza Type B (PCR) (Not Detectd) RSV (PCR) (Not Detectd) SARS-CoV-2 (PCR) (Not Detectd) Disposition Clinical Impression: Hypomagnesemia, Chest pain Disposition: ADMITTED IP TO THIS HOSP Condition: Good Is patient prescribed a controlled substance at d/c from ED?: No
[2024-07-16 12:47] LABS: Influenza A Not Detected (Not Detectd); Influenza B Not Detected (Not Detectd); RSV Not Detected (Not Detectd)
[2024-07-16] MEDS: IPRATROPIUM-ALBUTEROL 3 ML NEB INHALATION STA (13:01)
[2024-07-16 13:03] LABS: ALT 43 U/L (4-49); AST 32 U/L (17-59); African American GFR (CKD) >90 (>60 ml/min/1.73 sqM); Albumin 4.2 g/dL (3.5-5.0); Alkaline Phosphatase 73 U/L (38-126); Anion Gap 10 mmol/L; Blood Urea Nitrogen 17 mg/dL (9-20); Calcium 9.3 mg/dL (8.4-10.2); Carbon Dioxide 25 mmol/L (22-30); Chloride 101 mmol/L (98-107); Glucose 112 mg/dL (74-99); Magnesium 1.2 mg/dL (1.6-2.3); Non-African American GFR(CKD) >90 (>60 ml/min/1.73 sqM); Potassium 3.7 mmol/L (3.5-5.1); Sodium 136 mmol/L (137-145); Total Bilirubin 0.8 mg/dL (0.2-1.3); Total Protein 6.8 g/dL (6.3-8.2)
[2024-07-16 13:08] LABS: Partial Thromboplastin Time 21.9 sec (22.0-30.0); Prothrombin Time 11.4 sec (10.0-12.5)
--- NOTE | 2024-07-16 13:13 | XR ---
EXAMINATION TYPE: XR chest 2V DATE OF EXAM: 07/16/2024 12:57 PM COMPARISON: 11/08/2023 CLINICAL INDICATION: Male, 64 years old with history of Chest Pain, , TECHNIQUE: PA and lateral views FINDINGS: Heart normal size. Aorta and pulmonary vasculature within normal limits. Mild patchy interstitial anthony nges in the mid and lower lungs. Hyperinflation. IMPRESSION: COPD. Either prominent areas of atelectasis in the lower lungs or subtle developing interstitial infi ltrates. Correlate to exclude atypical pneumonia. [facility], Workstation: [email or web address], 07/16/2024 1:10 PM
[2024-07-16] MEDS ORDERED: Magnesium Replacement Protocol 1 EACH MISC MISCELLANE PRN (13:47)
[2024-07-16] MEDS: MAGNESIUM SULFATE-D5W PMX 1 GM in DEXTROSE/WATER 1 100ML.BAG IVPB SCH ×2 (15:00→19:58)
[2024-07-16] MEDS: ASPIRIN 81 MG PO STA (15:02)
[2024-07-16] MEDS: methylPREDNISolone SOD SUCCI 125 MG/2 ML VIAL IV STA (15:02)
[2024-07-16] MEDS ORDERED: MORPHINE SULFATE 4 MG/ML SYRINGE IV PRN (15:35)
[2024-07-16] MEDS ORDERED: KETOROLAC 15 MG/ML 1 ML VIAL IVP PRN (15:35)
[2024-07-16] MEDS ORDERED: NALOXONE 0.4 MG/ML 1 ML VIAL IV PRN (15:35)
[2024-07-16] MEDS ORDERED: ONDANSETRON 4 MG/2 ML VIAL IVP PRN (15:35)
[2024-07-16] MEDS ORDERED: DEXTROSE 50% SYRINGE 50 ML IVP PRN ×2 (16:01)
--- NOTE | 2024-07-16 17:24 | P.HPIM ---
History of Present Illness H&P Date: 07/16/24 History of present illness; 64-year-old man with PMH of COPD, diabetes mellitus, hyperlipidemia and h ypertension who presents to the emergency department for further evaluation of chest pressure and dizziness. He states he went to the walk-in clinic this morning and was sent to the emergency room for further evaluation. He states that 1 month ago he began having some dizziness related to positional changes, he follow-up with primary care at that time was started on meclizine which she states helped. Approximately 5 to 6 days ago he noticed that he began experiencing some significant chest pain and worsening shortness of breath upon falling asleep. He states that it did not matter if he was sleeping in bed lying flat, with multiple pillows beneath his head, or falling asleep in his recliner he had the same sensation as though he could not catch his breath and would wake up gasping for air with associated chest pain. During the same timeframe, he has noted an increase in the dizziness he had previously been experiencing, also related to changes in position more than anything. Darron tionally, he notes that with his COPD there is a baseline chest pressure that he normally feels during the day which remains unchanged at this time, the only change he notes is when falling asleep. He recently underwent a sleep study which was normal. He denies any associated fever, chills, cough or changes in urinary/bowel habits. Labratory review: -WBC 10.5, hemoglobin 17.2, hematocrit 48.2, platelet 180; D-dimer 0.42; sodium 136, potassium 3.7, BUN 17, creatinine 0.76, calcium 9.3, phosphorus 3.1, magnesium 1.2, total bilirubin 0.8, AST 32, ALT 43, alkaline phosphatase 73; troponin <0.012 -Respiratory viral panel all negative Imaging: -Chest x-ray done in the ER independently read and interpreted showed evidence of COPD and prominent areas of either atelectasis or subtle developing obstruction of the chest -EKG done in the ER showed heart rate of , no ST segment elevation or depression seen, no T-wave inversions seen. Vitals: - On arrival: Blood pressure 160/78, heart rate 76, respiratory rate 20, SpO2 99% on room air - Most recently: Blood pressure 121/79, heart rate 63, respiratory rate 22, SpO2 97% on room air Patient admitted to internal medicine service REVIEW OF SYSTEMS: Pertinent positives and negatives noted in HPI. The rest of the 14-point review of systems is negative. Physical Exam: General: nontoxic, no distress, appears at stated age Derm: warm, dry, intact Head: atraumatic, normocephalic, symmetric Eyes: EOMI, anicteric sclera Mouth: no lip lesion, mucus membranes moist Cardiovascular: S1 S2 reg, no murmur, rubs, or gallops Lungs: CTA bilateral, no rales, no accessory muscle use Abdominal: soft, non-tender to palpataion, no appreciable organomegaly Extremities: no gross muscle atrophy, no edema, no contractures Neuro: Alert, Oriented, CNII-XII grossly intact, gait normal Psych: well appearing, appropriate affect Assessment and plan 64-year-old man with PMH of COPD, diabetes mellitus, hyperlipidemia and hypertension who presents to the emergency department for further evaluation of chest pressure and dizziness. #Atypical chest pain r/o ACS with associated shortness of breath when sleeping, possibly both secondary to anxiety -Trend troponins: Initial troponin <0.012 -> <0.012 -Continue with nitroglycerin as needed for pain -Continue with aspirin 81 mg daily and Lipitor 40 mg daily -Echocardiogram ordered -Cardiac monitoring -Cardiology consulted -Trazodone 50 mg nightly #Insulin dependent Diabetes -Hold oral medications -Accucheks ACHS -Initiate sliding scale -20 units of Lantus nightly -Hemoglobin A1c pending -Monitor for hypoglycemia #Hypomagnesemia on admission, with a known history of episodic hypomagnesemia -Admission magnesium 1.2 -4 g magnesium sulfate given in ED -Additional 4 g magnesium sulfate will be given following the initial 4 g -Continue to monitor magnesium #Dizziness, possibly BPPV -Meclizine 25 mg 3 times daily as needed -Consult physical therapy #Hyperlipidemia -Continue Lipitor as stated above #Hypertension -Continue home antihypertensive medications #Chronic leukocytosis #Chronic polycythemia -Continue to monitor CBC GI prophylaxis: Protonix 40 mg daily DVT prophylaxis: Lovenox 40 mg daily The patient is admitted with an anticipated more than than 2 midnight stay for evaluation of chest pressure and dizziness. CODE STATUS: Full code Discussed with: Patient Anticipated discharge place: Pending clinical course Dictation was produced using WISETIV[employer]ation software. please excuse any grammatical, word or spelling errors. Avery Trejo MD PGY-1 IM Addending attestation I have seen and evaluated the patient today. Discussed with the resident and agree with the residents finding and plan as documented in the resident's note. Changes highlighted in blue font. 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) Past Anesthesia/Blood Transfusion Reactions: No Reported Reaction Past Psychological History: Anxiety Smoking Status: Current every day smoker Past Alcohol Use History: Occasional Past Drug Use History: None Reported - Past Family History Father History Unknown: Yes Mother Family Medical History: No Reported History Additional Family Medical History / Comment(s): HEALTHY Brother(s) Family Medical History: Cancer Medications and Allergies Home Medications Medication Instructions Recorded Confirmed Type atenoloL [Tenormin] 50 mg PO DAILY 05/25/14 07/16/24 History Losartan Potassium 100 mg PO DAILY 07/04/17 07/16/24 History Empagliflozin [Jardiance] 25 mg PO DAILY 05/22/21 07/16/24 History Pantoprazole [Protonix] 40 mg PO DAILY 05/22/21 07/16/24 History Rosuvastatin Calcium 10 mg PO DAILY 04/09/22 07/16/24 History Fluticasone/Umeclidin/Vilanter 1 puff INHALATION RT-DAILY 04/14/22 07/16/24 History [Trelegy Ellipta 200-62.5-25] Insulin Glargine,Hum.rec.anlog 40 units SQ HS 08/28/23 07/16/24 History [Cameron Varela Solostaustin] Alfuzosin HCl [Uroxatral ER] 10 mg PO DAILY 01/07/24 07/16/24 History Meclizine [Antivert] 25 mg PO TID PRN 07/16/24 07/16/24 History Allergies Allergy/AdvReac Type Severity Reaction Status Date / Time Penicillins Allergy Rash/Hives Verified 07/16/24 12:19 Physical Exam Osteopathic Statement: *. No significant issues noted on an osteopathic structural exam other than those noted in the History and Physical/Consult. Vitals: Vital Signs Temp Pulse Resp BP Pulse Ox 07/16/24 15:07 63 22 121/79 97 07/16/24 13:10 62 18 07/16/24 13:02 61 18 07/16/24 11:25 97.5 F L 76 20 168/78 99 Intake and Output 07/16/24 07/16/24 07/16/24 06:59 14:59 22:59 Other: Weight 91.626 kg Results CBC & Chem 7: 07/16/24 12:03 07/16/24 12:42 Labs: Abnormal Lab Results - Last 24 Hours (Table) 07/16/24 07/16/24 07/16/24 Range/Units 12:03 12:42 12:42 WBC 10.15 H (4.50-10.00) 10*3/uL Hgb 17.2 H (13.0-17.0) g/dL MCH 33.3 H (27.0-32.0) pg Immature Gran # 0.06 H (0.00-0.04) 10*3/uL Eosinophils # 0.95 H (0.04-0.35) 10*3/uL APTT 21.9 L (22.0-30.0) sec Sodium 136 L (137-145) mmol/L Glucose 112 H (74-99) mg/dL Magnesium 1.2 L (1.6-2.3) mg/dL
[2024-07-16 18:25] LABS: Glucose,Whole Blood 251 mg/dL (70-110)
[2024-07-16] MEDS: INSULIN LISPRO (HumaLOG) 100 UNIT/ML 10 mL VL SQ SCH (18:31)
[2024-07-16] MEDS: ACETAMINOPHEN TAB 325 MG TAB PO PRN (18:38)
[2024-07-16 18:48] LABS: Glucose,Whole Blood 261 mg/dL (70-110)
[2024-07-16] MEDS: amLODIPine 5 MG TAB PO SCH (18:51)
[2024-07-16] MEDS: hydrALAZINE HCL 25 MG TAB PO SCH (18:51)
[2024-07-16] MEDS: traZODone HCL 50 MG TAB PO SCH (19:54)
[2024-07-16] MEDS: ATORVASTATIN 40 MG TAB PO SCH (19:54)
[2024-07-16] MEDS: INSULIN GLARGINE (LANTUS) 100 UNIT/ML SYR SQ SCH (22:13)
[2024-07-17 06:07] LABS: African American GFR (CKD) >90 (>60 ml/min/1.73 sqM); Anion Gap 11 mmol/L; Blood Urea Nitrogen 20 mg/dL (9-20); Calcium 9.4 mg/dL (8.4-10.2); Carbon Dioxide 24 mmol/L (22-30); Chloride 98 mmol/L (98-107); Glucose 217 mg/dL (74-99); Non-African American GFR(CKD) 80 (>60 ml/min/1.73 sqM); Potassium 4.7 mmol/L (3.5-5.1); Sodium 133 mmol/L (137-145)
[2024-07-17 06:35] LABS: Glucose,Whole Blood 219 mg/dL (70-110)
[2024-07-17] MEDS: SYMBICORT 160-4.5 MCG INHALER INHALATION SCH (08:16)
[2024-07-17] MEDS: TIOTROPIUM 2.5 MCG INHALER INHALATION SCH (08:17)
--- NOTE | 2024-07-17 08:28 | P.CRDCN ---
History of Present Illness Consult date: 07/17/24 Consult reason: chest pain History of present illness: This is a 64-year-old male with past medical history of diabetes mellitus type 2, hypertension, hyperlipidemia, tobacco use. We have been asked to evaluate the patient for chest pain. 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 Patient complains of discomfort in the mid area of his chest when he was trying to sleep.this made him feel short of breath. It only occurred when he was la silverio flat or in a recliner. Onset is about 5 days ago. He denies pain or discomfort when he is active. He also states he was recently at the clinic for vertigo. He was treated for an ear infection. Blood pressure 170/81, heart rate 87, pulse ox 96% on room air. Orthostatic vital signs are negative. Patient is status post IV magnesium, IV Solu-Medrol, DuoNeb treatment and has been resumed on his home medications. Patient states he quit smoking 6 weeks ago. -EKG: Sinus rhythm with no acute ST-T wave changes. -Chest x-ray: COPD. Either prominent areas of atelectasis in the lower lungs or developing interstitial infiltrates. Correlate to exclude atypical pneumonia. -Laboratory studies: WBC 10.1, hemoglobin 17.2, D-dimer 0.42. Sodium 133, potassium 4.7, creatinine 1.01 and BUN 20. Troponin negative x 3. Magnesium 1.2. Cepheid viral panel not detected. -Home cardiac medications: Atenolol 50 mg daily, losartan 100 mg daily, rosuvastatin 10 mg daily, also on Jardiance. -Echocardiogram performed at [facility] on 11/01/2021 revealed EF of 50 to 55%. Mild mitral regurgitation. -Lexiscan stress test performed at [facility] on 11/01/2021 revealed no reversible ischemia. Review Of Systems: At the time of my exam: CONSTITUTIONAL: Denies fever or chills. HEENT: Denies blurred vision, vision changes, or eye pain. Denies hemoptysis CARDIOVASCULAR: Denies chest pain. Reports orthopnea. Reports PND. Denies palpitations RESPIRATORY: Denies shortness of breath. GASTROINTESTINAL: Denies abdominal pain. Denies nausea or vomiting. HEMATOLOGIC: Denies bleeding disorders. GENITOURINARY: Denies any blood in urine. SKIN: Denies puritis. Denies rash. Physical examination: Gen: This is a 64-year-old male in no acute distress. VS: reviewed HEENT: Head is atraumatic, normocephalic. Pupils equal, round. Sclerae is anicteric. NECK: Supple. No JVD. LUNGS: Clear to auscultation. No wheezes or rhonchi. No intercostal retractions. HEART: Regular rate and rhythm. No murmur. ABDOMEN: Soft No tenderness. EXTREMITIES: No pedal edema. No calf tenderness. NEUROLOGICAL: Patient is awake, alert and oriented x3. Assessment: Atypical chest pain, acute coronary syndrome ruled out Vertigo with recent treatment for ear infection Diabetes mellitus type 2 Hypertension Hyperlipidemia COPD Tobacco use and dependence, quit 6 weeks ago Secondary polycythemia Obesity with BMI of 29 Plan: Resume patient's home cardiac medications Discontinue atenolol and patient will be started on Coreg following stress test Schedule patient for stress echocardiogram Obtain BNP and lipid panel 1 dose of IV hydralazine prior to stress test Obtain 2-D echocardiogram and Doppler study to assess cardiac structure and function Further recommendations to follow based upon clinical course Smoking cessation. Patient will be provided the [place] quit line information at discharge. Thank you kindly for this consultation. Nurse practitioner note has been reviewed, I agree with documented findings and plan of care. Patient was seen and examined. 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) Past Anesthesia/Blood Transfusion Reactions: No Reported Reaction Past Psychological History: Anxiety Smoking Status: Current every day smoker Past Alcohol Use History: Occasional Past Drug Use History: None Reported - Past Family History Father History Unknown: Yes Mother Family Medical History: No Reported History Additional Family Medical History / Comment(s): HEALTHY Brother(s) Family Medical History: Cancer Medications and Allergies Home Medications Medication Instructions Recorded Confirmed Type atenoloL [Tenormin] 50 mg PO DAILY 05/25/14 07/16/24 History Losartan Potassium 100 mg PO DAILY 07/04/17 07/16/24 History Empagliflozin [Jardiance] 25 mg PO DAILY 05/22/21 07/16/24 History Pantoprazole [Protonix] 40 mg PO DAILY 05/22/21 07/16/24 History Rosuvastatin Calcium 10 mg PO DAILY 04/09/22 07/16/24 History Fluticasone/Umeclidin/Vilanter 1 puff INHALATION RT-DAILY 04/14/22 07/16/24 History [Trelegy Ellipta 200-62.5-25] Insulin Glargine,Hum.rec.anlog 40 units SQ HS 08/28/23 07/16/24 History [Toujeo Max Solostar] Alfuzosin HCl [Uroxatral ER] 10 mg PO DAILY 01/07/24 07/16/24 History Meclizine [Antivert] 25 mg PO TID PRN 07/16/24 07/16/24 History Allergies Allergy/AdvReac Type Severity Reaction Status Date / Time Penicillins Allergy Rash/Hives Verified 07/16/24 12:19 Physical Exam Vitals: Vital Signs Temp Pulse Pulse Pulse Pulse Pulse Resp 07/17/24 01:55 97.6 F 87 18 07/16/24 20:00 97.6 F 74 74 72 72 18 07/16/24 16:40 97.6 F 72 18 07/16/24 16:19 97.7 F 69 16 07/16/24 15:07 63 22 07/16/24 13:10 62 18 07/16/24 13:02 61 18 07/16/24 11:25 97.5 F L 76 20 BP BP BP BP BP Pulse Ox 07/17/24 01:55 170/81 96 07/16/24 20:00 192/84 169/76 169/76 173/81 96 07/16/24 16:40 169/76 96 07/16/24 16:19 146/70 95 07/16/24 15:07 121/79 97 07/16/24 13:10 07/16/24 13:02 07/16/24 11:25 168/78 99 Intake and Output 07/16/24 07/17/24 07/17/24 22:59 06:59 14:59 Intake Total 540 Output Total 550 Balance -10 Intake: Oral 540 Output: Urine 550 Other: Voiding Method Toilet # Voids 2 2 Weight 91.626 kg Results 07/16/24 12:03 07/17/24 05:09 Cardiac Enzymes 07/16/24 07/16/24 07/16/24 Range/Units 12:42 12:42 16:08 AST 32 (17-59) U/L Troponin I <0.012 <0.012 (0.000-0.034) ng/mL 07/16/24 Range/Units 18:45 AST (17-59) U/L Troponin I <0.012 (0.000-0.034) ng/mL Coagulation 07/16/24 Range/Units 12:42 PT 11.4 (10.0-12.5) sec APTT 21.9 L (22.0-30.0) sec CBC 07/16/24 Range/Units 12:03 WBC 10.15 H (4.50-10.00) 10*3/uL RBC 5.17 (4.40-5.60) 10*6/uL Hgb 17.2 H (13.0-17.0) g/dL Hct 48.2 (39.6-50.0) % Plt Count 180 (140-440) 10*3/uL Comprehensive Metabolic Panel 07/16/24 07/17/24 Range/Units 12:42 05:09 Sodium 136 L 133 L (137-145) mmol/L Potassium 3.7 4.7 (3.5-5.1) mmol/L Chloride 101 98 (98-107) mmol/L Carbon Dioxide 25 24 (22-30) mmol/L BUN 17 20 (9-20) mg/dL Creatinine 0.76 1.01 (0.66-1.25) mg/dL Glucose 112 H 217 H (74-99) mg/dL Calcium 9.3 9.4 (8.4-10.2) mg/dL AST 32 (17-59) U/L ALT 43 (4-49) U/L Alkaline Phosphatase 73 (38-126) U/L Total Protein 6.8 (6.3-8.2) g/dL Albumin 4.2 (3.5-5.0) g/dL Current Medications Generic Name Dose Route Start Last Admin Trade Name Freq PRN Reason Stop Dose Admin Acetaminophen 650 mg 07/16/24 15:35 07/17/24 00:30 Acetaminophen Tab 325 Mg Tab PO 650 mg Q6HR PRN Administration Mild Pain or Fever > 100.5 Aspirin 81 mg 07/17/24 09:00 Aspirin 81 Mg PO DAILY [facility] Atenolol 50 mg 07/17/24 09:00 Atenolol 50 Mg Tab PO DAILY [facility] Atorvastatin Calcium 40 mg 07/16/24 21:00 07/16/24 19:54 Atorvastatin 40 Mg Tab PO 40 mg HS [facility] Administration Budesonide/Formoterol Fumarate 2 puff 07/17/24 08:00 Symbicort 160-4.5 Mcg Inhaler INHALATION RT-BID [facility] Dextrose/Water 25 ml 07/16/24 16:01 Dextrose 50% Syringe 50 Ml IVP PER PROTOCOL PRN Hypoglycemia Protocol Dextrose/Water 50 ml 07/16/24 16:01 Dextrose 50% Syringe 50 Ml IVP PER PROTOCOL PRN Hypoglycemia Protocol Enoxaparin Sodium 40 mg 07/17/24 09:00 Enoxaparin 40 Mg/0.4 Ml Syringe SQ DAILY [facility] Insulin Glargine 20 unit 07/16/24 21:00 07/16/24 22:13 Insulin Glargine (Lantus) 100 Unit/Ml Syr SQ 20 unit HS [facility] Administration Insulin Human Lispro 0 unit 07/16/24 17:30 07/17/24 06:27 Insulin Lispro (Humalog) 100 Unit/Ml 10 Ml Vl SQ Not Given ACHS [facility] Protocol Losartan Potassium 100 mg 07/17/24 09:00 Losartan 50 Mg Tab PO DAILY [facility] Meclizine HCl 25 mg 07/16/24 16:44 Meclizine 25 Mg Tab PO TID PRN Vertigo Miscellaneous Information 1 each 07/16/24 13:47 Magnesium Replacement Protocol 1 Each Misc MISCELLANE DAILY PRN Per Protocol Protocol Morphine Sulfate 4 mg 07/16/24 15:35 Morphine Sulfate 4 Mg/Ml Syringe IV Q4HR PRN Severe Pain (Scale 7 to 10) Naloxone HCl 0.2 mg 07/16/24 15:35 Naloxone 0.4 Mg/Ml 1 Ml Vial IV Q2M PRN Opioid Reversal Ondansetron HCl 4 mg 07/16/24 15:35 Ondansetron 4 Mg/2 Ml Vial IVP Q8HR PRN Nausea And Vomiting Pantoprazole Sodium 40 mg 07/17/24 09:00 Pantoprazole 40 Mg Tablet PO DAILY [facility] Tamsulosin HCl 0.4 mg 07/17/24 09:00 Tamsulosin 0.4 Mg Cap.Er.24h PO DAILY [facility] Tiotropium [place] 2 puff 07/17/24 08:00 Tiotropium 2.5 Mcg Inhaler INHALATION RT-DAILY [facility] Trazodone HCl 50 mg 07/16/24 21:00 07/16/24 19:54 Trazodone Hcl 50 Mg Tab PO 50 mg HS [facility]OU Administration Intake and Output 07/16/24 07/17/24 07/17/24 22:59 06:59 14:59 Intake Total 540 Output Total 550 Balance -10 Intake: Oral 540 Output: Urine 550 Other: Voiding Method Toilet # Voids 2 2 Weight 91.626 kg 07/16/24 12:03 07/17/24 05:09
[2024-07-17] MEDS: TAMSULOSIN 0.4 MG CAP.ER.24H PO SCH (08:36)
[2024-07-17] MEDS: PANTOPRAZOLE 40 MG TABLET PO SCH (08:36)
[2024-07-17] MEDS: ASPIRIN 81 MG PO SCH (08:36)
[2024-07-17] MEDS: ENOXAPARIN 40 MG/0.4 ML SYRINGE SQ SCH (08:36)
[2024-07-17] MEDS: LOSARTAN 50 MG TAB PO SCH (08:36)
[2024-07-17] MEDS ORDERED: atenoloL 50 MG TAB PO SCH (09:00)
[2024-07-17] MEDS: hydrALAZINE HCL 20 MG/ML 1 ML VIAL IVP STA (09:32)
[2024-07-17] MEDS: IBUPROFEN 600 MG TAB PO STA (09:38)
--- NOTE | 2024-07-17 12:21 | P.PN ---
Subjective Progress Note Date: 07/17/24 64-year-old man with PMH of COPD, diabetes mellitus, hyperlipidemia and hypertension who presents to the emergency department for further evaluation of chest pressure and dizziness. He states he went to the walk-in clinic this morning and was sent to the emergency room for further evaluation. He states t hat 1 month ago he began having some dizziness related to positional changes, he follow-up with primary care at that time was started on meclizine which she states helped. Approximately 5 to 6 days ago he noticed that he began experiencing some significant chest pain and worsening shortness of breath upon falling asleep. He states that it did not matter if he was sleeping in bed lying flat, with multiple pillows beneath his head, or falling asleep in his recliner he had the same sensation as though he could not catch his breath and would wake up gasping for air with associated chest pain. During the same timeframe, he has noted an increase in the dizziness he had previously been experiencing, also related to changes in position more than anything. Additionally, he notes that with his COPD there is a baseline chest pressure that he normally feels during the day which remains unchanged at this time, the only change he notes is when falling asleep. He recently underwent a sleep study which was normal. He denies any associated fever, chills, cough or changes in urinary/bowel habits. 07/17 - He is seen and evaluated bedside this morning, now on the 6th floor. He is undergoing a stress echo today. He does note some worsening headaches, although this is in the he is dealt with for years, it is bothering him this morning. Toradol 15 mg every 6 hours as needed will be made available to the patient, as he states acetaminophen and ibuprofen do not do much to alleviate his discomfort. REVIEW OF SYSTEMS: Pertinent positives and negatives noted in HPI. Physical Exam: General: nontoxic, no distress, appears at stated age Derm: warm, dry, intact Head: atraumatic, normocephalic, symmetric Eyes: EOMI, anicteric sclera Mouth: no lip lesion, mucus membranes moist Cardiovascular: S1 S2 reg, no murmur, rubs, or gallops Lungs: CTA bilateral, no rales, no accessory muscle use Abdominal: soft, non-tender to palpataion, no appreciable organomegaly Extremities: no gross muscle atrophy, no edema, no contractures Neuro: Alert, Oriented, CNII-XII grossly intact, gait normal Psych: well appearing, appropriate affect Data Received Today: Labs: Sodium 133, potassium 4.7, BUN 20, creatinine 1.01, calcium 9.4 Imagining: No new imaging Assessment and plan 64-year-old man with PMH of COPD, diabetes mellitus, hyperlipidemia and hypertension who presents to the emergency department for further evaluation of chest pressure and dizziness. #Atypical chest pain, ACS ruled out, with associated shortness of breath when sleeping, possibly both secondary to anxiety -Trend troponins: Initial troponin <0.012 -> <0.012 -> <0.012 -Continue with aspirin 81 mg daily and Lipitor 40 mg daily -Echocardiogram ordered, currently pending -Exercise stress echocardiogram to be completed on 07/17/2024; if unremarkable we will consider pulmonology consult for further evaluation of possible lung etiology -Cardiac monitoring -Cardiology consulted -Trazodone 50 mg nightly #Insulin dependent Diabetes -Hold oral medications -Accucheks ACHS -Initiate sliding scale -20 units of Lantus nightly -Hemoglobin A1c 6.8 -Monitor for hypoglycemia #Hypomagnesemia on admission, with a known history of episodic hypomagnesemia -Magnesium this morning 2.6 -Continue to monitor magnesium -Upon discharge, encourage magnesium supplementation for the patient #Dizziness, possibly BPPV -Meclizine 25 mg 3 times daily as needed -Consult physical therapy #Hyperlipidemia -Continue Lipitor as stated above #Hypertension -Continue home antihypertensive medications #Chronic leukocytosis #Chronic polycythemia -Continue to monitor CBC DVT ppx: Lovenox 40 mg daily GI PPx: Protonix 40 mg daily Code status: Full code F: None E: Replete as needed N: Consistent carbohydrate diet A: Ambulatory Anticipated discharge place: Home Anticipated discharge time: Pending clinical course Dictation was produced using [employer] dictation software. please excuse any grammatical, word or spelling errors. Avery Trejo MD PGY-1 IM Addending attestation I have seen and evaluated the patient today. Discussed with the resident and agree with the residents finding and plan as documented in the resident's note. Changes highlighted in blue font. Objective - Vital Signs Vital signs: Vital Signs Temp 97.6 F 07/17/24 01:55 Pulse 87 07/17/24 01:55 Resp 18 07/17/24 01:55 BP 170/81 07/17/24 01:55 Pulse Ox 96 07/17/24 01:55 FiO2 Intake & Output 07/16/24 07/17/24 07/17/24 18:59 06:59 18:59 Intake Total 540 Output Total 550 Balance -10 Weight 91.626 kg Intake: Oral 540 Output: Urine 550 Other: Voiding Method Toilet # Voids 2 - Labs CBC & Chem 7: 07/16/24 12:03 07/17/24 05:09 Labs: Abnormal Lab Results - Last 24 Hours (Table) 07/16/24 07/16/24 07/16/24 Range/Units 12:03 12:42 12:42 WBC 10.15 H (4.50-10.00) 10*3/uL Hgb 17.2 H (13.0-17.0) g/dL MCH 33.3 H (27.0-32.0) pg Immature Gran # 0.06 H (0.00-0.04) 10*3/uL Eosinophils # 0.95 H (0.04-0.35) 10*3/uL APTT 21.9 L (22.0-30.0) sec Sodium 136 L (137-145) mmol/L Glucose 112 H (74-99) mg/dL POC Glucose (mg/dL) (70-110) mg/dL Magnesium 1.2 L (1.6-2.3) mg/dL 07/16/24 07/16/24 07/17/24 Range/Units 18:24 18:46 05:09 WBC (4.50-10.00) 10*3/uL Hgb (13.0-17.0) g/dL MCH (27.0-32.0) pg Immature Gran # (0.00-0.04) 10*3/uL Eosinophils # (0.04-0.35) 10*3/uL APTT (22.0-30.0) sec Sodium 133 L (137-145) mmol/L Glucose 217 H (74-99) mg/dL POC Glucose (mg/dL) 251 H 261 H (70-110) mg/dL Magnesium (1.6-2.3) mg/dL 07/17/24 Range/Units 06:34 WBC (4.50-10.00) 10*3/uL Hgb (13.0-17.0) g/dL MCH (27.0-32.0) pg Immature Gran # (0.00-0.04) 10*3/uL Eosinophils # (0.04-0.35) 10*3/uL APTT (22.0-30.0) sec Sodium (137-145) mmol/L Glucose (74-99) mg/dL POC Glucose (mg/dL) 219 H (70-110) mg/dL Magnesium (1.6-2.3) mg/dL
[2024-07-17 12:55] LABS: Glucose,Whole Blood 288 mg/dL (70-110)
--- NOTE | 2024-07-17 13:26 | CA ---
Transthoracic Echo Report Name: Kedar Awan Age: 64 Gender: M : 1960 Exam Date: 07/17/2024 10:35 Exam Location: [facility] Ht (in): 69 Wt (lb): 202 Ordering Physician: Eduardo Trejo MD Attending/Referring Phys: [facility] [employer] Abbey Ndiaye RDCS Procedure CPT: Indications: Chest Pain Cardiac Hx: Technical Quality: Fair Contrast 1: Total Dose (mL): Contrast 2: Total Dose (mL): MEASUREMENTS (Male / Female) Normal Values 2D ECHO LV Diastolic Diameter PLAX 5.5 cm 4.2 - 5.9 / 3.9 - 5.3 cm LV Systolic Diameter PLAX 3.4 cm IVS Diastolic Thickness 1.1 cm 0.6 - 1.0 / 0.6 - 0.9 cm LVPW Diastolic Thickness 0.9 cm 0.6 - 1.0 / 0.6 - 0.9 cm LV Relative Wall Thickness 0.4 RV Internal Dim ED PLAX 3.6 cm LA Systolic Diameter LX 3.2 cm 3.0 - 4.0 / 2.7 - 3.8 cm LV Diastolic Volume MOD 4C 88.9 cm??? LV Systolic Volume MOD 4C 42.0 cm??? LV Ejection Fraction MOD 4C 52.7 % LV Cardiac Index MOD 4C 1931.4 cm???/min???m??? LV Diastolic Length 4C 9.6 cm LV Systolic Length 4C 8.4 cm LV Diastolic Volume MOD 2C 101.0 cm??? LV Systolic Volume MOD 2C 41.7 cm??? LV Ejection Fraction MOD 2C 58.7 % LV Cardiac Index MOD 2C 2441.6 cm???/min???m??? LV Diastolic Length 2C 9.4 cm LV Systolic Length 2C 7.8 cm LA Volume 39.0 cm??? 18 - 58 / 22 - 52 cm??? LA Volume Index 18.3 cm???/m??? 16 - 28 cm???/m??? M-MODE Aortic Root Diameter MM 3.5 cm DOPPLER AV Peak Velocity 132.7 cm/s AV Peak Gradient 7.0 mmHg MV Area PHT 3.2 cm??? Mitral E Point Velocity 77.2 cm/s Mitral A Point Velocity 102.5 cm/s Mitral E to A Ratio 0.8 MV Deceleration Time 237.2 ms PV Peak Velocity 204.3 cm/s PV Peak Gradient 16.7 mmHg PV Mean Velocity 119.6 cm/s PV Mean Gradient 7.0 mmHg PV Velocity Time Integral 37.5 cm FINDINGS Left Ventricle Left ventricular ejection fraction is estimated at 55-60 %. Left ventricular cavity size normal. Mildly increased septal wall thickness. Normal left ventricular wall motion. Right Ventricle . Unable to estimate the right ventricular systolic pressure.normal right ventricular size. Right Atrium Normal right atrial size. No right atrial thrombus or mass seen. Left Atrium Normal left atrial size. No left atrial thrombus or mass present. Mitral Valve Structurally normal mitral valve. No mitral stenosis, regurgitation or prolapse. Aortic Valve Trileaflet aortic valve. No aortic valve stenosis or regurgitation. Tricuspid Valve Structurally normal tricuspid valve. No tricuspid stenosis, regurgitation or prolapse. Pulmonic Valve Pulmonic valve not well visualized. Valvular pulmonic stenosis. Pericardium No pericardial effusion. Aorta Normal size aortic root and proximal ascending aorta. CONCLUSIONS LVEF 55% No obvious regional wall motion abnormality No significant valvular dysfunction No significant chamber size abnormality appreciated Previewed by: Dr Shane Beaver (Electronically Signed) Final Date: 17 July 2024 13:25
--- NOTE | 2024-07-17 13:28 | CA ---
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 Cardiac Medications: Medications in past 24 hours: Contrast: Stress Results Protocol: Constantino Total dose(mL): Exercise Duration (min:sec): Max ST Depression (mm): Angina Score: Sun Score: METS: 9.5 Resting HR: 78 Resting BP: 136 / 63 Peak HR: 137 Peak BP: 175 / 63 Max Predicted HR: 158 87 % Max Predicted HR Target HR: 134 Double Product: [id number] Stress Summary: BP Response: Reason for Termination: Reached target heart rate or work-load, Maximal effort/unable to continue Cardiac Symptoms: No symptoms ECG Analysis Resting ECG: Normal sinus rhythm Stress ECG: No significant ST-T wave changes that are diagnostic for ischemia Arrhythmia: No significant arrhythmias or ectopic beats noticed during the stress test Echo Analysis Resting Echo: Normal global and segmental systolic function with no resting regional wall motion abnormality Peak Echo Analysis: Normal augmentation of global and segmental systolic function with no stress-induced regional wall motion abnormality MEASUREMENTS (Male/Female) Normal Values CONCLUSIONS Fair exercise tolerance for age achieving 9.3 METS Normal hemodynamic and clinical response to treadmill exercise Nonischemic ECG and echocardiographic response to treadmill exercise Overall low probability for severe obstructive CAD Dr Shane Beaver (Electronically Signed) Final Date: 17 July 2024 13:28
[2024-07-17] MEDS: KETOROLAC 15 MG/ML 1 ML VIAL IVP PRN (16:59)
[2024-07-17 17:43] LABS: Glucose,Whole Blood 255 mg/dL (70-110)
[2024-07-17 19:23] LABS: Glucose,Whole Blood 261 mg/dL (70-110)
[2024-07-18] MEDS: MECLIZINE 25 MG TAB PO PRN (04:24)
[2024-07-18 05:13] LABS: African American GFR (CKD) >90 (>60 ml/min/1.73 sqM); Anion Gap 10 mmol/L; Blood Urea Nitrogen 23 mg/dL (9-20); Calcium 8.7 mg/dL (8.4-10.2); Carbon Dioxide 25 mmol/L (22-30); Chloride 100 mmol/L (98-107); Glucose 229 mg/dL (74-99); Magnesium 2.3 mg/dL (1.6-2.3); Non-African American GFR(CKD) 89 (>60 ml/min/1.73 sqM); Potassium 3.7 mmol/L (3.5-5.1); Sodium 135 mmol/L (137-145)
[2024-07-18 08:00] VITALS: BP 142/81; PULSE 78; RESP 15; TEMP 97.5
[2024-07-18 08:13] LABS: Glucose,Whole Blood 174 mg/dL (70-110)
--- NOTE | 2024-07-18 08:32 | P.PN ---
Subjective Progress Note Date: 07/18/24 Consult reason: chest pain History of present illness: This is a 64-year-old male with past medical history of diabetes mellitus type 2, hypertension, hyperlipidemia, tobacco use. We have been asked to evaluate the patient for chest pain. 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 Patient complains of discomfort in the mid area of his chest when he was trying to sleep.this made him feel short of breath. It only occurred when he was laying flat or in a recliner. Onset is about 5 days ago. He denies pain or discomfort when he is active. He also states he was recently at the clinic for vertigo. He was treated for an ear infection. Blood pressure 170/81, heart rate 87, pulse ox 96% on room air. Orthostatic vital signs are negative. Patient is status post IV magnesium, IV Solu-Medrol, DuoNeb treatment and has been resumed on his home medications. Patient states he quit smoking 6 weeks ago. -EKG: Sinus rhythm with no acute ST-T wave changes. -Chest x-ray: COPD. Either prominent areas of atelectasis in the lower lungs or developing interstitial infiltrates. Correlate to exclude atypical pneumonia. -Laboratory studies: WBC 10.1, hemoglobin 17.2, D-dimer 0.42. Sodium 133, potassium 4.7, creatinine 1.01 and BUN 20. Troponin negative x 3. Magnesium 1.2. Cepheid viral panel not detected. -Home cardiac medications: Atenolol 50 mg daily, losartan 100 mg daily, rosuvastatin 10 mg daily, also on Jardiance. -Echocardiogram performed at [facility] on 11/01/2021 revealed EF of 50 to 55%. Mild mitral regurgitation. -Lexiscan stress test performed at [facility] on 11/01/2021 revealed no reversible ischemia. 07/18 Patient seen and examined. Yesterday patient underwent stress echocardiogram which was normal. He also had an echocardiogram done with EF of 55 to 60%. No obvious valvular abnormalities. Results of testing reviewed with the patient. Blood pressure this morning 142/81, heart rate is in the 70s, pulse ox 98% on room air. A1c came back at 6.8. Magnesium 2.3. Sodium 135, potassium 3.7, creatinine 0.92. Patient has been seen by pulmonary medicine and cleared for discharge. Yesterday, we discontinued atenolol. Physical examination: Gen: This is a 64-year-old male in no acute distress. VS: reviewed HEENT: Head is atraumatic, normocephalic. Pupils equal, round. Sclerae is anicteric. NECK: Supple. No JVD. LUNGS: Clear to auscultation. No wheezes or rhonchi. No intercostal retractions. HEART: Regular rate and rhythm. No murmur. ABDOMEN: Soft No tenderness. EXTREMITIES: No pedal edema. No calf tenderness. NEUROLOGICAL: Patient is awake, alert and oriented x3. Assessment: Atypical chest pain, acute coronary syndrome ruled out Vertigo with recent treatment for ear infection Diabetes mellitus type 2 Hypertension Hyperlipidemia COPD Tobacco use and dependence, quit 6 weeks ago Secondary polycythemia Obesity with BMI of 29 Plan: Continue patient's home cardiac medications Discontinue atenolol and patient will be started on Coreg 6.25 mg twice daily Patient is cleared for discharge from cardiology. Patient may follow-up in the office in [address] Beaver. Smoking cessation. Patient will be provided the [employer] quit line information at discharge. Nurse practitioner note has been reviewed, I agree with documented findings and plan of care. Patient was seen and examined. Objective - Vital Signs Vital signs: Vital Signs Temp 97.5 F L 07/18/24 07:00 Pulse 78 07/18/24 07:00 Resp 15 07/18/24 07:00 BP 142/81 07/18/24 07:00 Pulse Ox 98 07/18/24 07:00 FiO2 Intake & Output 07/17/24 07/18/24 07/18/24 18:59 06:59 18:59 Other: # Voids 1 2 - Labs CBC & Chem 7: 07/16/24 12:03 07/18/24 03:59 Labs: Abnormal Lab Results - Last 24 Hours (Table) 07/17/24 07/17/24 07/17/24 Range/Units 05:09 12:38 17:36 Sodium (137-145) mmol/L BUN (9-20) mg/dL Glucose (74-99) mg/dL POC Glucose (mg/dL) 288 H 255 H (70-110) mg/dL Magnesium 2.6 H (1.5-2.4) mg/dL 0407/18/24 07/18/24 Range/Units 19:22 03:59 08:12 Sodium 135 L (137-145) mmol/L BUN 23 H (9-20) mg/dL Glucose 229 H (74-99) mg/dL POC Glucose (mg/dL) 261 H 174 H (70-110) mg/dL Magnesium (1.5-2.4) mg/dL
[2024-07-18 08:39] LABS: Chol/HDL Ratio 5.23 Ratio; LDL Cholesterol,Calculated 61.9 mg/dL (0.0-131.0)
[2024-07-18] MEDS: carvediloL 6.25 MG TAB PO SCH (09:02)
--- NOTE | 2024-07-18 10:22 | P.DS ---
Providers Date of admission: 07/16/24 15:35 Attending physician: Sheryl Ann MD Consults: 07/16/24 15:35 Consult Physician Routine Consulting Provider: Иван Lugo Consult Reason/Comments: chest pain Do you want consulting provider notified?: Yes 07/17/24 15:59 Consult Physician Routine Consulting Provider: Luis Manuel Yarbrough Consult Reason/Comments: Shortness of breath & Chest pain, JAVIER r/o Do you want consulting provider notified?: Yes Primary care physician: Deirdre Zafar MD Hospital Course: Discharge diagnoses; #Atypical chest pain, ACS ruled out, with associated shortness of breath when sleeping, possibly both secondary to anxiety #Insulin dependent Diabetes #Hypomagnesemia on admission, with a known history of episodic hypomagnesemia #Positional dizziness, possibly BPPV #Hyperlipidemia #Hypertension #Chronic leukocytosis #Chronic polycythemia Hospital course; 64-year-old man with PMH of COPD, diabetes mellitus, hyperlipidemia and hypertension who presents to the emergency department for further evaluation of chest pressure and dizziness. He states he went to the walk-in clinic this morning and was sent to the emergency room for further evaluation. He states that 1 month ago he began having some dizziness related to positional changes, he follow-up with primary care at that time was started on meclizine which she states helped. Approximately 5 to 6 days ago he noticed that he began experiencing some significant chest pain and worsening shortness of breath upon falling asleep. During his stay he underwent a chest x-ray which showed evidence of COPD. He underwent an echocardiogram which showed an EF of 55%, as well as stress echo showed fair exercise tolerance for his age with normal hemodynamic and clinical response to treadmill exercise. He was seen and evaluated by cardiology who ruled out ACS and made 1 medication change, discontinuing one of his previous medications and switching it to a different medication. Additionally, he was seen and evaluated by pulmonology. Discussed in great detail with him, the importance of regular follow-up with his primary care physician, cardiology as well as pulmonology. He will have follow-ups with each of these practitioners within 1 to 2 weeks of discharge. He is very excited, and ready to be discharged this morning. Recommend outpatient physical therapy for evaluation of BPPV and education on Koki maneuver. Physical Exam: General: nontoxic, no distress, appears at stated age Derm: warm, dry, intact Head: atraumatic, normocephalic, symmetric Eyes: EOMI, anicteric sclera Mouth: no lip lesion, mucus membranes moist Cardiovascular: S1 S2 reg, no murmur, rubs, or gallops Lungs: CTA bilateral, no rales, no accessory muscle use Abdominal: soft, non-tender to palpataion, no appreciable organomegaly Extremities: no gross muscle atrophy, no edema, no contractures Neuro: Alert, Oriented, CNII-XII grossly intact, gait normal Psych: well appearing, appropriate affect Dictation was produced using [employer] dictation software. please excuse any grammatical, word or spelling errors. Avery Trejo MD PGY-1 IM I saw and evaluated the patient during the vergara and critical portions of this encounter, and discussed the case in detail with the resident author of this note, I agree with the Assessment and Plan, and my changes, if any, are highlighted in blue. Patient Condition at Discharge: Good Plan - Discharge Summary Discharge Rx Participant: No New Discharge Prescriptions: New carvediloL [Coreg] 6.25 mg PO BID-W/MEALS #60 tab Atorvastatin [Lipitor] 40 mg PO HS #30 tab Continue Losartan Potassium 100 mg PO DAILY Fluticasone/Umeclidin/Vilanter [Trelegy Ellipta 200-62.5-25] 1 puff INHALATION RT-DAILY Alfuzosin HCl [Uroxatral ER] 10 mg PO DAILY Pantoprazole [Protonix] 40 mg PO DAILY Empagliflozin [Jardiance] 25 mg PO DAILY Insulin Glargine,Hum.rec.anlog [Cameron Moffett] 40 units SQ HS Meclizine [Antivert] 25 mg PO TID PRN #21 tab PRN Reason: Vertigo Discontinued atenoloL [Tenormin] 50 mg PO DAILY Rosuvastatin Calcium 10 mg PO DAILY Discharge Medication List Losartan Potassium 100 mg PO DAILY 07/04/17 [History] Empagliflozin [Jardiance] 25 mg PO DAILY 05/22/21 [History] Pantoprazole [Protonix] 40 mg PO DAILY 05/22/21 [History] Fluticasone/Umeclidin/Vilanter [Trelegy Ellipta 200-62.5-25] 1 puff INHALATION RT-DAILY 04/14/22 [History] Insulin Glargine,Hum.rec.anlog [Cameron Fierroostar] 40 units SQ HS 08/28/23 [History] Alfuzosin HCl [Uroxatral ER] 10 mg PO DAILY 01/07/24 [History] Atorvastatin [Lipitor] 40 mg PO HS #30 tab 07/18/24 [Rx] Meclizine [Antivert] 25 mg PO TID PRN #21 tab 07/18/24 [Rx] carvediloL [Coreg] 6.25 mg PO BID-W/MEALS #60 tab 07/18/24 [Rx] Follow up Appointment(s)/Referral(s): Shane Beaver MD [Medical Doctor] - 1 Week Deirdre Zafar MD [Primary Care Provider] - 1-2 days Luis Manuel Yarbrough DO [Doctor of Osteopathic Medicine] - 1 Week Activity/Diet/Wound Care/Special Instructions: Please be sure to follow-up with your primary care physician within 1-3 days of discharge. Discussed with primary care possibility of obtaining a referral to see physical therapy for potential further workup of BPPV. Please be sure to follow-up with cardiology within 1-2 weeks of discharge. Please be sure to follow-up with pulmonology within 1-2 weeks of discharge. Discharge Disposition: HOME SELF-CARE
--- NOTE | 2024-07-18 11:26 | P.CNPUL ---
History of Present Illness Consult date: 07/18/24 Requesting physician: Eduardo Trejo Reason for consult: COPD Chief complaint: Chest pain History of present illness: This is a pleasant 64-year-old male patient with a known history of hypertensi on, hyperlipidemia, diabetes mellitus, gastroesophageal reflux disease, CVA/TIA, chronic obstructive pulmonary disease with chronic and ongoing tobacco dependence of greater than 50 years. Stating he quit 2 months ago. He had presented here to the emergency room on 07/16/2024 after having complaints of chest pain and discomfort while in his recliner sleeping at night. Had some episodes of dizziness. EKG revealed sinus rhythm with no ST or T wave abnormalities. Troponins were negative x 3. White count 10.1. Hemoglobin 17.2. Platelets 180. Sodium 135. Potassium 3.7. Bicarb 25. BUN 23. Creatinine 0.92. Glucose 174. Viral screen was negative for influenza A/B, RSV and COVID. Chest x-ray shows evidence of COPD. Subtle interstitial infiltrates. Echocardiogram revealed preserved left ventricular systolic function with ejection fraction 55 to 60%. No significant valvular abnorm alities. Stress test revealed low probability for severe obstructive coronary artery disease. He is seen today in consultation on the regular medical floor. He is currently sitting up in bed. Awake and alert in no acute distress. He denies any worsening shortness of breath, cough or congestion. No further chest discomfort. He is maintaining good O2 saturations in the 90s on room air. He is afebrile. Hemodynamically stable. He remains on Symbicort, Spiriva. Review of Systems REVIEW OF SYSTEMS: CONSTITUTIONAL: Denies any recent significant weight loss or weight gain. EYES: Denies change in vision. EARS, NOSE, MOUTH, THROAT: Denies headaches, denies sore throat. CARDIOVASCULAR: Positive for atypical chest pain, no palpitations or syncopal episodes. RESPIRATORY: Denies shortness of breath, cough, congestion or hemoptysis. GASTROINTESTINAL: Denies change in appetite, denies abdominal pain GENITOURINARY: Denies hematuria, denies infections. MUSKULOSKELETAL: Denies pain, denies swelling. INTEGUMENTARY: Denies rash, denies eczema. NEUROLOGICAL: Denies recent memory loss, no recent seizure activity. PSYCHIATRIC: Denies anxiety, denies depression. HEMATOLOGIC/LYMPHATIC: Denies anemia, denies enlarged lymph nodes. 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) Past Anesthesia/Blood Transfusion Reactions: No Reported Reaction Past Psychological History: Anxiety Smoking Status: Current every day smoker Past Alcohol Use History: Occasional Past Drug Use History: None Reported - Past Family History Father History Unknown: Yes Mother Family Medical History: No Reported History Additional Family Medical History / Comment(s): HEALTHY Brother(s) Family Medical History: Cancer Medications and Allergies Home Medications Medication Instructions Recorded Confirmed Type Losartan Potassium 100 mg PO DAILY 07/04/17 07/16/24 History Empagliflozin [Jardiance] 25 mg PO DAILY 05/22/21 07/16/24 History Pantoprazole [Protonix] 40 mg PO DAILY 05/22/21 07/16/24 History Fluticasone/Umeclidin/Vilanter 1 puff INHALATION RT-DAILY 04/14/22 07/16/24 History [Trelegy Ellipta 200-62.5-25] Insulin Glargine,Hum.rec.anlog 40 units SQ HS 08/28/23 07/16/24 History [Toujeo Max Solostar] Alfuzosin HCl [Uroxatral ER] 10 mg PO DAILY 01/07/24 07/16/24 History Atorvastatin [Lipitor] 40 mg PO HS #30 tab 07/18/24 Rx Meclizine [Antivert] 25 mg PO TID PRN #21 tab 07/18/24 Rx carvediloL [Coreg] 6.25 mg PO BID-W/MEALS #60 tab 07/18/24 Rx Allergies Allergy/AdvReac Type Severity Reaction Status Date / Time Penicillins Allergy Rash/Hives Verified 07/16/24 12:19 Physical Exam Vitals: Vital Signs Temp Pulse Pulse Pulse Resp BP BP 07/18/24 07:00 97.5 F L 76 77 78 15 129/85 142/81 07/18/24 03:40 98.1 F 87 18 140/65 07/17/24 20:00 97.5 F L 77 87 82 18 158/74 149/81 07/17/24 13:02 97.5 F L 77 18 146/76 BP Pulse Ox 07/18/24 07:00 146/78 98 07/18/24 03:40 96 07/17/24 20:00 154/74 96 07/17/24 13:02 96 Intake and Output 07/17/24 07/18/24 07/18/24 22:59 06:59 14:59 Other: # Voids 2 2 GENERAL EXAM: Alert, active, 64-year-old male, on room air oxygen, comfortable in no apparent distress. HEAD: Normocephalic. EYES: Normal reaction of pupils, equal size. NOSE: Clear with pink turbinates. THROAT: No erythema or exudates. NECK: No masses, no JVD. CHEST: No chest wall deformity. LUNGS: Equal air entry with no crackles, wheeze, rhonchi or dullness. CVS: S1 and S2 normal with no audible murmur, regular rhythm. ABDOMEN: No hepatosplenomegaly, normal bowel sounds, no guarding or rigidity. SPINE: No scoliosis or deformity SKIN: No rashes CENTRAL NERVOUS SYSTEM: No focal deficits, tone is normal in all 4 extremities. EXTREMITIES: There is no peripheral edema. No clubbing, no cyanosis. Peripheral pulses are intact. Results - Laboratory Findings CBC and BMP: 07/16/24 12:03 07/18/24 03:59 PT/INR, D-dimer PT 11.4 sec (10.0-12.5) 07/16/24 12:42 INR 1.0 (<1.2) 07/16/24 12:42 D-Dimer 0.42 mg/L FEU (<0.60) 07/16/24 12:42 Abnormal lab findings: Abnormal Labs 07/16/24 07/16/24 07/16/24 12:03 12:42 12:42 WBC 10.15 H Hgb 17.2 H MCH 33.3 H Immature Gran # 0.06 H Eosinophils # 0.95 H APTT 21.9 L Sodium 136 L BUN Glucose 112 H POC Glucose (mg/dL) Hemoglobin A1c Magnesium 1.2 L Triglycerides VLDL Cholesterol, Calc HDL Cholesterol 07/16/24 07/16/24 07/17/24 18:24 18:46 05:09 WBC Hgb MCH Immature Gran # Eosinophils # APTT Sodium BUN Glucose POC Glucose (mg/dL) 251 H 261 H Hemoglobin A1c 6.8 H Magnesium Triglycerides VLDL Cholesterol, Calc HDL Cholesterol 07/17/24 07/17/24 07/17/24 05:09 05:09 06:34 WBC Hgb MCH Immature Gran # Eosinophils # APTT Sodium 133 L BUN Glucose 217 H POC Glucose (mg/dL) 219 H Hemoglobin A1c Magnesium 2.6 H Triglycerides VLDL Cholesterol, Calc HDL Cholesterol 07/17/24 07/17/24 07/17/24 12:38 17:36 19:22 WBC Hgb MCH Immature Gran # Eosinophils # APTT Sodium BUN Glucose POC Glucose (mg/dL) 288 H 255 H 261 H Hemoglobin A1c Magnesium Triglycerides VLDL Cholesterol, Calc HDL Cholesterol 07/18/24 07/18/24 07/18/24 03:59 03:59 08:12 WBC Hgb MCH Immature Gran # Eosinophils # APTT Sodium 135 L BUN 23 H Glucose 229 H POC Glucose (mg/dL) 174 H Hemoglobin A1c Magnesium Triglycerides 289.00 H VLDL Cholesterol, Calc 57.80 H HDL Cholesterol 28.30 L - Diagnostic Findings Chest x-ray: image reviewed Assessment and Plan Assessment: Atypical chest pain. Acute coronary syndrome ruled out. Stress test revealed no acute ischemia. Echocardiogram without significant abnormalities Chronic obstructive pulmonary disease Chronic and ongoing tobacco dependence of greater than 50 years, stating quit 2 months ago. Maintained on Trelegy Hypertension Hyperlipidemia Diabetes mellitus Plan: The patient was seen and evaluated Chest x-ray, labs and medications reviewed Echocardiogram and stress test results reviewed Stable and on room air oxygen Cleared for discharge from the pulmonary standpoint Continue his home Trelegy and albuterol HFA Follow-up in our office in 1 week I have personally seen and examined the patient, performed the documentation and the assessment and plan as written. Number of minutes spent on the visit: 20 Dictation was produced using [employer] dictation software. Please excuse any grammatical, word or spelling errors. Time with Patient: Greater than 30
[2024-07-18 12:45] LABS: Glucose,Whole Blood 166 mg/dL (70-110)
[2024-07-18] MEDS: INSULIN LISPRO (HumaLOG) 100 UNIT/ML 10 mL VL SQ SCH (13:09)
[2024-07-18 13:42] LABS: Glucose,Whole Blood 211 mg/dL (70-110)
[2024-07-18] MEDS ORDERED: INSULIN GLARGINE (LANTUS) 100 UNIT/ML SYR SQ SCH (21:00)
== END 2024-07-18 13:25 | disposition home or self-care (01) ==
LOC: EC 11:24 → 6NMEDSUR 15:35 → INTOOBSV 15:35 → 6NMEDSUR 16:49
PROVIDERS: ADMIT Internal Medicine; ATTEND Internal Medicine
DX: R07.89 Other chest pain (principal); R42 Dizziness and giddiness; R06.02 Shortness of breath; E83.42 Hypomagnesemia; E11.9 Type 2 diabetes mellitus without complications; I10 Essential (primary) hypertension; J44.9 Chronic obstructive pulmonary disease, unspecified; E78.5 Hyperlipidemia, unspecified; K21.9 Gastro-esophageal reflux disease without esophagitis; F41.9 Anxiety disorder, unspecified; D72.829 Elevated white blood cell count, unspecified; F17.210 Nicotine dependence, cigarettes, uncomplicated; D75.1 Secondary polycythemia; E66.9 Obesity, unspecified; Z68.29 Body mass index [BMI] 29.0-29.9, adult; Z11.52 Encounter for screening for COVID-19; Z86.16 Personal history of COVID-19; Z86.73 Personal history of transient ischemic attack (TIA), and cerebral infarction without residual deficits; Z79.4 Long term (current) use of insulin; Z79.51 Long term (current) use of inhaled steroids; Z79.84 Long term (current) use of oral hypoglycemic drugs; Z79.899 Other long term (current) drug therapy; Z88.0 Allergy status to penicillin
CPT/HCPCS: 96376; 96365; 96366; 96372; 96375 ×2; 99285; 36415; 94640 ×5; 93005; 93306; 93351; 97161; 85379; 80061; 80053; 80048 ×2; 83735 ×3; 84100; 84484; 85025; 85610; 85730; 83036; 87636; 71046; G0378 ×3; J1650; J3475; J1885 ×2; J2919